=== PATIENT | male | born 1940 | race Caucasian/White ===

== ENCOUNTER 2023-04-07 17:21 | Inpatient (IN) | payer MEDICARE, SELFPAY ==
[2023-04-07] VITALS (8 sets, daily range): BP systolic 105–148; BP diastolic 70–100; BMI 24.7
--- NOTE | 2023-04-07 13:10 | ED.GENMED ---
History of Present Illness
<Brittney Davila PA-C - Last Filed: 04/07/23 18:38>
General
Chief Complaint: Breathing Problem
Source: patient
Exam Limitations: none
Time Seen by Provider: 04/07/23 13:10
Nursing documentation reviewed up to this point in time: agreed with
Travel History
Have you had any contact with someone who has COVID-19?: No
Do you have any symptoms of coronavirus? Fever > 100 degrees, chills, cough, shortness of breath, sore throat, loss of taste or smell, muscle aches, or headache?: No
History of Present Illness
History of Present Illness:
This is a 82-year-old male with past medical history of COPD, A-fib on Eliquis presenting the emergency department today with shortness of breath for the past 3 days. He states that the shortnes of breath is worse with lying down and worse with
exertion. Patient states that he sees an ENT doctor for recurrent sinus infections and states that whenever he gets a sinus infection, he gets a COPD exacerbation. He received a call from his ENT today who wants to switch him to cefuroxime for his
sinus infection. Patient was going to go and clam picker the antibiotic today however, his shortness of breath became so severe when walking to the car [facility] that he decided to call EMS for transport to the ER. Patient states that he also has
associated chest tightness and coughing, but denies chest pain, palpitations, back pain. Patient denies fevers or chills, abdominal pain, nausea, vomiting, constipation, diarrhea. Patient states that he uses Symbicort daily for his COPD and uses
ipratropium as needed, he reports he tried his ipratropium inhaler last night which made his symptoms worse. Patient states that feels like his typical COPD exacerbations except more severe. Patient also states that the past few days, he has been
waking up at night, gasping for air. He states that every time he falls asleep, he cannot breathe. Patient denies lower extremity swelling. His brick catcher is Dr. Hinson and his linen grader is Dr. Peterson.
Past History
<Brittney Davila PA-C - Last Filed: 04/07/23 18:38>
Past History
ED Past Medical History: Arrthythmia (Atrial fib), Asthma, CAD, Cancer (Prostate CA), COPD, HTN, Hypercholesterolemia, Valvular disease and Other (chronic sinusitis, colon polyps, Vertigo, Ataxia, PNA,)
ED Past Surgical History: Cardiac (Stents), Urological (prostatectomy) and Other (colon polypectomy)
Social History
Tobacco: Former smoker (quit 45 years ago)
Alcohol: Daily (Vodka 1)
Drug: None
Personal:
Living: with family
Employment: Retired
Family History
Family History: Other (n/c)
Review of Systems
<Brittney Davila PA-C - Last Filed: 04/07/23 18:38>
Review of Systems
All Other Systems: ROS reviewed and negative except as documented in HPI and ROS
Phy Exam
<Brittney Davila PA-C - Last Filed: 04/07/23 18:38>
Physical Exam
Physical Exam:
General: patient is well appearing
Skin: warm and dry, no rashes or lesions
Cardiac: heart rate is irregularly irregular, no murmur heard. No JVD.
Peripheral Vascular: 2+ dp/pt pulses b/l. No lower extremity edema.
Pulm: increased respiratory effort, increased respiratory rate, conversational dyspnea, scattered wheezing heard diffusely bilaterally
Abdomen: abdomen is non-distended, non-tender.
Neuro: AAOx3. CN II-XII intact.
Scores
<Brittney Davila PA-C - Last Filed: 04/07/23 18:38>
Heart Failure Risk
Heart Failure Risk Score: Not Applicable
Course
<Brittney Davila PA-C - Last Filed: 04/07/23 18:38>
Orders/Labs/Results
Orders:
Orders
04/07/23 11:49
EKG [Electrocardiogram (*1)] Urgent
Reason for Study: Shortness of Breath
EKG- Treatment ONCE
04/07/23 13:32
CR Chest - 2 Views Urgent
Comment:
Reason For Exam: shortness of breath
04/07/23 13:55
Complete Blood Count/With Diff Urgent
Comprehensive Metabolic Panel Urgent
04/07/23 13:56
Add On- LAB Urgent
Tests Added?: troponin
Diltiazem 125 mg/125 ml Nss [Cardizem] 125 mg in 125 ml IV NOW
Initial dose in mg/hr, then titrate:: 5
Titrate to keep:: Heart rate 80-100 bpm
Titrate by mg/hr:: 5 mg/hr
Frequency of titrations (minutes):: 15
Maximum dose in mg/hr:: 15
Diltiazem HCl [Cardizem] 5 mg IV NOW STA
04/07/23 13:59
Ipratropium Nebs [Atrovent Nebules] 0.5 mg INH R NOW STA
04/07/23 14:08
Ipratropium/Albuterol Sulfate [Duoneb] 3 ml .ROUTE .STK-MED ONE
04/07/23 14:15
NT-proBNP Urgent
Troponin I Urgent
Comment: ADD ON
04/07/23 15:19
CefTRIAXone [Rocephin] 1,000 mg IV NOW STA
Dexamethasone Sod Phosphate [Decadron] 4 mg IV NOW STA
Doxycycline Hyclate [Vibramycin] 100 mg 0.9% Sodium Chloride 250 ml [Nss] 250 ml IV NOW
04/07/23 15:44
Doxycycline [Vibramycin] 100 mg PO NOW STA
04/07/23 16:16
Amiodarone [Cordarone] 150 mg Dextrose 5%/Water 100 ml [D5w] 100 ml IV NOW
04/07/23 16:18
Admit/Transfer Patient As Directed
Co-Sign Provider:
Level of Care: Inpatient admission
Assign to:: Telemetry
Physician / Group: Dr. Jorje Nayak
Diagnosis: CHF
Reason for Telemetry: Subacute Heart Failure
Date to Stop Telemetry: 04/09/23
Time to Stop Telemetry: 11:00
Reason for Hospitalization: As above
Expected length of stay greater than two midnights?: Yes
ELOS- Estimated Length of Stay in days: 2
I certify the patient meets the requirements for IP care: Yes
04/07/23 16:23
Code Status As Directed
Resuscitation Status: Full Code
04/07/23 16:28
Furosemide [Lasix] 40 mg IV NOW STA
04/09/23 11:00
DC Protocol for Telemetry ONCE
Abnormal Lab Results
04/07/23
13:55
WBC 11.1 H 10^3/uL
(4.8-10.8)
RBC 4.69 L 10^6/uL
(4.70-6.10)
MCV 95.5 H fL
(80.0-94.0)
MCH 33.0 H pg
(27.0-31.0)
RDW 15.0 H %
(11.5-14.5)
MPV 10.5 H fL
(7.4-10.4)
Abs Immat Gran (auto) 0.1 H 10^3/uL
(0-0.05)
Absolute Neuts (auto) 9.4 H 10^3/uL
(1.4-6.5)
Absolute Lymphs (auto) 0.7 L 10^3/uL
(1.2-3.4)
Absolute Monos (auto) 0.9 H 10^3/uL
(0.1-0.6)
Neutrophils % 84.5 H %
(42.2-75.2)
Lymphocytes % 5.9 L %
(20.5-51.1)
BUN 26 H mg/dl
(9-20)
Creatinine 1.4 H mg/dL
(0.7-1.3)
04/07/23 13:55
04/07/23 13:55
Vital Signs
Initial and Last Documented VS:
Initial Vital Signs
Temp Pulse Resp BP Pulse Ox
97.9 F 134 18 148/100 96
04/07/23 11:46 04/07/23 11:46 04/07/23 11:46 04/07/23 11:46 04/07/23 11:46
Last Documented Vital Signs
Temp Pulse Resp BP Pulse Ox
97.9 F 111 10 105/73 98
04/07/23 11:46 04/07/23 16:38 04/07/23 14:30 04/07/23 16:38 04/07/23 14:30
[place];Mikel Tavarez, DO - Last Filed: 04/07/23 15:43>
Orders/Labs/Results
Orders:
Orders
04/07/23 11:49
EKG [Electrocardiogram (*1)] Urgent
Reason for Study: Shortness of Breath
EKG- Treatment ONCE
04/07/23 13:32
CR Chest - 2 Views Urgent
Comment:
Reason For Exam: shortness of breath
04/07/23 13:55
Complete Blood Count/With Diff Urgent
Comprehensive Metabolic Panel Urgent
04/07/23 13:56
Add On- LAB Urgent
Tests Added?: troponin
Diltiazem 125 mg/125 ml Nss [Cardizem] 125 mg in 125 ml IV NOW
Initial dose in mg/hr, then titrate:: 5
Titrate to keep:: Heart rate 80-100 bpm
Titrate by mg/hr:: 5 mg/hr
Frequency of titrations (minutes):: 15
Maximum dose in mg/hr:: 15
Diltiazem HCl [Cardizem] 5 mg IV NOW STA
04/07/23 13:59
Ipratropium Nebs [Atrovent Nebules] 0.5 mg INH R NOW STA
04/07/23 14:08
Ipratropium/Albuterol Sulfate [[facility]b] [facility]
04/07/23 14:15
NT-proBNP Urgent
Troponin I Urgent
Comment: ADD ON
04/07/23 15:19
CefTRIAXone [Rocephin] 1,000 mg IV NOW STA
Dexamethasone Sod Phosphate [Decadron] 4 mg IV NOW STA
Doxycycline Hyclate [Vibramycin] 100 mg 0.9% Sodium Chloride 250 ml [Nss] 250 ml IV NOW
04/07/23 15:44
Doxycycline [Vibramycin] 100 mg PO NOW STA
04/07/23 16:16
Amiodarone [Cordarone] 150 mg Dextrose 5%/Water 100 ml [D5w] 100 ml IV NOW
04/07/23 16:18
Admit/Transfer Patient As Directed
Co-Sign Provider:
Level of Care: Inpatient admission
Assign to:: Telemetry
Physician / Group: Dr. Jorje Nayak
Diagnosis: CHF
Reason for Telemetry: Subacute Heart Failure
Date to Stop Telemetry: 04/09/23
Time to Stop Telemetry: 11:00
Reason for Hospitalization: As above
Expected length of stay greater than two midnights?: Yes
ELOS- Estimated Length of Stay in days: 2
I certify the patient meets the requirements for IP care: Yes
04/07/23 16:23
Code Status As Directed
Resuscitation Status: Full Code
04/07/23 16:28
Furosemide [Lasix] 40 mg IV NOW STA
04/09/23 11:00
DC Protocol for Telemetry ONCE
Abnormal Lab Results
04/07/23
13:55
WBC 11.1 H 10^3/uL
(4.8-10.8)
RBC 4.69 L 10^6/uL
(4.70-6.10)
MCV 95.5 H fL
(80.0-94.0)
MCH 33.0 H pg
(27.0-31.0)
RDW 15.0 H %
(11.5-14.5)
MPV 10.5 H fL
(7.4-10.4)
Abs Immat Gran (auto) 0.1 H 10^3/uL
(0-0.05)
Absolute Neuts (auto) 9.4 H 10^3/uL
(1.4-6.5)
Absolute Lymphs (auto) 0.7 L 10^3/uL
(1.2-3.4)
Absolute Monos (auto) 0.9 H 10^3/uL
(0.1-0.6)
Neutrophils % 84.5 H %
(42.2-75.2)
Lymphocytes % 5.9 L %
(20.5-51.1)
BUN 26 H mg/dl
(9-20)
Creatinine 1.4 H mg/dL
(0.7-1.3)
04/07/23 13:55
04/07/23 13:55
Vital Signs
Initial and Last Documented VS:
Initial Vital Signs
Temp Pulse Resp BP Pulse Ox
97.9 F 134 18 148/100 96
04/07/23 11:46 04/07/23 11:46 04/07/23 11:46 04/07/23 11:46 04/07/23 11:46
Last Documented Vital Signs
Temp Pulse Resp BP Pulse Ox
97.9 F 111 10 105/73 98
04/07/23 11:46 04/07/23 16:38 04/07/23 14:30 04/07/23 16:38 04/07/23 14:30
<JENNIFER Lara Last Filed: 04/07/23 18:38>
MDM/Problems Addressed
Differential Diagnosis Includes:
ddx include COPD exacerbation, symptomatic afib, pneumonia, CHF
MDM/Problems Addressed:
shortness of breath
sinnusitis
Chronic conditions affecting care: HTN, Arrhythmia and COPD
Acute Exacerbation and/or Progression of Chronic Illness: HTN, Arrhythmia and COPD
<JENNIFER Lara Last Filed: 04/07/23 18:38>
*Pulse Oximetry
Patient hypoxic: no
*EKG
Interpreted by ED Provider?: Yes
EKG Intrepretation Date: 04/07/23
Interpretation: abnormal
Comparison EKG: changes noted
Heart Rate: 128
Rate: tachycardiac
Rhythm: a-fib
QRS Pattern: left bundle branch block
*Gang Knife Fish Chopper Interpretation
Rate: tachycardiac
Interpretation: abnormal
Heart Rate: 120
Rhythm: a-fib
*Critical Care Note
Total Time (30-74mins, 75-104mins- exclusive of procedures): Not Applicable
Data Reviewed
Review of Other/Old Records Reveals: Records and Discharge Summary (Reviewed discharge summary from 08/11/2022)
<JENNIFER Lara Last Filed: 04/07/23 18:38>
Patient Management
Escalation/DeEscalation of care consider admission/obs:
This is a 82-year-old male with past medical history of COPD, A-fib on Eliquis presenting the emergency department today with shortness of breath for the past 3 days. Patient states that he currently has sinusitis and states that this exacerbates
his COPD. Patient also currently in afib, he states that he is always been A-fib, however his rate today is in the 130s. Patient is anticoagulated and takes metoprolol. On exam, patient has conversational dyspnea and has diffuse wheezing his CBC
reveals a mild leukocytosis, and his CMP demonstrates a mild ENRRIQUE. Patient's chest x-ray revealed moderate pneumonia EKG demonstrated A-fib with RVR. Patient states that he is unable to take diltiazem because of an allergy, and with his current
bronchospasm we are going to start beta-skip, so cardiology was consulted. Patient will be admitted for further management of ENRRIQUE and pneumonia.
ED Attending Note
<Brittney Davila PA-C - Last Filed: 04/07/23 18:38>
-
Portions of this chart may have been created with voice recognition software.� Occasional wrong word or��sound alike� substitutions may have occurred due to the inherent limitations of voice recognition software.
<Mikel Tavarez DO - Last Filed: 04/07/23 15:43>
ED Attending Note
Patient seen and examined by attending physician: Yes
I performed a history and physical exam of patient and discussed management with resident, I reviewed resident's note and agree with documented findings and plan of care.: Yes
ED Attending Note:
I have reviewed and agree with history and treatment plan by Brittney Davila. My exam reveals 82-year-old male with bilateral rhonchi and wheezing, mild decreased breath sounds, tachycardia. Patient has allergies to diltiazem, and known COPD.
Will discuss with cardiology, and admit to hospitalist. IV Rocephin, and doxycycline ordered.
Discharge Plan
Departure
Patient Disposition: Admit
Date of Disposition: 04/07/23
Time of Disposition: 15:33
Presentation/result/management discussed w/ accepting MD/DO: Hospitalist
Patient with high blood pressure during this ER visit?: Yes
Condition: Good
Discharge Problem:
Community acquired pneumonia, COPD (chronic obstructive pulmonary disease)
Interventions
Interventions:
*Risk Screen - Suicide Last Done: 04/07/23 11:46
*General Assessment Last Done: 04/07/23 11:46
*Neglect/Abuse Screening Last Done: 04/07/23 11:46
ED- Fall Risk Assessment Last Done: 04/07/23 11:46
*ED COVID-19 Vaccine History Last Done: 04/07/23 11:46
ED- Cardiac Assessment Last Done: 04/07/23 11:56
ED- Pulmonary Assessment Last Done: 04/07/23 11:46
[2023-04-07 14:07] LABS: % Basophils 0.7 % (0-2); % Eosinophils 0.2 % (0-6); % Immature Granulocytes 0.5 % (0-0.5); % Lymphocytes 5.9 % (20.5-51.1); % Monocytes 8.2 % (1.7-9.3); % Neutrophils 84.5 % (42.2-75.2); Absolute Basophils 0.1 10^3/uL (0-0.2); Absolute Immature Granulocytes 0.1 10^3/uL (0-0.05); Absolute Lymphocytes 0.7 10^3/uL (1.2-3.4); Absolute Monocytes 0.9 10^3/uL (0.1-0.6); Absolute Neutrophils 9.4 10^3/uL (1.4-6.5); Hematocrit 44.8 % (39.0-52.0); Hemoglobin 15.5 g/dL (13.0-18.0); Mean Corp Hgb Conc. 34.6 g/dL (33.0-37.0); Mean Corpuscular Volume 95.5 fL (80.0-94.0); Mean Platelet Volume 10.5 fL (7.4-10.4); Nucleated Red Blood Cells % 0 % (-); Platelet Count 238 10^3/uL (130-400); Red Blood Cell Count 4.69 10^6/uL (4.70-6.10); White Blood Cell Count 11.1 10^3/uL (4.8-10.8)
[2023-04-07 14:14] LABS: ALT (SGPT) 23 U/L (0-50); AST (SGOT) 31 U/L (17-59); Albumin 3.7 g/dl (3.5-5.0); Alkaline Phosphatase 68 U/L (38-126); Blood Urea Nitrogen 26 mg/dl (9-20); Calcium 8.7 mg/dl (8.4-10.2); Carbon Dioxide 24 mmol/L (22-30); Chloride 107 mmol/L (98-107); Estimated Creatinine Clearance 39 ml/min; Glucose 98 mg/dl (70-99); Potassium 3.9 mmol/L (3.5-5.1); Sodium 138 mmol/L (135-145); Total Bilirubin 1.3 mg/dl (0.2-1.3); Total Protein 6.7 g/dl (6.3-8.2); eGFR 49.87
[2023-04-07] MEDS: ATROVENT NEBULES 0.5 MG INH (14:18)
[2023-04-07 15:03] LABS: NT-proBNP 5210 pg/ml; Troponin I < 0.012 ng/ml
--- NOTE | 2023-04-07 15:34 | CON.CAR ---
Addendum entered and electronically signed by Octavio Mchugh MD 04/07/23 17:20:
I saw and examined the patient.
The DEBUG TECHNICIAN's note was reviewed and I agree with the note.
Comment: 82-year-old male with paroxysmal atrial fibrillation on apixaban, heart failure with improved EF (40% -> 50%), coronary artery disease, TAVR for severe aortic stenosis 07/22/2019, and LBBB who presented to the emergency department with a
chief complaint of shortness of breath. Overall, his weight appears ~4 lbs up and appears to be also experiencing a possible COPD exacerbation. His AF with RVR seems to have been ongoing for ~ 1 week.
- IV diuresis today and tomorrow, likely transition to oral tomorrow afternoon or 04/09/2023
- AF RVR amiodarone and metoprolol, possible DCCV prior to discharge
Original Note:
Consultation
Consultation Request
Date/Time Consultation Requested: 04/07/23 15:30
Date/Time Consultation Performed: 04/07/23 15:40
Requesting Provider: Brittney Davila PA-C
Performing Provider: ISMAEL Chacon for Dr. Mchugh
Reason for Consultation: Atrial fibrillation with RVR
Medical History
-
Chief Complaint: Shortness of breath
History of Present Illness:
Luis Pendleton is an 82-year-old male with paroxysmal atrial fibrillation on apixaban, heart failure with improved EF (40% -> 50%), coronary artery disease, TAVR for severe aortic stenosis 07/22/2019, and LBBB who presented to the emergency
department with a chief complaint of shortness of breath. He reports his shortness of breath started approximately 3 days ago. He saw his ENT and reported nasal swab with 'staph infection' and was started on oral antibiotics. However his
shortness of breath persisted. It is worse with exertion and improves with rest. He is not having any chest pain. He checks his oxygen levels at home. He reports his heart rate has been over 100 for the past week. He denies missed doses of
apixaban. He was found to be in atrial fibrillation with rapid ventricular response. Chest x-ray shows small pleural effusions. He reports decreasing his furosemide on his own. He reports that his furosemide was interfering with his quality of
life. He decreased from 40 mg twice daily to 40 mg in the morning and 20 mg in the evening.
Past Medical History
Past Medical History: CAD, Cancer (Prostate), COPD, HTN, Hypercholesterolemia and Valvular Disease (Severe S/P TAVR)
Past Surgical History: Tonsilectomy and Urological
Social History
Tobacco: Former Smoker
Alcohol: None
Employment: Retired
Family History
Family History: Reviewed & Not Pertinent
Allergies / Home Medications
Allergy/AdvReac Type Severity Reaction Status Date / Time
albuterol Allergy Unknown Verified 04/07/23 14:21
animal dander Allergy Shortness Verified 09/15/21 11:14
of Breath
diltiazem Allergy Unknown Verified 04/07/23 14:20
iodine Allergy shellfish Verified 09/15/21 11:14
allergy
pollen extracts Allergy sneezing, Verified 09/15/21 11:14
hayfever
shellfish derived Allergy Anaphylaxis Verified 09/15/21 11:14
tree and shrub pollen Allergy sneezing, Verified 09/15/21 11:14
hayfever
sulphites Allergy Anaphylaxis Uncoded 09/15/21 11:14
WINE Allergy Anaphylaxis Uncoded 09/15/21 11:14
Medication Instructions Recorded Confirmed Type
ascorbic acid (vitamin C) 250 mg 250 mg PO DAILY Supplement 03/31/19 08/07/22 History
tablet
rosuvastatin 5 mg tablet 5 mg PO Q48H High cholesterol 07/14/19 08/07/22 History
Mometasone 1mg Compound 1 spray intranasal BID 02/28/20 08/07/22 History
Lung/breathing issues
calcium carbonate 500 mg calcium 250 mg PO TUWEFR Supplement 02/28/20 08/07/22 History
(1,250 mg) tablet (Oyster Shell
Calcium 500)
cholecalciferol (vitamin D3) 25 1,000 units PO DAILY Supplement 02/28/20 08/07/22 History
mcg (1,000 unit) tablet
loratadine 10 mg tablet 10 mg PO DAILY Allergies 02/28/20 08/07/22 History
montelukast 10 mg tablet 10 mg PO HS Lung/breathing issues 02/28/20 08/07/22 History
multivitamin with folic acid 400 1 tab PO DAILY Supplement 02/28/20 08/07/22 History
mcg tablet (Tab-A-Tl)
nitroglycerin 0.4 mg sublingual 0.4 mg sublingual [id number] PRN 02/28/20 08/07/22 History
tablet chest pain
potassium chloride 20 mEq 20 meq PO DAILY Electrolyte 02/11/21 08/07/22 History
tablet,extended Repletion
release(part/cryst) (Klor-Con M)
amiodarone 200 mg tablet (Pacerone) 200 mg PO DAILY Arrhythmia 08/07/22 08/07/22 History
biotin 1 mg capsule 1 mg PO DAILY Supplement 08/07/22 08/07/22 History
cyanocobalamin (vitamin B-12) 250 250 mcg PO DAILY Supplement 08/07/22 08/07/22 History
mcg tablet
ipratropium bromide 21 mcg (0.03 2 spray intranasal BIDPRN PRN 08/07/22 08/07/22 History
%) nasal spray allergies
levalbuterol tartrate 45 2 puff inhalation R [id number] PRN SOB 08/07/22 08/07/22 History
mcg/actuation aerosol inhaler
metoprolol succinate 50 mg 50 mg PO DAILY Blood Pressure 08/07/22 08/07/22 History
tablet,extended release 24 hr
potassium chloride 20 mEq 10 meq PO HS Electrolyte Repletion 08/07/22 08/07/22 History
tablet,extended release(part/cryst)
apixaban 5 mg tablet (Eliquis) 5 mg PO BID #60 tabs 08/09/22 Rx
clopidogrel 75 mg tablet 75 mg PO DAILY #30 tabs 08/09/22 Rx
furosemide 40 mg tablet 40 mg PO BID AT 0800,1600 #0 tabs 08/09/22 Rx
nitroglycerin 0.4 mg sublingual 0.4 mg sublingual [id number] PRN 08/09/22 Rx
tablet chest pain #0 tabs
Review of Systems
-
History Source: Patient
All other systems: Negative unless noted
Constitutional: Fatigue
EENT: Runny Nose
Respiratory: Trouble Breathing
Physical Exam
Vital Signs
Temp Pulse Resp BP Pulse Ox
97.9 F 121 10 124/89 98
04/07/23 11:46 04/07/23 14:30 04/07/23 14:30 04/07/23 13:18 04/07/23 14:30
Lab Results
04/07/23 13:55
04/07/23 13:55
Troponin I < 0.012 ng/ml 04/07/23 14:15
Qpf-H-Vdwolrjqewy Pept 5210 pg/ml 04/07/23 14:15
Physical Exam
General: Well Developed, Well Nourished, No Apparent Distress and Comfortable
HEENT: Normocephalic, Anicteric and Moist Mucous Membranes
Respiratory: Non Labored Respirations
Cardiac: S1/S2 and Irregular Rhythm; Negative Peripheral Edema
Breast: Deferred by me
GI: Soft, Non Tender, Non Distended and Normal Bowel Sounds
Rectal: Deferred by Provider
Genito-urinary: No Costovertebral Tender
Musculoskeletal: No Clubbing, No Cyanosis and No Edema
Skin: Warm and Dry
Neuro: AO x 3
Hematologic/Lymphatic: No Lymphadenopathy
Psych: Calm
Impression / Plan
-
Atrial fibrillation with RVR
-Diltiazem caused palpitations in the past
-Rates elevated, amiodarone bolus 150mg x 1 now, then 400mg BID for 14 days followed by 200mg daily
-Oral Anticoagulation: Apixaban 5mg BID, denies missed doses and abnormal bleeding
-[id number]: Score 4 (Heart failure, age 75 or more, Vascular disease)
HFpEF, acute on chronic
-Diuresis with furosemide 40mg IV BID, does not appear grossly volume overloaded
-Trend daily weight, I/O, and BMP with diuresis
-Heart failure education
-Update TTE
COPD, he was acutely wheezing per ER, S/P nebulizer
Severe aortic stenosis S/p TAVR (2019), stable on outpatient echocardiogram
CAD, stable without chest pain
LBBB, chronic
Data Reviewed
-
EKG: Report Reviewed by me (Atrial fibrillation with RVR, LBBB, rate 128)
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
Medical Tests (Nuc Med, Echo etc): Report Reviewed by me (Echocardiogram as above)
Labs: Labs Reviewed by me
Old Records: Reviewed
[2023-04-07] MEDS: ROCEPHIN 1000 MG IV (15:40)
[2023-04-07] MEDS: DECADRON 4 MG IV (15:40)
[2023-04-07] MEDS: VIBRAMYCIN 100 MG PO ×2 (16:10→21:05)
--- NOTE | 2023-04-07 16:33 | HPS.HSE ---
Addendum entered and electronically signed by Jorje Nayak MD 04/07/23 17:29:
Patient seen and examined
Discussed with resident
Impression:
Presentation with exertional dyspnea.
Acute CHF preserved EF in the settings of A-fib with rapid ventricular response
Paroxysmal atrial fibrillation with rapid ventricular response
Anticoagulation with Eliquis uninterrupted
ENRRIQUE? Cardiorenal state.
Acute sinusitis.
Pneumonia? Left lower lobe process traced back on prior imaging.
Aortic stenosis status post TAVR.
CAD with history of stenting.
Plan:
Acute CHF preserved EF most likely in the settings of A-fib with RVR
Not hypoxic
No evidence for significant volume overload, although patient reports reduction of p.m. Lasix dose by 50%.
Noted elevated pro CHF BNP above the baseline.
IV Lasix 40 mg IV will be provided in ED
Reassess volume status closely, may need additional IV diuresis versus transitioning to oral.
Paroxysmal A-fib with RVR
Rates up to 130 while in the emergency room.
IV amiodarone provided in ED.
Monitor response
Continue beta-blockade
Hold for chemical cardioversion.
Continue Eliquis
ENRRIQUE? If cardiorenal state with rapid with prerenal stimuli
Monitor closely with diuresis
Monitor for retention
Pneumonia?
Patient reports acute sinusitis recently seen by ENT and initiated on tetracycline
Chest x-ray with left lower lobe linear infiltrate? Atelectasis traced back on CT scan of the chest February 2022.
No cough.
Mild leukocytosis noted.
Will continue antibiotics to cover community-acquired pathogens with ceftriaxone and doxycycline.
Monitor response of dyspnea to IV diuresis in the meantime
Original Note:
Family Physician
-
Family Physician: Rich Spencer
Chief Complaint
-
Dyspnea
History of Present Illness
Luis Vinicio, 82 year-old male, presented to the emergency on 04-07-23 with progressive shortness of breath, even at rest. He states that he got a sinus infection 1 week ago, nasal swab showed 'staph infection' at his ENT's office, and was
started on tetracycline.
Notes that 3 days ago, he started experiencing shortness of breath which continued to worsen. Denies chest pain but the dyspnea is worse with exertion and improves with rest. He has been unable to sleep or lie flat on bed because of the shortness of
breath. He has been prescribed furosemide 40 mg BID, but he has been cutting the evening pill in half to avoid waking up at night frequently for the past few weeks.
His medical history is notable for paroxysmal atrial fibrillation on apixaban, heart failure with improved EF (40% -> 50%), coronary artery disease, TAVR for severe aortic stenosis 07/22/2019, and LBBB. He was found to be in atrial fibrillation with
rapid ventricular response in the ED and received amiodarone. Chest x-ray shows small bilateral pleural effusions, and he was started on empiric antibiotics. Also got IV furosemide 40 mg once in the ED.
Medical History
Past Medical History
Past Medical History: Reports Other
Additional Past Medical History:
Paroxysmal atrial fibrillation
HFpEF
CAD
COPD
Severe aortic stenosis
Chronic left bundle branch block
Prostate cancer
Past Surgical History: Reports Other
Additional Past Surgical History:
TAVR -in July 2019
Prostatectomy
Colon polypectomy
Social History
Tobacco: Former Smoker (quit 45 years ago smoked 1ppd X20 years)
Alcohol: Daily
Drug: None
Personal:
Living: With Family
Employment: Retired
Family History
Family History: Not pertinent
Allergies / Home Medications
Allergies reflects when Allergies were last updated in [employer].
Home Medications with original date entered in [employer]
Allergy/Medication List:
Review of Systems
-
History Source: Patient
Constitutional: Reports Sleep Disturbance (cough and dyspnea)
EENT: Reports Runny Nose
Respiratory: Reports Trouble Breathing
Cardiac: Reports Palpitations
Abdomen/GI: Reports No Symptoms
: Reports No Symptoms
Musculoskeletal: Reports No Symptoms
Skin: Reports No Symptoms
Neurological: Reports No Symptoms
Endocrine: Reports No Symptoms
Hematologic/Lymphatic: Reports No Symptoms
Psych: Reports No Symptoms
Physical Exam
Vital Signs
Vital Signs
Temp Pulse Resp BP Pulse Ox
97.9 F 121 10 124/89 98
04/07/23 11:46 04/07/23 14:30 04/07/23 14:30 04/07/23 13:18 04/07/23 14:30
Physical Exam
General: No Apparent Distress, Comfortable and Conversant
HEENT: NormoCephalic, Anicteric, Moist mucous membranes and Atraumatic
Respiratory: Clear and Non Labored Respirations
Cardiac: S1/S2, Regular Rhythm and Tachycardia
GI: Soft, Non Tender, Non Distended and No Hepatosplenomegaly
Genito-urinary: No costovertebral tender
Musculoskeletal: No Clubbing, No Cyanosis and No Edema
Skin: Warm, Dry and IV/Catheter Site
Neuro: Awake, Alert, Oriented, No Motor Deficits and Nonfocal/grossly intact
Hematologic/Lymphatic: No Lymphadenopathy
Psych: Calm and Intact Judgment/Insight
Laboratory Results
-
04/07/23 13:55
04/07/23 13:55
Laboratory Results
Total Bilirubin 1.3 mg/dl (0.2-1.3) 04/07/23 13:55
AST 31 U/L (17-59) 04/07/23 13:55
ALT 23 U/L (0-50) 04/07/23 13:55
Alkaline Phosphatase 68 U/L (38-126) 04/07/23 13:55
Troponin I < 0.012 ng/ml 02/26/24 14:15
Impression/Plan
-
Impression:
* Heart failure with preserved ejection fraction, acute on chronic
* Atrial fibrillation, with rapid ventricular response
* Sinus infection; pneumonia(?)
* Chronic obstructive pulmonary disease, without exacerbation
Plan:
Heart failure with preserved ejection fraction, acute on chronic
- Presumed to be causing the shortness of breath.
- He has been prescribed furosemide 40 mg BID, but he has been cutting the evening pill in half to avoid waking up at night frequently for the past few weeks.
- Chest x-ray shows small bilateral effusions.
- pro-BNP was notably 5210 on 04-07-23, up from 227 on 08-07-22.
- Received IV furosemide 40 mg in the ED.
- Will continue oral furosemide 40 mg BID from tomorrow.
- Atrial fibrillation with rapid ventricular response likely contributing to the exacerbation.
- Follow CBC and BMP.
Atrial fibrillation, with rapid ventricular response
- He was on diltiazem previously, but did not tolerate it.
- Was switched back to metoprolol succinate.
- Received amiodarone bolus 150mg x 1 in the ED.
- Plan is to continue amiodarone 400mg BID for 14 days followed by 200mg daily subsequently.
- He is on apixaban 5mg BID.
Sinus infection; pneumonia(?)
- He a sinus infection 1 week ago.
- Nasal swab showed 'staph infection' at his ENT's office, and was started on tetracycline.
- Chest x-ray showed small bilateral effusions.
- He has mild leukocytosis (11.1), has been afebrile, and vitals are mostly stable.
- Suspicion of pneumonia remains low.
- On empiric doxycycline and ceftriaxone.
Chronic obstructive pulmonary disease, without exacerbation
- Stable.
- Continue meds.
Code status
- Full.
[2023-04-07] MEDS: LASIX 40 MG IV (16:38)
[2023-04-07] MEDS: CORDARONE 103 MG IV (16:39)
[2023-04-07] MEDS: SYMBICORT 160/4.5 MCG INHALER 2 PUFF INH (19:58)
[2023-04-07] MEDS: ELIQUIS 5 MG PO (20:08)
[2023-04-07] MEDS: LOPRESSOR 5 MG IV (21:05)
[2023-04-07] MEDS: SINGULAIR 10 MG PO (21:05)
--- NOTE | 2023-04-07 23:46 | PTCARENOTE ---
Patient received in bed from ED AAOx3 at 1900. Patient notified to be tachycardic in 120s upon arrival to floor. [employer] CHIEF SCIENTIST notified. PRN lopressor given. Oriented to room and call su.
[2023-04-08] VITALS (8 sets, daily range): BP systolic 99–130; BP diastolic 58–86; BMI 23.5
[2023-04-08] MEDS: LOPRESSOR 5 MG IV ×2 (01:13→07:50)
[2023-04-08 07:48] LABS: % Basophils 0.2 % (0-2); % Immature Granulocytes 0.6 % (0-0.5); % Lymphocytes 4.7 % (20.5-51.1); % Monocytes 5.5 % (1.7-9.3); Absolute Immature Granulocytes 0.1 10^3/uL (0-0.05); Absolute Lymphocytes 0.5 10^3/uL (1.2-3.4); Absolute Monocytes 0.6 10^3/uL (0.1-0.6); Absolute Neutrophils 8.9 10^3/uL (1.4-6.5); Hematocrit 43.7 % (39.0-52.0); Mean Corp Hgb Conc. 34.3 g/dL (33.0-37.0); Mean Corpuscular Hgb 32.3 pg (27.0-31.0); Mean Corpuscular Volume 94.2 fL (80.0-94.0); Mean Platelet Volume 10.6 fL (7.4-10.4); Nucleated Red Blood Cells % 0 % (-); Platelet Count 235 10^3/uL (130-400); Red Blood Cell Count 4.64 10^6/uL (4.70-6.10); Red Cell Dist. Width 14.9 % (11.5-14.5)
[2023-04-08] MEDS: PLAVIX 75 MG PO (07:49)
[2023-04-08] MEDS: LASIX 40 MG PO ×2 (07:49→15:22)
[2023-04-08] MEDS: VIBRAMYCIN 100 MG PO ×2 (07:49→20:13)
[2023-04-08] MEDS: TOPROL XL 50 MG PO (07:49)
[2023-04-08] MEDS: CLARITIN 10 MG PO (07:49)
[2023-04-08] MEDS: ELIQUIS 5 MG PO ×2 (07:49→08:12)
[2023-04-08 08:19] LABS: Blood Urea Nitrogen 33 mg/dl (9-20); Carbon Dioxide 26 mmol/L (22-30); Chloride 103 mmol/L (98-107); Estimated Creatinine Clearance 42 ml/min; Glucose 107 mg/dl (70-99); Sodium 138 mmol/L (135-145); eGFR 54.51
[2023-04-08] MEDS: SYMBICORT 160/4.5 MCG INHALER 2 PUFF INH ×2 (08:27→19:47)
--- NOTE | 2023-04-08 09:25 | W.PN.CD ---
Today's Communication / Plan
-
- re-try diltiazem
- transition to oral diuretic
- Update TTE
Impression / Plan
-
Impression: 82M with dyspnea concerning for a component of HF, perhaps due to fast AF
Plan
Atrial fibrillation with RVR - Dr. Lieberman's OV note from Feb 2023 indicates they accepted AF as permanent (and stopped amiodarone)
-Diltiazem caused palpitations in the past, but he is ready to try again - now thinks side effects may not have been diltiazem. Will restart and observe.
-continue BB
-Oral Anticoagulation: Apixaban 5mg BID, denies missed doses and abnormal bleeding
-[id number]: Score 4 (Heart failure, age 75 or more, Vascular disease)
HFpEF, acute on chronic
-Diuresis with furosemide 40mg IV BID, does not appear grossly volume overloaded -> transition to oral diuretic.
-Trend daily weight, I/O, and BMP with diuresis
-Heart failure education
-Update TTE
COPD, he was acutely wheezing per ER, S/P nebulizer
Severe aortic stenosis S/p TAVR (2019), stable on outpatient echocardiogram
CAD, stable without chest pain
LBBB, chronic
Laboratory Data
04/08/23
07:16
Hgb 15.0
Creatinine 1.3
Selected Entries
04/07/23
11:55 04/08/23
06:00
Actual Weight 162 lb 11.218
oz 154 lb 7 oz
Generic Name Dose Route Start Last Admin
Trade Name Freq PRN Reason Stop Dose Admin
Apixaban 5 mg 04/07/23 20:00
Apixaban (Eliquis) 5 Mg Tablet PO 05/05/23 19:59
BID GEORGE
Clopidogrel Bisulfate 75 mg 04/08/23 08:00
Clopidogrel 75 Mg Tablet PO 05/06/23 07:59
DAILY GEORGE
Metoprolol Succinate 50 mg 04/08/23 08:00
Metoprolol 50 Mg Extended Release Tablet PO 05/06/23 07:59
DAILY GEORGE
Rosuvastatin Calcium 5 mg 04/08/23 18:00
Rosuvastatin (Crestor) 5 Mg Tablet PO 05/06/23 17:59
Q48H GEORGE
Furosemide 40 mg 04/08/23 08:00
Furosemide 40 Mg Tablet PO 05/06/23 07:59
BID AT 0800,1600 GEORGE
Physical Exam
Vital Signs/Labs
Vital Signs
Temp Pulse Resp BP Pulse Ox
36.6 C 115 20 125/86 97
04/08/23 07:30 04/08/23 07:50 04/08/23 07:30 04/08/23 07:50 04/08/23 07:30
04/07/23 04/08/23 04/09/23
06:59 06:59 06:59
Actual Weight 154 lb 7 oz
04/08/23 07:16
04/08/23 07:16
04/07/23
14:15
Evk-J-Nshyfvrkdca Pept 5210
LAB Results
04/07/23
14:15
Troponin I < 0.012
Physical Exam
Constitutional: No acute distress
EENT: Anicteric and Moist mucous membranes
Cardiovascular: Systolic murmur absent, Diastolic murmur absent, Rhythm/rate is irregular and Pedal edema present
Respiratory: Respiratory effort normal and Other (decreased BS)
GI: Soft, Distention absent and Non tender
Neuro/Psych: Alert
Data Reviewed
-
Date of Service: April 08, 2023
Echo: Other (Tele AF around 115)
[2023-04-08] MEDS: CARDIZEM CD 120 MG PO (10:14)
--- NOTE | 2023-04-08 12:12 | CM ---
Patient seen bedside, initial assessment completed. Patient reports he resides with his in a two story home, two steps to enter. Patient reports he has a nebulizer at home, has a chair lift for his , denies other DME. Patient denies VN or
SNF. Patient confirms PCP Dr. Rich Spencer, pharmacy [facility]. CM will continue to follow for discharge planning needs.
Plan; home no needs anticipated.
--- NOTE | 2023-04-08 13:50 | W.PN.HOSP.TC ---
Addendum entered and electronically signed by Jorje Nayak MD 04/08/23 15:27:
Patient seen and examined
Discussed with resident
Impression/plan:
Acute CHF preserved EF
Suspected decompensation in the settings of A-fib with RVR.
ENRRIQUE, suspect due to cardiorenal state.
A-fib with RVR upon presentation status post single dose of amiodarone.
Attempt at diltiazem continue metoprolol.
Continue anticoagulation with Eliquis
Dyspnea improved with additional diuresis IV Lasix given in ED on 04/07. Continue oral dose at 40 mg twice daily
Monitor renal function
Acute sinusitis
Patient reported streptococcal culture done by outpatient ENT P
Doubt pneumonia or COPD exacerbation
Left lower lobe process traced to prior imaging.
Patient is not hypoxic with normal white count.
Continue antibacterial regimen with ceftriaxone/doxycycline targeting bronchitis/sinusitis
Okay for nasal tobramycin and corticosteroids.
Original Note:
Today's Communication/Plan
-
- Re-try diltiazem.
- Continue apixaban and furosemide.
Assessment / Plan
Assessment / Plan
Assessment:
Luis Mooney, 82 year-old male, presented to the emergency on 04-07-23 with progressive shortness of breath, even at rest. He states that he got a sinus infection 1 week ago, nasal swab showed 'staph infection' at his ENT's office, and was
started on tetracycline.
Notes that 3 days ago, he started experiencing shortness of breath which continued to worsen. Denies chest pain but the dyspnea is worse with exertion and improves with rest. He has been unable to sleep or lie flat on bed because of the shortness of
breath. He has been prescribed furosemide 40 mg BID, but he has been cutting the evening pill in half to avoid waking up at night frequently for the past few weeks.
His medical history is notable for paroxysmal atrial fibrillation on apixaban, heart failure with improved EF (40% -> 50%), coronary artery disease, TAVR for severe aortic stenosis 07/22/2019, and LBBB. He was found to be in atrial fibrillation with
rapid ventricular response in the ED and received amiodarone. Chest x-ray shows small bilateral pleural effusions, and he was started on empiric antibiotics. Also got IV furosemide 40 mg once in the ED.
Impression:
* Heart failure with preserved ejection fraction, acute on chronic
* Atrial fibrillation, with rapid ventricular response
* Sinus infection; pneumonia(?)
* Chronic obstructive pulmonary disease, without exacerbation
* Aortic stenosis status post TAVR.
* CAD with history of stenting.
Plan:
Heart failure with preserved ejection fraction, acute on chronic
- Presumed to be causing the shortness of breath.
- He has been prescribed furosemide 40 mg BID, but he has been cutting the evening pill in half to avoid waking up at night frequently for the past few weeks.
- Chest x-ray shows small bilateral effusions.
- pro-BNP was notably 5210 on 04-07-23, up from 227 on 08-07-22.
- Received IV furosemide 40 mg in the ED.
- Continue oral furosemide 40 mg BID.
- Atrial fibrillation with rapid ventricular response likely contributing to the exacerbation.
- Dyspnea and overall status improved after diuresis and amiodarone then diltiazem.
- Follow CBC and BMP.
Atrial fibrillation, with rapid ventricular response
- He was on diltiazem previously, but did not tolerate it.
- Was switched back to metoprolol succinate.
- Received amiodarone bolus 150mg x 1 in the ED.
- Plan is to continue amiodarone 400mg BID for 14 days followed by 200mg daily subsequently.
- He is on apixaban 5mg BID.
- Re-try diltiazem, per cardiology.
Acute sinusitis; pneumonia(?)
- He a sinus infection 1 week ago.
- Nasal swab showed 'staph infection' at his ENT's office, and was started on tetracycline.
- Chest x-ray showed small bilateral effusions.
- Left lower lobe process traced back on prior imaging.
- He has mild leukocytosis (11.1), has been afebrile, and vitals are mostly stable.
- Suspicion of pneumonia remains low.
- On empiric doxycycline and ceftriaxone.
Chronic obstructive pulmonary disease, without exacerbation
- Stable.
- Continue meds.
DVT prophylaxis
- On apixaban 5 mg BID.
Code status
- Full.
Anticipated Discharge: Within 24 hours
Subjective/Interval History
-
Date of Service: April 08, 2023
Objective Data
-
Labs:
Laboratory Results
04/08/23
07:16
WBC 10.0
Hgb 15.0
Hct 43.7
Plt Count 235
Sodium 138
Potassium 4.0
Chloride 103
Carbon Dioxide 26
BUN 33 H
Creatinine 1.3
Glucose 107 H
Calcium 9.0
Vital Signs:
Vital Signs
Temp Pulse Resp BP Pulse Ox
97.8 F 110 16 127/83 96
04/08/23 11:30 04/08/23 13:33 04/08/23 11:30 04/08/23 13:33 04/08/23 11:30
Review of Systems
-
History Source: Patient
Constitutional: Reports No Symptoms
EENT: Reports No Symptoms Reported
Respiratory: Reports No Symptoms
Cardiac: Reports No Symptoms
Abdomen/GI: Reports No Symptoms
Genitourinary: Reports No Symptoms
Musculoskeletal: Reports No Symptoms
Skin: Reports No Symptoms
Neuro: Reports No Symptoms
Endocrine: Reports No Symptoms
Hematologic / Lymphatic: Reports No Symptoms
Allergy / Immunology: Reports No Symptoms
Physical Exam
-
General: No Apparent Distress and Comfortable
HEENT: Normocephalic, Atraumatic, Moist Mucous Membranes and Anicteric
Respiratory: Clear to Auscultation and Non Labored Respirations
Cardiac: Regular Rhythm and S1/S2
GI: Soft, Nontender, Nondistended, Normal Bowel Sounds and No Hepatosplenomegaly
Genito-urinary: No Costovertebral Tender
Musculoskeletal: No Clubbing, No Cyanosis and No Edema
Skin: Warm and Dry
Neuro: Awake, Alert and Oriented
Hematologic / Lymphatic: No Lymphadenopathy
Psych: Calm
[2023-04-08] MEDS: ROCEPHIN 1000 MG IV (15:22)
[2023-04-08] MEDS: STERILE WATER FOR INJECTION 10 ML IV (15:22)
[2023-04-08] MEDS: CRESTOR 5 MG PO (17:04)
[2023-04-08] MEDS: NON-FORMULARY ITEM 1 UNIT NASAL (20:13)
[2023-04-08] MEDS: SINGULAIR 10 MG PO (21:14)
[2023-04-08] MEDS: TYLENOL 650 MG PO (21:36)
[2023-04-09 03:00] VITALS: BP 121/83; BMI 23.5
[2023-04-09 04:06] VITALS: BMI 23.5
[2023-04-09 07:00] VITALS: BP 98/65
[2023-04-09 07:31] LABS: % Basophils 0.1 % (0-2); % Eosinophils 0.1 % (0-6); % Immature Granulocytes 0.6 % (0-0.5); % Monocytes 8.8 % (1.7-9.3); % Neutrophils 84.4 % (42.2-75.2); Absolute Immature Granulocytes 0.1 10^3/uL (0-0.05); Absolute Lymphocytes 0.8 10^3/uL (1.2-3.4); Absolute Monocytes 1.2 10^3/uL (0.1-0.6); Absolute Neutrophils 11.6 10^3/uL (1.4-6.5); Hematocrit 42.7 % (39.0-52.0); Hemoglobin 14.6 g/dL (13.0-18.0); Mean Corp Hgb Conc. 34.2 g/dL (33.0-37.0); Mean Corpuscular Hgb 32.2 pg (27.0-31.0); Mean Corpuscular Volume 94.3 fL (80.0-94.0); Mean Platelet Volume 10.8 fL (7.4-10.4); Nucleated Red Blood Cells % 0 % (-); Platelet Count 228 10^3/uL (130-400); Red Blood Cell Count 4.53 10^6/uL (4.70-6.10); Red Cell Dist. Width 14.7 % (11.5-14.5); White Blood Cell Count 13.7 10^3/uL (4.8-10.8)
[2023-04-09 08:33] LABS: Blood Urea Nitrogen 35 mg/dl (9-20); Calcium 8.5 mg/dl (8.4-10.2); Carbon Dioxide 27 mmol/L (22-30); Chloride 106 mmol/L (98-107); Estimated Creatinine Clearance 42 ml/min; Glucose 89 mg/dl (70-99); Potassium 3.7 mmol/L (3.5-5.1); Sodium 138 mmol/L (135-145); eGFR 54.51
[2023-04-09] MEDS: SYMBICORT 160/4.5 MCG INHALER 2 PUFF INH ×2 (09:15→19:42)
[2023-04-09] MEDS: XOPENEX HFA 45 MCG INHALER 2 PUFF INH (09:16)
--- NOTE | 2023-04-09 09:59 | W.PN.CD ---
Addendum entered and electronically signed by Octavio Mchugh MD 04/09/23 10:18:
I saw and examined the patient.
The PORTER LUGGAGE's note was reviewed and I agree with the note.
Comment:
He is feeling much better today, however, HRs are still fast, will increase dilt and cont metop
Original Note:
Today's Communication / Plan
-
-increase diltiazem, continue metoprolol. Continue telemetry monitoring, follow BP's. Continue Eliquis for OAC.
-update echo when HR better controlled
Impression / Plan
-
Impression: 82M with dyspnea concerning for a component of HF, perhaps due to fast AF
Plan
Atrial fibrillation (now considered permanent) with RVR:
-Rate still on fast end- increase Cardizem CD 240 mg daily and continue metoprolol XL 50 mg daily- BP when i just checked it 126/76, was on low end this AM- follow. No dizziness or palps.
-Continue Eliquis 5 mg PO BID
HFpEF, acute on chronic: improved
-now back on PO diuretic- continue
-Update TTE when HR better controlled
COPD, he was acutely wheezing per ER, S/P nebulizer- no wheezing now
Severe aortic stenosis S/p TAVR (2019), stable on outpatient echocardiogram
CAD, stable without chest pain
LBBB, chronic
Subjective:
-feeling quite well this AM, much improved - no palps or dizziness
Physical Exam
Vital Signs/Labs
Vital Signs
Temp Pulse Resp BP Pulse Ox
98.1 F 68 18 98/65 97
04/09/23 07:00 04/09/23 09:15 04/09/23 09:15 04/09/23 07:00 04/09/23 09:15
04/08/23 04/09/23 04/10/23
06:59 06:59 06:59
Actual Weight 70.052 kg 70.052 kg
04/09/23 07:01
04/09/23 07:01
04/07/23
14:15
Aqv-K-Tghcukltted Pept 5210
LAB Results
04/07/23
14:15
Troponin I < 0.012
Physical Exam
Constitutional: No acute distress
EENT: Anicteric
Cardiovascular: Rhythm/rate is irregular
Respiratory: Respiratory effort normal and Lungs clear to auscul.
Neuro/Psych: AO x 3
Data Reviewed
-
Date of Service: April 09, 2023
EKG: Other (tele AFIB RVR 100's)
Labs: Labs Reviewed by me
[2023-04-09] MEDS: CLARITIN 10 MG PO (10:22)
[2023-04-09] MEDS: PLAVIX 75 MG PO (10:22)
[2023-04-09] MEDS: CARDIZEM CD 240 MG PO (10:23)
[2023-04-09] MEDS: VIBRAMYCIN 100 MG PO ×2 (10:23→19:55)
[2023-04-09] MEDS: ELIQUIS 5 MG PO ×2 (10:23→19:55)
[2023-04-09] MEDS: TOPROL XL 50 MG PO (10:24)
[2023-04-09] MEDS: LASIX 40 MG PO ×2 (10:25→15:54)
[2023-04-09] MEDS: NON-FORMULARY ITEM NASAL ×2 (10:25→10:34)
[2023-04-09] MEDS: CARDIZEM CD PO (10:45)
[2023-04-09 11:00] VITALS: BP 125/86
[2023-04-09] MEDS: NON-FORMULARY ITEM 1 UNIT NASAL ×2 (11:18→21:39)
[2023-04-09] MEDS: LOPRESSOR 5 MG IV (12:00)
--- NOTE | 2023-04-09 14:54 | CM ---
Patient seen bedside, reports no new concerns at this time. Patient reports he is hopeful to discharge home tomorrow and has transportation. Per PT, no skilled need. CM will continue to follow for discharge planning needs.
Plan; home no needs anticipated.
[2023-04-09 15:01] VITALS: BP 99/67
--- NOTE | 2023-04-09 15:11 | W.PN.HOSP.TC ---
Addendum entered and electronically signed by Jorje Nayak MD 04/09/23 16:08:
Patient seen and examined
Discussed with resident
Paroxysmal atrial fibrillation with rapid and good response
Decompensated CHF preserved EF in the settings of rapid rate.
Rate better controlled with addition of Cardizem (dose doubled to 240 mg daily today) monitor closely.
Continue anticoagulation
Continue oral Lasix.
Sinusitis.
Possible bronchitis.
Continue antibiotics IV for another 24 hours, could transition to oral upon discharge.
Original Note:
Today's Communication/Plan
-
- Increase diltiazem; continue metoprolol.
- Continue apixaban and furosemide.
- Will monitor overnight, with anticipated discharge tomorrow.
Assessment / Plan
Assessment / Plan
Assessment:
Luis Mooney, 82 year-old male, presented to the emergency on 04-07-23 with progressive shortness of breath, even at rest. He states that he got a sinus infection 1 week ago, nasal swab showed 'staph infection' at his ENT's office, and was
started on tetracycline.
Notes that 3 days ago, he started experiencing shortness of breath which continued to worsen. Denies chest pain but the dyspnea is worse with exertion and improves with rest. He has been unable to sleep or lie flat on bed because of the shortness of
breath. He has been prescribed furosemide 40 mg BID, but he has been cutting the evening pill in half to avoid waking up at night frequently for the past few weeks.
His medical history is notable for paroxysmal atrial fibrillation on apixaban, heart failure with improved EF (40% -> 50%), coronary artery disease, TAVR for severe aortic stenosis 07/22/2019, and LBBB. He was found to be in atrial fibrillation with
rapid ventricular response in the ED and received amiodarone. Chest x-ray shows small bilateral pleural effusions, and he was started on empiric antibiotics. Also got IV furosemide 40 mg once in the ED.
Impression:
* Heart failure with preserved ejection fraction, acute on chronic
* Atrial fibrillation, with rapid ventricular response
* Sinus infection; pneumonia(?)
* Chronic obstructive pulmonary disease, without exacerbation
* Aortic stenosis status post TAVR.
* CAD with history of stenting.
Plan:
Heart failure with preserved ejection fraction, acute on chronic
- Presumed to be causing the shortness of breath.
- He has been prescribed furosemide 40 mg BID, but he has been cutting the evening pill in half to avoid waking up at night frequently for the past few weeks.
- Chest x-ray shows small bilateral effusions.
- pro-BNP was notably 5210 on 04-07-23, up from 227 on 08-07-22.
- Received IV furosemide 40 mg in the ED.
- Continue oral furosemide 40 mg BID.
- Atrial fibrillation with rapid ventricular response likely contributing to the exacerbation.
- Dyspnea and overall status improved after diuresis and amiodarone then diltiazem.
- Increased diltiazem for better rate control.
- Monitor overnight; anticipated discharge tomorrow.
- Follow CBC and BMP.
Atrial fibrillation, with rapid ventricular response
- He was on diltiazem previously, but did not tolerate it.
- Was switched back to metoprolol succinate.
- Received amiodarone bolus 150mg x 1 in the ED.
- Plan is to continue amiodarone 400mg BID for 14 days followed by 200mg daily subsequently.
- He is on apixaban 5mg BID.
- Re-try diltiazem, per cardiology.
Acute sinusitis; pneumonia(?)
- He a sinus infection 1 week ago.
- Nasal swab showed 'staph infection' at his ENT's office, and was started on tetracycline.
- Chest x-ray showed small bilateral effusions.
- Left lower lobe process traced back on prior imaging.
- He has mild leukocytosis (11.1), has been afebrile, and vitals are mostly stable.
- Suspicion of pneumonia remains low.
- On empiric doxycycline and ceftriaxone.
Chronic obstructive pulmonary disease, without exacerbation
- Stable.
- Continue meds.
DVT prophylaxis
- On apixaban 5 mg BID.
Code status
- Full.
Anticipated Discharge: Within 24 hours
Subjective/Interval History
-
Date of Service: April 09, 2023
Objective Data
-
Labs:
Laboratory Results
04/09/23
07:01
WBC 13.7 H
Hgb 14.6
Hct 42.7
Plt Count 228
Sodium 138
Potassium 3.7
Chloride 106
Carbon Dioxide 27
BUN 35 H
Creatinine 1.3
Glucose 89
Calcium 8.5
Vital Signs:
Vital Signs
Temp Pulse Resp BP Pulse Ox
98.0 F 98 18 99/67 97
04/09/23 15:01 04/09/23 15:01 04/09/23 15:01 04/09/23 15:01 04/09/23 15:01
I&O
04/08/23 04/09/23 04/10/23
06:59 06:59 06:59
Intake Total 720 / 720
Balance 720 / 720
Review of Systems
-
History Source: Patient
Constitutional: Reports No Symptoms
EENT: Reports No Symptoms Reported
Respiratory: Reports No Symptoms
Cardiac: Reports No Symptoms
Abdomen/GI: Reports No Symptoms
Genitourinary: Reports No Symptoms
Musculoskeletal: Reports No Symptoms
Skin: Reports No Symptoms
Neuro: Reports No Symptoms
Endocrine: Reports No Symptoms
Hematologic / Lymphatic: Reports No Symptoms
Allergy / Immunology: Reports No Symptoms
Physical Exam
-
General: No Apparent Distress and Comfortable
HEENT: Normocephalic, Atraumatic, Moist Mucous Membranes and Anicteric
Respiratory: Clear to Auscultation and Non Labored Respirations
Cardiac: Regular Rhythm, S1/S2 and Tachycardic
GI: Soft, Nontender, Nondistended, Normal Bowel Sounds and No Hepatosplenomegaly
Genito-urinary: No Costovertebral Tender
Musculoskeletal: No Clubbing, No Cyanosis and No Edema
Skin: Warm, Dry and IV Access / Catheter Site
Neuro: Awake, Alert, Oriented, No Motor Deficits and No Sensory Deficits
Hematologic / Lymphatic: No Lymphadenopathy
Psych: Calm
[2023-04-09] MEDS: STERILE WATER FOR INJECTION 10 ML IV (15:55)
[2023-04-09] MEDS: ROCEPHIN 1000 MG IV (15:56)
[2023-04-09 19:00] VITALS: BP 126/78
[2023-04-09] MEDS: SINGULAIR 10 MG PO (19:55)
[2023-04-09 22:30] VITALS: BP 117/74
[2023-04-10] MEDS: TYLENOL 650 MG PO (01:37)
[2023-04-10 03:00] VITALS: BP 103/72
[2023-04-10 05:04] VITALS: BMI 23.3
[2023-04-10 07:00] VITALS: BP 137/84
[2023-04-10] MEDS: SYMBICORT 160/4.5 MCG INHALER 2 PUFF INH (07:23)
[2023-04-10 07:30] VITALS: BP 112/71
[2023-04-10] MEDS: PLAVIX 75 MG PO (07:41)
[2023-04-10] MEDS: VIBRAMYCIN 100 MG PO (07:41)
[2023-04-10] MEDS: CARDIZEM CD 240 MG PO (07:41)
[2023-04-10] MEDS: CLARITIN 10 MG PO (07:42)
[2023-04-10] MEDS: NON-FORMULARY ITEM 1 UNIT NASAL (07:44)
[2023-04-10] MEDS: ELIQUIS 5 MG PO (07:44)
[2023-04-10] MEDS: TOPROL XL 50 MG PO ×2 (07:44→13:05)
[2023-04-10] MEDS: LASIX 40 MG PO (07:44)
--- NOTE | 2023-04-10 09:50 | CM ---
Addendum entered by Maria E Lewis 04/10/23 15:15:
Patient reports he does not have a ride, Lyft set up for patient.
Original Note:
Patient seen bedside, reports no new concerns at this time. IMM reviewed, signed, placed in patients chart. Patient reports if he is discharged today, he has transportation from his friend, if he is discharged tomorrow, he will not have a ride and
will need a Lyft. CM will continue to follow for discharge planning needs.
Plan; home no needs anticipated.
[2023-04-10 11:00] VITALS: BP 126/83
--- NOTE | 2023-04-10 12:40 | W.PN.CD ---
Today's Communication / Plan
-
increase metop to 100 mg daily, 50 mg extra now
If HR are improved this evening, from cardiac perspective OK to d/c with f/u
Impression / Plan
-
Impression: 82M with dyspnea concerning for a component of HF, perhaps due to fast AF
Plan
Atrial fibrillation (now considered permanent) with RVR:
-Rate still on fast end- increase Cardizem CD 240 mg daily increase metop to 100 mg daily, 50 mg now
-Continue Eliquis 5 mg PO BID
HFpEF, acute on chronic: improved
-now back on PO diuretic- continue
-Update TTE when HR better controlled
COPD, he was acutely wheezing per ER, S/P nebulizer- no wheezing now
Severe aortic stenosis S/p TAVR (2019), stable on outpatient echocardiogram
CAD, stable without chest pain
LBBB, chronic
Subjective:
-feeling quite well this AM, much improved - no palps or dizziness
Physical Exam
Vital Signs/Labs
Vital Signs
Temp Pulse Resp BP Pulse Ox
97.9 F 102 18 126/83 100
04/10/23 11:00 04/10/23 11:00 04/10/23 11:00 04/10/23 11:00 04/10/23 11:00
04/09/23 04/10/23 04/11/23
06:59 06:59 06:59
Actual Weight 154 lb 7 oz 153 lb 1 oz
04/09/23 07:01
04/09/23 07:01
04/07/23
14:15
[id number] Pept 5210
LAB Results
04/07/23
14:15
Troponin I < 0.012
Physical Exam
Constitutional: No acute distress
EENT: Anicteric
Cardiovascular: Rhythm/rate is irregular
Respiratory: Respiratory effort normal and Lungs clear to auscul.
GI: Soft
Neuro/Psych: Alert and Oriented
Data Reviewed
-
Date of Service: April 10, 2023
EKG: Tracing Personally Visualized and interpreted
Labs: Labs Reviewed by me
--- NOTE | 2023-04-10 13:22 | W.DS.TRANS ---
DC Summary - Pharmacy Intern
-
Discharge Instructions:
Sleep Apnea Risk Intermediate
Discharge Diagnosis/Procedures Afib with RVR
CHF
Diet 2 Gram Sodium
Instructions: *CBC Heart Failure Instructions
Stand-Alone Forms:
Changes to Home Medications: Yes
Discharge Medications:
DC Medications w/original date entered in NPM
ascorbic acid (vitamin C) 250 mg tablet 250 mg PO DAILY Supplement 03/31/19
rosuvastatin 5 mg tablet 5 mg PO Q48H High cholesterol 07/14/19
Mometasone 1mg Compound 1 spray intranasal BID Lung/breathing issues 02/28/20
calcium carbonate 500 mg calcium (1,250 mg) tablet (Oyster Shell Calcium 500) 250 mg PO TUWEFR Supplement 02/28/20
cholecalciferol (vitamin D3) 25 mcg (1,000 unit) tablet 1,000 units PO DAILY Supplement 02/28/20
loratadine 10 mg tablet 10 mg PO DAILY Allergies 02/28/20
montelukast 10 mg tablet 10 mg PO HS Lung/breathing issues 02/28/20
multivitamin with folic acid 400 mcg tablet (Tab-A-Tl) 1 tab PO DAILY Supplement 02/28/20
potassium chloride 20 mEq tablet,extended release(part/cryst) (Klor-Con M) 20 meq PO BID Electrolyte Repletion 02/11/21
biotin 1 mg capsule 1 mg PO DAILY Supplement 08/07/22
cyanocobalamin (vitamin B-12) 250 mcg tablet 250 mcg PO DAILY Supplement 08/07/22
ipratropium bromide 21 mcg (0.03 %) nasal spray 2 spray intranasal BIDPRN PRN allergies 08/07/22
levalbuterol tartrate 45 mcg/actuation aerosol inhaler 2 puff inhalation R Q6HPRN PRN SOB 08/07/22
nitroglycerin 0.4 mg sublingual tablet 0.4 mg sublingual [id number] PRN chest pain #0 tabs 08/09/22
Tobramycin 20mg 20 mg intranasal BID Lung/Breathing Issues 04/07/23
apixaban 5 mg tablet (Eliquis) 5 mg PO BID Blood Clot Prevention/Tx 04/07/23
budesonide-formoterol HFA 160 mcg-4.5 mcg/actuation aerosol inhaler (Symbicort) 2 inh inhalation R BID Lung/Breathing Issues 04/07/23
clopidogrel 75 mg tablet 75 mg PO DAILY Blood Clot Prevention/Tx 04/07/23
furosemide 40 mg tablet 40 mg PO BID AT 0800,1600 Fluid Retention/Swelling 04/07/23
diltiazem HCl 240 mg capsule,extended release 24 hr 240 mg PO DAILY #30 caps 04/10/23
metoprolol succinate 100 mg tablet,extended release 24 hr 100 mg PO DAILY #30 tabs 04/10/23
Home Medication Changes
Toprol increased.
Diltiazem added
Pending Results: No
--- NOTE | 2023-04-15 14:11 | HFEDUCATE ---
Pt spoke to his PCP, Reina Boyd, on 04/11/23 at 9:12 AM reporting symptoms of unable to lie flat. Pt hospitalization and discharge were discussed pt encouraged to call cardiology to share symptoms. Pt has F/U appt on 04/22/23 at 3:00PM with Dr.
Meng Granda DO.
== END 2023-04-10 15:27 | disposition home or self-care (01) | DRG 291 ==
LOC: 4 WEST ACU 17:21
PROVIDERS: Physician Assistant; Student in an Organized Health Care Education/Training Program; ADMITTING PHYSICIAN Internal Medicine; CONSULT PHYSICIAN Internal Medicine Cardiovascular Disease; EMERGENCY PHYSICIAN Emergency Medicine; FAMILY PHYSICIAN Family Medicine
DX: I11.0 Hypertensive heart disease with heart failure (principal); I50.33 Acute on chronic diastolic (congestive) heart failure; I48.0 Paroxysmal atrial fibrillation; J01.90 Acute sinusitis, unspecified; I25.10 Atherosclerotic heart disease of native coronary artery without angina pectoris; Z79.01 Long term (current) use of anticoagulants; Z95.2 Presence of prosthetic heart valve
CPT/HCPCS: 71046; 80048; 80053; 83880; 84484; 85025; 93005; 94640; 96374; 96375; 99285

== ENCOUNTER → 2023-06-04 10:09 | Outpatient (REF) | payer MEDICARE, SELFPAY | LOC: DHCBC HW 10:09 | PROVIDERS: ATTENDING PHYSICIAN Internal Medicine Cardiovascular Disease; FAMILY PHYSICIAN Family Medicine | DX: Z95.2 Presence of prosthetic heart valve (principal) | CPT/HCPCS: 93306 ==

== ENCOUNTER → 2023-06-17 15:58 | Outpatient (REF) | payer OTHER, SELFPAY | LOC: HWRAD 15:58 | PROVIDERS: ATTENDING PHYSICIAN Family Medicine | DX: J44.1 Chronic obstructive pulmonary disease with (acute) exacerbation (principal); J06.9 Acute upper respiratory infection, unspecified | CPT/HCPCS: 71046 ==

== ENCOUNTER 2023-06-21 14:10 | Inpatient (IN) | payer OTHER, SELFPAY ==
[2023-06-21] VITALS (19 sets, daily range): BP systolic 106–153; BP diastolic 58–108; BMI 24.3
--- NOTE | 2023-06-21 10:34 | ED.GENMED ---
History of Present Illness
General
Chief Complaint: Breathing Problem
Source: patient
Exam Limitations: none
Time Seen by Provider: 06/21/23 10:21
Nursing documentation reviewed up to this point in time: agreed with
Travel History
Have you had any contact with someone who has COVID-19?: No
Do you have any symptoms of coronavirus? Fever > 100 degrees, chills, cough, shortness of breath, sore throat, loss of taste or smell, muscle aches, or headache?: No
History of Present Illness
History of Present Illness:
82 y/o M with h/o AFib (now considered permanent by cards per previous consult 04/05), on eliquis, dilt, metoprolol
COPD on ipratroprium nebs
CHF on lasix 80 mg bid
here with 5-6 days dyspnea, cough
pt says he started with his COPD like symptoms 5 days ago and went to his PCP the following day. he thought he was in afib becuase h felt palpittions. he had outpatient CXR and was given high dose amox
he felt a little better for a few days but worse last night, more sob and now unable to lay flt which he had previuosly when he was in heart failure
pt has had a little chest doscomfort that felt lie a pinch last night and again this morning
he went to his PCP this morning, wasn't told anything about his HR/afib but was sent here for evaluation beause of the dyspnea
pt took all of his meds toady
though he says he is allergic to diltiazem, he has had it iv and tkes it orally so this is uncleear
i asked pt about it and he says he didn't have an allergy
pt has no pleuritic pain, fever, coughing blood
has never been cardioverted
emanuel nava.
Past History
Past History
ED Past Medical History: Arrthythmia (Atrial fib), Asthma, CAD, Cancer (Prostate CA), COPD, HTN, Hypercholesterolemia, Valvular disease and Other (chronic sinusitis, colon polyps, Vertigo, Ataxia, PNA,)
ED Past Surgical History: Cardiac (Stents), Urological (prostatectomy) and Other (colon polypectomy)
Social History
Tobacco: Former smoker (quit 45 years ago)
Alcohol: Daily (Vodka 1)
Drug: None
Personal:
Living: with family
Employment: Retired
Family History
Family History: Other (n/c)
Review of Systems
Review of Systems
Allergies reviewed?: Yes
All Other Systems: Not applicable
Phy Exam
Physical Exam
Physical Exam:
GENERAL: Alert , in no apparent distress
EYE: pupils equal and reactive
NECK: Supple
ENT: o/p clr, mmm.
CARDIAC: Irregularly irregular, tachycardic in the 130s, no edema appreciated in the lower extremities
LUNGS: Very faint wheezing bibasilar region, no rales appreciated, no rhonchi, occasional dry cough, no tachypnea
ABDOMEN: Soft, without focal tenderness, no r/g, no cvat, normal bowel sounds
NEUROLOGICAL: Alert and oriented, no focal neuro deficits
SKIN: Warm and dry, skin intact.
MUSCULOSKELETAL: No edema, well perfused. neg kiya's sign
PSYCH: Normal and appropriate interaction.
Scores
Heart Failure Risk
Heart Failure Risk Score: Not Applicable
Course
Orders/Labs/Results
Orders:
Orders
06/21/23 09:57
EKG [Electrocardiogram (*1)] Urgent
Reason for Study: Chest Pain
EKG- Treatment ONCE
06/21/23 10:31
CR Chest Portable - 1 View Urgent
Comment:
Reason For Exam: SOB
Reason Study Needs to be Portable: Patient Unstable
06/21/23 10:38
Diltiazem HCl [Cardizem] 15 mg IV NOW STA
06/21/23 10:40
Complete Blood Count/With Diff Urgent
Comprehensive Metabolic Panel Urgent
NT-proBNP Urgent
Troponin I Urgent
06/21/23 11:15
Diltiazem 125 mg/125 ml Nss [Cardizem] 125 mg in 125 ml IV PER PROTOCOL
Initial dose in mg/hr, then titrate:: 5
Titrate to keep:: Heart rate 80-100 bpm
Titrate by mg/hr:: 5 mg/hr
Frequency of titrations (minutes):: 15
Maximum dose in mg/hr:: 15
06/21/23 11:41
Furosemide [Lasix] 40 mg IV NOW STA
06/21/23 12:05
Consult Cardiology [CARDIOLOGY CONSULT] Urgent
Consulting Provider: Ivan Suarez
Was physician already notified: Yes
Abnormal Lab Results
06/21/23
10:40
WBC 11.3 H 10^3/uL
(4.8-10.8)
RBC 4.37 L 10^6/uL
(4.70-6.10)
MCH 32.7 H pg
(27.0-31.0)
RDW 14.6 H %
(11.5-14.5)
Abs Immat Gran (auto) 0.1 H 10^3/uL
(0-0.05)
Absolute Neuts (auto) 9.3 H 10^3/uL
(1.4-6.5)
Absolute Lymphs (auto) 0.6 L 10^3/uL
(1.2-3.4)
Absolute Monos (auto) 1.2 H 10^3/uL
(0.1-0.6)
Neutrophils % 81.7 H %
(42.2-75.2)
Lymphocytes % 5.6 L %
(20.5-51.1)
Monocytes % 10.3 H %
(1.7-9.3)
BUN 27 H mg/dl
(9-20)
Glucose 131 H mg/dl
(70-99)
06/21/23 10:40
06/21/23 10:40
Vital Signs
Initial and Last Documented VS:
Initial Vital Signs
Temp Pulse Resp BP Pulse Ox
97.7 F 97 16 153/85 96
06/21/23 09:55 06/21/23 09:55 06/21/23 09:55 06/21/23 09:55 06/21/23 09:55
Last Documented Vital Signs
Temp Pulse Resp BP Pulse Ox
97.7 F 118 25 106/79 95
06/21/23 09:55 06/21/23 12:01 06/21/23 12:00 06/21/23 12:01 06/21/23 12:00
MDM/Problems Addressed
Differential Diagnosis Includes:
chf, afib with rvr
MDM/Problems Addressed:
room [address] [facility] 82 y/o M with h/o afib on eliquis, followed by elijah, chf EF 35% on lasix 80 bid;6 days sob, palpitations (says he goes in and out of afib but last cards note says he is considered to permanently be in afib); was seen by
pcp, on amox for bronchitis and felt better until last night, orthopnea and worsening dyspnea; afib with RVR today in the 140s; bnp 5000, no tachypnea, pulse ox normal; cxr mild pleural effusions; on cardizem drip now and HR down to 110s; lasix
ordered
admit for rate control and cards consult
director of rotc notified
*Critical Care Note
Total Time (30-74mins, 75-104mins- exclusive of procedures): Not Applicable
ED Attending Note
-
Portions of this chart may have been created with voice recognition software.� Occasional wrong word or��sound alike� substitutions may have occurred due to the inherent limitations of voice recognition software.
Discharge Plan
Departure
Patient Disposition: Admit
Date of Disposition: 06/21/23
Time of Disposition: 11:44
Admit to: Telemetry
Presentation/result/management discussed w/ accepting MD/DO: Hospitalist
Condition: Fair
Covid-19: Not Applicable
Discharge Problem:
Acute on chronic diastolic (congestive) heart failure, Atrial fibrillation with rapid ventricular response
Prescriptions:
No Action
ascorbic acid (vitamin C) 250 MG tablet
250 mg PO DAILY
rosuvastatin 5 MG tablet
5 mg PO Q48H
calcium carbonate [Oyster Shell Calcium 500] 500 MG tablet
250 mg PO TUWEFR
montelukast 10 MG tablet
10 mg PO HS
loratadine 10 MG tablet
10 mg PO DAILY
cholecalciferol (vitamin D3) 1,000 UNITS tablet
1,000 units PO DAILY
multivitamin with folic acid [Tab-A-Tl] 1 TABLET tablet
1 tab PO DAILY
Mometasone 1mg Compound
1 spray intranasal BID
Patient Comments:
Mometasone 1 MG-directions from label: ADD CONTENTS OF ONE CAPSULE TO 240 ML SALINE. IRRIGATE EACH NOSTRIL USING NEILMED WITH 120 ML OF MEDICATED SALINE TWICE DAILY
potassium chloride [Klor-Con M20] 20 MEQ tablet,ER particles/crystals
20 meq PO BID
levalbuterol tartrate 45 mcg/actuation HFA aerosol inhaler
2 puff INHALATION R Q6HPRN PRN (Reason: SOB)
cyanocobalamin (vitamin B-12) 250 mcg Tablet
250 mcg PO DAILY
ipratropium bromide 21 mcg (0.03 %) [place],Non-Aerosol
2 spray INTRANASAL BIDPRN PRN (Reason: allergies)
biotin 1 mg Capsule
1 mg PO DAILY
Rx Instructions:
per pt 'dose says 10,000 on the front label'
nitroglycerin 0.4 mg Tablet, Sublingual
0.4 mg sublingual [id number] PRN (Reason: chest pain) Qty: 0 0RF
Tobramycin 20mg
20 mg intranasal BID
Patient Comments:
Mometasone 1 MG-directions from label: ADD CONTENTS OF ONE CAPSULE TO 240 ML SALINE. IRRIGATE EACH NOSTRIL USING NEILMED WITH 120 ML OF MEDICATED SALINE TWICE DAILY
budesonide-formoterol [Symbicort] 160-4.5 mcg/actuation Hfa Aerosol Inhaler
2 inh INHALATION R BID
furosemide 40 mg tablet
40 mg PO BID AT 0800,1600
clopidogrel 75 mg tablet
75 mg PO DAILY
Eliquis 5 mg tablet
5 mg PO BID
diltiazem HCl 240 mg Capsule,Extended Release 24hr
240 mg PO DAILY Qty: 30 0RF
metoprolol succinate 100 mg Tablet Extended Release 24 Hr
100 mg PO DAILY Qty: 30 0RF
Referrals:
Meng Granda DO [Family Provider] -
Interventions
Interventions:
*Risk Screen - Suicide Last Done: 06/21/23 09:57
*General Assessment Last Done: 06/21/23 09:57
*Neglect/Abuse Screening Last Done: 06/21/23 09:57
ED- Fall Risk Assessment Last Done: 06/21/23 10:26
*ED COVID-19 Vaccine History Last Done: 06/21/23 10:26
ED- Cardiac Assessment Last Done: 06/21/23 10:26
ED- Pulmonary Assessment Last Done: 06/21/23 10:26
Discharge Date and Time
Print Language: MOZAMBICAN
[2023-06-21 10:53] LABS: % Basophils 0.8 % (0-2); % Eosinophils 1.2 % (0-6); % Immature Granulocytes 0.4 % (0-0.5); % Lymphocytes 5.6 % (20.5-51.1); % Monocytes 10.3 % (1.7-9.3); % Neutrophils 81.7 % (42.2-75.2); Absolute Basophils 0.1 10^3/uL (0-0.2); Absolute Eosinophils 0.1 10^3/uL (0-0.7); Absolute Immature Granulocytes 0.1 10^3/uL (0-0.05); Absolute Lymphocytes 0.6 10^3/uL (1.2-3.4); Absolute Monocytes 1.2 10^3/uL (0.1-0.6); Absolute Neutrophils 9.3 10^3/uL (1.4-6.5); Hematocrit 40.4 % (39.0-52.0); Hemoglobin 14.3 g/dL (13.0-18.0); Mean Corp Hgb Conc. 35.4 g/dL (33.0-37.0); Mean Corpuscular Hgb 32.7 pg (27.0-31.0); Mean Corpuscular Volume 92.4 fL (80.0-94.0); Mean Platelet Volume 10.4 fL (7.4-10.4); Nucleated Red Blood Cells % 0 % (-); Platelet Count 251 10^3/uL (130-400); Red Blood Cell Count 4.37 10^6/uL (4.70-6.10); Red Cell Dist. Width 14.6 % (11.5-14.5); White Blood Cell Count 11.3 10^3/uL (4.8-10.8)
[2023-06-21] MEDS: CARDIZEM 15 MG IV (11:01)
[2023-06-21 11:14] LABS: NT-proBNP 5020 pg/ml; Troponin I < 0.012 ng/ml
[2023-06-21] MEDS: CARDIZEM 125 IV ×2 (11:17→23:32)
[2023-06-21 11:39] LABS: ALT (SGPT) 18 U/L (0-50); AST (SGOT) 26 U/L (17-59); Albumin 3.6 g/dl (3.5-5.0); Alkaline Phosphatase 70 U/L (38-126); Blood Urea Nitrogen 27 mg/dl (9-20); Calcium 9.1 mg/dl (8.4-10.2); Carbon Dioxide 23 mmol/L (22-30); Chloride 107 mmol/L (98-107); Glucose 131 mg/dl (70-99); Potassium 3.6 mmol/L (3.5-5.1); Sodium 138 mmol/L (135-145); Total Protein 6.8 g/dl (6.3-8.2); eGFR > 60.00
[2023-06-21] MEDS: LASIX 40 MG IV (12:01)
--- NOTE | 2023-06-21 13:53 | HPS.HSE ---
Family Physician
-
Family Physician: Meng Granda
Chief Complaint
-
Shortness of breath
History of Present Illness
82 y/o male with past medical history of permanent atrial fibrillation on Eliquis, heart failure with reduced ejection fraction, chronic obstructive pulmonary disease, aortic stenosis status post transcatheter aortic valve replacement, coronary
artery disease with history of intervention and stent, hypertension, hyperlipidemia, chronic left bundle branch block and prostate cancer presented with shortness of breath for the past approximately 5 days. Patient went to his primary care
physician about 5 days ago and was prescribed Amoxicillin for cough. Patient's shortness of breath kept getting worse, today he had lightheadedness and nausea and went to see his primary care physician who determined he needed to come to the
emergency room. He also reported cough, but denied fever, nausea, vomiting or any other significant complaints.
Medical History
Past Medical History
Past Medical History: Reports Other (As per HPI above)
Past Surgical History: Reports Cardiac (Stents and valve replacement), Urological (prostatectomy) and Other (colon polypectomy)
Social History
Tobacco: Former Smoker
Alcohol: Occasional
Drug: None
Family History
Family History: Cancer and Other (Stroke)
Allergies / Home Medications
Allergies reflects when Allergies were last updated in [employer].
Home Medications with original date entered in [employer]
Allergy/Medication List:
Allergies
Allergy/AdvReac Type Severity Reaction Status Date / Time
albuterol Allergy Unknown Verified 06/21/23 09:54
animal dander Allergy Shortness Verified 06/21/23 09:54
of Breath
diltiazem Allergy Unknown Verified 06/21/23 09:54
iodine Allergy shellfish Verified 06/21/23 09:54
allergy
pollen extracts Allergy sneezing, Verified 06/21/23 09:54
hayfever
shellfish derived Allergy Anaphylaxis Verified 06/21/23 09:54
tree and shrub pollen Allergy sneezing, Verified 06/21/23 09:54
hayfever
wine spirit Allergy Anaphylaxis Verified 06/21/23 09:54
sulphites Allergy Anaphylaxis Uncoded 06/21/23 09:54
WINE Allergy Anaphylaxis Uncoded 06/21/23 09:54
Home Medications
ascorbic acid (vitamin C) 250 mg tablet 250 mg PO MOWEFR@0800 Supplement 03/31/19
rosuvastatin 5 mg tablet 5 mg PO MOTUWETHFR@0800 High cholesterol 07/14/19
loratadine 10 mg tablet 10 mg PO DAILY Allergies 02/28/20
montelukast 10 mg tablet 10 mg PO HS Lung/breathing issues 02/28/20
multivitamin with folic acid 400 mcg tablet (Tab-A-Tl) 1 tab PO DAILY Supplement 02/28/20
cyanocobalamin (vitamin B-12) 250 mcg tablet 250 mcg PO DAILY Supplement 08/07/22
levalbuterol tartrate 45 mcg/actuation aerosol inhaler 1 puff inhalation R Q4HPRN PRN SOB 08/07/22
apixaban 5 mg tablet (Eliquis) 5 mg PO BID Blood Clot Prevention/Tx 04/07/23
budesonide-formoterol HFA 160 mcg-4.5 mcg/actuation aerosol inhaler (Symbicort) 2 inh inhalation R BID Lung/Breathing Issues 04/07/23
clopidogrel 75 mg tablet 75 mg PO DAILY Blood Clot Prevention/Tx 04/07/23
Mometasone 1 mg irrigation BID 06/21/23
Tobramycin 20 mg irrigation BID 06/21/23
acetaminophen 500 mg tablet (Tylenol Extra Strength) 1,000 mg PO DAILYPRN PRN mild pain 06/21/23
amoxicillin 875 mg-potassium clavulanate 125 mg tablet 1 tab PO Q12H 06/21/23
biotin 10,000 mcg capsule 10,000 mcg PO DAILY 06/21/23
calcium carbonate 250 mg PO MOWEFR@0800 06/21/23
cholecalciferol (vitamin D3) 25 mcg (1,000 unit) tablet 25 mcg PO DAILY 06/21/23
diltiazem HCl 240 mg tablet,extended release 24 hr (Matzim [place]) 240 mg PO DAILY 06/21/23
furosemide 80 mg tablet 80 mg PO BID 06/21/23
ipratropium bromide 0.02 % solution for inhalation 2.5 ml inhalation R DAILYPRN PRN sob 06/21/23
ipratropium bromide 0.02 % solution for inhalation 2.5 ml inhalation R TID 06/21/23
metoprolol succinate 50 mg tablet,extended release 24 hr 50 mg PO DAILY 06/21/23
potassium chloride 20 mEq tablet,extended release 20 meq PO BID 06/21/23
Review of Systems
-
A 12 point ROS was completed and negative except as noted: Yes
Physical Exam
Vital Signs
Vital Signs
Temp Pulse Resp BP Pulse Ox
97.7 F 118 25 106/79 95
06/21/23 09:55 06/21/23 12:01 06/21/23 12:00 06/21/23 12:01 06/21/23 12:00
Physical Exam
General: No Apparent Distress and Conversant
HEENT: NormoCephalic and Moist mucous membranes
Respiratory: Decreased Breath Sounds
Cardiac: S1/S2, Irregular Rhythm and Tachycardia
GI: Soft, Non Tender and Normal Bowel Sounds
Musculoskeletal: No Cyanosis and No Edema
Skin: Warm and Dry
Neuro: Awake, Alert and AO x 3
Psych: Calm and Intact Judgment/Insight
Laboratory Results
-
06/21/23 10:40
06/21/23 10:40
Laboratory Results
Total Bilirubin 1.0 mg/dl (0.2-1.3) 06/21/23 10:40
AST 26 U/L (17-59) 06/21/23 10:40
ALT 18 U/L (0-50) 06/21/23 10:40
Alkaline Phosphatase 70 U/L (38-126) 06/21/23 10:40
Troponin I < 0.012 ng/ml 06/21/23 10:40
Impression/Plan
-
Assessment/Plan
Atrial Fibrillation with Rapid Ventricular Response
Permanent Atrial Fibrillation
-Admit to and monitor in IMU
-Continue Cardizem Drip
-Continue Eliquis
-Continue home Metoprolol and Cardizem -- doses may need to be increased
-Cardiology consulted, recommendations appreciated
Heart failure with reduced ejection fraction
Acute Exacerbation of Heart failure with reduced ejection fraction
-ProBNP significantly elevated
-On Furosemide 80 mg BID at home
-IV Lasix 40 mg given in the ER
-Continue IV Lasix 60 mg BID
-Continue home Toprol XL 50 mg daily
-Troponins
-Daily weights
-I's and O's
Chronic obstructive pulmonary disease
-Continue home Symbicort or equivalent
-Continue home Montelukast
Aortic stenosis status post transcatheter aortic valve replacement
Coronary artery disease with history of intervention and stent
-Continue home Rosuvastatin or equivalent
-Continue Toprol XL
-Continue home Clopidogrel 75 mg daily
Hypertension
-Continue Toprol as above
-Continue Diltiazem
Hyperlipidemia
-Continue Rosuvastatin
Chronic left bundle branch block
Prostate cancer status post prostatectomy
History of Sinusitis
Sinusitis vs. Bronchitis
-Patient saw ENT with reported Staphylococcus in nasal cultures?
-Complete course of antibiotics Amoxcillin prescribed by outpatient physician
DVT PPx: On Eliquis
Code Status: Full Code
Atrial Fibrillation with Rapid Ventricular Response and Heart Failure Exacerbation needing IV Lasix and Cardizem IV Drip, needing monitoring in the IMU, is a high-risk encounter.
--- NOTE | 2023-06-21 17:23 | CON.CAR ---
Consultation
Consultation Request
Date/Time Consultation Requested: 06/21/23, 3pm
Date/Time Consultation Performed: 06/21/23, 4pm
Requesting Provider: Cricket
Performing Provider: Daniela
Reason for Consultation: A fib with RVR
Medical History
-
Chief Complaint: SOB
History of Present Illness:
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 Was being treated for respiratory infection as outpatient. Seemed to
get worse, so presented to ED. He also noticed some weight gain at home. Likely combination of respiratory infection, acute HF. Also noted is A fib with RVR.
Past Medical History
Past Medical History: Arrhythmias (permanent A fib), CAD, CHF (chronic HF with improved LVEF), HTN, Hypercholesterolemia, CA and Valvular Disease
Past Surgical History: Cardiac (TAVR 2019)
Social History
Tobacco: Non-Smoker
Family History
Family History: Early CAD (none)
Allergies / Home Medications
Allergy/AdvReac Type Severity Reaction Status Date / Time
albuterol Allergy Unknown Verified 06/21/23 09:54
animal dander Allergy Shortness Verified 06/21/23 09:54
of Breath
diltiazem Allergy Unknown Verified 06/21/23 09:54
iodine Allergy shellfish Verified 06/21/23 09:54
allergy
pollen extracts Allergy sneezing, Verified 06/21/23 09:54
hayfever
shellfish derived Allergy Anaphylaxis Verified 06/21/23 09:54
tree and shrub pollen Allergy sneezing, Verified 06/21/23 09:54
hayfever
wine spirit Allergy Anaphylaxis Verified 06/21/23 09:54
sulphites Allergy Anaphylaxis Uncoded 06/21/23 09:54
WINE Allergy Anaphylaxis Uncoded 05/11/24 09:54
�Medication �Instructions �Recorded �Confirmed �Type
ascorbic acid (vitamin C) 250 mg 250 mg PO MOWEFR@0800 Supplement 03/31/19 06/21/23 History
tablet
rosuvastatin 5 mg tablet 5 mg PO MOTUWETHFR@0800 High 07/14/19 06/21/23 History
cholesterol
loratadine 10 mg tablet 10 mg PO DAILY Allergies 02/28/20 06/21/23 History
montelukast 10 mg tablet 10 mg PO HS Lung/breathing issues 02/28/20 06/21/23 History
multivitamin with folic acid 400 1 tab PO DAILY Supplement 02/28/20 06/21/23 History
mcg tablet (Tab-A-Tl)
cyanocobalamin (vitamin B-12) 250 250 mcg PO DAILY Supplement 08/07/22 06/21/23 History
mcg tablet
levalbuterol tartrate 45 1 puff inhalation R Q4HPRN PRN SOB 08/07/22 06/21/23 History
mcg/actuation aerosol inhaler
apixaban 5 mg tablet (Eliquis) 5 mg PO BID Blood Clot 04/07/23 06/21/23 History
Prevention/Tx
budesonide-formoterol HFA 160 2 inh inhalation R BID 04/07/23 06/21/23 History
mcg-4.5 mcg/actuation aerosol Lung/Breathing Issues
inhaler (Symbicort)
clopidogrel 75 mg tablet 75 mg PO DAILY Blood Clot 04/07/23 06/21/23 History
Prevention/Tx
Mometasone 1 mg irrigation BID 06/21/23 06/21/23 History
Tobramycin 20 mg irrigation BID 06/21/23 06/21/23 History
acetaminophen 500 mg tablet 1,000 mg PO DAILYPRN PRN mild pain 06/21/23 06/21/23 History
(Tylenol Extra Strength)
amoxicillin 875 mg-potassium 1 tab PO Q12H 06/21/23 06/21/23 History
clavulanate 125 mg tablet
biotin 10,000 mcg capsule 10,000 mcg PO DAILY 06/21/23 06/21/23 History
calcium carbonate 250 mg PO MOWEFR@0800 06/21/23 06/21/23 History
cholecalciferol (vitamin D3) 25 25 mcg PO DAILY 06/21/23 06/21/23 History
mcg (1,000 unit) tablet
diltiazem HCl 240 mg 240 mg PO DAILY 06/21/23 06/21/23 History
tablet,extended release 24 hr
(Matzim [place])
furosemide 80 mg tablet 80 mg PO BID 06/21/23 06/21/23 History
ipratropium bromide 0.02 % 2.5 ml inhalation R DAILYPRN PRN 06/21/23 06/21/23 History
solution for inhalation sob
ipratropium bromide 0.02 % 2.5 ml inhalation R TID 06/21/23 06/21/23 History
solution for inhalation
metoprolol succinate 50 mg 50 mg PO DAILY 06/21/23 06/21/23 History
tablet,extended release 24 hr
potassium chloride 20 mEq 20 meq PO BID 06/21/23 06/21/23 History
tablet,extended release
Review of Systems
-
History Source: Patient
All other systems: Negative unless noted
Constitutional: Weight Gain
Respiratory: Cough and Trouble Breathing
Cardiac: Palpitations
Physical Exam
Vital Signs
Temp Pulse Resp BP Pulse Ox
98.6 F 113 16 108/68 96
06/21/23 16:15 06/21/23 16:17 06/21/23 16:15 06/21/23 16:00 06/21/23 16:15
Lab Results
06/21/23 10:40
06/21/23 10:40
Troponin I < 0.012 ng/ml 06/21/23 10:40
Dcw-J-Xnecidjnzwy Pept 5020 pg/ml 06/21/23 10:40
Physical Exam
General: Well Developed and Well Nourished
HEENT: Normocephalic and Anicteric
Respiratory: Wheezes and Other (increased WOB)
Cardiac: S1/S2 (normal), Irregular Rhythm, Murmur (none), Peripheral Edema (trace) and JVD (present)
GI: Soft, Non Tender and Non Distended
Musculoskeletal: No Clubbing, No Cyanosis and Edema (trace LE)
Skin: Warm and Dry
Neuro: AO x 3
Psych: Calm
Impression / Plan
-
SOB: likely multifactorial with respiratory infection and HF
Atrial fibrillation with RVR
-in setting of permanent A fib, with LBBB
-continue eliquis 5mg bid
-currently on diltiazem drip
-assess for transition to PO meds tomorrow
Acute on chronic HFPEF: h/o HF with improved EF, but EF looks depressed on last echo
-echo 06/04/23: EF 35-40%, mild/moderate MR, TAVR (08/12, no AR), nl RV, mild TR, PASP 41
-will focus on optimizing GDMT as we treat his HF
-cont lasix 60mg IV bid, with close monitoring of labs and tele
-may need to increase based on response
COPD, possible respiratory infection: per hospitalist
TAVR (2019)
-stable on outpatient echocardiogram
CAD, prior NSTEMI in setting of OM1 dissection 07/2022: stable without chest pain
-cont Plavix through one year
Data Reviewed
-
EKG: Tracing Personally Visualized and interpreted (A fib with RVR, LBBB)
Medical Tests (Nuc Med, Echo etc): Report Reviewed by me (per note)
Labs: Labs Reviewed by me
Old Records: Reviewed
[2023-06-21] MEDS: LASIX 60 MG IV (17:55)
[2023-06-21 18:42] LABS: Troponin I 0.014 ng/ml
[2023-06-21] MEDS: AUGMENTIN 875 MG/125 MG 1 TABLET PO (19:46)
[2023-06-21] MEDS: ELIQUIS 5 MG PO (19:46)
[2023-06-21] MEDS: NON-FORMULARY ITEM 20 MG IRRIG (19:47)
[2023-06-21] MEDS: KCL 20 MEQ PO (19:47)
[2023-06-21] MEDS: NON-FORMULARY ITEM 1 MG IRRIG (19:47)
[2023-06-21] MEDS: ATROVENT NEBULES 0.5 MG INH (20:16)
[2023-06-21] MEDS: SYMBICORT 160/4.5 MCG INHALER 2 PUFF INH (20:16)
[2023-06-21] MEDS: SINGULAIR 10 MG PO (22:24)
[2023-06-22] VITALS (7 sets, daily range): BP systolic 103–132; BP diastolic 75–89; BMI 24.5
[2023-06-22 00:06] LABS: Troponin I 0.014 ng/ml
--- NOTE | 2023-06-22 02:39 | PTCARENOTE ---
Pt. has remained in A-fib this shift, rate 80's at rest to 120's with ambulation. Cardizem drip infusing at 15 mg/hr. Pt. has no complaints of CP/SOB. Ambulates independently with steady gait. Currently sleeping.
[2023-06-22 04:49] LABS: % Immature Granulocytes 0.5 % (0-0.5); % Lymphocytes 9.2 % (20.5-51.1); % Monocytes 11.7 % (1.7-9.3); % Neutrophils 75.6 % (42.2-75.2); Absolute Basophils 0.1 10^3/uL (0-0.2); Absolute Eosinophils 0.2 10^3/uL (0-0.7); Absolute Lymphocytes 0.8 10^3/uL (1.2-3.4); Absolute Neutrophils 6.7 10^3/uL (1.4-6.5); Hematocrit 39.6 % (39.0-52.0); Hemoglobin 13.6 g/dL (13.0-18.0); Mean Corp Hgb Conc. 34.3 g/dL (33.0-37.0); Mean Corpuscular Hgb 32.6 pg (27.0-31.0); Mean Platelet Volume 10.2 fL (7.4-10.4); Nucleated Red Blood Cells % 0 % (-); Platelet Count 219 10^3/uL (130-400); Red Blood Cell Count 4.17 10^6/uL (4.70-6.10); Red Cell Dist. Width 14.6 % (11.5-14.5); White Blood Cell Count 8.8 10^3/uL (4.8-10.8)
[2023-06-22 05:15] LABS: Blood Urea Nitrogen 24 mg/dl (9-20); Calcium 8.6 mg/dl (8.4-10.2); Carbon Dioxide 27 mmol/L (22-30); Chloride 105 mmol/L (98-107); Estimated Creatinine Clearance 52 ml/min; Glucose 93 mg/dl (70-99); Magnesium 2.2 mg/dl (1.6-2.3); Potassium 3.1 mmol/L (3.5-5.1); Sodium 137 mmol/L (135-145); eGFR > 60.00
[2023-06-22 05:27] LABS: Troponin I 0.016 ng/ml
[2023-06-22] MEDS: ATROVENT NEBULES 0.5 MG INH ×3 (07:24→19:42)
[2023-06-22] MEDS: SYMBICORT 160/4.5 MCG INHALER 2 PUFF INH ×2 (07:25→19:42)
[2023-06-22] MEDS: VITAMIN B-12 250 MCG PO (08:22)
[2023-06-22] MEDS: KCL 20 MEQ PO ×2 (08:25→19:46)
[2023-06-22] MEDS: VITAMIN D3 (cholecalciferol) 25 MCG PO (08:25)
[2023-06-22] MEDS: THERAGRAN 1 TABLET PO (08:25)
[2023-06-22] MEDS: ELIQUIS 5 MG PO ×2 (08:26→19:46)
[2023-06-22] MEDS: PLAVIX 75 MG PO (08:26)
[2023-06-22] MEDS: CLARITIN 10 MG PO (08:27)
[2023-06-22] MEDS: AUGMENTIN 875 MG/125 MG 1 TABLET PO (08:27)
[2023-06-22] MEDS: LASIX IV (09:25)
--- NOTE | 2023-06-22 09:25 | W.PN.CD ---
Today's Communication / Plan
-
Toprol XL 50mg bid
change IV lasix back to home lasix 80mg bid
add farxiga 10mg daily
assess for entresto tomorrow
Impression / Plan
-
SOB: likely multifactorial with respiratory infection and HF
Atrial fibrillation with RVR
-in setting of permanent A fib, with LBBB
-continue eliquis 5mg bid
-stop diltiazem
-transition to Toprol XL 50mg bid, and titrate
Acute on chronic HFPEF: h/o HF with improved EF, but EF looks depressed on last echo
-echo 06/04/23: EF 35-40%, mild/moderate MR, TAVR (08/12, no AR), nl RV, mild TR, PASP 41
-will focus on optimizing GDMT as we treat his HF
-Toprol XL 50mg bid
-change IV lasix back to home lasix 80mg bid
-add farxiga 10mg daily
-assess for entresto tomorrow
COPD, possible respiratory infection: per hospitalist
TAVR (2019)
-stable on outpatient echocardiogram
CAD, prior NSTEMI in setting of OM1 dissection 07/2022: stable without chest pain
-cont Plavix through one year
Physical Exam
Vital Signs/Labs
Vital Signs
Temp Pulse Resp BP Pulse Ox
97.8 F 125 20 119/76 96
06/22/23 07:37 06/22/23 08:00 06/22/23 07:37 06/22/23 07:39 06/22/23 08:10
06/21/23 06/22/23 06/23/23
06:59 06:59 06:59
Actual Weight 70.8 kg
06/22/23 04:39
06/22/23 04:39
Magnesium 2.2 mg/dl (1.6-2.3) 06/22/23 04:39
06/21/23
10:40
Zlo-A-Zebcnkfousf Pept 5020
LAB Results
06/21/23 06/21/23 06/21/23
10:40 18:05 23:31
Troponin I < 0.012 0.014 0.014
06/22/23
04:39
Troponin I 0.016
Physical Exam
Constitutional: No acute distress and Comfortable
EENT: Moist mucous membranes
Cardiovascular: Pedal edema is absent, JVD pressure is normal, Systolic murmur absent and Rhythm/rate is irregular
Respiratory: Respiratory effort normal and Lungs clear to auscul.
GI: Soft, Distention absent and Flat
Neuro/Psych: AO x 3
Data Reviewed
-
Date of Service: June 22, 2023
EKG: Other (Tele: A fib 90s-100s on average)
Labs: Labs Reviewed by me
[2023-06-22] MEDS: FARXIGA 10 MG PO (09:41)
[2023-06-22] MEDS: TOPROL XL 50 MG PO ×2 (09:42→19:45)
[2023-06-22] MEDS: KCL 40 MEQ PO (09:42)
[2023-06-22] MEDS: LASIX 80 MG PO ×2 (09:42→15:47)
[2023-06-22] MEDS: NON-FORMULARY ITEM 1 MG IRRIG ×3 (13:00→23:31)
[2023-06-22] MEDS: NON-FORMULARY ITEM 20 MG IRRIG (13:01)
--- NOTE | 2023-06-22 14:58 | W.PN.HOSP.TC ---
Addendum entered and electronically signed by Manjit Harley MD 06/22/23 16:43:
Also, check COVID and Influenza.
Original Note:
Today's Communication/Plan
-
Antibiotics for pneumonia
Sputum Cultures
Continue Toprol XL
Now off Cardizem Drip, stop Cardizem
Assessment / Plan
Assessment / Plan
Physical Exam
General: No Apparent Distress and Conversant
HEENT: Normocephalic and Moist mucous membranes
Respiratory: Decreased Breath Sounds
Cardiac: S1/S2, Irregular Rhythm
GI: Soft, Non Tender and Normal Bowel Sounds
Musculoskeletal: No Cyanosis and No Edema
Skin: Warm and Dry
Neuro: Awake, Alert and AO x 3
Psych: Calm and Intact Judgment/Insight
Assessment/Plan
Atrial Fibrillation with Rapid Ventricular Response
Permanent Atrial Fibrillation
Chronic left bundle branch block
-Continue monitoring in IVU
-Stop Cardizem Drip
-Stop Cardizem
-Continue Eliquis 5 mg BID
-Continue home Metoprolol Succinate: increase to 50 mg BID and titrate
-Cardiology consulted, recommendations appreciated
Heart failure with reduced ejection fraction
Acute Exacerbation of Heart failure with reduced ejection fraction
-ProBNP significantly elevated
-On Furosemide 80 mg BID at home
-IV Lasix 40 mg given in the ER
-Status post IV Lasix 60 mg BID
-Change back to home Lasix 80 mg BID
-Home Toprol XL increased in frequency to 50 mg BID (from daily)
-Add Farxiga
-Entresto evaluation prior to discharge
-Daily weights
-I's and O's
New Shortness of Breath after initial improvement, on June 22, 2023
Pleural Effusions
-Repeat CXR suggested bilateral pneumonia
-Start treatment with Rocephin and Doxycycline
Chronic obstructive pulmonary disease
-Continue home Symbicort or equivalent
-Continue home Montelukast
Aortic stenosis status post transcatheter aortic valve replacement
Coronary artery disease with history of intervention and stent
Coronary artery disease, prior NSTEMI in setting of OM1 dissection 07/2022: stable without chest pain
-Continue home Rosuvastatin or equivalent
-Continue Toprol XL
-Continue home Clopidogrel 75 mg daily through one year
Hypertension
-Continue Toprol as above
-Stop Diltiazem as per cardiology
Hyperlipidemia
-Continue Rosuvastatin
Prostate cancer status post prostatectomy
History of Sinusitis
Sinusitis vs. Bronchitis
-Patient saw ENT with reported Staphylococcus in nasal cultures?
-Complete course of antibiotics Amoxicillin prescribed by outpatient physician
DVT PPx: On Eliquis
Code Status: Full Code
Anticipated Discharge: 24 - 48 hours
Subjective/Interval History
-
Date of Service: June 22, 2023
Patient was seen and examined. Earlier in the day he reported feeling better, with less shortness of breath, and denied any chest pain, but later in the day he developed more shortness of breath, palpitations and chest tightness.
Objective Data
-
Labs:
Laboratory Results
06/22/23
04:39
WBC 8.8
Hgb 13.6
Hct 39.6
Plt Count 219
Sodium 137
Potassium 3.1 L
Chloride 105
Carbon Dioxide 27
BUN 24 H
Creatinine 1.0
Glucose 93
Calcium 8.6
Vital Signs:
Vital Signs
Temp Pulse Resp BP Pulse Ox
98.2 F 115 20 132/89 97
06/22/23 14:55 06/22/23 13:30 06/22/23 14:55 06/22/23 11:16 06/22/23 14:55
I&O
06/21/23 06/22/23 06/23/23
06:59 06:59 06:59
Intake Total 480 / 480
Output Total 1250 / 1250
Balance -770 / -770
--- NOTE | 2023-06-22 15:55 | PTCARENOTE ---
Pt c/o feeling SOB, despite having an Atrovent neb treatment, which he says normally helps. He c/o chest tightness. Dr Suarez and Dr Chirinos notified. EKG ordered and obtained. Pt remains in A-fib on monitor HR 100's-120's. BP 127/81. Pt placed on
O2 at 2L/min.
[2023-06-22 16:30] LABS: Troponin I 0.017 ng/ml
[2023-06-22] MEDS: XOPENEX HFA 45 MCG INHALER 1 PUFF INH (16:52)
[2023-06-22 17:59] LABS: COVID-19 Antigen Negative (Negative)
[2023-06-22] MEDS: STERILE WATER FOR INJECTION 10 ML IV (18:21)
[2023-06-22] MEDS: ROCEPHIN 1000 MG IV (18:24)
[2023-06-22] MEDS: VIBRAMYCIN 260 MG IV (18:25)
--- NOTE | 2023-06-22 19:18 | PTCARENOTE ---
O2 removed as Pt says it is not helping. PCXR ordered by Dr Chirinos. Pt started on IV antibiotics by Dr Chirinos after CXR results showed pneumonia. Covid, flu A and B, Blood cultures ordered and obtained prior to starting Antibx.
[2023-06-22] MEDS: SINGULAIR 10 MG PO (19:46)
--- NOTE | 2023-06-22 19:58 | PTCARENOTE ---
Assumed care. patient walking back from the bathroom, complaints of shortness of breath and feeling like he can't get air in symptoms started around noon today. Placed on 3 liters NC for comfort, POX 97%. HR 120-130's. Respiratory in room,
treatments given. Loose cough during nebulizer. Urinal emptied for 600 cc of yellow urine, call su in reach
[2023-06-22] MEDS: TYLENOL 1000 MG PO (21:20)
[2023-06-22 21:23] LABS: Troponin I 0.019 ng/ml
[2023-06-22] MEDS: NON-FORMULARY ITEM IRRIG ×2 (21:23)
[2023-06-23] VITALS (12 sets, daily range): BP systolic 105–150; BP diastolic 82–121; BMI 24.6
[2023-06-23] MEDS: MIRALAX 17 GRAMS PO (03:15)
--- NOTE | 2023-06-23 03:28 | PTCARENOTE ---
Patient having trouble sleeping, orthopneic, and shortness of breath with walking in the halls overnight. HR 120-130's with activity. POX at rest 97% on room air. Small bowel movement today, admits to straining earlier, abdominal fullness and
constipation. Miralax given. Patient in recliner, appears comfortable at rest, in no distress. Labs collected, VSS, call su in reach
[2023-06-23 03:34] LABS: % Basophils 0.7 % (0-2); % Eosinophils 1.1 % (0-6); % Immature Granulocytes 0.6 % (0-0.5); % Lymphocytes 8.1 % (20.5-51.1); % Monocytes 10.4 % (1.7-9.3); % Neutrophils 79.1 % (42.2-75.2); Absolute Basophils 0.1 10^3/uL (0-0.2); Absolute Eosinophils 0.1 10^3/uL (0-0.7); Absolute Immature Granulocytes 0.1 10^3/uL (0-0.05); Absolute Lymphocytes 0.8 10^3/uL (1.2-3.4); Absolute Monocytes 1.1 10^3/uL (0.1-0.6); Absolute Neutrophils 8.2 10^3/uL (1.4-6.5); Hematocrit 41.4 % (39.0-52.0); Hemoglobin 14.4 g/dL (13.0-18.0); Mean Corp Hgb Conc. 34.8 g/dL (33.0-37.0); Mean Corpuscular Volume 94.7 fL (80.0-94.0); Mean Platelet Volume 10.5 fL (7.4-10.4); Nucleated Red Blood Cells % 0 % (-); Platelet Count 259 10^3/uL (130-400); Red Blood Cell Count 4.37 10^6/uL (4.70-6.10); Red Cell Dist. Width 14.5 % (11.5-14.5); White Blood Cell Count 10.4 10^3/uL (4.8-10.8)
[2023-06-23 03:58] LABS: Blood Urea Nitrogen 30 mg/dl (9-20); Calcium 8.7 mg/dl (8.4-10.2); Carbon Dioxide 23 mmol/L (22-30); Chloride 106 mmol/L (98-107); Estimated Creatinine Clearance 44 ml/min; Glucose 118 mg/dl (70-99); Magnesium 2.1 mg/dl (1.6-2.3); Potassium 4.1 mmol/L (3.5-5.1); Sodium 140 mmol/L (135-145); eGFR > 60.00
--- NOTE | 2023-06-23 04:57 | PTCARENOTE ---
Patient rang call su. A-FIB HR 130's non sustained with lightheadedness, had a feeling of almost passing out. Patient instructed to stay in bed. Placed on oxygen at 2 liters NC. Resting HR 112. POX 97% on room air, BP 126/89. He is mildly anxious,
has not been able to fall asleep because lying flat makes him feel short of breath; moving from bed to chair throughout the night. HOB elevated 45 degrees for comfort. Will continue to monitor
[2023-06-23] MEDS: XOPENEX HFA 45 MCG INHALER 1 PUFF INH (05:12)
[2023-06-23] MEDS: VIBRAMYCIN 260 MG IV (05:13)
--- NOTE | 2023-06-23 05:21 | PTCARENOTE ---
Rescue inhaler given, IV antibiotics infusing
--- NOTE | 2023-06-23 06:06 | PTCARENOTE ---
Paul GUEVARA in see patient. Mg added to labs, instructed to give AM Toprol now, HR 113. Cough syrup ordered as needed. Will continue to monitor
[2023-06-23] MEDS: TOPROL XL 50 MG PO ×2 (06:16→09:47)
--- NOTE | 2023-06-23 08:01 | W.PN.CD ---
Today's Communication / Plan
-
Increase toprol XL to 100mg bid
If rate control unachievable may need AV ronald ablation and PPM vs ICD
Impression / Plan
-
SOB: likely multifactorial with respiratory infection and HF. We will continue bid Lasix at least through today. CHF BNP was 5020. May need to change to daily dosing tomorrow.
Atrial fibrillation with RVR
-in setting of permanent A fib, with LBBB
-continue eliquis 5mg bid
-Increase Toprol XL to 100mg bid
-No role for DCCV here as in AF persistently. IF rate control cannot be achieved will discuss AV ronald ablation with PPM vs ICD implant
Acute on chronic HFPEF: h/o HF with improved EF, but EF looks depressed on last echo
-echo 06/04/23: EF 35-40%, mild/moderate MR, TAVR (08/12, no AR), nl RV, mild TR, PASP 41
-will focus on optimizing GDMT as we treat his HF
-Toprol XL 100mg bid
-add farxiga 10mg daily
-assess for entresto tomorrow- rate control first priority
COPD, possible respiratory infection: per hospitalist. On ABX
TAVR (2019)
-stable on outpatient echocardiogram
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
-cont Plavix through one year
Physical Exam
Vital Signs/Labs
Vital Signs
Temp Pulse Resp BP Pulse Ox
97.5 F 120 16 115/82 95
06/23/23 06:36 06/23/23 06:36 06/23/23 06:36 06/23/23 06:36 06/23/23 06:36
06/22/23 06/23/23 06/24/23
06:59 06:59 06:59
Actual Weight 156 lb 1.396 oz 156 lb 15.506 oz
05/13/24 03:24
06/23/23 03:24
Magnesium 2.1 mg/dl (1.6-2.3) 06/23/23 03:24
06/21/23
10:40
Mwg-Q-Fnldkyxscaf Pept 5020
LAB Results
06/21/23 06/21/23 06/21/23
10:40 18:05 23:31
Troponin I < 0.012 0.014 0.014
06/22/23 06/22/23 06/22/23
04:39 15:26 20:51
Troponin I 0.016 0.017 0.019
06/23/23 06/23/23 06/23/23
03:24 09:00 15:00
Troponin I 0.020 Cancelled Cancelled
06/23/23
21:00
Troponin I Cancelled
Physical Exam
Constitutional: No acute distress
EENT: Anicteric
Cardiovascular: Rhythm/rate is irregular and S1S2 is normal
Respiratory: Respiratory effort normal, Wheeze Absent, Crackles Absent and Rhonchi Present
GI: Soft and Non tender
Neuro/Psych: Alert, AO x 3 and Motor deficits absent
Data Reviewed
-
Date of Service: June 23, 2023
[2023-06-23] MEDS: SYMBICORT 160/4.5 MCG INHALER 2 PUFF INH ×2 (08:34→20:47)
[2023-06-23] MEDS: ATROVENT NEBULES 0.5 MG INH ×3 (08:35→20:48)
[2023-06-23] MEDS: NON-FORMULARY ITEM 20 MG IRRIG (09:42)
[2023-06-23] MEDS: NON-FORMULARY ITEM 1 MG IRRIG ×3 (09:43→19:38)
[2023-06-23] MEDS: THERAGRAN 1 TABLET PO (09:45)
[2023-06-23] MEDS: VITAMIN B-12 250 MCG PO (09:45)
[2023-06-23] MEDS: VITAMIN C 250 MG PO (09:45)
[2023-06-23] MEDS: VITAMIN D3 (cholecalciferol) 25 MCG PO (09:45)
[2023-06-23] MEDS: FARXIGA 10 MG PO (09:46)
[2023-06-23] MEDS: LASIX 80 MG PO ×2 (09:46→16:06)
[2023-06-23] MEDS: OSCAL CAL 500 250 MG PO (09:46)
[2023-06-23] MEDS: KCL 20 MEQ PO ×2 (09:46→19:37)
[2023-06-23] MEDS: ELIQUIS 5 MG PO ×2 (09:47→19:37)
[2023-06-23] MEDS: PLAVIX 75 MG PO (09:47)
[2023-06-23] MEDS: CLARITIN 10 MG PO (09:47)
[2023-06-23] MEDS: CRESTOR 5 MG PO (09:48)
--- NOTE | 2023-06-23 11:29 | PTCARENOTE ---
received patient this am, patient is sitting up in [facility], chief complaint is that he has not slept in 5 days. TT hospitalist. also patients HR remains in the 130's, Dr. Norman aware, increased toprol and given as ordered. patients HR has remained
in the 130's, TT Maria E CREDIT PORTFOLIO ADVISOR, will wait 1 hour to see if HR comes down then will receive order for rate control. patient is symptomatic with his HR elevated, dizzy and difficulty breathing. o2 was placed back on at 3 LNC.
--- NOTE | 2023-06-23 11:52 | PN.CDI ---
CDI
- -
CDI:
Physician Documentation Request
Admit Date: 06/21/23 14:10
Dear Doctor Cricket,
Patient admitted with acute exacerbation of heart failure.
06/21 Potassium level: 3.1
06/21 Potassium chloride 40 meq PO administered
Based on the above, could you clarify in the progress notes, the appropriate diagnosis, if significant, that supports the above abnormalities and additional evaluation, monitoring and/or treatment rendered:
Hypokalemia
Abnormal lab value insignificant
Other
Use of terms such as suspected, likely, concern for, or probable (associated with a specific diagnosis that is being evaluated, monitored, or treated as if it exists) are acceptable and can be coded in the inpatient setting, when documented at the
time of discharge.
Thank you,
Antonina Sweeney RN, BSN
CDI Specialist
Available via [facility] text
Please use your independent medical judgment in providing your response.
--- NOTE | 2023-06-23 11:52 | PTCARENOTE ---
Addendum entered by Caprice Myers RN 06/23/23 12:29:
Xanax po given as ordered.
Original Note:
patient called out stating 'I think I am having a panic attack', patient took off o2, o2 sat on RA 95%, HR 119, TT Maria E [employer]ANDER WOOD[employer] PENCILS, patient would like something for anxiety.
--- NOTE | 2023-06-23 12:23 | W.PN.UPDATE ---
Update Note
Progress Note Update
Patient is having what appears to be a panic attack.
He is tachycardic, tachypneic, and upset about his condition. He is afraid if he falls asleep he will stop breathing.
Offered O2. He declined. Offered SpO2 monitoring with sleeping. He will consider.
One time dose of Xanax ordered. He is considering this.
[2023-06-23] MEDS: XANAX 0.25 MG PO (12:28)
--- NOTE | 2023-06-23 12:28 | CM ---
Reviewed chart. Met with Mr. Mooney to review discharge plans. He states he is not feeling well and asked me to return at a later time. Telephone call to [employer] prescription plan, ([phone]) to check on co-pays for Jardiance, Farxiga and
Enteresto. Jardiance 10mg co-pay is $120.34 a month. His Farxiga 10 mg po is $114.60 and Entresto bid co-pay is $135.48. Will review with him regarding co-pays. He can use the one month free coupon for all of them. Will need to see his
current functional level to see if he will have any skilled care needs. Medical work-up in progress. The discharge plan is to return home with his spouse when medically stable.
--- NOTE | 2023-06-23 12:49 | W.PN.HOSP.TC ---
Today's Communication/Plan
-
see bold
Assessment / Plan
Assessment / Plan
Gen: NAD, AAOx3.
Eyes: EOMI, PERRLA, no scleral icterus.
Neck: supple.
CV: Tachycardic, irregular regular, +S1/S2, no m/r/g.
Resp: CTAB, no rales, wheezes, or rhonchi.
Abd: +BS, soft, NT, ND
Skin: No rashes.
Neuro: CN 2-12 intact, non-focal.
Psych: Normal mood and affect.
CXR 06/21/23: Small bilateral pleural effusions.
CXR 06/22/23: Progressed findings suggesting medial right lower lobe pneumonia. Progressed findings suggesting mild left lower lobe pneumonia. New. Small left pleural effusion. Stable. Tiny right pleural effusion. Improved.
Permanent Atrial Fibrillation with RVR
-Chronic LBBB
-was on Cardizem gtt, now off
-Increase Toprol-XL to 100mg BID
-cont Eliquis
-If rate control cannot be achieved medically patient may need AV node ablation with permanent pacemaker versus ICD
Acute HFrEF:
-was on IV lasix, now transitioned to PO Lasix
-wt down 1.4Kg, cont to trend daily wts, I/Os
-cont BB/Farxiga
-Entresto evaluation prior to discharge
B/L PNA:
-currently without leukocytosis or fever
-CXR above
-started on Rocephin/Doxy
-check procal
Panic attack:
-Ativan as needed
Other problems:
COPD: cont Symbicort/Singulair
s/p TAVR
CAD with h/o stent, prior NSTEMI in setting of OM1 dissection 07/2022: cont BB/Plavix/statin
Essential Hypertension: cont BB
Hyperlipidemia: cont statin
Prostate cancer s/p prostatectomy
FULL/Eliquis
Anticipated Discharge: 24 - 48 hours
Subjective/Interval History
-
Date of Service: June 23, 2023
Currently reports mild SOB, denies CP. Earlier the patient had a panic attack.
Objective Data
-
Labs:
Laboratory Results
06/23/23
03:24
WBC 10.4
Hgb 14.4
Hct 41.4
Plt Count 259
Sodium 140
Potassium 4.1 D
Chloride 106
Carbon Dioxide 23
BUN 30 H
Creatinine 1.2
Glucose 118 H
Calcium 8.7
Vital Signs:
Vital Signs
Temp Pulse Resp BP Pulse Ox
97.5 F 129 22 112/86 96
06/23/23 06:36 06/23/23 11:00 06/23/23 08:37 06/23/23 10:36 06/23/23 08:37
I&O
06/22/23 06/23/23 06/24/23
06:59 06:59 06:59
Intake Total 480 / 480 850 / 850
Output Total 1250 / 1250 1325 / 1325
Balance -770 / -770 -475 / -475
--- NOTE | 2023-06-23 13:28 | PTCARENOTE ---
after Xanax po given, patient lying in bed, resting. patient verbalized; 'I feel a little better'.
[2023-06-23 14:42] LABS: Procalcitonin < 0.05 ng/ml (0.0-0.25)
[2023-06-23] MEDS: TYLENOL 1000 MG PO (19:36)
[2023-06-23] MEDS: SINGULAIR 10 MG PO (19:37)
[2023-06-23] MEDS: TOPROL XL 100 MG PO (19:38)
--- NOTE | 2023-06-23 21:20 | PTCARENOTE ---
Pt ambulating in the room as self- with complaints of not sleeping for days- Plan of care discussed- pt verbalized understanding. Still afib in the 100s-120s on the monitor. Pt with complaints of a panic attack on dayshift- support provided and a
new neck pain- 04/19 after 1000mg of Tylenol- house BALANCE WHEEL SCREW HOLE DRILLER aware- Joshay ordered and applied per APR.
[2023-06-23] MEDS: ATIVAN 0.5 MG PO (21:50)
[2023-06-23] MEDS: BenGay-Like 1 APPLIC TOPICAL (21:50)
[2023-06-24] VITALS (7 sets, daily range): BP systolic 106–134; BP diastolic 86–104; BMI 24.8
[2023-06-24] MEDS: XANAX 0.25 MG PO (01:36)
--- NOTE | 2023-06-24 01:51 | PTCARENOTE ---
Pt in and out of room all night- complaining of feeling 'short of breath/ or that he is going to fall asleep and not be able to breath' - reassurance provided multiple times. pt still sounds clear on auscultation. on RA 97% and on 2L 100%. house BARREL LINER
up to see pt. a x1 dose of Xanax ordered and given per MAR and relaxation channel put on to help with anxious feelings- and to facilitate sleep.
[2023-06-24 01:52] LABS: % Basophils 0.6 % (0-2); % Eosinophils 0.9 % (0-6); % Immature Granulocytes 0.6 % (0-0.5); % Lymphocytes 5.8 % (20.5-51.1); % Monocytes 11.2 % (1.7-9.3); % Neutrophils 80.9 % (42.2-75.2); Absolute Basophils 0.1 10^3/uL (0-0.2); Absolute Eosinophils 0.1 10^3/uL (0-0.7); Absolute Immature Granulocytes 0.1 10^3/uL (0-0.05); Absolute Lymphocytes 0.7 10^3/uL (1.2-3.4); Absolute Monocytes 1.4 10^3/uL (0.1-0.6); Absolute Neutrophils 10.3 10^3/uL (1.4-6.5); Hematocrit 39.9 % (39.0-52.0); Hemoglobin 14.1 g/dL (13.0-18.0); Mean Corp Hgb Conc. 35.3 g/dL (33.0-37.0); Mean Corpuscular Hgb 32.6 pg (27.0-31.0); Mean Corpuscular Volume 92.4 fL (80.0-94.0); Mean Platelet Volume 10.6 fL (7.4-10.4); Nucleated Red Blood Cells % 0 % (-); Platelet Count 252 10^3/uL (130-400); Red Blood Cell Count 4.32 10^6/uL (4.70-6.10); Red Cell Dist. Width 14.6 % (11.5-14.5); White Blood Cell Count 12.7 10^3/uL (4.8-10.8)
[2023-06-24 02:07] LABS: Blood Urea Nitrogen 29 mg/dl (9-20); Calcium 9.1 mg/dl (8.4-10.2); Carbon Dioxide 24 mmol/L (22-30); Chloride 106 mmol/L (98-107); Estimated Creatinine Clearance 40 ml/min; Glucose 122 mg/dl (70-99); Potassium 3.7 mmol/L (3.5-5.1); Sodium 139 mmol/L (135-145); eGFR 54.51
--- NOTE | 2023-06-24 03:34 | PTCARENOTE ---
pt out in the [place] to make this RN aware ' he must have slept for a while. but he doesn't remember it- then it started all over again then same.' Xanax given per APR.
--- NOTE | 2023-06-24 06:25 | W.PN.UPDATE ---
Update Note
Progress Note Update
RN notified EVAPORATOR OPERATOR MOLASSES, Patient anxious stating when he falls asleep, he wakes up thinking he has lots of things to do, reports he is afraid when he falls asleep he is unable to breath. stable VS, chest clear on auscultation. Patient stated, Ativan didn't
help much, requested Xanax as it helped relax his lungs and was able to sleep during day. Ordered Xanax .25mg PO x 1 dose. Verbal assurance provided.
--- NOTE | 2023-06-24 08:10 | W.PN.HOSP.TC ---
Today's Communication/Plan
-
will discuss plan for rate control with cardiology
Assessment / Plan
Assessment / Plan
Gen: NAD, AAOx3.
Eyes: EOMI, PERRLA, no scleral icterus.
Neck: supple.
CV: Tachycardic, irregular regular, +S1/S2, no m/r/g.
Resp: CTAB, no rales, wheezes, or rhonchi.
Abd: +BS, soft, NT, ND
Skin: No rashes.
Neuro: CN 2-12 intact, non-focal.
Psych: Normal mood and affect.
CXR 06/21/23: Small bilateral pleural effusions.
CXR 06/22/23: Progressed findings suggesting medial right lower lobe pneumonia. Progressed findings suggesting mild left lower lobe pneumonia. New. Small left pleural effusion. Stable. Tiny right pleural effusion. Improved.
Permanent Atrial Fibrillation with RVR
-Chronic LBBB
-was on Cardizem gtt, now off
-Toprol-XL increased to 100mg BID
-cont Eliquis
-If rate control cannot be achieved medically patient may need AV node ablation with permanent pacemaker versus ICD
Acute HFrEF:
-was on IV lasix, now transitioned to PO Lasix
-wt down <1Kg, cont to trend daily wts, I/Os
-cont BB/Farxiga
-Entresto evaluation prior to discharge
B/L PNA:
-currently without leukocytosis or fever
-CXR above
-started on Rocephin/Doxy, now stopped with NEG Procal
-bacterial PNA has been ruled out
Panic attack/Anxiety:
-Xanax as needed
Other problems:
COPD: cont Symbicort/Singulair
s/p TAVR
CAD with h/o stent, prior NSTEMI in setting of OM1 dissection 07/2022: cont BB/Plavix/statin
Essential Hypertension: cont BB
Hyperlipidemia: cont statin
Prostate cancer s/p prostatectomy
FULL/Eliquis
Total time spent on today's encounter was 51 minutes which included time spent in counseling the patient/family regarding diagnosis and treatment plan as listed above, goals of care, and symptom management. Case was discussed with nursing staff,
specialists, and care coordinators/case management. All labs and imaging personally reviewed by me. Remainder the time spent in detailed review of previous records, lab data, imaging, and other medical provider documentation.
Anticipated Discharge: 24 - 48 hours
Subjective/Interval History
-
Date of Service: June 24, 2023
Currently denies CP/SOB. c/o dry mouth an insomnia. Discusses earlier panic attacks.
Objective Data
-
Labs:
Laboratory Results
06/24/23
01:41
WBC 12.7 H
Hgb 14.1
Hct 39.9
Plt Count 252
Sodium 139
Potassium 3.7
Chloride 106
Carbon Dioxide 24
BUN 29 H
Creatinine 1.3
Glucose 122 H
Calcium 9.1
Vital Signs:
Vital Signs
Temp Pulse Resp BP Pulse Ox
97.3 F 110 18 107/91 94
06/24/23 07:23 06/24/23 01:35 06/24/23 07:23 06/24/23 01:35 06/24/23 07:23
I&O
06/23/23 06/24/23 06/25/23
06:59 06:59 06:59
Intake Total 850 / 850
Output Total 1325 / 1325 400 / 400
Balance -475 / -475 -400 / -400
[2023-06-24] MEDS: ATROVENT NEBULES 0.5 MG INH ×2 (08:17→15:36)
[2023-06-24] MEDS: SYMBICORT 160/4.5 MCG INHALER 2 PUFF INH ×2 (08:18→20:29)
[2023-06-24] MEDS: NON-FORMULARY ITEM 20 MG IRRIG (09:06)
[2023-06-24] MEDS: NON-FORMULARY ITEM 1 MG IRRIG (09:07)
[2023-06-24] MEDS: BenGay-Like 1 APPLIC TOPICAL (09:07)
[2023-06-24] MEDS: CRESTOR 5 MG PO (09:08)
[2023-06-24] MEDS: TOPROL XL 100 MG PO ×2 (09:08→19:59)
[2023-06-24] MEDS: VITAMIN B-12 250 MCG PO (09:08)
[2023-06-24] MEDS: XANAX 0.5 MG PO ×2 (09:09→20:43)
[2023-06-24] MEDS: CLARITIN 10 MG PO (09:09)
[2023-06-24] MEDS: PLAVIX 75 MG PO (09:09)
[2023-06-24] MEDS: VITAMIN D3 (cholecalciferol) 25 MCG PO (09:09)
[2023-06-24] MEDS: LASIX 80 MG PO ×2 (09:09→16:07)
[2023-06-24] MEDS: THERAGRAN 1 TABLET PO (09:09)
[2023-06-24] MEDS: FARXIGA 10 MG PO (09:09)
[2023-06-24] MEDS: ELIQUIS 5 MG PO ×2 (09:10→19:58)
[2023-06-24] MEDS: KCL 20 MEQ PO ×2 (09:10→19:58)
--- NOTE | 2023-06-24 10:38 | PTCARENOTE ---
received patient this am, patient lying in bed, very lethargic, patient stated again today, 'I cannot sleep', Xanax po given as ordered. monitor shows Afib with HR 111. lung phelan diminished throughout, patient c/o difficulty breathing. o2 sat on
RA 96%, patient doesn't want o2 on.
--- NOTE | 2023-06-24 12:02 | CM ---
Reviewed chart. Met with Mr. Mooney to review discharge plans. He states he is feeling a little better. He states prior to admission he resides with his spouse in a two story home with two steps to enter. Will need to see his current functional
level to see if he will have any skilled care needs. We reviewed [facility] with him. He wants to wait closer to when he is going home before deciding if he would want [facility]. Medical work-up in progress. The discharge plan is to return
home with his spouse and [facility] if he is agreeable.
--- NOTE | 2023-06-24 14:24 | W.PN.CD ---
Today's Communication / Plan
-
- Add Diltiazem 60 mg TID
- Improve rate control
- Option of adding Digoxin/Aldactone
- Possible SCADA ENGINEER-P with LBB pacing lead if rate is still elevated.
Impression / Plan
-
SOB: likely multifactorial with respiratory infection and HF. We will continue bid Lasix at least through today. CHF BNP was 5020. May need to change to daily dosing tomorrow.
Atrial fibrillation with RVR
-in setting of permanent A fib, with LBBB
-continue eliquis 5mg bid
-Rate is still elevated with RVR despite increased Toprol XL to 100mg bid (from 50 mg QD)
- Add Diltiazem 60 mg TID for rate cotnrol. Assess the acceptable dose then can switch to long acting.
-No role for DCCV here as in AF persistently. IF rate control cannot be achieved will discuss AV ronald ablation with PPM vs ICD implant
Acute on chronic HFPEF: h/o HF with improved EF, but EF looks depressed on last echo
-echo 06/04/23: EF 35-40%, mild/moderate MR, TAVR (08/12, no AR), nl RV, mild TR, PASP 41
-will focus on optimizing GDMT as we treat his HF
-Toprol XL 100mg bid
-Farxiga 10mg daily
-assess for entresto tomorrow- rate control first priority
-With RVR noted, then ablate and pace strategy is attractive option. LVEF is 35-40%. No need for ICD unless it is < 35%. Would consider SCADA ENGINEER-P with CS vs LBB pacing lead.
COPD, possible respiratory infection: per hospitalist. On ABX
TAVR (2019)
-stable on outpatient echocardiogram
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
-cont Plavix through one year
Physical Exam
Vital Signs/Labs
Vital Signs
Temp Pulse Resp BP Pulse Ox
97.4 F 124 22 106/86 97
06/24/23 10:36 06/24/23 14:00 06/24/23 10:36 06/24/23 10:33 06/24/23 10:36
06/23/23 06/24/23 06/25/23
06:59 06:59 06:59
Actual Weight 71.2 kg 71.8 kg
06/24/23 01:41
06/24/23 01:41
Magnesium Cancelled 06/23/23 06:02
06/21/23
10:40
Nuc-P-Mewcfpbugca Pept 5020
LAB Results
06/21/23 06/21/23 06/22/23
18:05 23:31 04:39
Troponin I 0.014 0.014 0.016
06/22/23 06/22/23 06/23/23
15:26 20:51 03:24
Troponin I 0.017 0.019 0.020
06/23/23 06/23/23 06/23/23
09:00 15:00 21:00
Troponin I Cancelled Cancelled Cancelled
Physical Exam
Constitutional: No acute distress and Comfortable
EENT: Anicteric and Moist mucous membranes
Cardiovascular: JVD pressure is normal, Rhythm/rate is irregular and Pedal edema present
Respiratory: Respiratory effort normal, Crackles Absent and Wheeze Present
Neuro/Psych: Alert, Oriented and AO x 3
Data Reviewed
-
Date of Service: June 24, 2023
Medical Decision Making: Reviewed Test Results, Test Interpretation and Review of Case with other Provider
EKG: Tracing Personally Visualized and interpreted
Echo: Report Reviewed by me
Labs: Labs Reviewed by me
Old Records: Reviewed
[2023-06-24] MEDS: BenGay-Like TOPICAL ×2 (16:07→20:00)
[2023-06-24] MEDS: CARDIZEM 60 MG PO ×2 (16:07→21:02)
[2023-06-24] MEDS: NON-FORMULARY ITEM IRRIG ×2 (19:58)
[2023-06-24] MEDS: ATROVENT NEBULES INH (20:32)
[2023-06-24] MEDS: SINGULAIR 10 MG PO (20:43)
[2023-06-24] MEDS: TYLENOL 1000 MG PO (20:43)
--- NOTE | 2023-06-24 22:00 | PTCARENOTE ---
Tylenol and xanax given to gether this evening to help facilitate sleeping. afib on the monitor- pt states he had a horrible day.
[2023-06-25] VITALS (11 sets, daily range): BP systolic 101–126; BP diastolic 66–89; BMI 24.8
[2023-06-25] MEDS: ATROVENT NEBULES 0.5 MG INH ×3 (01:14→19:25)
--- NOTE | 2023-06-25 03:11 | DOWNTIME ---
There was a [facility] Client [employer]ist Downtime on 06/24/2023 from 0100 to 06/25/2023 at 0300. Downtime documentation of patient's care, including medication administrations, has been reconciled in the electronic record per guidelines. Refer to the
patient's paper chart under the miscellaneous tab to see printed paper medication records and downtime forms.
[2023-06-25] MEDS: XANAX 0.5 MG PO ×2 (04:06→10:57)
[2023-06-25 04:28] LABS: % Basophils 0.5 % (0-2); % Eosinophils 1.3 % (0-6); % Immature Granulocytes 0.5 % (0-0.5); % Lymphocytes 3.6 % (20.5-51.1); % Monocytes 9.3 % (1.7-9.3); % Neutrophils 84.8 % (42.2-75.2); Absolute Basophils 0.1 10^3/uL (0-0.2); Absolute Eosinophils 0.2 10^3/uL (0-0.7); Absolute Immature Granulocytes 0.1 10^3/uL (0-0.05); Absolute Lymphocytes 0.5 10^3/uL (1.2-3.4); Absolute Monocytes 1.3 10^3/uL (0.1-0.6); Hematocrit 43.8 % (39.0-52.0); Hemoglobin 14.9 g/dL (13.0-18.0); Mean Corpuscular Hgb 32.5 pg (27.0-31.0); Mean Corpuscular Volume 95.6 fL (80.0-94.0); Mean Platelet Volume 10.9 fL (7.4-10.4); Nucleated Red Blood Cells % 0 % (-); Platelet Count 258 10^3/uL (130-400); Red Blood Cell Count 4.58 10^6/uL (4.70-6.10); Red Cell Dist. Width 14.6 % (11.5-14.5); White Blood Cell Count 14.1 10^3/uL (4.8-10.8)
--- NOTE | 2023-06-25 04:52 | PTCARENOTE ---
pt rang this morning stating he felt like he was having a panic attack again- seated on the side of the bed. ARCHANA Gandara provided- pt seated in the chair for more comfort.
[2023-06-25 04:54] LABS: Blood Urea Nitrogen 33 mg/dl (9-20); Calcium 9.3 mg/dl (8.4-10.2); Carbon Dioxide 22 mmol/L (22-30); Chloride 105 mmol/L (98-107); Estimated Creatinine Clearance 48 ml/min; Glucose 115 mg/dl (70-99); Potassium 4.2 mmol/L (3.5-5.1); Sodium 138 mmol/L (135-145); eGFR > 60.00
[2023-06-25] MEDS: ATROVENT NEBULES INH ×2 (07:39→07:43)
[2023-06-25] MEDS: SYMBICORT 160/4.5 MCG INHALER 2 PUFF INH ×2 (07:39→19:25)
[2023-06-25] MEDS: CLARITIN 10 MG PO (07:59)
[2023-06-25] MEDS: VITAMIN B-12 250 MCG PO (07:59)
[2023-06-25] MEDS: OSCAL CAL 500 250 MG PO (08:00)
[2023-06-25] MEDS: CRESTOR 5 MG PO (08:00)
[2023-06-25] MEDS: VITAMIN D3 (cholecalciferol) 25 MCG PO (08:00)
[2023-06-25] MEDS: TOPROL XL 100 MG PO ×2 (08:00→22:26)
[2023-06-25] MEDS: KCL 20 MEQ PO ×2 (08:00→20:05)
[2023-06-25] MEDS: ELIQUIS 5 MG PO ×2 (08:00→20:05)
[2023-06-25] MEDS: VITAMIN C 250 MG PO (08:01)
[2023-06-25] MEDS: LASIX 80 MG PO ×2 (08:01→15:36)
[2023-06-25] MEDS: CARDIZEM 60 MG PO (08:01)
[2023-06-25] MEDS: PLAVIX 75 MG PO (08:01)
[2023-06-25] MEDS: THERAGRAN 1 TABLET PO (08:01)
[2023-06-25] MEDS: FARXIGA 10 MG PO (08:01)
[2023-06-25] MEDS: BenGay-Like TOPICAL ×3 (08:02→23:01)
[2023-06-25] MEDS: NON-FORMULARY ITEM 20 MG IRRIG (08:03)
[2023-06-25] MEDS: NON-FORMULARY ITEM 1 MG IRRIG (08:03)
--- NOTE | 2023-06-25 08:24 | W.PN.CD ---
Today's Communication / Plan
-
- Switch Dilt 60 tid to dilt 240 mg QD
-re-evaluate in AM
Impression / Plan
-
SOB: likely multifactorial with respiratory infection and HF. We will continue bid Lasix at least through today. CHF BNP was 5020. May need to change to daily dosing tomorrow.
Atrial fibrillation with RVR
-in setting of permanent A fib, with LBBB
-continue eliquis 5mg bid
-Rate is still elevated with RVR despite increased Toprol XL to 100mg bid (from 50 mg QD)
- Rate is only mildly imporved with Diltiazem 60 mg TID. Will change to 240 mg QD today. for rate cotnrol. Assess the acceptable dose then can switch to long acting.
-No role for DCCV here as in permanent AF. IF rate control cannot be achieved will discuss AV ronald ablation with PPM vs ICD implant
Acute on chronic HFPEF: h/o HF with improved EF, but EF looks depressed on last echo
-echo 06/04/23: EF 35-40%, mild/moderate MR, TAVR (08/12, no AR), nl RV, mild TR, PASP 41
-will focus on optimizing GDMT as we treat his HF
-Toprol XL 100mg bid
-Farxiga 10mg daily
-assess for entresto tomorrow- rate control first priority
-With RVR noted, then ablate and pace strategy is attractive option. LVEF is 35-40%. No need for ICD unless it is < 35%. Would consider ELECTROMEDICAL EQUIPMENT REPAIRER-P with CS vs LBB pacing lead vs micra.
COPD, possible respiratory infection: per hospitalist. On ABX
TAVR (2019)
-stable on outpatient echocardiogram
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
-cont Plavix through one year
Physical Exam
Vital Signs/Labs
Vital Signs
Temp Pulse Resp BP Pulse Ox
97.6 F 83 20 104/87 96
06/25/23 08:03 06/25/23 07:43 06/25/23 07:55 06/25/23 04:14 06/25/23 07:55
06/24/23 06/25/23 06/26/23
06:59 06:59 06:59
Actual Weight 71.8 kg 71.9 kg
06/25/23 04:11
06/25/23 04:11
Magnesium Cancelled 06/23/23 06:02
06/21/23
10:40
Unb-N-Mgtedevjpaa Pept 5020
LAB Results
06/22/23 06/22/23 06/23/23
15:26 20:51 03:24
Troponin I 0.017 0.019 0.020
06/23/23 06/23/23 06/23/23
09:00 15:00 21:00
Troponin I Cancelled Cancelled Cancelled
Physical Exam
Constitutional: No acute distress and Comfortable
EENT: Anicteric and Moist mucous membranes
Cardiovascular: Pedal edema is absent, Rhythm/rate is irregular, JVD present and Systolic murmur present
Respiratory: Respiratory effort normal, Wheeze Absent and Crackles Absent
GI: Soft, Non tender and Normal bowel sounds
Neuro/Psych: Alert, Oriented and AO x 3
Data Reviewed
-
Date of Service: June 25, 2023
Medical Decision Making: Reviewed Test Results, Independent Historian Assessment, Test Interpretation and Review of Case with other Provider
EKG: Tracing Personally Visualized and interpreted
Echo: Report Reviewed by me
Labs: Labs Reviewed by me
Old Records: Reviewed
--- NOTE | 2023-06-25 08:37 | W.PN.HOSP.TC ---
Today's Communication/Plan
-
see bold
Assessment / Plan
Assessment / Plan
Gen: Remains NAD, AAOx3.
Eyes: EOMI, PERRLA, no scleral icterus.
Neck: supple.
CV: Remains tachycardic, irregular regular, +S1/S2, no m/r/g.
Resp: CTAB anteriorly, no rales, wheezes, or rhonchi.
Abd: +BS, soft, NT, ND
Skin: No rashes.
Neuro: CN 2-12 intact, non-focal.
Psych: Normal mood and affect.
CXR 06/21/23: Small bilateral pleural effusions.
CXR 06/22/23: Progressed findings suggesting medial right lower lobe pneumonia. Progressed findings suggesting mild left lower lobe pneumonia. New. Small left pleural effusion. Stable. Tiny right pleural effusion. Improved.
Permanent Atrial Fibrillation with RVR
-Chronic LBBB
-was on Cardizem gtt, now off
-Toprol-XL increased to 100mg BID
-Cardizem 60mg TID started
-cont Eliquis
-If rate control cannot be achieved medically patient may need AV node ablation with permanent pacemaker versus ICD
Acute HFrEF:
-was on IV lasix, now transitioned to PO Lasix
-wt down <1Kg, cont to trend daily wts, I/Os
-cont BB/Farxiga
-Entresto evaluation prior to discharge
B/L PNA:
-currently without leukocytosis or fever
-CXR above
-was on Rocephin/Doxy, now stopped with NEG Procal
-bacterial PNA has been ruled out
-afebrile, leukocytosis could be stress-induced/reactive
Panic attack/Anxiety:
-Xanax as needed
Other problems:
COPD: cont Symbicort/Singulair
s/p TAVR
CAD with h/o stent, prior NSTEMI in setting of OM1 dissection 07/2022: cont BB/Plavix/statin
Essential Hypertension: cont BB
Hyperlipidemia: cont statin
Prostate cancer s/p prostatectomy
FULL/Eliquis
Anticipated Discharge: > 48 hours
Subjective/Interval History
-
Date of Service: June 25, 2023
Denies chest pain. Complains of shortness of breath.
Objective Data
-
Labs:
Laboratory Results
06/25/23
04:11
WBC 14.1 H
Hgb 14.9
Hct 43.8
Plt Count 258
Sodium 138
Potassium 4.2
Chloride 105
Carbon Dioxide 22
BUN 33 H
Creatinine 1.1
Glucose 115 H
Calcium 9.3
Vital Signs:
Vital Signs
Temp Pulse Resp BP Pulse Ox
97.6 F 83 20 104/87 96
06/25/23 08:03 06/25/23 07:43 06/25/23 07:55 06/25/23 04:14 06/25/23 07:55
I&O
06/24/23 06/25/23 06/26/23
06:59 06:59 06:59
Intake Total 240 / 240
Output Total 400 / 400
Balance -400 / -400 240 / 240
[2023-06-25] MEDS: CARDIZEM CD 240 MG PO (09:51)
[2023-06-25] MEDS: MUCINEX 600 MG PO ×2 (09:51→20:05)
--- NOTE | 2023-06-25 10:45 | PTCARENOTE ---
Assumed care at 0700. AOx4. Afib on telemetry, HR 110-120s. Denies cardiac or respiratory complaints, but verbalizes anxiety and inability to sleep. Plan of care discussed. Encouraged to make needs known.
--- NOTE | 2023-06-25 12:42 | CM ---
Reviewed chart. Asked to check on co-pays for Jardiance 10 mg- $120.34 a month, Farxiga 10 mg- $114.66 and Entresto bid is $135.48 a month. Reviewed co-pays with Mr. Mooney and he is agreeable to the co-pays. Medical work-up in progress.
The discharge plan is to return home with his spouse when medically stable.
--- NOTE | 2023-06-25 20:39 | SUR.OPER ---
Assumed care. Patient sleeping arouses easily. Has not been sleeping well for a few days. A-FIB HR 103, BP 101/76. Coughing intermittently, lungs CTA, room air 97%, he is lying flat in bed and appears comfortable. BM yesterday, using urinal in the
bathroom. Arms are bruised b/l, assessment on-going
[2023-06-25] MEDS: NON-FORMULARY ITEM IRRIG ×2 (22:26)
[2023-06-25] MEDS: ROBITUSSIN DM 5 ML PO (22:36)
[2023-06-25] MEDS: SINGULAIR 10 MG PO (22:36)
--- NOTE | 2023-06-25 22:57 | PTCARENOTE ---
Patient sleeping able to lye flat tonight, appears comfortable, arouses easily. Instructed to ring for bathroom assistance overnight. Bed alarm placed for safety.
[2023-06-26] VITALS (11 sets, daily range): BP systolic 98–138; BP diastolic 72–123; BMI 23.9
--- NOTE | 2023-06-26 00:58 | PTCARENOTE ---
Patient removed telemetry. Patient remains drossy. He is alert to place, time and self. VSS, AFIB on telemetry. POX 97% on room air.
[2023-06-26 04:25] LABS: % Basophils 0.4 % (0-2); % Immature Granulocytes 0.8 % (0-0.5); % Lymphocytes 6.8 % (20.5-51.1); % Monocytes 11.2 % (1.7-9.3); % Neutrophils 78.8 % (42.2-75.2); Absolute Basophils 0.1 10^3/uL (0-0.2); Absolute Eosinophils 0.2 10^3/uL (0-0.7); Absolute Immature Granulocytes 0.1 10^3/uL (0-0.05); Absolute Lymphocytes 0.8 10^3/uL (1.2-3.4); Absolute Monocytes 1.3 10^3/uL (0.1-0.6); Absolute Neutrophils 9.1 10^3/uL (1.4-6.5); Hematocrit 41.1 % (39.0-52.0); Mean Corp Hgb Conc. 34.1 g/dL (33.0-37.0); Mean Corpuscular Hgb 32.6 pg (27.0-31.0); Mean Corpuscular Volume 95.6 fL (80.0-94.0); Nucleated Red Blood Cells % 0 % (-); Platelet Count 239 10^3/uL (130-400); Red Cell Dist. Width 14.5 % (11.5-14.5); White Blood Cell Count 11.5 10^3/uL (4.8-10.8)
[2023-06-26 04:48] LABS: Blood Urea Nitrogen 32 mg/dl (9-20); Calcium 8.9 mg/dl (8.4-10.2); Carbon Dioxide 24 mmol/L (22-30); Chloride 106 mmol/L (98-107); Estimated Creatinine Clearance 44 ml/min; Glucose 96 mg/dl (70-99); Potassium 3.5 mmol/L (3.5-5.1); Sodium 140 mmol/L (135-145); eGFR > 60.00
[2023-06-26] MEDS: SYMBICORT 160/4.5 MCG INHALER 2 PUFF INH ×2 (07:40→19:40)
[2023-06-26] MEDS: ATROVENT NEBULES 0.5 MG INH ×3 (07:40→19:40)
[2023-06-26] MEDS: NON-FORMULARY ITEM IRRIG ×2 (08:00)
[2023-06-26] MEDS: CRESTOR 5 MG PO (08:53)
[2023-06-26] MEDS: CARDIZEM CD 240 MG PO (08:53)
[2023-06-26] MEDS: CLARITIN 10 MG PO (08:53)
[2023-06-26] MEDS: ELIQUIS 5 MG PO ×2 (08:54→20:14)
[2023-06-26] MEDS: KCL 20 MEQ PO ×2 (08:54→20:14)
[2023-06-26] MEDS: FARXIGA 10 MG PO (08:54)
[2023-06-26] MEDS: THERAGRAN 1 TABLET PO (08:55)
[2023-06-26] MEDS: MUCINEX 600 MG PO ×2 (08:55→20:14)
[2023-06-26] MEDS: PLAVIX 75 MG PO (08:55)
[2023-06-26] MEDS: LASIX 80 MG PO ×2 (08:55→17:08)
[2023-06-26] MEDS: VITAMIN D3 (cholecalciferol) 25 MCG PO (08:56)
[2023-06-26] MEDS: TOPROL XL 100 MG PO ×2 (08:56→20:14)
[2023-06-26] MEDS: VITAMIN B-12 250 MCG PO (08:57)
[2023-06-26] MEDS: FLUSH (NSS) 1 FLUSH IV (09:01)
--- NOTE | 2023-06-26 09:49 | PTCARENOTE ---
Received patient this morning resting in bed. Stated he was able to get at least 5 hours of sleep last night. Told me that he hadn't slept for 5 nights and felt he was having a panic attack the other day and was given xanax which he feels he had a
reaction to. Patient is oriented, conversation appropriate. Reinforced that he should call for assistance when getting oob. Patient eating breakfast now, call su in reach.
--- NOTE | 2023-06-26 10:03 | W.PN.CD ---
Today's Communication / Plan
-
Increase dilt to 360 mg
CXR today
Impression / Plan
-
SOB: likely multifactorial with respiratory infection and HF. We will continue bid Lasix again today. CHF BNP was 5020. Continue assess switch to daily each day
Atrial fibrillation with RVR
-in setting of permanent A fib, with LBBB
-continue eliquis 5mg bid
-Rate is still elevated with RVR despite increased Toprol XL to 100mg bid (from 50 mg QD)
- Dilt 360 mg today
-No role for DCCV here as in permanent AF. IF rate control cannot be achieved will discuss AV ronald ablation with PPM vs ICD implant
Acute on chronic HFrEF recent echo 35-40%
-echo 06/04/23: EF 35-40%, mild/moderate MR, TAVR (08/12, no AR), nl RV, mild TR, PASP 41
-will focus on optimizing GDMT as we treat his HF
-Toprol XL 100mg bid
-Farxiga 10mg daily
-GDMT with Entresto once rate controlled achieved
-With RVR noted, then ablate and pace strategy is attractive option. LVEF is 35-40%. No need for ICD unless it is < 35%. Would consider WIRE MESH FILTER FABRICATOR-P with CS vs LBB pacing lead vs micra, consideration possible Friday
COPD, possible respiratory infection: per hospitalist. On ABX
TAVR (2019)
-stable on outpatient echocardiogram
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
-cont Plavix through one year
Subjective: still SOB, small interval improvement
Physical Exam
Vital Signs/Labs
Vital Signs
Temp Pulse Resp BP Pulse Ox
97.5 F 115 18 101/75 96
06/26/23 07:56 06/26/23 08:00 06/26/23 07:56 06/26/23 07:58 06/26/23 07:58
06/25/23 06/26/23 06/27/23
06:59 06:59 06:59
Actual Weight 158 lb 8.198 oz 152 lb 5.431 oz
06/26/23 03:54
06/26/23 03:54
Magnesium Cancelled 06/23/23 06:02
06/21/23
10:40
Hhj-D-Dltaggjbijl Pept 5020
Physical Exam
Constitutional: No acute distress
EENT: Anicteric
Cardiovascular: Rhythm/rate is irregular
Respiratory: Respiratory effort normal and Lungs clear to auscul.
GI: Soft
Neuro/Psych: AO x 3
Data Reviewed
-
Date of Service: June 26, 2023
Medical Decision Making: Reviewed Test Results
EKG: Tracing Personally Visualized and interpreted (af)
Echo: Report Reviewed by me
Labs: Labs Reviewed by me
[2023-06-26] MEDS: BenGay-Like TOPICAL ×3 (11:03→22:23)
--- NOTE | 2023-06-26 11:51 | W.PN.HOSP.TC ---
Today's Communication/Plan
-
see bold
Assessment / Plan
Assessment / Plan
Gen: NAD, AAOx3.
Eyes: EOMI, PERRLA, no scleral icterus.
Neck: supple. No JVD.
CV: continues to remain tachycardic, irregular regular, +S1/S2, no m/r/g.
Resp: mild end expiratory wheezes
Abd: +BS, soft, NT, ND
Skin: No rashes.
Neuro: CN 2-12 intact, non-focal.
Psych: slightly anxious
CXR 06/21/23: Small bilateral pleural effusions.
CXR 06/22/23: Progressed findings suggesting medial right lower lobe pneumonia. Progressed findings suggesting mild left lower lobe pneumonia. New. Small left pleural effusion. Stable. Tiny right pleural effusion. Improved.
Permanent Atrial Fibrillation with RVR
-Chronic LBBB
-was on Cardizem gtt, now off
-Toprol-XL increased to 100mg BID
-Cardizem increased to 360mg CD
-cont Eliquis
-If rate control cannot be achieved medically patient may need AV node ablation with permanent pacemaker versus ICD
Acute HFrEF:
-was on IV lasix, now transitioned to PO Lasix
-wt down <1Kg, cont to trend daily wts, I/Os
-cont BB/Farxiga
-Entresto evaluation prior to discharge
-with SOB check CXR
B/L PNA:
-currently without leukocytosis or fever
-CXR above
-was on Rocephin/Doxy, now stopped with NEG Procal
-bacterial PNA has been ruled out
-afebrile, leukocytosis could be stress-induced/reactive
Panic attack/Anxiety:
-Xanax as needed
-c/s psych
Other problems:
COPD: cont Symbicort/Singulair
s/p TAVR
CAD with h/o stent, prior NSTEMI in setting of OM1 dissection 07/2022: cont BB/Plavix/statin
Essential Hypertension: cont BB
Hyperlipidemia: cont statin
Prostate cancer s/p prostatectomy
FULL/Eliquis
Anticipated Discharge: > 48 hours
Subjective/Interval History
-
Date of Service: June 26, 2023
Objective Data
-
Labs:
Laboratory Results
06/26/23
03:54
WBC 11.5 H
Hgb 14.0
Hct 41.1
Plt Count 239
Sodium 140
Potassium 3.5
Chloride 106
Carbon Dioxide 24
BUN 32 H
Creatinine 1.2
Glucose 96
Calcium 8.9
Vital Signs:
Vital Signs
Temp Pulse Resp BP Pulse Ox
97.5 F 105 18 101/75 98
06/26/23 11:04 06/26/23 11:11 06/26/23 11:11 06/26/23 07:58 06/26/23 11:11
I&O
06/25/23 06/26/23 06/27/23
06:59 06:59 06:59
Intake Total 240 / 240 770 / 770
Output Total 1700 / 1700
Balance 240 / 240 -930 / -930
--- NOTE | 2023-06-26 12:40 | PTCARENOTE ---
Patient had not voided since receiving PO lasix this AM, stated he voided in the urinal but no urine ever obtained. Patient bladder scanned for 557ml, stood at the bedside with assistance and was able to void 450ml. Sitting oob in the chair now,
chair alarm in place, call su in reach.
--- NOTE | 2023-06-26 14:32 | CON.MD ---
Consultation - Medical
-
patient seen chart reviewed. patient is an 82 year old man with hx of multiple serious medical illnesses and psychosocial stressors who comes to w c/o sob. he says he has been told variously that he has and does not have pneumonia. he struggles
to sleep lying down bc cardiac issues and in the past several days has been unable to sleep sitting up bc sob being addressed by his pcp w antibiotic. when he failed to improve sent to for assessment. patient had what he calls a 'panic attack '
yesterday and was given xanax which he felt oversedated him. today he is s/w less anxious but has many stressors including and d's illness. he lost a d to a strange medical illness and early june was the anniversary of her . he worked hard
to stage a memorial for her this june and that too overwhelmed him. he has no prior psych hx
past psych hx none
medical hx pneumonia? effusions on both sides on is new. a fib cad chf htn hld hx mi valvjular disease prostate ca w surgery
substance abuse none
fh sister depressed when she was dying
social m has serious medical illness. d lives w him also serious illness but she is a trooper. .lost another d who here at . 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 felt he was making a difference in people's lives. has
friends and hobbies
mse pleasant speech normal rate and tone anxious mood affect ok no si no psychosis above aver intelligence insight judgment good
dx adjust d/o w anxious fx
plan would use ativan not xanax as dilitiazem inhibits the enzyme which metabolizes xanax hence perhaps him feeling oversedated. do not see need right now for antidepressants. urged him to seek support for his stressors in the form of household
help and perhaps personal care for when need comes. he has grandkids who are willing to help and he has decided to let them. will see in am for support.
[2023-06-26] MEDS: NON-FORMULARY ITEM 1 MG IRRIG ×2 (20:14)
--- NOTE | 2023-06-26 21:53 | PTCARENOTE ---
Patient more alert, less lethargic than yesterday, AO x4. Walking in room assisted. A-FIB BBB HR 112. Coughing intermittently, non-productive, lungs CTA. Afebrile, VSS, bed alarm in audible for safety, sometimes he is forgetful
[2023-06-26] MEDS: ATIVAN 0.25 MG PO (22:15)
[2023-06-26] MEDS: SINGULAIR 10 MG PO (22:15)
[2023-06-27] VITALS (9 sets, daily range): BP systolic 91–123; BP diastolic 78–95; BMI 23.8
[2023-06-27 03:11] LABS: % Basophils 0.4 % (0-2); % Eosinophils 1.1 % (0-6); % Lymphocytes 6.6 % (20.5-51.1); % Monocytes 11.3 % (1.7-9.3); % Neutrophils 79.6 % (42.2-75.2); Absolute Basophils 0.1 10^3/uL (0-0.2); Absolute Eosinophils 0.1 10^3/uL (0-0.7); Absolute Immature Granulocytes 0.1 10^3/uL (0-0.05); Absolute Lymphocytes 0.8 10^3/uL (1.2-3.4); Absolute Monocytes 1.4 10^3/uL (0.1-0.6); Absolute Neutrophils 9.7 10^3/uL (1.4-6.5); Hematocrit 39.6 % (39.0-52.0); Mean Corp Hgb Conc. 35.4 g/dL (33.0-37.0); Mean Corpuscular Hgb 32.6 pg (27.0-31.0); Mean Corpuscular Volume 92.1 fL (80.0-94.0); Mean Platelet Volume 11.3 fL (7.4-10.4); Nucleated Red Blood Cells % 0 % (-); Platelet Count 273 10^3/uL (130-400); Red Cell Dist. Width 14.6 % (11.5-14.5); White Blood Cell Count 12.2 10^3/uL (4.8-10.8)
[2023-06-27 03:35] LABS: Blood Urea Nitrogen 35 mg/dl (9-20); Calcium 8.8 mg/dl (8.4-10.2); Carbon Dioxide 24 mmol/L (22-30); Chloride 105 mmol/L (98-107); Estimated Creatinine Clearance 37 ml/min; Glucose 115 mg/dl (70-99); Potassium 3.5 mmol/L (3.5-5.1); Sodium 141 mmol/L (135-145); eGFR 49.87
[2023-06-27] MEDS: ATROVENT NEBULES 0.5 MG INH ×4 (03:59→20:37)
[2023-06-27] MEDS: ATIVAN 0.25 MG PO (04:24)
--- NOTE | 2023-06-27 04:32 | PTCARENOTE ---
Patient unable to sleep even with the hs Ativan. Up reading in his chair, says his mind never stops. Assisted to the bathroom, voided, another Ativan given, lights dimed, call su in reach
[2023-06-27] MEDS: TYLENOL 1000 MG PO (06:07)
[2023-06-27] MEDS: SYMBICORT 160/4.5 MCG INHALER 2 PUFF INH ×2 (07:13→20:37)
--- NOTE | 2023-06-27 08:56 | W.PN.CD ---
Today's Communication / Plan
-
-Patient still with elevated heart rates/RVR to 140s despite being on Toprol-XL 100 mg BID and Cardizem CD 360 mg daily.
-Will arrange AVJ ablation with subsequent pacemaker (FORGE PRESS OPERATOR-P) implantation on Friday.
-Hold Eliquis Friday night and Friday morning for procedure.
-Compensated on examination and borderline hypotensive; will hold Lasix for now.
Impression / Plan
-
SOB: likely multifactorial with respiratory infection and HF. We will continue bid Lasix again today. CHF BNP was 5020. Continue assess switch to daily each day
Atrial fibrillation with RVR
-in setting of permanent A fib, with LBBB
-continue eliquis 5mg bid
-Patient still with elevated heart rates/RVR to 140s despite being on Toprol-XL 100 mg BID and Cardizem CD 360 mg daily.
-Will arrange AVJ ablation with subsequent pacemaker (FORGE PRESS OPERATOR-P) implantation on Friday.
-Hold Eliquis Friday night and Friday morning for procedure.
Acute on chronic HFrEF recent echo 35-40%
-echo 06/04/23: EF 35-40%, mild/moderate MR, TAVR (08/12, no AR), nl RV, mild TR, PASP 41
-will focus on optimizing GDMT as we treat his HF
-Continue Toprol XL 100 mg bid
-Continue Farxiga 10 mg daily
-GDMT with Entresto once rate controlled achieved.
-Compensated on examination and borderline hypotensive; will hold Lasix for now.
COPD, possible respiratory infection: per hospitalist. On ABX
TAVR (2019)
-stable on outpatient echocardiogram
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
-cont Plavix through one year
Subjective:
Patient still with A-fib with RVR to 140s.
Physical Exam
Vital Signs/Labs
Vital Signs
Temp Pulse Resp BP Pulse Ox
98.0 F 66 18 91/78 96
06/27/23 07:09 06/27/23 07:16 06/27/23 07:16 06/27/23 07:06 06/27/23 07:16
06/26/23 06/27/23 06/28/23
06:59 06:59 06:59
Actual Weight 69.1 kg 69 kg
06/27/23 02:25
06/27/23 02:25
Magnesium Cancelled 06/23/23 06:02
06/21/23
10:40
Vla-J-Bcxmaohsvgo Pept 5020
Physical Exam
Constitutional: No acute distress and Comfortable
EENT: Anicteric
Cardiovascular: Pedal edema is absent, Systolic murmur absent, Rhythm/rate is irregular and S1S2 is normal
Respiratory: Respiratory effort normal and Lungs clear to auscul.
GI: Soft
Neuro/Psych: AO x 3
Other: Skin (Warm, dry, intact)
Data Reviewed
-
Date of Service: June 27, 2023
EKG: Tracing Personally Visualized and interpreted (Telemetry: A-fib with RVr to 140s)
Medical Tests (PFT, Pathology etc): Discussed with Nurse and Discussed with Patient
Labs: Labs Reviewed by me
[2023-06-27] MEDS: LASIX PO (09:12)
[2023-06-27] MEDS: CARDIZEM CD 360 MG PO (09:18)
[2023-06-27] MEDS: VITAMIN B-12 250 MCG PO (09:19)
[2023-06-27] MEDS: MUCINEX 600 MG PO ×2 (09:19→19:44)
[2023-06-27] MEDS: KCL 20 MEQ PO ×2 (09:19→19:44)
[2023-06-27] MEDS: VITAMIN C 250 MG PO (09:20)
--- NOTE | 2023-06-27 09:20 | W.PN.HOSP.TC ---
Today's Communication/Plan
-
see bold
Assessment / Plan
Assessment / Plan
Gen: remains NAD, AAOx3.
Eyes: EOMI, PERRLA, no scleral icterus.
Neck: supple. No JVD.
CV: continues to remain tachycardic, irregular regular, +S1/S2, no m/r/g.
Resp: B/L rhonchi
Abd: +BS, soft, NT, ND
Skin: No rashes.
Neuro: CN 2-12 intact, non-focal.
Psych: slightly anxious
CXR 06/21/23: Small bilateral pleural effusions.
CXR 06/22/23: Progressed findings suggesting medial right lower lobe pneumonia. Progressed findings suggesting mild left lower lobe pneumonia. New. Small left pleural effusion. Stable. Tiny right pleural effusion. Improved.
CXR 06/26/23: Small bilateral pleural effusions with adjacent atelectasis, similar appearance compared to previous radiographs.
Permanent Atrial Fibrillation with RVR
-Chronic LBBB
-was on Cardizem gtt, now off
-Toprol-XL increased to 100mg BID
-Cardizem increased to 360mg CD
-cont Eliquis
-for AV node ablation with permanent pacemaker 06/30/23
Acute HFrEF:
-was on IV lasix, then transitioned to PO Lasix. Lasix now on hold. Appears compensated.
-wt down 3.6 Kg, cont to trend daily wts, I/Os
-cont BB/Farxiga
-Entresto evaluation prior to discharge
B/L PNA:
-remains afebrile. Leukocytosis like reactive/stressed induced.
-CXR above
-was on Rocephin/Doxy, now stopped with NEG Procal
-bacterial PNA has been ruled out
-afebrile, leukocytosis could be stress-induced/reactive
Panic attack/Anxiety:
-Ativan as needed as per psych
Other problems:
COPD: cont Symbicort/Singulair
s/p TAVR
CAD with h/o stent, prior NSTEMI in setting of OM1 dissection 07/2022: cont BB/Plavix/statin
Essential Hypertension: cont BB
Hyperlipidemia: cont statin
Prostate cancer s/p prostatectomy
FULL/Eliquis
Total time spent on today's encounter was 50 minutes which included time spent in counseling the patient/family regarding diagnosis and treatment plan as listed above, goals of care, and symptom management. Case was discussed with nursing staff,
specialists, and care coordinators/case management. All labs and imaging personally reviewed by me. Remainder the time spent in detailed review of previous records, lab data, imaging, and other medical provider documentation.
Anticipated Discharge: > 48 hours
Subjective/Interval History
-
Date of Service: June 27, 2023
Pt c/o SOB. Reports panic attacks and hallucinations overnight.
Objective Data
-
Labs:
Laboratory Results
06/27/23
02:25
WBC 12.2 H
Hgb 14.0
Hct 39.6
Plt Count 273
Sodium 141
Potassium 3.5
Chloride 105
Carbon Dioxide 24
BUN 35 H
Creatinine 1.4 H
Glucose 115 H
Calcium 8.8
Vital Signs:
Vital Signs
Temp Pulse Resp BP Pulse Ox
98.0 F 122 18 103/80 96
06/27/23 07:09 06/27/23 09:00 06/27/23 07:16 06/27/23 08:57 06/27/23 07:16
I&O
06/26/23 06/27/23 06/28/23
06:59 06:59 06:59
Intake Total 770 / 770 680 / 680
Output Total 1700 / 1700 1350 / 1350
Balance -930 / -930 -670 / -196
[2023-06-27] MEDS: ELIQUIS 5 MG PO ×2 (09:21→19:44)
[2023-06-27] MEDS: PLAVIX 75 MG PO (09:21)
[2023-06-27] MEDS: FARXIGA 10 MG PO (09:21)
[2023-06-27] MEDS: THERAGRAN 1 TABLET PO (09:21)
[2023-06-27] MEDS: CLARITIN 10 MG PO (09:21)
[2023-06-27] MEDS: OSCAL CAL 500 250 MG PO (09:22)
[2023-06-27] MEDS: BenGay-Like TOPICAL ×3 (09:23→21:56)
[2023-06-27] MEDS: VITAMIN D3 (cholecalciferol) 25 MCG PO (09:23)
[2023-06-27] MEDS: FLUSH (NSS) 1 FLUSH IV (09:24)
[2023-06-27] MEDS: CRESTOR 5 MG PO (09:31)
--- NOTE | 2023-06-27 10:01 | PTCARENOTE ---
Received patient resting in bed this morning, stating he didn't have a good night, didn't sleep well. Appears withdrawn, worried. He didn't feel the ativan he received worked well for him. Patient seen by Dr. La, BP's running low, will stagger
medications and lasix d/c'd as ordered.
--- NOTE | 2023-06-27 10:35 | CM ---
Reviewed chart. Met with Mr. Mooney to review discharge plans. He states he is still having trouble sleeping. He states he is scheduled for a ablation on 06/30/23. Prior to admission he resides with his spouse in a two story home with
two steps to enter. He has a stair glide to get to the second floor. Prior to admission he was independent with ambulation and adls. He has a prescription plan and uses [facility]. Medical work-up in progress. The discharge plan is to return
home with his spouse when medically stable.
[2023-06-27] MEDS: NON-FORMULARY ITEM 1 MG IRRIG ×3 (11:22→21:55)
[2023-06-27] MEDS: TOPROL XL 100 MG PO ×2 (11:22→22:47)
[2023-06-27] MEDS: NON-FORMULARY ITEM 20 MG IRRIG (11:23)
--- NOTE | 2023-06-27 15:12 | W.PN.UPDATE ---
Update Note
Progress Note Update
patient seen chart reviewed. patient remains anxious. the ativan wa not very helpful and we discussed that we could increase it to o.5 mg to which he was agreeable. also discussed mirtazepine 7.5 mg q hs as he struggled w sleep. side effects
risks vs benefits discussed. patient also spoke of his stress at home. he feels as though he is the one holding it all together and worries how will he do this if he is ill. reminded him that his grandkids have offered to help him in any way they
can and he will take them up on the offer. patient asked me if i had a private practice which i do not but i gave him dr ahmadi 's name and let dr ahmadi know about the referral should mr rodriguez decide to seek therapy. if he is here next friday
(surgery scheduled for friday) i will try to see him when i return. meanwhile dr johnson will check in on him tomorrow
--- NOTE | 2023-06-27 20:00 | PTCARENOTE ---
Assumed care. Patient more alert and in better spirts today. Walking in the room, gait is steady. Occasional cough, lungs CTA. A-FIB BBB HR 112. Voiding in the bathroom using urinal to measure outputs, call su in reach
[2023-06-27] MEDS: SINGULAIR 10 MG PO (22:47)
[2023-06-27] MEDS: REMERON 7.5 MG PO (22:49)
[2023-06-28] VITALS (7 sets, daily range): BP systolic 107–127; BP diastolic 76–92; BMI 24.5
[2023-06-28 04:20] LABS: % Basophils 0.5 % (0-2); % Eosinophils 1.1 % (0-6); % Immature Granulocytes 1.1 % (0-0.5); % Lymphocytes 7.7 % (20.5-51.1); % Monocytes 10.1 % (1.7-9.3); % Neutrophils 79.5 % (42.2-75.2); Absolute Basophils 0.1 10^3/uL (0-0.2); Absolute Eosinophils 0.1 10^3/uL (0-0.7); Absolute Immature Granulocytes 0.1 10^3/uL (0-0.05); Absolute Lymphocytes 0.9 10^3/uL (1.2-3.4); Absolute Monocytes 1.2 10^3/uL (0.1-0.6); Absolute Neutrophils 9.3 10^3/uL (1.4-6.5); Hematocrit 42.8 % (39.0-52.0); Hemoglobin 14.7 g/dL (13.0-18.0); Mean Corp Hgb Conc. 34.3 g/dL (33.0-37.0); Mean Corpuscular Hgb 33.3 pg (27.0-31.0); Mean Corpuscular Volume 97.1 fL (80.0-94.0); Mean Platelet Volume 11.3 fL (7.4-10.4); Nucleated Red Blood Cells % 0 % (-); Platelet Count 276 10^3/uL (130-400); Red Blood Cell Count 4.41 10^6/uL (4.70-6.10); Red Cell Dist. Width 14.6 % (11.5-14.5); White Blood Cell Count 11.7 10^3/uL (4.8-10.8)
[2023-06-28 04:46] LABS: Blood Urea Nitrogen 38 mg/dl (9-20); Calcium 9.7 mg/dl (8.4-10.2); Carbon Dioxide 26 mmol/L (22-30); Chloride 105 mmol/L (98-107); Estimated Creatinine Clearance 37 ml/min; Glucose 120 mg/dl (70-99); Potassium 3.9 mmol/L (3.5-5.1); Sodium 141 mmol/L (135-145); eGFR 49.87
[2023-06-28] MEDS: SYMBICORT 160/4.5 MCG INHALER 2 PUFF INH ×2 (06:35→19:47)
[2023-06-28] MEDS: ATROVENT NEBULES 0.5 MG INH ×3 (06:35→19:47)
--- NOTE | 2023-06-28 08:18 | W.PN.CD ---
Today's Communication / Plan
-
Resume Lasix
NPO Friday at midnight
Impression / Plan
-
SOB: likely multifactorial with respiratory infection and HF. We will continue bid Lasix again today. CHF BNP was 5020. Continue assess switch to daily each day
Atrial fibrillation with RVR
-in setting of permanent A fib, with LBBB
-continue eliquis 5mg bid
-Patient still with elevated heart rates/RVR to 140s despite being on Toprol-XL 100 mg BID and Cardizem CD 360 mg daily.
-Will arrange AVJ ablation with subsequent pacemaker (MUSICAL INSTRUMENT MAKER-P) implantation on Friday.
-Hold Eliquis Friday morning for procedure.
Acute on chronic HFrEF recent echo 35-40%
-echo 06/04/23: EF 35-40%, mild/moderate MR, TAVR (08/12, no AR), nl RV, mild TR, PASP 41
-will focus on optimizing GDMT as we treat his HF
-Continue Toprol XL 100 mg bid
-Continue Farxiga 10 mg daily
-GDMT with Entresto once rate controlled achieved.
-resume lasix
COPD, possible respiratory infection: per hospitalist. On ABX
TAVR (2019)
-stable on outpatient echocardiogram
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
-cont Plavix through one year
Subjective:
Continue uncontrolled heart rates, tired hasn't slept, and anxious
Physical Exam
Vital Signs/Labs
Vital Signs
Temp Pulse Resp BP Pulse Ox
97.5 F 101 18 114/76 97
06/28/23 08:07 06/28/23 08:07 06/28/23 08:07 06/28/23 03:56 06/28/23 08:07
06/27/23 06/28/23 06/29/23
06:59 06:59 06:59
Actual Weight 152 lb 1.903 oz 156 lb 1.396 oz
06/28/23 04:03
06/28/23 04:03
Magnesium Cancelled 06/23/23 06:02
06/21/23
10:40
Lna-C-Vxqcazrmkjt Pept 5020
Physical Exam
Constitutional: No acute distress
EENT: Anicteric
Cardiovascular: Pedal edema is absent and Rhythm/rate is irregular
Respiratory: Respiratory effort normal and Lungs clear to auscul.
GI: Soft
Neuro/Psych: AO x 3
Data Reviewed
-
Date of Service: June 28, 2023
EKG: Tracing Personally Visualized and interpreted (af)
Echo: Report Reviewed by me
Labs: Labs Reviewed by me
[2023-06-28] MEDS: TYLENOL 1000 MG PO (08:38)
[2023-06-28] MEDS: CARDIZEM CD 360 MG PO (08:44)
[2023-06-28] MEDS: VITAMIN B-12 250 MCG PO (08:45)
[2023-06-28] MEDS: PLAVIX 75 MG PO (08:46)
[2023-06-28] MEDS: FARXIGA 10 MG PO (08:46)
[2023-06-28] MEDS: THERAGRAN 1 TABLET PO (08:46)
[2023-06-28] MEDS: VITAMIN D3 (cholecalciferol) 25 MCG PO (08:46)
[2023-06-28] MEDS: ELIQUIS 5 MG PO ×2 (08:46→19:48)
[2023-06-28] MEDS: MUCINEX 600 MG PO ×2 (08:46→19:48)
[2023-06-28] MEDS: BenGay-Like TOPICAL ×3 (08:47→22:01)
--- NOTE | 2023-06-28 09:17 | W.PN.HOSP.TC ---
Today's Communication/Plan
-
see bold
Assessment / Plan
Assessment / Plan
Gen: continues to remain NAD, AAOx3.
Eyes: EOMI, PERRLA, no scleral icterus.
Neck: supple. No JVD.
CV: tachycardic, irregular regular, +S1/S2, no m/r/g.
Resp: CTAB anteriorly
Abd: +BS, soft, NT, ND
Skin: No rashes.
Neuro: CN 2-12 intact, non-focal.
Psych: slightly anxious
CXR 06/21/23: Small bilateral pleural effusions.
CXR 06/22/23: Progressed findings suggesting medial right lower lobe pneumonia. Progressed findings suggesting mild left lower lobe pneumonia. New. Small left pleural effusion. Stable. Tiny right pleural effusion. Improved.
CXR 06/26/23: Small bilateral pleural effusions with adjacent atelectasis, similar appearance compared to previous radiographs.
Permanent Atrial Fibrillation with RVR
-Chronic LBBB
-was on Cardizem gtt, now off
-Toprol-XL increased to 100mg BID
-Cardizem increased to 360mg CD
-cont Eliquis
-for AV node ablation with permanent pacemaker 06/30/23
Acute HFrEF:
-was on IV lasix, then transitioned to PO Lasix. Lasix now on hold. Appears compensated.
-wt down 3.6 Kg, cont to trend daily wts, I/Os
-cont BB/Farxiga
-Entresto evaluation prior to discharge
B/L PNA:
-remains afebrile. Leukocytosis like reactive/stressed induced.
-CXR above
-was on Rocephin/Doxy, now stopped with NEG Procal
-bacterial PNA has been ruled out
-afebrile, leukocytosis could be stress-induced/reactive
Panic attack/Anxiety:
-Ativan as needed as per psych
Other problems:
COPD: cont Symbicort/Singulair
s/p TAVR
CAD with h/o stent, prior NSTEMI in setting of OM1 dissection 07/2022: cont BB/Plavix/statin
Essential Hypertension: cont BB
Hyperlipidemia: cont statin
Prostate cancer s/p prostatectomy
FULL/Eliquis
Anticipated Discharge: > 48 hours
Subjective/Interval History
-
Date of Service: June 28, 2023
Pt complains of anxiety and orthopnea.
Objective Data
-
Labs:
Laboratory Results
06/28/23
04:03
WBC 11.7 H
Hgb 14.7
Hct 42.8
Plt Count 276
Sodium 141
Potassium 3.9
Chloride 105
Carbon Dioxide 26
BUN 38 H
Creatinine 1.4 H
Glucose 120 H
Calcium 9.7
Vital Signs:
Vital Signs
Temp Pulse Resp BP Pulse Ox
97.5 F 109 18 114/92 97
06/28/23 08:07 06/28/23 08:44 06/28/23 08:07 06/28/23 08:44 06/28/23 08:07
I&O
06/27/23 06/28/23 06/29/23
06:59 06:59 06:59
Intake Total 680 / 680 240 / 240
Output Total 1350 / 1350 750 / 750
Balance -670 / -670 -510 / -510
--- NOTE | 2023-06-28 09:48 | W.PN.UPDATE ---
Update Note
Progress Note Update
Patient reports he is very anxious, worried about his upcoming surgery as well as his 's medical problems. Denies being anxious or needing mental health treatment in the past. He saw Dr. Palm yesterday who started Remeron 7.5 hs and increased
his Ativan to 0.5 on prn basis; patient does not feel much of an effect so far. He previously had negative reaction to Xanax.
At this point I feel it is too early to change his meds ; I discussed with him options and will F/U again tomorrow. He can ask for prn Ativan if needed.
[2023-06-28] MEDS: TOPROL XL 100 MG PO ×2 (10:21→19:48)
[2023-06-28] MEDS: KCL PO (10:21)
[2023-06-28] MEDS: ATIVAN 0.5 MG PO (10:22)
[2023-06-28] MEDS: CLARITIN 10 MG PO (10:22)
[2023-06-28] MEDS: NON-FORMULARY ITEM 20 MG IRRIG (10:26)
[2023-06-28] MEDS: NON-FORMULARY ITEM 1 MG IRRIG ×2 (10:26→21:18)
[2023-06-28] MEDS: LASIX 40 MG PO (16:21)
[2023-06-28] MEDS: KCL 20 MEQ PO (19:48)
[2023-06-28] MEDS: NON-FORMULARY ITEM 4 MG IRRIG (21:18)
--- NOTE | 2023-06-28 21:53 | PTCARENOTE ---
Pt rec'd at change of shift awake,alert sitting in recliner chair. Ablation and pacer procedures explained to pt along with post procedure bedrest and immobilizer use. Pt appears relaxed laughing with staff. Lungs coarse with little exp wheeze
noted. occ small amt of thick pale yellow secretions noted per pt. Pt with c/o 'thrush' in mouth. House Sexual Assault Social Worker made aware Nystatin ordered. Pt performed own nasal irrigation.
[2023-06-28] MEDS: SINGULAIR 10 MG PO (22:12)
[2023-06-28] MEDS: MYCOSTATIN ORAL SUSPENSION 5 ML PO (22:12)
[2023-06-28] MEDS: REMERON 7.5 MG PO (22:12)
--- NOTE | 2023-06-28 23:04 | PTCARENOTE ---
Pt given Remeron at HS as ordered. Pt made aware he was not receiving Ativan at same time. Pt encouraged to try and fall asleep and if he has any problems to notify nursing and Ativan would be given at that time. pt agreeable. Nystatin swish and
swallow started for c/o thrush in mouth.
[2023-06-29] VITALS (7 sets, daily range): BP systolic 96–121; BP diastolic 60–83; BMI 24.5
[2023-06-29] MEDS: ATIVAN 0.5 MG PO ×3 (00:39→20:35)
[2023-06-29 05:04] LABS: % Basophils 0.6 % (0-2); % Eosinophils 1.5 % (0-6); % Immature Granulocytes 1.6 % (0-0.5); % Lymphocytes 8.2 % (20.5-51.1); % Monocytes 10.6 % (1.7-9.3); % Neutrophils 77.5 % (42.2-75.2); Absolute Basophils 0.1 10^3/uL (0-0.2); Absolute Eosinophils 0.2 10^3/uL (0-0.7); Absolute Immature Granulocytes 0.2 10^3/uL (0-0.05); Absolute Lymphocytes 0.9 10^3/uL (1.2-3.4); Absolute Monocytes 1.2 10^3/uL (0.1-0.6); Absolute Neutrophils 8.8 10^3/uL (1.4-6.5); Hematocrit 40.9 % (39.0-52.0); Hemoglobin 14.1 g/dL (13.0-18.0); Mean Corp Hgb Conc. 34.5 g/dL (33.0-37.0); Mean Corpuscular Hgb 33.1 pg (27.0-31.0); Mean Platelet Volume 11.1 fL (7.4-10.4); Nucleated Red Blood Cells % 0 % (-); Platelet Count 244 10^3/uL (130-400); Red Blood Cell Count 4.26 10^6/uL (4.70-6.10); Red Cell Dist. Width 14.6 % (11.5-14.5); White Blood Cell Count 11.4 10^3/uL (4.8-10.8)
--- NOTE | 2023-06-29 05:08 | PTCARENOTE ---
Pt reports having slept during the night. Oriented to surroundings when awoken for am labs and VS. wt obtained and charted
[2023-06-29 05:26] LABS: Blood Urea Nitrogen 31 mg/dl (9-20); Calcium 8.8 mg/dl (8.4-10.2); Carbon Dioxide 24 mmol/L (22-30); Chloride 109 mmol/L (98-107); Estimated Creatinine Clearance 44 ml/min; Glucose 108 mg/dl (70-99); Potassium 3.5 mmol/L (3.5-5.1); Sodium 142 mmol/L (135-145); eGFR > 60.00
[2023-06-29] MEDS: SYMBICORT 160/4.5 MCG INHALER 2 PUFF INH ×2 (06:08→18:10)
[2023-06-29] MEDS: ATROVENT NEBULES 0.5 MG INH ×3 (06:08→18:10)
--- NOTE | 2023-06-29 08:03 | W.PN.HOSP.TC ---
Today's Communication/Plan
-
see bold
Assessment / Plan
Assessment / Plan
Gen: NAD, AAOx3.
Eyes: remains EOMI, PERRLA, no scleral icterus.
Neck: supple. No JVD.
CV: remains tachycardic, irregular regular, +S1/S2, no m/r/g.
Resp: CTAB anteriorly
Abd: +BS, soft, NT, ND
Skin: No rashes.
Neuro: CN 2-12 intact, non-focal.
Psych: calm
CXR 06/21/23: Small bilateral pleural effusions.
CXR 06/22/23: Progressed findings suggesting medial right lower lobe pneumonia. Progressed findings suggesting mild left lower lobe pneumonia. New. Small left pleural effusion. Stable. Tiny right pleural effusion. Improved.
CXR 06/26/23: Small bilateral pleural effusions with adjacent atelectasis, similar appearance compared to previous radiographs.
Permanent Atrial Fibrillation with RVR
-Chronic LBBB
-was on Cardizem gtt, now off
-Toprol-XL increased to 100mg BID
-Cardizem increased to 360mg CD
-cont Eliquis
-for AV node ablation with permanent pacemaker 06/30/23
Acute HFrEF:
-was on IV lasix, then transitioned to PO Lasix. Appears compensated.
-wt down ~2Kg, cont to trend daily wts, I/Os
-cont BB/Farxiga
-Entresto evaluation prior to discharge
B/L PNA:
-remains afebrile. Leukocytosis like reactive/stressed induced.
-CXR above
-was on Rocephin/Doxy, now stopped with NEG Procal
-bacterial PNA has been ruled out
-afebrile, leukocytosis could be stress-induced/reactive
Panic attack/Anxiety:
-Ativan as needed
-psych following
Other problems:
COPD: cont Symbicort/Singulair
s/p TAVR
CAD with h/o stent, prior NSTEMI in setting of OM1 dissection 07/2022: cont BB/Plavix/statin
Essential Hypertension: cont BB
Hyperlipidemia: cont statin
Prostate cancer s/p prostatectomy
FULL/Eliquis
Anticipated Discharge: 24 - 48 hours
Subjective/Interval History
-
Date of Service: June 29, 2023
Pt states he slept better and feels better overall. Still with some SOB. Denies CP.
Objective Data
-
Labs:
Laboratory Results
06/29/23
04:50
WBC 11.4 H
Hgb 14.1
Hct 40.9
Plt Count 244
Sodium 142
Potassium 3.5
Chloride 109 H
Carbon Dioxide 24
BUN 31 H
Creatinine 1.2
Glucose 108 H
Calcium 8.8
Vital Signs:
Vital Signs
Temp Pulse Resp BP Pulse Ox
97.6 F 94 22 100/60 92
06/29/23 07:16 06/29/23 06:11 06/29/23 07:16 06/29/23 04:41 06/29/23 07:16
I&O
06/28/23 06/29/23 06/30/23
06:59 06:59 06:59
Intake Total 240 / 240
Output Total 750 / 750 1150 / 1150
Balance -510 / -510 -1150 / -1150
[2023-06-29] MEDS: CLARITIN 10 MG PO (08:59)
[2023-06-29] MEDS: BenGay-Like TOPICAL ×3 (08:59→22:43)
[2023-06-29] MEDS: VITAMIN B-12 250 MCG PO (08:59)
[2023-06-29] MEDS: MYCOSTATIN ORAL SUSPENSION 5 ML PO ×4 (08:59→22:43)
[2023-06-29] MEDS: MUCINEX 600 MG PO ×2 (08:59→19:21)
[2023-06-29] MEDS: CARDIZEM CD 360 MG PO (09:00)
[2023-06-29] MEDS: THERAGRAN 1 TABLET PO (09:00)
[2023-06-29] MEDS: LASIX 40 MG PO ×2 (09:00→16:29)
[2023-06-29] MEDS: FARXIGA 10 MG PO (09:00)
[2023-06-29] MEDS: VITAMIN D3 (cholecalciferol) 25 MCG PO (09:01)
[2023-06-29] MEDS: KCL 20 MEQ PO ×2 (09:01→19:21)
[2023-06-29] MEDS: PLAVIX 75 MG PO (09:01)
[2023-06-29] MEDS: ELIQUIS 5 MG PO ×2 (09:01→19:21)
--- NOTE | 2023-06-29 09:11 | W.PN.CD ---
Today's Communication / Plan
-
Cont lasix
NPO after midnight
Eliquis hold tomorrow AM
Impression / Plan
-
SOB: likely multifactorial with respiratory infection and HF. We will continue bid Lasix again today. CHF BNP was 5020. Continue assess switch to daily each day
Atrial fibrillation with RVR
-in setting of permanent A fib, with LBBB
-continue eliquis 5mg bid
-Patient still with elevated heart rates/RVR to 140s despite being on Toprol-XL 100 mg BID and Cardizem CD 360 mg daily.
-Will arrange AVJ ablation with subsequent pacemaker (SANDER AND BUFFER-P) implantation on Friday.
-Hold Eliquis Friday morning for procedure.
Acute on chronic HFrEF recent echo 35-40%
-echo 06/04/23: EF 35-40%, mild/moderate MR, TAVR (08/12, no AR), nl RV, mild TR, PASP 41
-will focus on optimizing GDMT as we treat his HF
-Continue Toprol XL 100 mg bid
-Continue Farxiga 10 mg daily
-GDMT with Entresto once rate controlled achieved.
-resume lasix lower dose for now 40 mg
COPD, possible respiratory infection: per hospitalist. On ABX
TAVR (2019)
-stable on outpatient echocardiogram
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
-cont Plavix through one year
Subjective:
Feeling overall better today, cont lasix NPO after midnight
Physical Exam
Vital Signs/Labs
Vital Signs
Temp Pulse Resp BP Pulse Ox
97.6 F 96 22 105/80 92
06/29/23 07:16 06/29/23 09:00 06/29/23 07:16 06/29/23 09:00 06/29/23 07:16
06/28/23 06/29/23 06/30/23
06:59 06:59 06:59
Actual Weight 156 lb 1.396 oz 156 lb 4.924 oz
06/29/23 04:50
06/29/23 04:50
Magnesium Cancelled 06/23/23 06:02
06/21/23
10:40
Yzt-R-Nwsgzbfsajm Pept 5020
Physical Exam
Constitutional: No acute distress
EENT: Anicteric
Cardiovascular: Rhythm/rate is irregular and Pedal edema present (at ankles trace)
Respiratory: Respiratory effort normal and Lungs clear to auscul.
GI: Soft
Neuro/Psych: AO x 3
Data Reviewed
-
Date of Service: June 29, 2023
Medical Decision Making: Reviewed Test Results
EKG: Tracing Personally Visualized and interpreted (af)
Labs: Labs Reviewed by me
[2023-06-29] MEDS: NON-FORMULARY ITEM 1 MG IRRIG ×2 (10:11→20:29)
[2023-06-29] MEDS: TOPROL XL 100 MG PO ×2 (10:11→19:21)
[2023-06-29] MEDS: NON-FORMULARY ITEM 20 MG IRRIG ×2 (10:12→20:29)
--- NOTE | 2023-06-29 12:49 | W.PN.UPDATE ---
Update Note
Progress Note Update
Patient reports he is feeling better today, just took Ativan which provided some relief for his anxiety. He stated the anticipation of the procedure tomorrow may the the main culprit so hopefully if things go well he will feel better. He also
worries about his who has significant medical issues as well.
For now I would continue current meds.
Supportive intervention given.
[2023-06-29] MEDS: REMERON 7.5 MG PO (22:43)
[2023-06-29] MEDS: SINGULAIR 10 MG PO (22:43)
[2023-06-30] VITALS (11 sets, daily range): BP systolic 94–124; BP diastolic 61–90; BMI 24.4
--- NOTE | 2023-06-30 02:05 | PTCARENOTE ---
Patient ambulating self in room, and denies any dizziness. Tele remains Afib w/ BBBC, HR in the 90-100's. Patient aware to remain NPO at midnight for procedure in AM. Call su in reach.
--- NOTE | 2023-06-30 04:55 | PTCARENOTE ---
Pt clipped and CHG wipes performed by this RN. New IV site placed in Left forearm w/out difficulty. Morning blood work collected and sent to lab. Patient remains NPO for procedure. Call su in reach.
[2023-06-30 04:59] LABS: % Basophils 0.8 % (0-2); % Eosinophils 1.2 % (0-6); % Immature Granulocytes 1.3 % (0-0.5); % Lymphocytes 8.4 % (20.5-51.1); % Monocytes 10.1 % (1.7-9.3); % Neutrophils 78.2 % (42.2-75.2); Absolute Basophils 0.1 10^3/uL (0-0.2); Absolute Eosinophils 0.1 10^3/uL (0-0.7); Absolute Immature Granulocytes 0.2 10^3/uL (0-0.05); Absolute Monocytes 1.1 10^3/uL (0.1-0.6); Absolute Neutrophils 8.8 10^3/uL (1.4-6.5); Hematocrit 42.8 % (39.0-52.0); Hemoglobin 14.5 g/dL (13.0-18.0); Mean Corp Hgb Conc. 33.9 g/dL (33.0-37.0); Mean Corpuscular Hgb 32.7 pg (27.0-31.0); Mean Corpuscular Volume 96.4 fL (80.0-94.0); Mean Platelet Volume 11.2 fL (7.4-10.4); Nucleated Red Blood Cells % 0 % (-); Platelet Count 251 10^3/uL (130-400); Red Blood Cell Count 4.44 10^6/uL (4.70-6.10); Red Cell Dist. Width 14.9 % (11.5-14.5); White Blood Cell Count 11.3 10^3/uL (4.8-10.8)
[2023-06-30 05:27] LABS: Blood Urea Nitrogen 26 mg/dl (9-20); Calcium 8.7 mg/dl (8.4-10.2); Carbon Dioxide 23 mmol/L (22-30); Chloride 108 mmol/L (98-107); Estimated Creatinine Clearance 40 ml/min; Glucose 118 mg/dl (70-99); Potassium 3.6 mmol/L (3.5-5.1); Sodium 142 mmol/L (135-145); eGFR 54.51
[2023-06-30] MEDS: ATROVENT NEBULES 0.5 MG INH ×2 (06:25→19:58)
[2023-06-30] MEDS: SYMBICORT 160/4.5 MCG INHALER 2 PUFF INH ×2 (06:26→19:58)
[2023-06-30] MEDS: VITAMIN D3 (cholecalciferol) PO (08:00)
[2023-06-30] MEDS: VITAMIN B-12 PO (08:00)
[2023-06-30] MEDS: VITAMIN C PO (08:00)
[2023-06-30] MEDS: NON-FORMULARY ITEM IRRIG ×4 (08:00→22:31)
[2023-06-30] MEDS: THERAGRAN PO (08:00)
[2023-06-30] MEDS: OSCAL CAL 500 PO (08:00)
[2023-06-30] MEDS: BenGay-Like TOPICAL ×3 (08:29→19:55)
[2023-06-30] MEDS: CARDIZEM CD 360 MG PO (08:30)
[2023-06-30] MEDS: CRESTOR 5 MG PO (08:31)
[2023-06-30] MEDS: FARXIGA 10 MG PO (08:32)
[2023-06-30] MEDS: LASIX 40 MG PO ×2 (08:32→15:53)
[2023-06-30] MEDS: MUCINEX 600 MG PO ×2 (08:32→19:54)
[2023-06-30] MEDS: MYCOSTATIN ORAL SUSPENSION PO ×2 (08:33→14:12)
[2023-06-30] MEDS: TOPROL XL 100 MG PO ×2 (08:34→19:55)
[2023-06-30] MEDS: FLUSH (NSS) 2 FLUSH IV (08:36)
[2023-06-30] MEDS: PLAVIX 75 MG PO (08:40)
[2023-06-30] MEDS: KCL PO (08:48)
[2023-06-30] MEDS: CLARITIN PO (08:48)
--- NOTE | 2023-06-30 08:56 | W.PN.HOSP.TC ---
Today's Communication/Plan
-
Pacemaker placement today
Assessment / Plan
Assessment / Plan
Physical Exam
Physical Exam was unable to be performed as patient was not present in his room at the time of attempted patient encounter today.

CXR 06/21/23: Small bilateral pleural effusions.
CXR 06/22/23: Progressed findings suggesting medial right lower lobe pneumonia. Progressed findings suggesting mild left lower lobe pneumonia. New. Small left pleural effusion. Stable. Tiny right pleural effusion. Improved.
CXR 06/26/23: Small bilateral pleural effusions with adjacent atelectasis, similar appearance compared to previous radiographs.

Permanent Atrial Fibrillation with RVR status post INCOMING FREIGHT CLERK-P with Conduction system pacing and CS LV pacing lead Pacemaker implantation, on June 30, 2023
-Chronic LBBB
-was on Cardizem gtt, now off
-Toprol-XL was previously increased to 100mg BID
-Cardizem was previously increased to 360mg CD
-Holding Eliquis for procedure today
-for AV node ablation with permanent pacemaker 06/30/23
Acute HFrEF:
-was on IV lasix, then transitioned to PO Lasix. Appears compensated.
-wt down ~2Kg, cont to trend daily wts, I/Os
-cont BB/Farxiga
-Entresto evaluation prior to discharge
B/L PNA:
-remains afebrile. Leukocytosis like reactive/stressed induced.
-CXR above
-was on Rocephin/Doxy, now stopped with NEG Procal
-bacterial PNA has been ruled out
-afebrile, leukocytosis could be stress-induced/reactive
Panic attack/Anxiety:
-Ativan as needed
-psych following
Other problems:
COPD: cont Symbicort/Singulair
s/p TAVR
CAD with h/o stent, prior NSTEMI in setting of OM1 dissection 07/2022: cont BB/Plavix/statin
Essential Hypertension: cont BB
Hyperlipidemia: cont statin
Prostate cancer s/p prostatectomy
FULL/Eliquis
Anticipated Discharge: 24 - 48 hours
Subjective/Interval History
-
Date of Service: June 30, 2023
Patient was not present in his room at the time of attempted patient encounter; per vulcanized fiber unit operator, patient had gone for pacemaker placement.
Objective Data
-
Labs:
Laboratory Results
06/30/23
04:10
WBC 11.3 H
Hgb 14.5
Hct 42.8
Plt Count 251
Sodium 142
Potassium 3.6
Chloride 108 H
Carbon Dioxide 23
BUN 26 H
Creatinine 1.3
Glucose 118 H
Calcium 8.7
Vital Signs:
Vital Signs
Temp Pulse Resp BP Pulse Ox
97.4 F 110 20 118/76 94
06/30/23 07:41 06/30/23 08:00 06/30/23 07:41 06/30/23 07:43 06/30/23 07:41
I&O
06/29/23 06/30/23 07/01/23
06:59 06:59 06:59
Intake Total 840 / 840
Output Total 1150 / 1150 1575 / 1575
Balance -1150 / -1150 -735 / -735
--- NOTE | 2023-06-30 09:26 | PTCARENOTE ---
Received patient this morning resting in bed, NPO x meds for procedure this morning. Patient seen by Dr. Durant. Report given to the EP lab, second set of CHG wipes done, patient relieved to be going early this morning. States his will be
coming to the hospital and plans to wait in the room.
--- NOTE | 2023-06-30 09:55 | PTCARENOTE ---
Patient taken for his PPM/ablasion.
--- NOTE | 2023-06-30 12:31 | ITS.CL.PACE ---
[facility] - Pacemaker Implant
Pacemaker Implant
Procedure Report:
TECHNICAL CUSTOMER SUPPORT SPECIALIST-P with Bi-Ventricular pacing with conduction system (Left Bundle Branch pacing) Permanent Pacemaker with CS lead Placement
Mr. Mooney is an 82 years old gentleman with atrial fibrillation with RVR, chronic left bundle branch block, LVEF of 35 to 40%, with class III heart failure, COPD, coronary artery disease with NSTEMI and OM dissection in July 2022 is here with
heart failure likely secondary to atrial fibrillation and is recommended TECHNICAL CUSTOMER SUPPORT SPECIALIST-P implantation with AVJ ablation.
Indications:
Permanent atrial fibrillation with difficult to rate controlled and LBBB
Date of the Procedure:
06/30/23
Pre-Operative Diagnosis:
Moderately reduced systolic dysfunction with heart failure and permanent atrial fibrillation, and LBBB
Post-Operative Diagnosis: Moderately reduced systolic dysfunction with heart failure and permanent atrial fibrillation, and LBBB
Procedure Performed: TECHNICAL CUSTOMER SUPPORT SPECIALIST-P with Conduction system pacing and CS LV pacing lead Pacemaker implantation
Performing Physician:
Georgina Durant MD
Assistants:
EP staff
Anesthesia:
See anesthesia records
Detailed Description of the Procedure:
The patient was identified using hospital identification and informed consent obtained for the procedure. The risks were explained to the patient and the family including, but not limited to: Bleeding, infection, arrhythmia, stroke,
vascular/cardiac/lung puncture, surgery, pacemaker dependency/device malfunction. All questions were answered.
Anesthesia service provided sedation as reported separately. Antibiotics administered IV for risk of bacterial colonization. After obtaining informed and written consent, the patient was brought to the electrophysiology laboratory.
The initial rhythm was atrial fibrillation.
The left chest was prepped from the nipple to the angle of the jaw with chlorhexidine, and draped following sterile technique in usual routine.�
A surgical pause and time out was performed immediately prior to the procedure with review of her medical history, recent labs, allergies and medications with site of procedure identified and consent noted in the chart. Antibiotics pre operatively
given. All team members concurred.
The left infraclavicular region was prepped and draped in the usual sterile fashion. Local anesthesia was administered subcutaneously using 1% lidocaine / Bupivacaine. The left cephalic vein cutdown was performed with an incision at the
delto-pectoral groove, and vascular sheaths were introduced for lead access. Guidewires were placed and were advanced into the right ventricle and the right atrium.
The guide wire was advanced to the RA and was crossed through the tricuspid valve into the RV. The preformed curved long hemostatic peel away HIS sheath was advanced into the RV cavity. A left bundle pacing wire was advanced into the sheath to the
tip with ventricular signals noted with unipolar manner. The HIS location was identified under guidance of the flouroscopy and the pacing wire signals. The sheath with the pacing lead was moved deeper into the RV cavity on the septum at a more
inferior and distal to the HIS signals.
Once adequate signals were noted on the electrograms of the pacing lead in the sheath with W pattern signals on the RV septum, the lead was advanced and clockwise turns were done under fluoroscopic guidance. The septum was engaged and the lead was
paced intermittently after every 2-3 turns. The Impedance of the lead was measured that came down to around 700 Ohm. �The significantly lead was not acceptable and decision was made to reposition the lead.
Another septal location was identified with adequate signals noted on the pacing leads and good flouroscopic location. There was sheath approximation confirmed on GHANAIAN view and the pacing lead was advanced with clockwise turns into the septal
location. The septum was successfully engaged. The lead was paced and septal pacing was noted. The sheath was placed again to the septum and the lead was advanced 2-3 turns with pacing with each advancement.
The ventricular capture was monitored throughout and the captures gradually changed from RV pacing to non-selective pacing to LBB pacing with R wave on V1.
With RBBB pattern noted on the pacing lead, it was decided to accept the location as optimal location. The long guiding sheath was cut and removed from the RV without change in lead position, impedance, sensing, or capture. The lead was sutured to
the underlying pectoralis fascia with Ethibond stitches.
Attention then turned to the coronary sinus.
The guide wire was advanced to the inferior vena cava (IVC) under flouro guidance.
The CS was cannulated using radiofocus glidewire.
The sheath was advanced into the CS over a glidewire. Coronary sinus venography was obtained in the CS. ~4 cc contrast used. CS anatomy revealed a posterolateral branch. The posterolateral branch has significant coronary calcification at the origin
and could not be accessed even despite multiple attempts.
Then using in the catheter coronary sinus was engaged and middle cardiac vein was cannulated using Glidewire/whisper wire. There was significant bend at the origin and pacing wire could not be advanced over the guidewire. With multiple attempts, the
middle cardiac vein could not be implanted and decision was made to proceed with the lateral branch.
A lateral/anterolateral branch was engaged and pacing wire was implanted over the guidewire.
The double canted quadripolar lead was placed in the lateral branch. The threshold with unipolar was acceptable at all the 4 electrodes.
The long guiding sheath was removed from the vein and then from the body without change in lead position, impedance, sensing, or capture. Short TN interval permitted AdaptivCRT pacing with BiV / LV only pacing. The lead was sutured to the underlying
pectoralis fascia with 0-silk stitches.
AVJ ablation:
An 8 Malay sheath was placed and using Sapphire catheter (4mm -non-irrigated radiofrequency ablation catheter), the catheter was placed at the His locations and using 50watts of energy at 50degree temperature, the AV node was ablated for 60
seconds.
Catheter was not stable and was not able to deliver uniformly at the AVJ. With movement catheter got entangled with the CS lead and pulled the CS lead out of the CS.
With inadequate apposition against the septum and his location, decision was made to complete the pacemaker and bring patient back for femoral approach for AVJ ablation.
Reimplantation of the CS lead:
The CS lead was removed from the generator and removed from the body. A guide wire was placed via the 9 Malay sheath and extended hook sheath was placed into the CS over a guidewire. The lateral branch was again engaged and CS lead was placed over
the BMW wire into the lateral/anterolateral branch. Thresholds and impedances/sensing were rechecked and were acceptable.
The long guiding sheath was removed from the vein and then from the body without change in lead position, impedance, sensing, or capture.
Some oozing was seen at access sites. This was managed with manual pressure and a loose pursestring suture.�
A purse string suture was deployed using the 2-0 Vicryl suture.
The leads were attached to the pulse generator in standard configuration with acceptable sensing and threshold parameters. �Atrial plug was placed on the device.
The pocket was created using blunt dissection. Excellent hemostasis achieved. The pocket was irrigated with antibiotic solution; the pocket was inspected with no active bleeding noted. The device and the leads were placed in the pocket.
A surgiflo was placed around the bleeding the bleeding areas as patient is on Plavix and Eliquis with significant skin hematomas noted all over preoperatively.
A Tyrx pouch was placed around the device and the leads.
Deep subcutaneous tissues were closed with three layers of 2-0 VLoc sutures and the dermis was reopposed using a running 4-0 V loc subcuticular suture. A pressure dressing was applied. Sponge counts / sharp counts were appropriate.
Procedure End:
The procedure was tolerated well. Aquacel bandaged was applied. A pressure dressing was applied.
Estimated Blood loss:
50 cc
Specimens Removed:
No cultures and no specimens were obtained. No intraoperative pathology was identified.
Urine output:
None
Packs / Drains/ Tubes:
None
Instrument / Sponge Count Correct:
Yes
Flouro time:
35min /13.9Gycm2
Complications of the Procedure:
None
Condition of Patient at Time of Transfer:
Hemodynamically stable with no neurological or vascular compromise.
Device information:�
Generator: [employer]Direct; Model: W4TR01; Serial # [id number]
����������� RV LBB pacing lead: Medtronic; Model: 613649-00; Serial # [id number]
����������������������� Measured data on the RV lead was sensing of 5.1 mV, impedance of 817 ohms and threshold of 0.5 V at 0.4ms�
����������� LV pacing lead: Medtronic; Model: 4298-88; Serial # [id number]
����������������������� Measured data on the LV lead was impedance of 1007 ohms and threshold of 1.3V at 0.4ms (LV tip to can; diaphragm not seen at max output).
PROGRAMMING PARAMETERS:�
[place]ano parameter settings were VVIR 80 �
����������� Paced AV interval: 130ms
����������� Sensed AV interval: 100 ms.
����������� Rate Adaptive A-V Interval: on
Summary:
Successful implantation of MRI compatible TECHNICAL CUSTOMER SUPPORT SPECIALIST-P with biventricular pacing system with LBB pacing in RV along with placement of CS lead and attempted AVJ ablation
Results/Recommendations:
-Please follow up CXR�
1. Please provide patient with adequate pain control�
2. Plan for femoral access for AVJ ablation in 4 weeks
Instructions to be given to patient:�
- Please follow up with [facility] at [address] [place] [address] ([phone]) to get your wound checked in 2 weeks of your discharge. Then follow with
- Do not wet incision site until after it is evaluated at cardiology clinic. No baths or showers until then. Sponge baths / showers are OK but dab dry the dressing after it is wet.�
- Allow 'steri strips' to fall off on their own�
- Do not lift left elbow above shoulder, particularly with sudden jerking movements, for 1 month�
- Do not lift anything weighing more than 5 pounds with the left arm for 1 month�
- If you notice any fevers, shortness of breath, lightheadedness, chest pain, or worsening swelling in the wound site, please contact the arrhythmia clinic, contact your patient portal concierge, or present to the hospital for evaluation.�
Georgina Duarnt MD
Electrophysiology
--- NOTE | 2023-06-30 12:58 | W.PN.CD ---
Today's Communication / Plan
-
- WRAPPER HANDS SPRAYER- P today with possible AVJ ablation
Impression / Plan
-
SOB: likely multifactorial with respiratory infection and HF. We will continue bid Lasix again today. CHF BNP was 5020. Continue assess switch to daily each day
Atrial fibrillation with RVR
-in setting of permanent A fib, with LBBB
-continue eliquis 5mg bid
-Patient still with elevated heart rates/RVR to 140s despite being on Toprol-XL 100 mg BID and Cardizem CD 360 mg daily.
- (WRAPPER HANDS SPRAYER-P) implantation today +/- AVJ ablation
-Hold Eliquis today for procedure.
Acute on chronic HFrEF recent echo 35-40%
-echo 06/04/23: EF 35-40%, mild/moderate MR, TAVR (08/12, no AR), nl RV, mild TR, PASP 41
-will focus on optimizing GDMT as we treat his HF
-Continue Toprol XL 100 mg bid
-Continue Farxiga 10 mg daily
-GDMT with Entresto once rate controlled achieved.
-continue lasix lower dose for now 40 mg
COPD, possible respiratory infection: per hospitalist. On ABX
TAVR (2019)
-stable on outpatient echocardiogram
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
-cont Plavix through one year
Subjective:
Feeling overall better today, cont lasix NPO after midnight
Physical Exam
Vital Signs/Labs
Vital Signs
Temp Pulse Resp BP Pulse Ox
98.2 F 110 20 118/76 97
06/30/23 12:47 06/30/23 08:00 06/30/23 12:47 06/30/23 07:43 06/30/23 12:47
06/29/23 06/30/23 07/01/23
06:59 06:59 06:59
Actual Weight 70.9 kg 70.6 kg
06/30/23 04:10
06/30/23 04:10
Magnesium Cancelled 06/23/23 06:02
06/21/23
10:40
Dtr-Q-Gprouoiiqup Pept 5020
Physical Exam
Constitutional: No acute distress and Comfortable
EENT: Anicteric and Moist mucous membranes
Cardiovascular: Rhythm/rate is irregular, JVD present and Systolic murmur present
Respiratory: Respiratory effort normal and Lungs clear to auscul.
GI: Soft, Non tender and Normal bowel sounds
Neuro/Psych: Alert, Oriented and AO x 3
Data Reviewed
-
Date of Service: June 30, 2023
Medical Decision Making: Reviewed Test Results and Test Interpretation
EKG: Tracing Personally Visualized and interpreted
Echo: Report Reviewed by me
Labs: Labs Reviewed by me
Old Records: Reviewed
[2023-06-30] MEDS: LANOXIN 250 MCG IV (13:39)
[2023-06-30] MEDS: KCL 40 MEQ PO (13:39)
[2023-06-30] MEDS: FLUSH (NSS) 1 FLUSH IV (13:41)
[2023-06-30] MEDS: ATROVENT NEBULES INH ×2 (14:04→14:06)
[2023-06-30] MEDS: BENADRYL 50 MG IV (14:09)
[2023-06-30] MEDS: SOLU-CORTEF 200 MG IV (14:09)
--- NOTE | 2023-06-30 14:12 | PTCARENOTE ---
Received patient from PACU after PPM placed left upper chest. Patient is very sleepy but oriented and arouses easily. Pressure dressing is dry and intact, immobilizer in place. Post EKG done as ordered. Given IV digoxin as ordered, waiting for
lunch, call su in reach.
--- NOTE | 2023-06-30 14:14 | CM ---
Reviewed chart. Met with Mr. Mooney to review discharge plans. He states he is feeling okay. Prior to admission he resides with his spouse in a two story home with two steps to steps to enter. Prior to admission he was independent with
ambulation and adls. He has a stair glide to get to the second floor. Will need to see if he will have any skilled care needs. Medical work-up in progress. The discharge plan is to return home with his spouse when medically stable.
[2023-06-30] MEDS: ANCEF 5 IV ×2 (15:52→23:02)
[2023-06-30] MEDS: TYLENOL 1000 MG PO ×2 (15:53→23:00)
[2023-06-30] MEDS: MYCOSTATIN ORAL SUSPENSION 5 ML PO ×2 (19:55→23:00)
[2023-06-30] MEDS: SINGULAIR 10 MG PO (22:31)
[2023-06-30] MEDS: REMERON 7.5 MG PO (22:31)
--- NOTE | 2023-07-01 00:36 | PTCARENOTE ---
Pt rec'd at shift change awake,alert oriented. Left ant chest pacer site with pressure drsg intact. no swelling or hematoma palpated. left arm remains in immobilizer with elbow supported on pillow and hob >30 degrees. call su within reach.
Afib on telemetry with rare v paced beat noted. medicated with Tylenol for pain at pacer site at HS.
--- NOTE | 2023-07-01 00:40 | PTCARENOTE ---
Pt called nursing to room c/o having a panic attack requesting Ativan. will give prn dose now.
[2023-07-01] MEDS: ATIVAN 0.5 MG PO (00:43)
[2023-07-01 03:43] VITALS: BP 107/82
[2023-07-01 03:53] VITALS: BMI 24.7
[2023-07-01] MEDS: XOPENEX HFA 45 MCG INHALER 1 PUFF INH (04:00)
[2023-07-01 05:03] LABS: % Basophils 0.3 % (0-2); % Eosinophils 0.2 % (0-6); % Immature Granulocytes 1.2 % (0-0.5); % Lymphocytes 5.4 % (20.5-51.1); % Monocytes 12.6 % (1.7-9.3); % Neutrophils 80.3 % (42.2-75.2); Absolute Basophils 0.1 10^3/uL (0-0.2); Absolute Immature Granulocytes 0.2 10^3/uL (0-0.05); Absolute Lymphocytes 0.9 10^3/uL (1.2-3.4); Absolute Monocytes 2.1 10^3/uL (0.1-0.6); Absolute Neutrophils 13.3 10^3/uL (1.4-6.5); Hematocrit 35.5 % (39.0-52.0); Hemoglobin 12.2 g/dL (13.0-18.0); Mean Corp Hgb Conc. 34.4 g/dL (33.0-37.0); Mean Corpuscular Hgb 33.6 pg (27.0-31.0); Mean Corpuscular Volume 97.8 fL (80.0-94.0); Nucleated Red Blood Cells % 0 % (-); Platelet Count 234 10^3/uL (130-400); Red Blood Cell Count 3.63 10^6/uL (4.70-6.10); Red Cell Dist. Width 14.9 % (11.5-14.5); White Blood Cell Count 16.6 10^3/uL (4.8-10.8)
[2023-07-01 05:19] LABS: Blood Urea Nitrogen 22 mg/dl (9-20); Calcium 8.2 mg/dl (8.4-10.2); Carbon Dioxide 25 mmol/L (22-30); Chloride 108 mmol/L (98-107); Estimated Creatinine Clearance 44 ml/min; Glucose 135 mg/dl (70-99); Potassium 3.7 mmol/L (3.5-5.1); Sodium 141 mmol/L (135-145); eGFR > 60.00
[2023-07-01 06:52] VITALS: BP 105/68
[2023-07-01] MEDS: ATROVENT NEBULES INH ×2 (08:34→14:07)
[2023-07-01] MEDS: SYMBICORT 160/4.5 MCG INHALER 2 PUFF INH (08:34)
--- NOTE | 2023-07-01 09:01 | W.PN.CD ---
Today's Communication / Plan
-
- Stable for disccharge from cardiac stand point.
Impression / Plan
-
SOB: likely multifactorial with respiratory infection and HF. We will continue bid Lasix again today. CHF BNP was 5020. Continue assess switch to daily each day
Atrial fibrillation with RVR
-in setting of permanent A fib, with LBBB
-Restart eliquis 5mg bid
-s/p(STAGE HAND-P) implantation on 06/30/23
-AVJ ablation attempted but pulled CS lead and was reimplanted
-Plan for AVJ ablation as outpatient in 4-6 weeks.
-Rate control with Digoxin 250 mcg QD until AVJ ablation.
Acute on chronic HFrEF recent echo 35-40%
-echo 06/04/23: EF 35-40%, mild/moderate MR, TAVR (08/12, no AR), nl RV, mild TR, PASP 41
-will focus on optimizing GDMT as we treat his HF
-Continue Toprol XL 100 mg bid
-Continue Farxiga 10 mg daily
-GDMT with Entresto once rate controlled achieved.
-continue lasix lower dose for now 40 mg
COPD, possible respiratory infection: per hospitalist. On ABX
TAVR (2019)
-stable on outpatient echocardiogram
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
-cont Plavix through one year
Subjective:
Feeling overall better today, tolerated the procedure well.
Physical Exam
Vital Signs/Labs
Vital Signs
Temp Pulse Resp BP Pulse Ox
97.6 F 76 16 105/68 97
07/01/23 06:52 07/01/23 08:37 07/01/23 08:37 07/01/23 06:52 07/01/23 08:37
06/30/23 07/01/23 07/02/23
06:59 06:59 06:59
Actual Weight 70.6 kg 71.4 kg
07/01/23 04:39
07/01/23 04:39
Magnesium Cancelled 06/23/23 06:02
06/21/23
10:40
Sey-W-Jgkgcbpjduj Pept 5020
Physical Exam
Constitutional: No acute distress and Comfortable
EENT: Anicteric and Moist mucous membranes
Cardiovascular: Rhythm/rate is irregular, JVD present and Systolic murmur present
Respiratory: Respiratory effort normal, Lungs clear to auscul. and Wheeze Absent
GI: Soft, Non tender and Normal bowel sounds
Neuro/Psych: Alert, Oriented, AO x 3 and Motor deficits absent
Other: Cardiac Device Site (Pressure dressing removed. No hematoma. )
Data Reviewed
-
Date of Service: July 01, 2023
Medical Decision Making: Reviewed Test Results, Independent Historian Assessment, Test Interpretation and Review of Case with other Provider
EKG: Tracing Personally Visualized and interpreted (Telemettry showed rate cotnrooled with digoxin and pacing as needed. )
Echo: Report Reviewed by me
Labs: Labs Reviewed by me
Old Records: Reviewed
[2023-07-01] MEDS: CLARITIN 10 MG PO (09:33)
[2023-07-01] MEDS: BenGay-Like TOPICAL ×2 (09:33→16:00)
[2023-07-01] MEDS: CARDIZEM CD 360 MG PO (09:33)
[2023-07-01] MEDS: KCL 40 MEQ PO (09:34)
[2023-07-01] MEDS: CRESTOR 5 MG PO (09:34)
[2023-07-01] MEDS: ELIQUIS 5 MG PO (09:34)
[2023-07-01] MEDS: FARXIGA 10 MG PO (09:34)
[2023-07-01] MEDS: MUCINEX 600 MG PO (09:35)
[2023-07-01] MEDS: LASIX 40 MG PO (09:35)
[2023-07-01] MEDS: MYCOSTATIN ORAL SUSPENSION 5 ML PO ×2 (09:35→13:00)
[2023-07-01] MEDS: PLAVIX 75 MG PO (09:35)
[2023-07-01] MEDS: THERAGRAN 1 TABLET PO (09:36)
[2023-07-01] MEDS: VITAMIN B-12 250 MCG PO (09:36)
[2023-07-01] MEDS: TOPROL XL 100 MG PO (09:36)
[2023-07-01 09:37] LABS: Magnesium 2.2 mg/dl (1.6-2.3)
[2023-07-01] MEDS: VITAMIN D3 (cholecalciferol) 25 MCG PO (09:37)
[2023-07-01] MEDS: FLUSH (NSS) 2 FLUSH IV (09:37)
[2023-07-01] MEDS: TYLENOL 1000 MG PO (09:46)
[2023-07-01] MEDS: NON-FORMULARY ITEM 1 MG IRRIG (09:47)
[2023-07-01] MEDS: NON-FORMULARY ITEM 20 MG IRRIG (09:48)
--- NOTE | 2023-07-01 11:15 | PTCARENOTE ---
Received patient this morning sitting at the side of the bed. Aquacel dressing left upper chest is dry and intact. Patient given tylenol as ordered for some discomfort at the surgical site. Remains in AF on the monitor, with rate controlled.
--- NOTE | 2023-07-01 11:29 | W.PN.UPDATE ---
Update Note
Progress Note Update
Patient seen at bedside, chart reviewed, discussed with staff. Mr. Mooney is anticipated for DC today. He will need to return in a month for some additional procedure he tells me. He continues to have a lot of worry. He reports an 'anxiety
attack'early this AM. He recognizes his anxiety is triggered by 'having all of the weight of my 's health concerns and my daughter's health concerns on my shoulders when I am dealing with my own health issues'. We talk about the benefits of
psychotherapy which can help teach coping skills to avoid 'attacks of anxiety' when dealing with situational stressors. He will consider this. He does report the Ativan is helpful.
Impression/Plan: Adjust disorder with anxious features - Discussed the importance of support both physically as well as mentally. Psychotherapy can be very beneficial for his symptoms of anxiety related to situational stressors. He will explore
options and lean on family members for support. May be appropriate to continue the use of Ativan in small quantities for extreme anxiety if no contraindication as this has been reported as beneficial without any side effects reported.
[2023-07-01 11:46] VITALS: BP 102/59
[2023-07-01] MEDS: LANOXIN 250 MCG PO (13:00)
--- NOTE | 2023-07-01 13:53 | W.PN.HOSP.TC ---
Addendum entered and electronically signed by Manjit Harley MD 07/01/23 16:09:
Discussed case with Dr. Durant who recommended starting patient on Entresto on discharge.
Original Note:
Today's Communication/Plan
-
Discharge today
Assessment / Plan
Assessment / Plan
Physical Exam
Constitutional: Not in acute distress
HEENT: Normocephalic
Cardiovascular: Rhythm/rate is irregular, Systolic murmur present
Respiratory: Respiratory effort normal, Lungs clear to auscultation bilaterally
GI: Soft, Non tender and Normal bowel sounds
Neuro/Psych: Alert, Oriented, AO x 3 and Motor deficits absent

CXR 06/21/23: Small bilateral pleural effusions.
CXR 06/22/23: Progressed findings suggesting medial right lower lobe pneumonia. Progressed findings suggesting mild left lower lobe pneumonia. New. Small left pleural effusion. Stable. Tiny right pleural effusion. Improved.
CXR 06/26/23: Small bilateral pleural effusions with adjacent atelectasis, similar appearance compared to previous radiographs.

Permanent Atrial Fibrillation with RVR status post STORE SALES MANAGER-P with Conduction system pacing and CS LV pacing lead Pacemaker implantation, on June 30, 2023
-Chronic LBBB
-was on Cardizem gtt, now off
-Toprol-XL was previously increased to 100 mg BID
-Cardizem was previously increased to 360mg CD
-Restart Eliquis 5 mg BID
-Rate control with Digoxin 250 mcg QD until AVJ ablation.
-Plan for AVJ ablation as outpatient in 4-6 weeks (follow-up with Dr. Durant)
Acute HFrEF:
-was on IV lasix, then transitioned to PO Lasix. Appears compensated.
-Continue PO Lasix lower dose for now 40 mg BID
-cont beta skip as above
-Continue Farxiga 10 mg daily
-Entresto once rate controlled achieved.
B/L PNA:
-remains afebrile. Leukocytosis like reactive/stressed induced.
-CXR above
-was on Rocephin/Doxy, now stopped with NEG Procal
-bacterial PNA has been ruled out
-afebrile, leukocytosis could be stress-induced/reactive
Hypokalemia
-Resolved
Panic attack/Anxiety:
-Ativan as needed
-psych following
Other problems:
COPD: cont Symbicort/Singulair
s/p TAVR
CAD with h/o stent, prior NSTEMI in setting of OM1 dissection 07/2022: cont BB/Plavix/statin
Essential Hypertension: cont BB
Hyperlipidemia: cont statin
Prostate cancer s/p prostatectomy
FULL/Eliquis
More than 30 minutes spent in discharge including
Final examination of the patient
Summarizing hospital stay
Instructions for continuing care to all relevant caregivers
Preparation of discharge records, prescriptions, and referral forms
Total time spent (in minutes): 41
Anticipated Discharge: Today
Subjective/Interval History
-
Date of Service: July 01, 2023
Patient was seen and examined. He reported that he 'feels good.' He reported that he is ready to go home today.
Objective Data
-
Labs:
Laboratory Results
07/01/23
04:39
WBC 16.6 H
Hgb 12.2 L
Hct 35.5 L
Plt Count 234
Sodium 141
Potassium 3.7
Chloride 108 H
Carbon Dioxide 25
BUN 22 H
Creatinine 1.2
Glucose 135 H
Calcium 8.2 L
Vital Signs:
Vital Signs
Temp Pulse Resp BP Pulse Ox
97.5 F 89 16 102/59 98
07/01/23 11:45 07/01/23 13:00 07/01/23 11:45 07/01/23 11:46 07/01/23 11:45
I&O
06/30/23 07/01/23 07/02/23
06:59 06:59 06:59
Intake Total 840 / 840 100 / 100 360 / 360
Output Total 1575 / 1575 800 / 800
Balance -735 / -735 -700 / -700 360 / 360
[2023-07-01 15:29] VITALS: BP 99/71
--- NOTE | 2023-07-01 15:33 | W.HF.CON ---
Heart Failure
- LV Function
Left ventricular function study result: LV Ejection fraction >35% - 40%
Ejection Fraction Percentage: 35-40
- ARNI
Patient already on ARNI: No
Heart Failure ARNI Contraindication: Hypotension
- ACEI/ARB
Patient already on ACEI/ARB: No
Heart Failure ACEI/ARB Contraindication: Hypotension
- Beta Shanita
Patient already on Evidence Based Beta Shanita: Yes
- Mineralocorticord Receptor Antagonist
Patient already on MRA: No
Heart Failure MRA Contraindication: Hypotension
- SGLT-2 Inhibitor
Patient already on SGLT-2 Inhibitor: Yes
- Afib Anticoagulation
Patient already on Anticoagulation for Afib: Yes
- NYHA CHF Classification
NYHA CHF Classification Level: Class III - Symptoms w/ min exertion, interferes w/ nml daily activity
- ACC/AHA Stage
ACC/AHA Stage: Stage C: Symptomatic Heart Failure
[2023-07-01] MEDS: LASIX PO (16:00)
--- NOTE | 2023-07-01 16:03 | W.DS.TRANS ---
DC Summary - Sybase Developer
-
Discharge Instructions:
Sleep Apnea Risk Intermediate
Discharge Diagnosis/Procedures Bi-V Pacemaker implant
Permanent Atrial Fibrillation with RVR status
post NITROGLYCERIN DISTRIBUTOR-P with Conduction system pacing and CS
LV pacing lead Pacemaker implantation, on June 29
, 2023
Acute Heart Failure with Reduced Ejection
Fraction
Pneumonia -- unlikely bacterial cause
Hypokalemia
Panic attack/Anxiety
Chronic Obstructive Pulmonary Disease
Aortic Stenosis status post TAVR
CAD with history of stent, prior NSTEMI in
setting of OM1 dissection 07/2022
Essential Hypertension
Hyperlipidemia
Prostate cancer status post prostatectomy
Diet Low Cholesterol,Low Fat,2 Gram Sodium,Restrict
fluids to 64 oz
Driving Restrictions No driving for 1 week
Instructions: *CBC Heart Failure Instructions
Stand-Alone Forms: DC Inst - Implanted Device
Changes to Home Medications: Yes
Discharge Medications:
DC Medications w/original date entered in [facility]
ascorbic acid (vitamin C) 250 mg tablet 250 mg PO MOWEFR@0800 Supplement 03/31/19
rosuvastatin 5 mg tablet 5 mg PO MOTUWETHFR@0800 High cholesterol 07/14/19
loratadine 10 mg tablet 10 mg PO DAILY Allergies 02/28/20
montelukast 10 mg tablet 10 mg PO HS Lung/breathing issues 02/28/20
multivitamin with folic acid 400 mcg tablet (Tab-A-Tl) 1 tab PO DAILY Supplement 02/28/20
cyanocobalamin (vitamin B-12) 250 mcg tablet 250 mcg PO DAILY Supplement 08/07/22
levalbuterol tartrate 45 mcg/actuation aerosol inhaler 1 puff inhalation R Q4HPRN PRN SOB 08/07/22
apixaban 5 mg tablet (Eliquis) 5 mg PO BID Blood Clot Prevention/Tx 04/07/23
budesonide-formoterol HFA 160 mcg-4.5 mcg/actuation aerosol inhaler (Symbicort) 2 inh inhalation R BID Lung/Breathing Issues 04/07/23
clopidogrel 75 mg tablet 75 mg PO DAILY Blood Clot Prevention/Tx 04/07/23
Mometasone 1 mg irrigation BID 06/21/23
Tobramycin 20 mg irrigation BID 06/21/23
amoxicillin 875 mg-potassium clavulanate 125 mg tablet 1 tab PO Q12H 06/21/23
biotin 10,000 mcg capsule 10,000 mcg PO DAILY 06/21/23
calcium carbonate 250 mg PO MOWEFR@0800 06/21/23
cholecalciferol (vitamin D3) 25 mcg (1,000 unit) tablet 25 mcg PO DAILY 06/21/23
ipratropium bromide 0.02 % solution for inhalation 2.5 ml inhalation R DAILYPRN PRN sob 06/21/23
ipratropium bromide 0.02 % solution for inhalation 2.5 ml inhalation R TID 06/21/23
dapagliflozin propanediol 10 mg tablet 10 mg PO DAILY #30 tabs 07/01/23
digoxin 250 mcg (0.25 mg) tablet 250 mcg PO NOON #30 tabs 07/01/23
diltiazem HCl 180 mg capsule,extended release 24 hr 360 mg (2 x 180 mg) PO DAILY #60 caps 07/01/23
furosemide 40 mg tablet 40 mg PO BID AT 0800,1600 #60 tabs 07/01/23
guaifenesin 600 mg tablet, extended release 12 hr 600 mg PO Q12 #14 tabs 07/01/23
metoprolol succinate 50 mg tablet,extended release 24 hr 100 mg (2 x 50 mg) PO BID #120 tabs 07/01/23
mirtazapine 7.5 mg tablet 7.5 mg PO HS #30 tabs 07/01/23
potassium chloride 20 mEq tablet,extended release(part/cryst) 40 meq (2 x 20 mEq) PO DAILY #30 tabs 07/01/23
sacubitril 24 mg-valsartan 26 mg tablet (Entresto) 1 tab PO BID #30 tabs 07/01/23
Home Medication Changes
Dapagliflozin, Entresto, Digoxin, Guaifenesin and Mirtazapine are all new medications.
Diltiazem dose increased.
Metoprolol Succinate dose increased.
Furosemide dose decreased.
Potassium changed from 20 meq BID to 40 meq daily.
Pending Results: No
Total time spent discharging patient (in min): 41
--- NOTE | 2023-07-01 17:52 | PTCARENOTE ---
Reviewed discharge instructions, follow up appointments, activity restrictions and new medications to be picked up in detail and the patient states his understanding. Patient discharged home with his .
--- NOTE | 2023-07-02 10:48 | W.DCSUMMARY ---
Discharge Summary
Discharge Data
Date of Admission: 06/21/23
Date of Discharge: 07/01/23
Total time spent discharging patient (in min): 41
-
Pending Results: No
Hospital Course
82 y/o male with past medical history of permanent atrial fibrillation on Eliquis, heart failure with reduced ejection fraction, chronic obstructive pulmonary disease, aortic stenosis status post transcatheter aortic valve replacement, coronary
artery disease with history of intervention and stent, hypertension, hyperlipidemia, chronic left bundle branch block and prostate cancer presented with shortness of breath for the past approximately 5 days. Patient went to his primary care
physician about 5 days prior and was prescribed Amoxicillin for cough. Patient's shortness of breath kept getting worse, on the day of presentation he had lightheadedness and nausea and went to see his primary care physician who determined he needed
to come to the emergency room.
Patient was admitted with atrial fibrillation with rapid ventricular response as well as heart failure exacerbation. Patient was started on intravenous Lasix and Cardizem drip; cardiology was consulted. Patient's beta skip was increased and later
PO cardizem had to be added (and further increased) due to ongoing rapid A-Fib despite the increase in beta skip. Patient still had a-fib with rvr. On June 30, 2023, patient had a 'WEB SITE PROJECT MANAGER-P with Conduction system pacing and CS LV pacing lead
Pacemaker implantation.' Patient was briefly started on antibiotics which were discontinued after procalcitonin came back unremarkable for a bacterial infection.
Patient also had anxiety/panic attack episode during the hospitalization, for which psychiatry was consulted. Ativan in small amounts was recommended on discharge for extreme anxiety if there was no contraindication as this had been reported as
beneficial without any side effects reported.
Discharge Plan
-
Patient Disposition: Home (Routine Discharge)
Discharge Diagnosis/Procedures: Bi-V Pacemaker implant
Permanent Atrial Fibrillation with RVR status post WEB SITE PROJECT MANAGER-P with Conduction system pacing and CS LV pacing lead Pacemaker implantation, on June 30, 2023
Acute Heart Failure with Reduced Ejection Fraction
Pneumonia -- unlikely bacterial cause
Hypokalemia
Panic attack/Anxiety
Chronic Obstructive Pulmonary Disease
Aortic Stenosis status post TAVR
CAD with history of stent, prior NSTEMI in setting of OM1 dissection 07/2022
Essential Hypertension
Hyperlipidemia
Prostate cancer status post prostatectomy
Condition: Good
Diet: Low Fat, Low Cholesterol, 2 Gram Sodium and Restrict fluids to 64 oz
Driving Restrictions: No driving for 1 week
Activity Restrictions/Additional Instructions:
-PLEASE FOLLOW-UP WITH AND SEE YOUR PRIMARY CARE PROVIDER IN 1 TO 2 DAYS AND HAVE YOUR LABWORK (CBC, CMP AND MAGNESIUM) RECHECKED
- Please follow up with [facility] at [address] [place] [address] ([phone]) to get your wound checked in 2 weeks of your discharge.
- Do not wet incision site until after it is evaluated at cardiology clinic. No baths or showers until then. Sponge baths / showers are OK but dab dry the dressing after it is wet.
- Allow 'steri strips' to fall off on their own
- Do not lift left elbow above shoulder, particularly with sudden jerking movements, for 1 month
- Do not lift anything weighing more than 5 pounds with the left arm for 1 month
- If you notice any fevers, shortness of breath, lightheadedness, chest pain, or worsening swelling in the wound site, please contact the arrhythmia clinic, contact your local flatbed driver, or present to the hospital for evaluation.
Instructions: *CBC Heart Failure Instructions
Stand Alone Forms: DC Inst - Implanted Device
Referrals:
Arely Russo CRNP [Specified Professional Personl] - 07/09/23 8:40 am (Post device incision check appointment)
Georgina Durant MD [Active] - in two to three weeks (AVJ ablation as outpatient )
Meng Granda DO [Family Provider] - in two days (Hospital follow-up, needs repeat CBC, CMP and Magnesium)
Americo Byrne MD [Consulting Staff] - in one to two weeks (Hospital follow-up: anxiety, depression)
Additional Discharge Medication Instructions: Dapagliflozin, Entresto, Digoxin, Guaifenesin and Mirtazapine are all new medications.
Diltiazem dose increased.
Metoprolol Succinate dose increased.
Furosemide dose decreased.
Potassium changed from 20 meq BID to 40 meq daily.
Prescriptions:
Continued
ascorbic acid (vitamin C) 250 MG tablet
250 mg PO MOWEFR@0800
rosuvastatin 5 MG tablet
5 mg PO MOTUWETHFR@0800
montelukast 10 MG tablet
10 mg PO HS
loratadine 10 MG tablet
10 mg PO DAILY
multivitamin with folic acid [Tab-A-Tl] 1 TABLET tablet
1 tab PO DAILY
levalbuterol tartrate 45 mcg/actuation HFA aerosol inhaler
1 puff INHALATION R Q4HPRN PRN (Reason: shortness of breath)
cyanocobalamin (vitamin B-12) 250 mcg Tablet
250 mcg PO DAILY
budesonide-formoterol [Symbicort] 160-4.5 mcg/actuation Hfa Aerosol Inhaler
2 inh INHALATION R BID
clopidogrel 75 mg tablet
75 mg PO DAILY
Eliquis 5 mg tablet
5 mg PO BID
calcium carbonate 500 mg calcium (1,250 mg) Tablet
250 mg PO MOWEFR@0800
biotin 10,000 mcg Capsule
10,000 mcg PO DAILY
ipratropium bromide 0.02 % Solution
2.5 ml INHALATION R TID
ipratropium bromide 0.02 % Solution
2.5 ml INHALATION R DAILYPRN PRN (Reason: shortness of breath)
amoxicillin-pot clavulanate 875-125 mg Tablet
1 tab PO Q12H
Patient Comments:
filled on 06/17/2023 and instructed to take one tablet Q12H for 10 days.
cholecalciferol (vitamin D3) 25 mcg (1,000 unit) Tablet
25 mcg PO DAILY
Mometasone 1 mg capsule
1 mg irrigation BID
Patient Comments:
directions from label: ADD CONTENTS OF ONE CAPSULE TO 240 ML SALINE. IRRIGATE EACH NOSTRIL USING NEILMED WITH 120 ML OF MEDICATED SALINE TWICE DAILY.
Tobramycin 20 mg capsule
20 mg irrigation BID
Patient Comments:
directions from label: ADD CONTENTS OF ONE CAPSULE TO 240 ML SALINE. IRRIGATE EACH NOSTRIL USING NEILMED WITH 120 ML OF MEDICATED SALINE TWICE DAILY.
Discontinued
metoprolol succinate 50 mg Tablet Extended Release 24 Hr
50 mg PO DAILY
acetaminophen [Tylenol Extra Strength] 500 mg Tablet
1,000 mg PO DAILYPRN PRN (Reason: mild pain)
furosemide 80 mg Tablet
80 mg PO BID
diltiazem HCl [Matzim LA] 240 mg Tablet Extended Release 24 Hr
240 mg PO DAILY
potassium chloride 20 mEq Tablet Extended Release
20 meq PO BID
No Action
guaifenesin 600 mg tablet extended release 12hr
600 mg PO [id number] PRN (Reason: cough)
acetaminophen [Tylenol] 325 mg Tablet
650 mg PO Q6HPRN PRN (Reason: mild pain)
furosemide 40 mg tablet
40 mg PO BID AT 0800,1600
diltiazem HCl 180 mg capsule,extended release 24hr
360 mg PO DAILY
metoprolol succinate 50 mg tablet extended release 24 hr
100 mg PO BID
digoxin 250 mcg (0.25 mg) tablet
250 mcg PO NOON
potassium chloride 20 mEq tablet,ER particles/crystals
40 meq PO DAILY
mirtazapine 7.5 mg tablet
7.5 mg PO HS
dapagliflozin propanediol 10 mg tablet
10 mg PO DAILY
Entresto 24-26 mg tablet
1 tab PO BID
Discharge Orders:
Discharge Patient (As Directed); Ordered 07/01/23
Ordered By: Manjit Harley
Care Plan Goals
Care Plan Goals:
Problem: Readiness for enhanced knowledge related to diagnosis and treatment plan
Goal: Understand your diagnosis and treatment plan needs, including medications if applicable.
Instructions: Know your diagnosis, underlying causes and treatment plan options, including medications if applicable. Consult with your health care team to learn about your diagnosis and treatment plan, including medications if applicable.
Discharge Date and Time
Discharge Date/Time: 07/01/23 17:43
Print Language: SYRIAN
== END 2023-07-01 17:43 | disposition home or self-care (01) | DRG 242 ==
LOC: IVU 14:10
PROVIDERS: Internal Medicine; Internal Medicine Cardiovascular Disease; Physician Assistant; ADMITTING PHYSICIAN Hospitalist; CONSULT PHYSICIAN Internal Medicine; EMERGENCY PHYSICIAN Emergency Medicine; FAMILY PHYSICIAN Family Medicine; OTHER PHYSICIAN Psychiatry & Neurology Psychiatry
PROC: 02HK3JZ Insertion of Pacemaker Lead into Right Ventricle, Percutaneous Approach (ICD-10-PCS; 2023-06-30)
PROC: 0JH607Z Insertion of Cardiac Resynchronization Pacemaker Pulse Generator into Chest Subcutaneous Tissue and Fascia, Open Approach (ICD-10-PCS; 2023-06-30)
PROC: 02H43JZ Insertion of Pacemaker Lead into Coronary Vein, Percutaneous Approach (ICD-10-PCS; 2023-06-30)
DX: I48.21 Permanent atrial fibrillation (principal); I50.43 Acute on chronic combined systolic (congestive) and diastolic (congestive) heart failure; J18.9 Pneumonia, unspecified organism; J44.0 Chronic obstructive pulmonary disease with (acute) lower respiratory infection; I44.7 Left bundle-branch block, unspecified; E78.00 Pure hypercholesterolemia, unspecified; I11.0 Hypertensive heart disease with heart failure; I25.10 Atherosclerotic heart disease of native coronary artery without angina pectoris; F43.22 Adjustment disorder with anxiety; F41.0 Panic disorder [episodic paroxysmal anxiety]; E87.6 Hypokalemia; I25.2 Old myocardial infarction; Z11.52 Encounter for screening for COVID-19; Z79.01 Long term (current) use of anticoagulants; Z79.02 Long term (current) use of antithrombotics/antiplatelets; Z79.899 Other long term (current) drug therapy; Z85.46 Personal history of malignant neoplasm of prostate; Z87.891 Personal history of nicotine dependence; Z95.3 Presence of xenogenic heart valve; Z95.5 Presence of coronary angioplasty implant and graft
CPT/HCPCS: 33208; 33225; 71045; 71046; 80048; 80053; 83735; 83880; 84145; 84484; 85025; 87040; 87070; 87077; 87186; 87205; 87502; 87811; 93005; 93650; 94640; 96365; 96366; 96375; 96376; 99285; C1733; C1769; C1887; C1892; C1898; C1900; C2621; J1160; Q9967

== ENCOUNTER 2023-07-02 11:13 | Inpatient (IN) | payer OTHER, SELFPAY ==
[2023-07-02] VITALS (12 sets, daily range): BP systolic 95–119; BP diastolic 60–88; BMI 25.6
[2023-07-02 05:05] LABS: % Basophils 0.7 % (0-2); % Eosinophils 0.7 % (0-6); % Immature Granulocytes 1.9 % (0-0.5); % Lymphocytes 6.7 % (20.5-51.1); % Monocytes 12.9 % (1.7-9.3); % Neutrophils 77.1 % (42.2-75.2); Absolute Basophils 0.1 10^3/uL (0-0.2); Absolute Eosinophils 0.1 10^3/uL (0-0.7); Absolute Immature Granulocytes 0.3 10^3/uL (0-0.05); Absolute Monocytes 1.9 10^3/uL (0.1-0.6); Absolute Neutrophils 11.5 10^3/uL (1.4-6.5); Hematocrit 37.7 % (39.0-52.0); Hemoglobin 12.5 g/dL (13.0-18.0); Mean Corp Hgb Conc. 33.2 g/dL (33.0-37.0); Mean Corpuscular Hgb 32.9 pg (27.0-31.0); Mean Corpuscular Volume 99.2 fL (80.0-94.0); Nucleated Red Blood Cells % 0 % (-); Platelet Count 245 10^3/uL (130-400); Red Cell Dist. Width 15.2 % (11.5-14.5)
[2023-07-02 05:21] LABS: ALT (SGPT) 14 U/L (0-50); AST (SGOT) 26 U/L (17-59); Albumin 3.5 g/dl (3.5-5.0); Alkaline Phosphatase 64 U/L (38-126); Blood Urea Nitrogen 28 mg/dl (9-20); Calcium 8.6 mg/dl (8.4-10.2); Carbon Dioxide 24 mmol/L (22-30); Chloride 107 mmol/L (98-107); Estimated Creatinine Clearance 37 ml/min; Glucose 107 mg/dl (70-99); Potassium 3.9 mmol/L (3.5-5.1); Sodium 140 mmol/L (135-145); Total Bilirubin 0.5 mg/dl (0.2-1.3); Total Protein 6.5 g/dl (6.3-8.2); eGFR 49.87
[2023-07-02 05:56] LABS: NT-proBNP 3830 pg/ml; Troponin I 0.145 ng/ml
--- NOTE | 2023-07-02 06:39 | ED.GENMED ---
History of Present Illness
General
Chief Complaint: Breathing Problem
Source: patient
Time Seen by Provider: 07/02/23 06:14
Travel History
Have you had any contact with someone who has COVID-19?: No
Do you have any symptoms of coronavirus? Fever > 100 degrees, chills, cough, shortness of breath, sore throat, loss of taste or smell, muscle aches, or headache?: Yes
Symptoms:: cough shortness of breath
History of Present Illness
History of Present Illness:
82-year-old male presents to the emergency room complaining of shortness of breath. Patient was discharged in the hospital yesterday after a prolonged hospitalization for similar complaints. During this hospitalization the patient was treated for
CHF, A-fib with rapid ventricular response. He ultimately underwent pacemaker placement and an attempt to ablate the AV junction. The AV junction ablation was not successful and a future procedure is planned. Patient states that upon discharge
she was feeling okay. However during the night he was unable to sleep because becomes quite short of breath with lying flat. He denies chest pain.
Past History
Past History
ED Past Medical History: Arrthythmia (Atrial fib), Asthma, CAD, Cancer (Prostate CA), COPD, HTN, Hypercholesterolemia, Valvular disease and Other (chronic sinusitis, colon polyps, Vertigo, Ataxia, PNA,)
ED Past Surgical History: Cardiac (Stents), Urological (prostatectomy) and Other (colon polypectomy)
Social History
Tobacco: Former smoker (quit 45 years ago)
Alcohol: Daily (Vodka 1)
Drug: None
Personal:
Living: with family
Employment: Retired
Family History
Family History: Other (n/c)
Phy Exam
Physical Exam
Physical Exam:
General: Awake, Alert, Oriented X3. No acute distress, appears stated age, chronically ill
Vitals: unremarkable
Head: Atraumatic
Eyes: Pupils equal, EOMI
Throat: Airway intact, no exudates
Neck: Trachea midline
Chest: Ecchymosis from recent procedure noted
Lungs: Expiratory wheezing
Heart: Regular rate, no murmurs
Abd: Soft, Nontender, No pulsatile mass
Neuro: Nonfocal
Skin: Warm, dry, no rash
Extremities: pulses equal b/l, no significant edema
Scores
Heart Failure Risk
Heart Failure Risk Score: Yes
History of Stroke or TIA: No
History of intubation for respiratory distress: No
Heart rate on ED arrival >/= 110: Yes
SaO2 <90% on arrival on room air: Yes
HR >/=110 during 3min walk test (or too ill to perform test): Yes
ECG has acute ischemic changes: No
Urea >/=12mmol/L (BUN 33.6mg/dL): No
Serum CO2>/=35mmol/L: No
Troponin I or T elevated to [place] Level (0.4mg/dL): No
NT-proBNP >/=5,000ng/L (5,000pg/ml): No
HF Risk Score: 3
Admission Status: HIGH RISK 15.9% Consider SNF treatment or admission to hospital
Course
Orders/Labs/Results
Orders:
Orders
07/02/23 04:45
Electrocardiogram (*1) Urgent
Reason for Study: Other
Other Reason for Exam: Respiratory Distress
Cardiac Monitoring- Treatment ONCE
EKG- Treatment ONCE
IV Insert/Care/Rem.- Treatment PRN
CR Chest - 2 Views Urgent
Comment:
Reason For Exam: respiratory distress
O2 Therapy [RESP] Urgent
Titrate/Wean O2 to maintain O2 sat greater than (%): 93
Special Instructions: TO MAINTAIN CONTINUOUS O2 SATS >/= 93%
Pulse Ox/cont/shift [RESP] Urgent
Quantity: 1
Special Instructions: continuous pulse ox
07/02/23 04:56
Complete Blood Count/With Diff Urgent
Comprehensive Metabolic Panel Urgent
Digoxin Urgent
Date and Time of Last Dose: ADD ON
NT-proBNP Urgent
Troponin I Urgent
07/02/23 06:35
Ipratropium Nebs [Atrovent Nebules] 1 mg INH R NOW STA
Levalbuterol [Xopenex 1.25 mg Inhalant Solution] 1.25 mg INH R NOW STA
07/02/23 06:37
Add On- LAB Urgent
Tests Added?: digoxin level
07/02/23 06:40
CT Chest W/o Iv Contrast Urgent
Comment:
Reason For Exam: persistent sob
07/02/23 07:52
EKG [Electrocardiogram (*1)] Urgent
Reason for Study: Shortness of Breath
Comment: 2nd trop
07/02/23 07:53
EKG- Treatment ONCE
07/02/23 07:56
Dexamethasone Sod Phosphate [Decadron] 10 mg IV NOW STA
07/02/23 08:08
COVID-19 Antigen Urgent
Source: Nasal Swab
Procalcitonin Urgent
PCT Algorithmm Indication: Respiratory
Troponin I Urgent
Influenza A+B Rapid Molecular Urgent
JASON Source: Nasal Swab
Specimen Description:
07/02/23 10:49
Admit/Transfer Patient As Directed
Co-Sign Provider:
Level of Care: Inpatient admission
Assign to:: Telemetry
Physician / Group: Dr. Manjit Harley/Hospitalists
Diagnosis: Dyspnea/Mucus Plugging
Reason for Telemetry: Arrhythmia
Date to Stop Telemetry: 07/05/23
Time to Stop Telemetry: 11:00
Reason for Hospitalization: Dyspnea/Mucus Plugging
Expected length of stay greater than two midnights?: Yes
ELOS- Estimated Length of Stay in days: 3
I certify the patient meets the requirements for IP care: Yes
07/02/23 10:57
Code Status As Directed
Resuscitation Status: Full Code
07/02/23 11:03
CARDIOLOGY CONSULT Routine
Consulting Provider: Georgina Durant
Was physician already notified: Yes
Reason for consult: Dyspnea, HFrEF
07/02/23 11:04
PULMONARY CONSULT Routine
Consulting Provider: Maximilian Oswald
Was physician already notified: Yes
Reason for consult: Dyspnea, mucus plugging on Chest CT, pleural effusions
07/05/23 11:00
DC Protocol for Telemetry ONCE
Abnormal Lab Results
07/02/23 07/02/23
04:56 08:08
WBC 15.0 H 10^3/uL
(4.8-10.8)
RBC 3.80 L 10^6/uL
(4.70-6.10)
Hgb 12.5 L g/dL
(13.0-18.0)
Hct 37.7 L %
(39.0-52.0)
MCV 99.2 H fL
(80.0-94.0)
MCH 32.9 H pg
(27.0-31.0)
RDW 15.2 H %
(11.5-14.5)
MPV 11.0 H fL
(7.4-10.4)
Abs Immat Gran (auto) 0.3 H 10^3/uL
(0-0.05)
Absolute Neuts (auto) 11.5 H 10^3/uL
(1.4-6.5)
Absolute Lymphs (auto) 1.0 L 10^3/uL
(1.2-3.4)
Absolute Monos (auto) 1.9 H 10^3/uL
(0.1-0.6)
Immature Gran % 1.9 H %
(0-0.5)
Neutrophils % 77.1 H %
(42.2-75.2)
Lymphocytes % 6.7 L %
(20.5-51.1)
Monocytes % 12.9 H %
(1.7-9.3)
BUN 28 H mg/dl
(9-20)
Creatinine 1.4 H mg/dL
(0.7-1.3)
Glucose 107 H mg/dl
(70-99)
Troponin I 0.145 H* ng/ml 0.115 H* ng/ml
Digoxin 0.6 L ng/ml
(0.8-2.0)
07/02/23 04:56
07/02/23 04:56
Vital Signs
Initial and Last Documented VS:
Initial Vital Signs
Temp Pulse Resp Pulse Ox
98.0 F 67 22 97
07/02/23 04:40 07/02/23 04:40 07/02/23 04:40 07/02/23 04:40
Last Documented Vital Signs
Temp Pulse Resp BP Pulse Ox
98.0 F 90 47 108/68 96
07/02/23 04:40 07/02/23 11:15 07/02/23 11:15 07/02/23 11:00 07/02/23 10:30
MDM/Problems Addressed
Differential Diagnosis Includes:
Anemia, CHF, COPD exacerbation, pneumonia
MDM/Problems Addressed:
Patient has persistent cough and shortness of breath. He does have wheezing on exam. His chest x-ray shows atelectasis but no clear infection. CT of the chest performed to help further evaluate his cause for shortness of breath and there were
multiple areas of mucous plugging and atelectasis. Will treat the patient with IV Decadron, nebs and hospitalize for further supportive care. No indication for antibiotics at this time
Chronic conditions affecting care: Arrhythmia (Atrial fibrillation) and COPD
*Radiology
Radiology exam reviewed: radiology read reviewed
*Pulse Oximetry
Patient hypoxic: yes
Comment: 92
*EKG
Interpreted by ED Provider?: Yes
Interpretation: abnormal
Heart Rate: 83
Rate: normal
Rhythm: a-fib and ventricular paced
QRS Pattern: left bundle branch block
Ischemia: non-specific ST changes
*Rough And Truing Machine Operator Interpretation
Rate: normal
Interpretation: abnormal
Rhythm: a-fib and other (Occasional paced beat)
*Critical Care Note
Total Time (30-74mins, 75-104mins- exclusive of procedures): Not Applicable
Data Reviewed
Review of Other/Old Records Reveals: Radiology Studies, Operative Reports and Discharge Summary
Patient Management
Social determinants of health affecting care: Living situation
ED Attending Note
-
Portions of this chart may have been created with voice recognition software.� Occasional wrong word or��sound alike� substitutions may have occurred due to the inherent limitations of voice recognition software.
Discharge Plan
Departure
Patient Disposition: Admit
Date of Disposition: 07/02/23
Time of Disposition: 09:07
Presentation/result/management discussed w/ accepting MD/DO: Hospitalist
Condition: Fair
Discharge Problem:
Shortness of breath, Asthma exacerbation in COPD
Interventions
Interventions:
*Risk Screen - Suicide Last Done: 07/02/23 04:40
*General Assessment Last Done: 07/02/23 04:40
*Neglect/Abuse Screening Last Done: 07/02/23 04:40
ED- Fall Risk Assessment Last Done: 07/02/23 04:40
*ED COVID-19 Vaccine History Last Done: 07/02/23 04:40
ED- Cardiac Assessment Last Done: 07/02/23 04:57
ED- Pulmonary Assessment Last Done: 07/02/23 05:00
[2023-07-02 07:16] LABS: Digoxin 0.6 ng/ml (0.8-2.0)
[2023-07-02] MEDS: ATROVENT NEBULES 1 MG INH (08:03)
[2023-07-02] MEDS: XOPENEX 1.25 MG INHALANT SOLUTION INH ×2 (08:03→19:34)
[2023-07-02] MEDS: DECADRON 10 MG IV (08:07)
[2023-07-02 08:50] LABS: COVID-19 Antigen Negative (Negative)
[2023-07-02 08:51] LABS: Troponin I 0.115 ng/ml
[2023-07-02 08:56] LABS: Procalcitonin < 0.05 ng/ml (0.0-0.25)
--- NOTE | 2023-07-02 10:49 | HPS.HSE ---
Family Physician
-
Family Physician: Meng Granda
Chief Complaint
-
Shortness of Breath
History of Present Illness
82 y/o male with past medical history of a-fib with RVR s/p INSOLE TAPER-P 06/30/23 (with plans for future AVJ ablation), TAVR 2019, chronic HFrEF, permanent A fib on Eliquis, CAD/NSTEMI in setting of OM1 dissection 07/2022, and COPD (sees Dr. Peterson
outpatient) who was discharged yesterday after being hospitalized for SOB, and treated for a-fib with RVR s/p INSOLE TAPER-P 06/30/23 (with plans for future AVJ ablation), CHF and PNA. patient said that after he was discharged yesterday, he was feeling better
overall, but he became significantly short of breath at night, which prompted him to come to the ER. He also reported some increase in bilateral leg swelling. He denied any other significant symptoms or complaints.
Medical History
Past Medical History
Past Medical History: Reports Other (As per HPI above)
Past Surgical History: Reports Other (Cardiac Pacemaker, TAVR, Cardiac (Stents), Urological (prostatectomy) and Other (colon polypectomy))
Social History
Tobacco: Former Smoker
Alcohol: Occasional
Drug: None
Family History
Family History: Cancer and Other (Stroke)
Allergies / Home Medications
Allergies reflects when Allergies were last updated in [employer] [facility].
Home Medications with original date entered in [facility]
Allergy/Medication List:
Allergies
Allergy/AdvReac Type Severity Reaction Status Date / Time
albuterol Allergy Unknown Verified 07/02/23 04:38
animal dander Allergy Shortness Verified 07/02/23 04:38
of Breath
iodine Allergy shellfish Verified 07/02/23 04:38
allergy
pollen extracts Allergy sneezing, Verified 07/02/23 04:38
hayfever
shellfish derived Allergy Anaphylaxis Verified 07/02/23 04:38
tree and shrub pollen Allergy sneezing, Verified 07/02/23 04:38
hayfever
wine spirit Allergy Anaphylaxis Verified 07/02/23 04:38
sulphites Allergy Anaphylaxis Uncoded 07/02/23 04:38
WINE Allergy Anaphylaxis Uncoded 07/02/23 04:38
Home Medications
ascorbic acid (vitamin C) 250 mg tablet 250 mg PO MOWEFR@0800 Supplement 03/31/19
rosuvastatin 5 mg tablet 5 mg PO MOTUWETHFR@0800 High cholesterol 07/14/19
loratadine 10 mg tablet 10 mg PO DAILY Allergies 02/28/20
montelukast 10 mg tablet 10 mg PO HS Lung/breathing issues 02/28/20
multivitamin with folic acid 400 mcg tablet (Tab-A-Tl) 1 tab PO DAILY Supplement 02/28/20
cyanocobalamin (vitamin B-12) 250 mcg tablet 250 mcg PO DAILY Supplement 08/07/22
levalbuterol tartrate 45 mcg/actuation aerosol inhaler 1 puff inhalation R Q4HPRN PRN shortness of breath 08/07/22
apixaban 5 mg tablet (Eliquis) 5 mg PO BID Blood Clot Prevention/Tx 04/07/23
budesonide-formoterol HFA 160 mcg-4.5 mcg/actuation aerosol inhaler (Symbicort) 2 inh inhalation R BID Lung/Breathing Issues 04/07/23
clopidogrel 75 mg tablet 75 mg PO DAILY Blood Clot Prevention/Tx 04/07/23
Mometasone 1 mg irrigation BID 06/21/23
Tobramycin 20 mg irrigation BID 06/21/23
amoxicillin 875 mg-potassium clavulanate 125 mg tablet 1 tab PO Q12H Infection 06/21/23
biotin 10,000 mcg capsule 10,000 mcg PO DAILY Supplement 06/21/23
calcium carbonate 250 mg PO MOWEFR@0800 Supplement 06/21/23
cholecalciferol (vitamin D3) 25 mcg (1,000 unit) tablet 25 mcg PO DAILY Supplement 06/21/23
ipratropium bromide 0.02 % solution for inhalation 2.5 ml inhalation R DAILYPRN PRN shortness of breath 06/21/23
ipratropium bromide 0.02 % solution for inhalation 2.5 ml inhalation R TID Lung/Breathing Issues 06/21/23
acetaminophen 325 mg tablet (Tylenol) 650 mg PO Q6HPRN PRN mild pain 07/02/23
dapagliflozin propanediol 10 mg tablet 10 mg PO DAILY Heart Failure 07/02/23
digoxin 250 mcg (0.25 mg) tablet 250 mcg PO NOON Heart Failure 07/02/23
diltiazem HCl 180 mg capsule,extended release 24 hr 360 mg PO DAILY Arrhythmia 07/02/23
furosemide 40 mg tablet 40 mg PO BID AT 0800,1600 Fluid Retention/Swelling 07/02/23
guaifenesin 600 mg tablet, extended release 12 hr 600 mg PO [id number] PRN cough 07/02/23
metoprolol succinate 50 mg tablet,extended release 24 hr 100 mg PO BID Blood Pressure 07/02/23
mirtazapine 7.5 mg tablet 7.5 mg PO Mental Health 07/02/23
potassium chloride 20 mEq tablet,extended release(part/cryst) 40 meq PO DAILY Electrolyte Repletion 07/02/23
sacubitril 24 mg-valsartan 26 mg tablet (Entresto) 1 tab PO BID Heart Failure 07/02/23
Review of Systems
-
A 12 point ROS was completed and negative except as noted: Yes
Physical Exam
Vital Signs
Vital Signs
Temp Pulse Resp Pulse Ox
98.0 F 67 22 94
07/02/23 04:40 07/02/23 04:40 07/02/23 04:40 07/02/23 05:00
Physical Exam
General: No Apparent Distress
HEENT: NormoCephalic
Respiratory: Decreased Breath Sounds
Cardiac: S1/S2 and Irregular Rhythm
GI: Soft, Non Tender and Normal Bowel Sounds
Musculoskeletal: No Cyanosis, Edema, Left Lower Extremity and Edema, Right Lower Extremity
Skin: Warm and Dry
Neuro: Awake, Alert and AO x 3
Psych: Calm and Intact Judgment/Insight
Laboratory Results
-
07/02/23 04:56
07/02/23 04:56
Laboratory Results
Total Bilirubin 0.5 mg/dl (0.2-1.3) 07/02/23 04:56
AST 26 U/L (17-59) 07/02/23 04:56
ALT 14 U/L (0-50) 07/02/23 04:56
Alkaline Phosphatase 64 U/L (38-126) 07/02/23 04:56
Troponin I 0.115 ng/ml H* 07/02/23 08:08
Impression/Plan
-
Assessment/Plan

CXR 06/21/23: Small bilateral pleural effusions.
CXR 06/22/23: Progressed findings suggesting medial right lower lobe pneumonia. Progressed findings suggesting mild left lower lobe pneumonia. New. Small left pleural effusion. Stable. Tiny right pleural effusion. Improved.
CXR 06/26/23: Small bilateral pleural effusions with adjacent atelectasis, similar appearance compared to previous radiographs.
CT Chest without IV Contrast:
'IMPRESSION:
1. BILATERAL LOWER LOBE and RIGHT MIDDLE LOBE ENDOBRONCHIAL OCCLUSION (either secondary to aspiration or mucous plugging which has increased since 03/11/2022). New endobronchial occlusion in right lower lobe segmental bronchi, progressive
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 Complete postobstructive consolidation and atelectasis of the left lower lobe and right middle lobe.
2. MODERATE-SIZED RIGHT and SMALL to MODERATE SIZE LEFT PLEURAL EFFUSIONS which are new from 03/12/2022.
3. Mild cardiomegaly.
4. Previous TAVR.
5. New left biventricular cardiac pacemaker in place.'

Dyspnea Secondary to HFrEF Exacerbation, Pleural Effusions, and Suspected Mucus Plugging in the Setting of COPD
Postobstructive consolidation and atelectasis of the left lower lobe and right middle lobe
Acute HFrEF
-No hypoxia at the time of admission
-Pulmonary consulted, recommendations appreciated
-Mucinex
-IV Lasix
-Entresto
-Farxiga
-I's and O's, daily weights
Permanent Atrial Fibrillation with RVR status post INSOLE TAPER-P with Conduction system pacing and CS LV pacing lead Pacemaker implantation, on June 30, 2023
-Chronic LBBB
-Continue Toprol-XL
-Continue Cardizem
-Continue Eliquis 5 mg BID
-Rate control with Digoxin 250 mcg QD until AVJ ablation.
-Plan for AVJ ablation as outpatient in 4-6 weeks (follow-up with Dr. Durant)
Panic attack/Anxiety:
-Ativan as needed
-psych following
Other problems:
COPD: cont Symbicort/Singulair
s/p TAVR
CAD with h/o stent, prior NSTEMI in setting of OM1 dissection 07/2022: cont BB/Plavix/statin
Essential Hypertension: cont BB
Hyperlipidemia: cont statin
Prostate cancer s/p prostatectomy
FULL/Eliquis
--- NOTE | 2023-07-02 11:50 | W.PN.CD ---
Addendum entered and electronically signed by Eric Calvillo MD 07/02/23 15:20:
I saw and examined the patient.
The RESIDENTIAL SUBSTANCE ABUSE COUNSELOR's note was reviewed and I agree with the note.
Comment: 82M with subacute worsening of his chronic dyspnea. CT scan shows: small pericardial effusion, pleural effusions, and endobronchial occlusions.
- diurese to new goal weight. Monitor BP and creat with new start of GDMT/diuresis
- pulmonary evaluation
Original Note:
Today's Communication / Plan
-
-IV diuresis and monitor
Impression / Plan
-
Assessment/Plan: 82 yo male with PMH of TAVR 2019, chronic HF with reduced LVEF, permanent A fib on Eliquis, CAD/NSTEMI in setting of OM1 dissection 07/2022, and COPD (Dr. Peterson) who was recently hospitalized for SOB and treated for CHF and PNA.
Also noted to have AFIB with RVR- meds adjusted. He also is s/p SHAPE BRICK MOLDER-P 06/30/23, with plans for future AVJ ablation. He was d/c'd yesterday and was feeling improved, but then when he laid flat for bed last night he became SOB- it improved with getting
up, but still did not feel normal.
SOB:
-likely multifactorial- CT scan reveals bilateral lower lobe and right middle lobe endobronchial occlusion (either secondary to aspiration or mucous plugging which has increased since 03/11/2022). New endobronchial occlusion in right lower lobe
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 Complete postobstructive consolidation and atelectasis of the left lower lobe and right
middle lobe. Moderate-sized right and small to moderate left pleural effusions. Small pericardial effusion.
-feels better after steroids and breathing tx in ER
-pulm consulted
-would also diurese- see below
Acute on chronic HFrEF recent echo 35-40%:
-weight is up from yesterday. He thinks his dry weight is 155. In ER 163 lbs. Lasix dose was decreased at d/c and he had a cheeseburger last night. Pleural effusions on imaging.
-echo 06/04/23: EF 35-40%, mild/moderate MR, TAVR (08/12, no AR), nl RV, mild TR, PASP 41
-continue metoprolol XL
-recent Entresto and farxiga start
-creat mildly elevated, monitor with diuresis, CHF education, limit sodium/fluid
Atrial fibrillation, permanent:
-rate-controlled. Continue BB, CCB, digoxin.
-continue Eliquis for OAC
-s/p(SHAPE BRICK MOLDER-P) implantation on 06/30/23. AVJ ablation attempted but pulled CS lead and was reimplanted. Plan for AVJ ablation as outpatient in 4-6 weeks. Rate control with Digoxin 250 mcg QD until AVJ ablation. Left pectoral incision site with
ecchymosis, but no obvious hematoma. Follow telemetry.
TAVR (2019):
-stable on outpatient echocardiogram
CAD, prior stent of codominant RCA remotely and NSTEMI in setting of OM1 dissection 07/2022:
-stable no CP
-continue plavix
Abnormal troponin:
-0.115, 0.145
-no CP
-suspect acute non-ischemic myocardial injury in setting of CHF exacerbation, recent procedure, acute pulmonary illness
Physical Exam
Vital Signs/Labs
Vital Signs
Temp Pulse Resp BP Pulse Ox
98.0 F 90 47 108/68 96
07/02/23 04:40 07/02/23 11:15 07/02/23 11:15 07/02/23 11:00 07/02/23 10:30
07/01/23 07/02/23 07/03/23
06:59 06:59 06:59
Actual Weight 74.1 kg
07/02/23 04:56
07/02/23 04:56
Digoxin 0.6 ng/ml (0.8-2.0) L 07/02/23 04:56
07/02/23
04:56
[id number] Pept 3830
LAB Results
07/02/23 07/02/23
04:56 08:08
Troponin I 0.145 H* 0.115 H*
Physical Exam
Constitutional: No acute distress
EENT: Anicteric
Cardiovascular: Rhythm/rate is irregular
Respiratory: Other (coars lung sounds)
Neuro/Psych: AO x 3
Other: Cardiac Device Site (left device ecchymotic, no visible hematoma)
Data Reviewed
-
Date of Service: July 02, 2023
Labs: Labs Reviewed by me
--- NOTE | 2023-07-02 12:22 | CON.PUL ---
Consultation
Consultation Request
Date/Time Consultation Requested: 07/02/2023 - 110
Date/Time Consultation Performed: 07/02/2023 - 1215
Requesting Provider: Dr. Harley
Performing Provider: Dr. Oswald
Reason for Consultation: SOB/pleural effusions
Medical History
-
Chief Complaint: SOB
History of Present Illness:
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
imaging, A-fib on chronic anticoagulation, history of vertigo, history of prostate cancer s/p prostatectomy and history of peripheral eosinophilia who presents with SOB. He states that he cannot sleep sitting up and cannot breathe when he is flat
and he also has a moist hacking cough. He was just hospitalized from 06/20ue to A-fib with RVR requiring Cardizem drip, with acute HFrEF exacerbation requiring IV diuresis and bilateral pneumonia initially suspected getting antibiotics
which were then stopped due to negative procalcitonin. He also had panic attacks with anxiety with psychiatry seeing him as an inpatient. He underwent biventricular pacemaker implantation on 06/29 given his LBBB with low LVEF and class III NYHA
symptoms. He was sent home on 06/30 and then came back the next morning due to worsening shortness of breath. In the ER he was afebrile to 90 �F, pulse rate 67 bpm, he was tachypneic to 22 breaths/min, and saturating 97% on room air. BP was low at
96/76. Labs showed leukocytosis to 15, anemia to 12.5, CKD with creatinine 1.4, troponin slightly elevated at 0.145, elevated proBNP at 3830 (was 5020 on 06/21/2023), procalcitonin is negative at <0.05, his digoxin level was low at 0.6 and his COVID
antigen was negative. Of note his prior sputum culture from 06/22/2023 had grown Pseudomonas aeruginosa. CT chest was performed on 07/02/2023 showing atelectasis involving the lower lobes and the right middle lobe with mucous plugging and bronchial
wall thickening, as well as moderate-sized right-sided pleural effusion and a small�moderate-sized left pleural effusion. In the ER he was given Decadron 10 mg as well as Atrovent nebulizer and Xopenex and then admitted to the hospitalist service.
Given his recent hospitalization now with bounce back with shortness of breath in the setting of known COPD with suspected flare and hacking cough, pulmonary now consulted for additional management/recommendations.
When I saw the patient he was sitting in bed at a 45� in NAD on room air, breathing comfortably. He says he has had a cough for about 1-2 weeks and he can't bring the phlegm up. After he was discharged yesterday, he went home, had dinner
([employer]) and afterwards went upstairs to go to bed and that's when he felt extremely short of breath when he laid down to sleep. He had lots of issues falling asleep as if he sat forward he felt better but then could not get comfortable
enough to rest and fall asleep. This is really what brought him back into the hospital. He currently says he feels okay but still has that wet cough that is bothering him. He denies chest pain, headache, recent sick contacts, fevers or chills.
Of note, patient follows with us in the [facility] office with Dr. Peterson, last office visit on 04/21/2023. At that time patient was having worsening SOB since July 2022. He was on Symbicort 160mcg at that time with prn atrovent + xopenex. He also was
previously on amiodarone therapy which was DC'd in February [address] Mchugh � his PFT is stable with DLco 63% on last PFT in 12/2022 (DLco: 52% on prior PFT from 02/2021) - on last PFT in 12/2022 there is moderate COPD with post-BD FEV1
1.71L/73%, and DLco/VA: 82%. He does get COPD exacerbations that typically began with a sinus infection. He was told to follow-up with ENT and to continue Lasix for his history of heart failure. He was told to follow-up with us in September 2023
with spirometry at that time.
PMHx: COPD with asthma, chronic bronchitis, centrilobular emphysema, history of prostate cancer (2006) s/p prostatectomy, hyperlipidemia, A-fib on Eliquis, history of vertigo, history of colonic polyps, history of shingles, history of nonmalignant
skin cancer, history of NH, history of pneumonia, history of mucous plugging seen on prior CT chest imaging from 2017, 2019 + 2022, chronic rhinitis, history of peripheral eosinophilia, pulmonary nodules, former tobacco use (quit 1979), mild
pulmonary hypertension, CAD with ICM, history of torn Achilles tendon
PSHx: Polypectomy, prostatectomy, tonsillectomy and adenoidectomy, sinus surgery (2018), s/p TAVR (07/2019)
Past Medical History
Past Medical History: Other (Above as per HPI)
Past Surgical History: Other (Above as per HPI)
Social History
Tobacco: Former Smoker ([id number] history, quit in 1979)
Alcohol: Daily (1 vodka tonic daily)
Drug: None
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
Family History
Family History: Cancer (Father: Pancreatic cancer), Diabetes (Daughter: Type I DM) and Other (Mother: Stroke)
Allergies / Home Medications
Allergies
Allergy/AdvReac Type Severity Reaction Status Date / Time
albuterol Allergy Unknown Verified 07/02/23 04:38
animal dander Allergy Shortness Verified 07/02/23 04:38
of Breath
iodine Allergy shellfish Verified 07/02/23 04:38
allergy
pollen extracts Allergy sneezing, Verified 07/02/23 04:38
hayfever
shellfish derived Allergy Anaphylaxis Verified 07/02/23 04:38
tree and shrub pollen Allergy sneezing, Verified 07/02/23 04:38
hayfever
wine spirit Allergy Anaphylaxis Verified 07/02/23 04:38
sulphites Allergy Anaphylaxis Uncoded 07/02/23 04:38
WINE Allergy Anaphylaxis Uncoded 07/02/23 04:38
Home Medications
�Medication �Instructions �Recorded �Confirmed �Last Taken �Type
ascorbic acid (vitamin C) 250 mg 250 mg PO MOWEFR@0800 Supplement 03/31/19 07/02/23 06/20/23 History
tablet
rosuvastatin 5 mg tablet 5 mg PO MOTUWETHFR@0800 High 07/14/19 07/02/23 07/01/23 History
cholesterol
loratadine 10 mg tablet 10 mg PO DAILY Allergies 02/28/20 07/02/23 06/21/23 History
montelukast 10 mg tablet 10 mg PO HS Lung/breathing issues 02/28/20 07/02/23 07/01/23 History
multivitamin with folic acid 400 1 tab PO DAILY Supplement 02/28/20 07/02/23 06/21/23 History
mcg tablet (Tab-A-Tl)
cyanocobalamin (vitamin B-12) 250 250 mcg PO DAILY Supplement 08/07/22 07/02/23 06/21/23 History
mcg tablet
levalbuterol tartrate 45 1 puff inhalation R Q4HPRN PRN 08/07/22 07/02/23 06/20/23 History
mcg/actuation aerosol inhaler shortness of breath
apixaban 5 mg tablet (Eliquis) 5 mg PO BID Blood Clot 04/07/23 07/02/23 07/01/23 History
Prevention/Tx
budesonide-formoterol HFA 160 2 inh inhalation R BID 04/07/23 07/02/23 07/01/23 History
mcg-4.5 mcg/actuation aerosol Lung/Breathing Issues
inhaler (Symbicort)
clopidogrel 75 mg tablet 75 mg PO DAILY Blood Clot 04/07/23 07/02/23 06/21/23 History
Prevention/Tx
Mometasone 1 mg irrigation BID 06/21/23 07/02/23 06/20/23 History
Tobramycin 20 mg irrigation BID 06/21/23 07/02/23 06/20/23 History
amoxicillin 875 mg-potassium 1 tab PO Q12H Infection 06/21/23 07/02/23 07/01/23 History
clavulanate 125 mg tablet
biotin 10,000 mcg capsule 10,000 mcg PO DAILY Supplement 06/21/23 07/02/23 06/21/23 History
calcium carbonate 250 mg PO MOWEFR@0800 Supplement 06/21/23 07/02/23 06/20/23 History
cholecalciferol (vitamin D3) 25 25 mcg PO DAILY Supplement 06/21/23 07/02/23 06/21/23 History
mcg (1,000 unit) tablet
ipratropium bromide 0.02 % 2.5 ml inhalation R DAILYPRN PRN 06/21/23 07/02/23 Unknown History
solution for inhalation shortness of breath
ipratropium bromide 0.02 % 2.5 ml inhalation R TID 06/21/23 07/02/23 06/20/23 History
solution for inhalation Lung/Breathing Issues
acetaminophen 325 mg tablet 650 mg PO Q6HPRN PRN mild pain 07/02/23 07/02/23 07/01/23 History
(Tylenol)
dapagliflozin propanediol 10 mg 10 mg PO DAILY Heart Failure 07/02/23 07/02/23 07/01/23 History
tablet
digoxin 250 mcg (0.25 mg) tablet 250 mcg PO NOON Heart Failure 07/02/23 07/02/23 07/01/23 History
diltiazem HCl 180 mg 360 mg PO DAILY Arrhythmia 07/02/23 07/02/23 07/01/23 History
capsule,extended release 24 hr
furosemide 40 mg tablet 40 mg PO BID AT 0800,1600 Fluid 07/02/23 07/02/23 07/01/23 History
Retention/Swelling
guaifenesin 600 mg tablet, 600 mg PO [id number] PRN cough 07/02/23 07/02/23 Unknown History
extended release 12 hr
metoprolol succinate 50 mg 100 mg PO BID Blood Pressure 07/02/23 07/02/23 07/01/23 History
tablet,extended release 24 hr
mirtazapine 7.5 mg tablet 7.5 mg PO HS Mental Health 07/02/23 07/02/23 07/01/23 History
potassium chloride 20 mEq 40 meq PO DAILY Electrolyte 07/02/23 07/02/23 07/01/23 History
tablet,extended release(part/cryst) Repletion
sacubitril 24 mg-valsartan 26 mg 1 tab PO BID Heart Failure 07/02/23 07/02/23 07/01/23 History
tablet (Entresto)
Review of Systems
-
History Source: Patient
All other systems: Negative unless noted (12 point ROS performed and is negative unless mentioned above.)
Vitals / Labs / Diagnostic Testing
Vital Signs
Temp Pulse Resp BP Pulse Ox
98.0 F 90 47 108/68 96
07/02/23 04:40 07/02/23 11:15 07/02/23 11:15 07/02/23 11:00 07/02/23 10:30
Lab Data
07/02/23 04:56
07/02/23 04:56
Microbiology
07/02/23 08:08 Nasal Swab Influenza Types A & B (JUD) - Final
Negative for Influenza A & B, NAAT
Negative results must be combined with clinical observations
and patient history.
Nucleic Acid Amplification test (NAAT)performed on the
[employer] platform.
Diagnostic Testing:
Physical Exam
-
HEENT: Normocephalic and Anicteric
Cardiovascular: Irregular Rhythm and Peripheral Edema (LLE +1 edema at ankle; RLE had no edema)
Respiratory: Wheeze (negative), Rales (negative), Rhonchi (negative), Accessory Resp Muscle Use (negative) and Other (Reduced breath sounds in the right hemithorax)
GI: Soft, Non Distended, Non Tender and Normal Bowel Sounds
Neurology: AO x 3
Skin: Warm and Dry
General: Comfortable and Chills (negative)
Assessment
-
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
prior CT chest imaging, A-fib on chronic anticoagulation, history of vertigo, history of prostate cancer s/p prostatectomy and history of peripheral eosinophilia who presents with SOB. He had just been discharged 1 day [employer] WORK[employer] and went home and said he
could not breathe while laying flat and also had a moist hacking cough. He was recently hospitalized here from 06/20 due to A-fib with RVR and acute HFrEF exacerbation � he underwent FIRE COORDINATOR-D with BiV pacemaker implantation on 06/30/2023. Now
that he is back here in the ER, imaging shows bilateral lower lobe pleural effusions with atelectasis and RML atelectasis with mucous plugging and bronchial wall thickening. He was given systemic steroids in the ER plus nebulized bronchodilators
and admitted to the hospitalist service, and pulmonary service now consulted for additional recommendations.
Chronic conditions [employer]: COPD with asthma, chronic bronchitis, centrilobular emphysema, history of prostate cancer (2006) s/p prostatectomy, hyperlipidemia, A-fib on Eliquis, history of vertigo, history of colonic polyps, history of shingles,
history of nonmalignant skin cancer, history of NH, history of pneumonia, history of mucous plugging seen on prior CT chest imaging from 2017, 2019 + 2022, chronic rhinitis, history of peripheral eosinophilia, pulmonary nodules, former tobacco use
(quit 1979), mild pulmonary hypertension, CAD with ICM, history of torn Achilles tendon
Impression:
#Acute dyspnea likely due to persistent bilateral pleural effusions in the setting of COPD and multifocal atelectasis involving RML and medial lower lobes with mucous plugging
#Postobstructive pneumonia with Hx of Pseudomonas seen on sputum Cx from 06/22/2023
#COPD with bronchial wall thickening and centrilobular emphysema with acute exacerbation
#Elevated troponin � peaked at 0.145 this AM - likely due to demand ischemia with type II NH
#Chronic HFrEF with mild-moderate MR and global hypokinesis
#Acute on chronic anemia (baseline Hb 14-15g/dL)
#Permanent A-fib w/ LBBB s/p BiV PPM implantation on 06/30/2023
#CKD (baseline Cr: ~1.2)
#Former tobacco use ([id number], quit in 1979)
#History of pulmonary nodules suspected to be from mucous plugging
#History of pneumonia + mucous plugging from multiple prior CT chest imaging studies (including 2018, 2019+2022)
#Chronic rhinitis
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
Plan:
- Start systemic steroids an wean as tolerated --> I will start solumedrol 40mg IV q8hr
- Continue nebulized bronchodilators with Atrovent + xopenex TID with q4hr prn for breakthrough symptoms
- Given his severe atelectasis in particular at his RML, will start nebulized mucomyst with chest PT (ideally want to use vest but he has R-shoulder pain from recent PPM implantation - use if pt tolerates)
- Once pt ready for discahrge home, consider discharging home on Trelegy vs Sami
- Start zithromax (QTc: 480ms) and he may need to be on this TIW upon discharge - monitor QTc given he is on digoxin
- Start cefepime given his recent Hx of Pseudomonas that was never Tx - procal is low, however he has a post-obstructive pneumonia and it is unclear if the procal will be reliable in this setting as he is not septic
- Plan for 5 days zithromax and 7 days beta-lactam
- Check blood Cx prior to starting ABx
- Check sputum Cx, legionella and Strep PNA urine antigens
- Maintain SpO2 >88-94% with supplemental O2 as needed
- Incentive spirometer encouraged
- Diurese as tolerated to keep net negative 1-1.5L per day over next 2-3 days, re-assessing daily based on BP, sNa, UOP and sCr
- Replete electrolytes with K>4, Mg>2
- Maintain euglycemia with goal BG >100 and <180
- DVT ppx
Pulmonary service will continue to follow along.
Total time spent today was 75 minutes for this encounter. Time includes reviewing laboratory test/imaging results, reviewing pertinent medical records, obtaining and reviewing medical history, performing an appropriate exam, ordering medications,
tests and procedures. Time also includes documentation of this encounter, coordinating patient care and communicating with other healthcare professionals. Total time does not include separately billed tests performed on this date of service.
Data:
CT Chest w/o contrast 07-02-2023:
1. BILATERAL LOWER LOBE and RIGHT MIDDLE LOBE ENDOBRONCHIAL OCCLUSION (either secondary to aspiration or mucous plugging which has increased since 03/11/2022). New endobronchial occlusion in right lower lobe segmental bronchi, progressive
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 Complete postobstructive consolidation and atelectasis of the left lower lobe and right middle lobe.
2. MODERATE-SIZED RIGHT and SMALL to MODERATE SIZE LEFT PLEURAL EFFUSIONS which are new from 03/12/2022.
3. Mild cardiomegaly.
4. Previous TAVR.
5. New left biventricular cardiac pacemaker in place.
TTE 06-04-2023:
Moderately reduced left ventricular systolic function. Left ventricular
ejection fraction is 35-40% by Cisse's biplane.
Global hypokinesis. Mild to moderate mitral regurgitation.
Well seated, # 29 mm Evolut Pro TAVR with peak/mean gradients of 7/3 mmHg,
respectively.
Abnormal (paradoxical) septal motion consistent with bundle branch block.
Mild pulmonary pressure.
Compared to prior study of 09/10/2022, there ejection fraction has decreased from
50-55% to 35-40% on today's study.
Outpatient [facility] data:
PFT:
������ PFT 12/31/22: FVC 3.33/99%, FEV1 1.74/74%, ratio 52. TLC 5.15/80%, DLCO 13.84/63%. Mod Obstruction with Borderline restriction with mild gas exchange defect
�������[facility] 10/09/22: FVC 2.93/82%, FEV1 1.70/71%, ratio 61. There is an 11% improvement in FEV1 following bronchodilator
�������[facility] 01/23/22: FVC 3.08/85%, FEV1 1.81/71%, ratio 59. There is borderline drop in FEV1 compared to prior spirometry
�������[facility] 10/24/21: FVC 3.32/92%, FEV1 2.02/80%, ratio 61. This has improved
�������[facility] 05/28/21: FVC 3.02/83%, FEV1 1.64/64%, ratio 55
�������PFT 03/02/21: FVC 3.52/96%, FEV1 1.89/74%, ratio 57. TLC 6.08/90%, DLCO 12.03/52%.
6 MWT:
������ 6MWT 10/09/22: Total distance 1050 feet, desaturation louie 96%, heartrate 75, dyspnea scale 1.5/10
�������6MWT 03/27/21: Total distance 768 feet, 96% room air, heart rate 70, dyspnea scale 1/10.
RADIOGRAPHIC STUDIES:
������ CXR 04/07/23: small bilateral pleural effusions, possible pneumonia at the left base versus atelectasis
�������CXR 09/10/22: no acute findings
�������CT chest 03/11/22: 4 mm nodule image #21 and 22 right upper lobe. Mild left lower lobe consolidation with likely airway plugging. no obvious mediastinal abnormality. No change compared to 2020 imaging my review
�������CXR 10/17/21 ([facility]): per report, chest x-ray is normal. Images not available forr review
�������modified barium swallow 03/26/21: no obvious aspiration but evidence of esophageal dysmotility, slow emptying
�������CXR 02/10/21: small bilateral pleural effusions, bibasilar scar
�������Cardiac CT 04/13/19: multiple endobronchial secretions with collapse of left lower lobe, small left pleural effusion. There is also soft tissue density in the bronchi in the right lower lobe, right middle lobe. Prior right lower lobe pneumonia
has improved.
�������CT chest 01/07/18: mucous plugging right lower lobe with atelectasis. Left basilar alveolar disease, right middle lobe atelectasis, 3 cm groundglass abnormality right upper lobe image #17.
CARDIAC STUDIES:
������ Echo 09/10/22: Normal biventricular function, moderate mitral regurgitation,TAVR, PA pressure 37
�������LHC 08/08/22: no obvious coronary disease
�������Echo 01/03/21: EF 41%, moderate mitral regurgitation, TAVR, PASP 36.
LABS:
������ 04/09/23: Hemoglobin 14.6, normal serum bicarbonate, creatinine 1.3, normal calcium, normal troponin. ProBNP elevated 5210
�������08/09/22: Hemoglobin 13.2, normal serum bicarbonate, creatinine 1.1, calcium 8.2, troponin elevated at 22.3
�������01/18/22: Creatinine 1.24, normal calcium, liver function. White count normal and hemoglobin 14.3, 6.5% peripheral eosinophils
�������09/15/21: Hemoglobin 14.2, serum bicarbonate 27, creatinine 1.2, normal calcium, liver function
�������sputum culture 03/09/21: Positive for Staphylococcus.
�������02/14/21: White count 15.7, hemoglobin 15.2, serum bicarbonate 26, normal creatinine, normal liver function and proBNP 7900, troponin elevated 0.074.
[2023-07-02] MEDS: SYMBICORT 160/4.5 MCG INHALER INH (15:22)
[2023-07-02] MEDS: ATROVENT NEBULES 0.5 MG INH ×2 (15:36→19:34)
[2023-07-02] MEDS: CARDIZEM CD 360 MG PO (15:38)
[2023-07-02] MEDS: ELIQUIS 5 MG PO ×2 (15:39→20:57)
[2023-07-02] MEDS: PLAVIX 75 MG PO (15:39)
[2023-07-02] MEDS: THERAGRAN 1 TABLET PO (15:39)
[2023-07-02] MEDS: VITAMIN D3 (cholecalciferol) 25 MCG PO (15:39)
[2023-07-02] MEDS: CRESTOR 5 MG PO (15:40)
[2023-07-02] MEDS: KCL 40 MEQ PO (15:51)
[2023-07-02] MEDS: FARXIGA 10 MG PO (16:53)
[2023-07-02] MEDS: LANOXIN 250 MCG PO (16:53)
[2023-07-02 17:37] LABS: Troponin I 0.072 ng/ml
--- NOTE | 2023-07-02 17:45 | PTCARENOTE ---
Received pt from ER.Pt awake, alert and oriented x3. Pt has discomfort in left shoulder from pacemaker placement Aquacell dressing to LCW with small amount of blood on dressing, ecchymosis surrounding extending into armpit, shoulder. Pt reports
pain tolerable at this time. Pt VSS 96% on RA. Afib on tele with [facility]. Pt oriented to room, HOB elevated, call su within reach, plan of care ongoing.
[2023-07-02] MEDS: ENTRESTO 24 MG/26 MG PO (17:54)
[2023-07-02] MEDS: LASIX 40 MG IV (18:09)
[2023-07-02] MEDS: MUCOMYST 10% 4 ML INH (19:34)
[2023-07-02] MEDS: SYMBICORT 160/4.5 MCG INHALER 1 PUFF INH (19:34)
[2023-07-02] MEDS: ZITHROMAX 500 MG PO (20:56)
[2023-07-02] MEDS: ENTRESTO 24 MG/26 MG 1 TAB PO (20:57)
[2023-07-02] MEDS: STERILE WATER FOR INJECTION 10 ML IV (20:59)
[2023-07-02] MEDS: MAXIPIME 2000 MG IV (20:59)
[2023-07-02] MEDS: TOPROL XL 100 MG PO (20:59)
[2023-07-02] MEDS: ATARAX 25 MG PO (21:00)
[2023-07-02] MEDS: SINGULAIR 10 MG PO (21:00)
[2023-07-02] MEDS: SOLU-MEDROL PF 40 MG IV (21:00)
[2023-07-02] MEDS: REMERON 7.5 MG PO (21:00)
[2023-07-02 21:16] LABS: Troponin I 0.084 ng/ml
[2023-07-03] VITALS (7 sets, daily range): BP systolic 101–119; BP diastolic 51–59; PULSE 60–83; BMI 24.5
[2023-07-03] MEDS: SOLU-MEDROL PF 40 MG IV ×3 (05:40→22:52)
[2023-07-03 06:36] LABS: % Basophils 0.1 % (0-2); % Immature Granulocytes 1.3 % (0-0.5); % Lymphocytes 4.3 % (20.5-51.1); % Monocytes 4.9 % (1.7-9.3); % Neutrophils 89.4 % (42.2-75.2); Absolute Immature Granulocytes 0.2 10^3/uL (0-0.05); Absolute Lymphocytes 0.6 10^3/uL (1.2-3.4); Absolute Monocytes 0.7 10^3/uL (0.1-0.6); Absolute Neutrophils 13.2 10^3/uL (1.4-6.5); Hematocrit 35.7 % (39.0-52.0); Hemoglobin 11.9 g/dL (13.0-18.0); Mean Corp Hgb Conc. 33.3 g/dL (33.0-37.0); Mean Corpuscular Hgb 32.6 pg (27.0-31.0); Mean Corpuscular Volume 97.8 fL (80.0-94.0); Mean Platelet Volume 10.9 fL (7.4-10.4); Nucleated Red Blood Cells % 0 % (-); Platelet Count 264 10^3/uL (130-400); Red Blood Cell Count 3.65 10^6/uL (4.70-6.10); Red Cell Dist. Width 15.3 % (11.5-14.5); White Blood Cell Count 14.8 10^3/uL (4.8-10.8)
[2023-07-03 06:54] LABS: Troponin I 0.077 ng/ml
[2023-07-03 06:55] LABS: Blood Urea Nitrogen 29 mg/dl (9-20); Calcium 8.5 mg/dl (8.4-10.2); Carbon Dioxide 25 mmol/L (22-30); Chloride 106 mmol/L (98-107); Estimated Creatinine Clearance 52 ml/min; Glucose 124 mg/dl (70-99); Magnesium 2.4 mg/dl (1.6-2.3); Potassium 4.4 mmol/L (3.5-5.1); Sodium 140 mmol/L (135-145); eGFR > 60.00
[2023-07-03] MEDS: XOPENEX 1.25 MG INHALANT SOLUTION INH ×3 (07:39→19:44)
[2023-07-03] MEDS: SYMBICORT 160/4.5 MCG INHALER 1 PUFF INH ×2 (07:39→19:44)
[2023-07-03] MEDS: ATROVENT NEBULES 0.5 MG INH ×3 (07:39→19:44)
[2023-07-03] MEDS: MUCOMYST 10% 4 ML INH ×3 (07:40→19:44)
--- NOTE | 2023-07-03 07:42 | W.PN.CD ---
Today's Communication / Plan
-
Continue diuresis today and daily standing weights, likely home 80 mg bid tomorrow
Pulmonology consulted
K>4 Mag >2 with diuresis
Impression / Plan
-
Assessment/Plan: 82 yo male with PMH of TAVR 2019, chronic HF with reduced LVEF, permanent A fib on Eliquis, CAD/NSTEMI in setting of OM1 dissection 07/2022, and COPD (Dr. Peterson) who was recently hospitalized for SOB and treated for CHF and PNA.
Also noted to have AFIB with RVR- meds adjusted. He also is s/p IMPROVEMENT SPEC-P 06/30/23, with plans for future AVJ ablation. He was d/c'd yesterday and was feeling improved, but then when he laid flat for bed last night he became SOB- it improved with getting
up, but still did not feel normal.
SOB:
-likely multifactorial- CT scan reveals bilateral lower lobe and right middle lobe endobronchial occlusion (either secondary to aspiration or mucous plugging which has increased since 03/11/2022). New endobronchial occlusion in right lower lobe
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 Complete postobstructive consolidation and atelectasis of the left lower lobe and right
middle lobe. Moderate-sized right and small to moderate left pleural effusions. Small pericardial effusion.
-feels better after steroids and breathing tx in ER
-pulm consulted
-would also diurese- see below
Acute on chronic HFrEF recent echo 35-40%:
-weight is now 156 lbs, will diurese with lasix 40mg IV today, likely transition back to 80 mg bid tomorrow
-echo 06/04/23: EF 35-40%, mild/moderate MR, TAVR (08/12, no AR), nl RV, mild TR, PASP 41
-continue metoprolol XL
-recent Entresto and farxiga start
-creat mildly elevated 2.4 today, monitor with diuresis, CHF education, limit sodium/fluid
Atrial fibrillation, permanent:
-rate-controlled. Continue BB, CCB, digoxin.
-continue Eliquis for OAC
-s/p(IMPROVEMENT SPEC-P) implantation on 06/30/23. AVJ ablation attempted but pulled CS lead and was reimplanted. Plan for AVJ ablation as outpatient in 4-6 weeks. Rate control with Digoxin 250 mcg QD until AVJ ablation. Left pectoral incision site with
ecchymosis, but no obvious hematoma. Follow telemetry.
TAVR (2019):
-stable on outpatient echocardiogram
CAD, prior stent of codominant RCA remotely and NSTEMI in setting of OM1 dissection 07/2022:
-stable no CP
-continue plavix
Abnormal troponin:
-0.115, 0.145
-no CP
-suspect acute non-ischemic myocardial injury in setting of CHF exacerbation, recent procedure, acute pulmonary illness
Subjective: Breathing improved today feeling better
Physical Exam
Vital Signs/Labs
Vital Signs
Temp Pulse Resp BP Pulse Ox
98.7 F 72 18 103/58 96
07/03/23 03:37 07/03/23 03:37 07/03/23 03:37 07/03/23 03:37 07/03/23 03:37
07/02/23 07/03/23 07/04/23
06:59 06:59 06:59
Actual Weight 163 lb 5.8 oz
07/03/23 06:14
07/03/23 06:14
Magnesium 2.4 mg/dl (1.6-2.3) H 07/03/23 06:14
Digoxin 0.6 ng/ml (0.8-2.0) L 07/02/23 04:56
07/02/23
04:56
Vmm-C-Ytvyurqhyek Pept 3830
LAB Results
07/02/23 07/02/2307/01/24
04:56 08:08 16:56
Troponin I 0.145 H* 0.115 H* 0.072 H*
07/02/23 07/03/23
20:46 06:14
Troponin I 0.084 H* 0.077 H*
Physical Exam
Constitutional: No acute distress
EENT: Anicteric
Cardiovascular: Pedal edema is absent and Rhythm/rate is irregular
Respiratory: Respiratory effort normal and Lungs clear to auscul.
GI: Soft
Neuro/Psych: AO x 3
Data Reviewed
-
Date of Service: July 03, 2023
Medical Decision Making: Reviewed Test Results
EKG: Tracing Personally Visualized and interpreted (af)
Echo: Report Reviewed by me
Labs: Labs Reviewed by me
[2023-07-03] MEDS: MAXIPIME 2000 MG IV ×2 (08:18→20:35)
[2023-07-03] MEDS: STERILE WATER FOR INJECTION 10 ML IV ×2 (08:18→20:35)
[2023-07-03] MEDS: LASIX 40 MG IV (08:20)
[2023-07-03] MEDS: VITAMIN D3 (cholecalciferol) 25 MCG PO (08:21)
[2023-07-03] MEDS: CARDIZEM CD 360 MG PO (08:22)
[2023-07-03] MEDS: CRESTOR 5 MG PO (08:22)
[2023-07-03] MEDS: CLARITIN 10 MG PO (08:22)
[2023-07-03] MEDS: PLAVIX 75 MG PO (08:23)
[2023-07-03] MEDS: THERAGRAN 1 TABLET PO (08:23)
[2023-07-03] MEDS: TOPROL XL 100 MG PO ×2 (08:23→20:35)
[2023-07-03] MEDS: FARXIGA 10 MG PO (08:24)
[2023-07-03] MEDS: ENTRESTO 24 MG/26 MG 1 TAB PO ×2 (08:24→20:35)
[2023-07-03] MEDS: ELIQUIS 5 MG PO ×2 (08:24→20:36)
[2023-07-03] MEDS: ZITHROMAX 250 MG PO (08:24)
[2023-07-03] MEDS: KCL 40 MEQ PO (08:25)
[2023-07-03] MEDS: VITAMIN B-12 250 MCG PO (08:25)
[2023-07-03] MEDS: MIRALAX 17 GRAMS PO (08:28)
[2023-07-03] MEDS: LANOXIN 250 MCG PO (12:37)
--- NOTE | 2023-07-03 15:20 | W.PN.PUL3 ---
Today's Communication / Plan
-
Continue mucolytics with chest PT with nebulized bronchodilators TID
Up OOB as tolerated
Abx - 7 days beta-lactam, 5 days zithromax (trend QTc while on zithromax)
Wean down steroids as he clinically improves - wean down to 40mg IV q12hr
CXR in AM
Assessment
-
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
prior CT chest imaging, A-fib on chronic anticoagulation, history of vertigo, history of prostate cancer s/p prostatectomy and history of peripheral eosinophilia who presents with SOB. He had just been discharged 1 day PATROL LADY and went home and said he
could not breathe while laying flat and also had a moist hacking cough. He was recently hospitalized here from 06/20 due to A-fib with RVR and acute HFrEF exacerbation � he underwent FLOW MANAGER-D with BiV pacemaker implantation on 06/30/2023. Now
that he is back here in the ER, imaging shows bilateral lower lobe pleural effusions with atelectasis and RML atelectasis with mucous plugging and bronchial wall thickening. He was given systemic steroids in the ER plus nebulized bronchodilators
and admitted to the hospitalist service, and pulmonary service now consulted for additional recommendations.
Chronic conditions PATROL LADY: COPD with asthma, chronic bronchitis, centrilobular emphysema, history of prostate cancer (2006) s/p prostatectomy, hyperlipidemia, A-fib on Eliquis, history of vertigo, history of colonic polyps, history of shingles,
history of nonmalignant skin cancer, history of ND, history of pneumonia, history of mucous plugging seen on prior CT chest imaging from 2017, 2019 + 2022, chronic rhinitis, history of peripheral eosinophilia, pulmonary nodules, former tobacco use
(quit 1979), mild pulmonary hypertension, CAD with ICM, history of torn Achilles tendon
Impression:
#Acute dyspnea likely due to persistent bilateral pleural effusions in the setting of COPD and multifocal atelectasis involving RML and medial lower lobes with mucous plugging
#Postobstructive pneumonia with Hx of Pseudomonas seen on sputum Cx from 06/22/2023
#COPD with bronchial wall thickening and centrilobular emphysema with acute exacerbation
#Elevated troponin � peaked at 0.145 this AM - likely due to demand ischemia with type II ND
#Chronic HFrEF with mild-moderate MR and global hypokinesis
#Acute on chronic anemia (baseline Hb 14-15g/dL)
#Permanent A-fib w/ LBBB s/p BiV PPM implantation on 06/30/2023
#CKD (baseline Cr: ~1.2)
#Former tobacco use ([id number], quit in 1979)
#History of pulmonary nodules suspected to be from mucous plugging
#History of pneumonia + mucous plugging from multiple prior CT chest imaging studies (including 2017, 2019+2022)
#Chronic rhinitis
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
Plan:
- Continue systemic steroids and wean as tolerated --> on 07/01 I started solumedrol 40mg IV q8hr --> tomorrow wean down to 40mg IV q12hr
- Continue nebulized bronchodilators with Atrovent + xopenex TID with q4hr prn for breakthrough symptoms
- Continue Symbicort 160mcg
- Given his severe atelectasis in particular at his RML, continue nebulized mucomyst with chest PT (ideally want to use vest but he has R-shoulder pain from recent PPM implantation - use if pt tolerates)
- Once pt ready for discharge home, consider discharging home on Tretia vs Sami
- Continue zithromax (started 07/01) (QTc: 492ms today) and he may need to be on this TIW upon discharge - monitor QTc given he is on digoxin
- Continue cefepime (started 07/01) given his recent Hx of Pseudomonas that was never Tx - procal is low, however he has post-obstructive pneumonia and it is unclear if the procal will be reliable in this setting as he is not septic
- Plan for 5 days zithromax and 7 days beta-lactam
- Follow up blood Cx (collected 07/01)
- Follow up sputum Cx; legionella and Strep PNA urine antigens are both negative
- Maintain SpO2 >88-94% with supplemental O2 as needed
- Incentive spirometer encouraged
- Diurese as tolerated to keep net negative 1-1.5L per day over next 2-3 days, re-assessing daily based on BP, sNa, UOP and sCr
- Replete electrolytes with K>4, Mg>2
- Maintain euglycemia with goal BG >100 and <180
- DVT ppx
Pulmonary service will continue to follow along.
Total time spent today was 35 minutes for this encounter. Time includes reviewing laboratory test/imaging results, reviewing pertinent medical records, obtaining and reviewing medical history, performing an appropriate exam, ordering medications,
tests and procedures. Time also includes documentation of this encounter, coordinating patient care and communicating with other healthcare professionals. Total time does not include separately billed tests performed on this date of service.
Data:
CT Chest w/o contrast 07-02-2023:
1. BILATERAL LOWER LOBE and RIGHT MIDDLE LOBE ENDOBRONCHIAL OCCLUSION (either secondary to aspiration or mucous plugging which has increased since 03/11/2022). New endobronchial occlusion in right lower lobe segmental bronchi, progressive
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 Complete postobstructive consolidation and atelectasis of the left lower lobe and right middle lobe.
2. MODERATE-SIZED RIGHT and SMALL to MODERATE SIZE LEFT PLEURAL EFFUSIONS which are new from 03/12/2022.
3. Mild cardiomegaly.
4. Previous TAVR.
5. New left biventricular cardiac pacemaker in place.
TTE 06-04-2023:
Moderately reduced left ventricular systolic function. Left ventricular
ejection fraction is 35-40% by Cisse's biplane.
Global hypokinesis. Mild to moderate mitral regurgitation.
Well seated, # 29 mm Evolut Pro TAVR with peak/mean gradients of 7/3 mmHg,
respectively.
Abnormal (paradoxical) septal motion consistent with bundle branch block.
Mild pulmonary pressure.
Compared to prior study of 09/10/2022, there ejection fraction has decreased from
50-55% to 35-40% on today's study.
Outpatient [facility] data:
PFT:
������ PFT 12/31/22: FVC 3.33/99%, FEV1 1.74/74%, ratio 52. TLC 5.15/80%, DLCO 13.84/63%. Mod Obstruction with Borderline restriction with mild gas exchange defect
�������[place] 10/09/22: FVC 2.93/82%, FEV1 1.70/71%, ratio 61. There is an 11% improvement in FEV1 following bronchodilator
�������[place] 01/23/22: FVC 3.08/85%, FEV1 1.81/71%, ratio 59. There is borderline drop in FEV1 compared to prior spirometry
�������[place] 10/24/21: FVC 3.32/92%, FEV1 2.02/80%, ratio 61. This has improved
�������[place] 05/28/21: FVC 3.02/83%, FEV1 1.64/64%, ratio 55
�������PFT 03/02/21: FVC 3.52/96%, FEV1 1.89/74%, ratio 57. TLC 6.08/90%, DLCO 12.03/52%.
6 MWT:
������ 6MWT 10/09/22: Total distance 1050 feet, desaturation louie 96%, heartrate 75, dyspnea scale 1.5/10
�������6MWT 03/27/21: Total distance 768 feet, 96% room air, heart rate 70, dyspnea scale 1/10.
RADIOGRAPHIC STUDIES:
������ CXR 04/07/23: small bilateral pleural effusions, possible pneumonia at the left base versus atelectasis
�������CXR 09/10/22: no acute findings
�������CT chest 03/11/22: 4 mm nodule image #21 and 22 right upper lobe. Mild left lower lobe consolidation with likely airway plugging. no obvious mediastinal abnormality. No change compared to 2020 imaging my review
�������CXR 10/17/21 ([facility] per report, chest x-ray is normal. Images not available forr review
�������modified barium swallow 03/26/21: no obvious aspiration but evidence of esophageal dysmotility, slow emptying
�������CXR 02/10/21: small bilateral pleural effusions, bibasilar scar
�������Cardiac CT 04/13/19: multiple endobronchial secretions with collapse of left lower lobe, small left pleural effusion. There is also soft tissue density in the bronchi in the right lower lobe, right middle lobe. Prior right lower lobe pneumonia
has improved.
�������CT chest 01/07/18: mucous plugging right lower lobe with atelectasis. Left basilar alveolar disease, right middle lobe atelectasis, 3 cm groundglass abnormality right upper lobe image #17.
CARDIAC STUDIES:
������ Echo 09/10/22: Normal biventricular function, moderate mitral regurgitation,TAVR, PA pressure 37
�������LHC 08/08/22: no obvious coronary disease
�������Echo 01/03/21: EF 41%, moderate mitral regurgitation, TAVR, PASP 36.
LABS:
������ 04/09/23: Hemoglobin 14.6, normal serum bicarbonate, creatinine 1.3, normal calcium, normal troponin. ProBNP elevated 5210
�������08/09/22: Hemoglobin 13.2, normal serum bicarbonate, creatinine 1.1, calcium 8.2, troponin elevated at 22.3
�������01/18/22: Creatinine 1.24, normal calcium, liver function. White count normal and hemoglobin 14.3, 6.5% peripheral eosinophils
�������09/15/21: Hemoglobin 14.2, serum bicarbonate 27, creatinine 1.2, normal calcium, liver function
�������sputum culture 03/09/21: Positive for Staphylococcus.
�������02/14/21: White count 15.7, hemoglobin 15.2, serum bicarbonate 26, normal creatinine, normal liver function and proBNP 7900, troponin elevated 0.074.
Subjective Data
-
Date of Service:
Date of Service: July 03, 2023
Chief Complaint: Pulmonary Follow Up
Subjective:
Pt seen today. He feels better. He says he feels a rattling sensation in his chest today. He is on room air breathing comfortably. Denies chest pain, N/V/f/c. He has less phlegm that he is bringing up today.
Review of Systems
General: Other (negative unless mentioned above)
Objective Data
Data Reviewed
Vital Signs / I&O / Oxygen:
Vital Signs
Temp Pulse Resp BP Pulse Ox
97.8 F 85 18 119/57 97
07/03/23 19:50 07/03/23 20:35 07/03/23 19:50 07/03/23 20:35 07/03/23 19:50
Intake and Output
07/02/23 07/03/23 07/04/23
06:59 06:59 06:59
Intake Total 300 / 300
Output Total 450 / 450
Balance -150 / -150
SaO2 97
Physical Exam
General: Respiratory Distress (negative) and Comfortable
HEENT: Normocephalic and Anicteric
Cardiovascular: Irregular Rhythm and Peripheral Edema (negative)
Respiratory: Wheeze (negative), Crackles (negative), Rhonchi (negative), Accessory Resp Muscle Use (negative) and Other (Reduced breath sounds on right hemithorax)
GI: Soft, Non Distended, Non Tender and Normal Bowel Sounds
Neurology: AO x 3 and Tremors (negative)
Skin: Warm, Dry and Cyanosis (negative)
Labs/Micro/Reports
Lab Data
07/03/23 06:14
07/03/23 06:14
Microbiology
07/02/23 18:37 Blood/Venous Blood Culture - Preliminary
No Growth in 24 hours- Final report to follow
07/03/23 09:04 Sputum Gram Stain - Preliminary
07/02/23 18:16 Urine Legionella Urinary Antigen - Final
Negative for Legionella pneumophila Serogroup 1 antigen.
A negative result does not rule out the possiblity of
Legionella infection due to other serogroups or species of
Legionella. Clinical correlation is recommended.
07/02/23 18:16 Urine Streptococcus pneumoniae Antigen (M - Final
Negative for Streptococcus pneumoniae antigen.
A negative result does not exclude infection with
Streptococcus pneumoniae. Clinical correlation is
recommended.
07/02/23 08:08 Nasal Swab Influenza Types A & B (JUD) - Final
Negative for Influenza A & B, NAAT
Negative results must be combined with clinical observations
and patient history.
Nucleic Acid Amplification test (NAAT)performed on the
[employer] platform.
--- NOTE | 2023-07-03 15:22 | W.PN.HOSP.TC ---
Today's Communication/Plan
-
Continue antibiotics and steroids
Continue steroids
Appreciate pulmonary and cardiology
Assessment / Plan
Assessment / Plan
Physical Exam
General: No Apparent Distress
HEENT: NormoCephalic
Respiratory: Decreased Breath Sounds
Cardiac: S1/S2 and Irregular Rhythm
GI: Soft, Non Tender and Normal Bowel Sounds
Musculoskeletal: No Cyanosis, Edema, Left Lower Extremity and Edema, Right Lower Extremity
Skin: Warm and Dry
Neuro: Awake, Alert and AO x 3
Psych: Calm and Intact Judgment/Insight

Assessment/Plan

CXR 06/21/23: Small bilateral pleural effusions.
CXR 06/22/23: Progressed findings suggesting medial right lower lobe pneumonia. Progressed findings suggesting mild left lower lobe pneumonia. New. Small left pleural effusion. Stable. Tiny right pleural effusion. Improved.
CXR 06/26/23: Small bilateral pleural effusions with adjacent atelectasis, similar appearance compared to previous radiographs.
CT Chest without IV Contrast:
'IMPRESSION:
1. BILATERAL LOWER LOBE and RIGHT MIDDLE LOBE ENDOBRONCHIAL OCCLUSION (either secondary to aspiration or mucous plugging which has increased since 03/11/2022). New endobronchial occlusion in right lower lobe segmental bronchi, progressive
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 Complete postobstructive consolidation and atelectasis of the left lower lobe and right middle lobe.
2. MODERATE-SIZED RIGHT and SMALL to MODERATE SIZE LEFT PLEURAL EFFUSIONS which are new from 03/12/2022.
3. Mild cardiomegaly.
4. Previous TAVR.
5. New left biventricular cardiac pacemaker in place.'

Dyspnea Secondary to HFrEF Exacerbation, Pleural Effusions, and Suspected Mucus Plugging in the Setting of COPD
Postobstructive consolidation and atelectasis of the left lower lobe and right middle lobe
Suspected Postobstructive Pneumonia
Suspected COPD Exacerbation
History of Pseudomonas
Acute HFrEF
-No hypoxia at the time of admission
-Continue solumedrol 40mg IV q8hr
-Continue Cefepime/beta lactam for 7 days total
-Zithromax for 5 days total
-Nebulized bronchodilators with Atrovent + xopenex TID with q4hr prn
-Nebulized mucomyst with chest PT -- but keep in mind patient's recent PPM placement
-When ready for discharge home Trelegy vs Breztri
-Pulmonary consulted, recommendations appreciated
-Mucinex
-IV Lasix 40 mg BID with plan to switch to 80 mg PO bid tomorrow
-Entresto
-Farxiga
-I's and O's, daily weights
Permanent Atrial Fibrillation with RVR status post DIVEMASTER-P with Conduction system pacing and CS LV pacing lead Pacemaker implantation, on June 30, 2023
-Chronic LBBB
-Continue Toprol-XL
-Continue Cardizem
-Continue Eliquis 5 mg BID
-Rate control with Digoxin 250 mcg QD until AVJ ablation.
-Plan for AVJ ablation as outpatient in 4-6 weeks (follow-up with Dr. Durant)
Panic attack/Anxiety:
-Ativan as needed
-psych following
Other problems:
COPD: cont Symbicort/Singulair
s/p TAVR
CAD with h/o stent, prior NSTEMI in setting of OM1 dissection 07/2022: cont BB/Plavix/statin
Essential Hypertension: cont BB
Hyperlipidemia: cont statin
Prostate cancer s/p prostatectomy
FULL/Eliquis
Anticipated Discharge: > 48 hours
Subjective/Interval History
-
Date of Service: July 03, 2023
Patient was seen and examined. He reported that his shortness of breath is much improved. He denied any chest pain or any other new symptoms or complaints.
Objective Data
-
Labs:
Laboratory Results
07/03/23
06:14
WBC 14.8 H
Hgb 11.9 L
Hct 35.7 L
Plt Count 264
Sodium 140
Potassium 4.4
Chloride 106
Carbon Dioxide 25
BUN 29 H
Creatinine 1.0
Glucose 124 H
Calcium 8.5
Vital Signs:
Vital Signs
Temp Pulse Resp BP Pulse Ox
97.9 F 81 16 101/59 98
07/03/23 11:11 07/03/23 12:37 07/03/23 14:36 07/03/23 11:11 07/03/23 14:36
--- NOTE | 2023-07-03 15:36 | CM ---
Alert awake oriented patient who lives with his Su who lives in a 2 story home with 2 step to enter and satir glide to bed and bathroom. He is independent in driving and in all activities of daily living.He was offered Vn he declined need.
No VN hx / No SNF history
Pharmacy [facility]
PCP DR Granda
PLAN Home Declined VN
--- NOTE | 2023-07-03 16:50 | PTCARENOTE ---
Pt was laying in bed, tele alarming, 11 beats of Vtach, no c/o chest pain, MD and cards aware. Pt however is c/o ' haziness' or lightheadedness with ambulation. Orthos completed and negative, pt instructed to ring for assistance if feeling unsteady
or increase in dizziness, Verbalized understanding, MD aware, plan of care continues.
[2023-07-03] MEDS: NON-FORMULARY ITEM IRRIG ×3 (17:00)
[2023-07-03] MEDS: REMERON 7.5 MG PO (20:36)
[2023-07-03] MEDS: SINGULAIR 10 MG PO (20:36)
[2023-07-03] MEDS: NON-FORMULARY ITEM 1 MG IRRIG (20:36)
[2023-07-03] MEDS: ATARAX 25 MG PO (22:52)
[2023-07-03] MEDS: TYLENOL 650 MG PO (22:58)
[2023-07-04] VITALS (8 sets, daily range): BP systolic 93–126; BP diastolic 51–65; PULSE 64–80; BMI 24.7
[2023-07-04 07:15] LABS: % Basophils 0.2 % (0-2); % Immature Granulocytes 1.3 % (0-0.5); % Lymphocytes 2.1 % (20.5-51.1); % Monocytes 4.3 % (1.7-9.3); % Neutrophils 92.1 % (42.2-75.2); Absolute Immature Granulocytes 0.3 10^3/uL (0-0.05); Absolute Lymphocytes 0.5 10^3/uL (1.2-3.4); Absolute Neutrophils 21.9 10^3/uL (1.4-6.5); Hematocrit 36.8 % (39.0-52.0); Hemoglobin 12.4 g/dL (13.0-18.0); Mean Corp Hgb Conc. 33.7 g/dL (33.0-37.0); Mean Corpuscular Hgb 33.5 pg (27.0-31.0); Mean Corpuscular Volume 99.5 fL (80.0-94.0); Mean Platelet Volume 10.8 fL (7.4-10.4); Nucleated Red Blood Cells % 0 % (-); Platelet Count 282 10^3/uL (130-400); Red Cell Dist. Width 15.6 % (11.5-14.5); White Blood Cell Count 23.8 10^3/uL (4.8-10.8)
[2023-07-04] MEDS: ATROVENT NEBULES 0.5 MG INH ×3 (07:25→19:25)
[2023-07-04] MEDS: SYMBICORT 160/4.5 MCG INHALER 1 PUFF INH ×2 (07:25→19:25)
[2023-07-04] MEDS: MUCOMYST 10% 4 ML INH ×3 (07:25→19:25)
[2023-07-04] MEDS: XOPENEX 1.25 MG INHALANT SOLUTION INH ×3 (07:25→19:25)
[2023-07-04 07:39] LABS: Blood Urea Nitrogen 39 mg/dl (9-20); Calcium 8.8 mg/dl (8.4-10.2); Carbon Dioxide 23 mmol/L (22-30); Chloride 108 mmol/L (98-107); Estimated Creatinine Clearance 40 ml/min; Glucose 127 mg/dl (70-99); Magnesium 2.6 mg/dl (1.6-2.3); Potassium 4.8 mmol/L (3.5-5.1); Sodium 140 mmol/L (135-145); eGFR 54.51
[2023-07-04] MEDS: SOLU-MEDROL PF 40 MG IV (09:53)
[2023-07-04] MEDS: CRESTOR 5 MG PO (09:53)
[2023-07-04] MEDS: CLARITIN 10 MG PO (09:54)
[2023-07-04] MEDS: FARXIGA 10 MG PO (09:54)
[2023-07-04] MEDS: THERAGRAN 1 TABLET PO (09:54)
[2023-07-04] MEDS: ZITHROMAX 250 MG PO (09:54)
[2023-07-04] MEDS: ELIQUIS 5 MG PO ×2 (09:54→22:59)
[2023-07-04] MEDS: KCL 40 MEQ PO (09:55)
[2023-07-04] MEDS: OSCAL CAL 500 250 MG PO (09:55)
[2023-07-04] MEDS: PLAVIX 75 MG PO (09:55)
[2023-07-04] MEDS: VITAMIN D3 (cholecalciferol) 25 MCG PO (09:56)
[2023-07-04] MEDS: VITAMIN C 250 MG PO (09:56)
[2023-07-04] MEDS: MAXIPIME 2000 MG IV ×2 (09:56→22:58)
[2023-07-04] MEDS: VITAMIN B-12 250 MCG PO (09:57)
[2023-07-04] MEDS: STERILE WATER FOR INJECTION 10 ML IV ×2 (10:00→22:58)
--- NOTE | 2023-07-04 10:08 | W.PN.CD ---
Today's Communication / Plan
-
Monitor renal function closely. Patient received IV diuretic today. Transition to oral diuretic tomorrow
Continue to optimize treatment of respiratory issues. Pulmonary has been consulted.
will remove pacemaker dressing
Impression / Plan
-
Assessment/Plan: 82 yo male with PMH of TAVR 2019, chronic HF with reduced LVEF, permanent A fib on Eliquis, CAD/NSTEMI in setting of OM1 dissection 07/2022, and COPD (Dr. Peterson) who was recently hospitalized for SOB and treated for CHF and PNA.
Also noted to have AFIB with RVR- meds adjusted. He also is s/p FLIGHT ATTENDANT/INFLIGHT SUPERVISOR-P 06/30/23, with plans for future AVJ ablation. He was d/c'd yesterday and was feeling improved, but then when he laid flat for bed last night he became SOB- it improved with getting
up, but still did not feel normal.
SOB:
-likely multifactorial- CT scan reveals bilateral lower lobe and right middle lobe endobronchial occlusion (either secondary to aspiration or mucous plugging which has increased since 03/11/2022). New endobronchial occlusion in right lower lobe
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 Complete postobstructive consolidation and atelectasis of the left lower lobe and right
middle lobe. Moderate-sized right and small to moderate left pleural effusions. Small pericardial effusion.
-Patient feels better than that admission but breathing felt tight this morning. Continued treatment of pulmonary issues as directed by cosmetic sales advisor.
-Continue diuresis.
Acute on chronic HFrEF recent echo 35-40%:
-weight is now 156 lbs, patient received additional IV Lasix. Creatinine has trended up to 1.3. Will need to monitor closely. Transition to oral Lasix tomorrow
-echo 06/04/23: EF 35-40%, mild/moderate MR, TAVR (08/12, no AR), nl RV, mild TR, PASP 41
-continue metoprolol XL
-recent Entresto and farxiga start
NSVT -9 beat run 07/03/2023 which was asymptomatic. EF as above. Last catheterization 07/2022 with occlusion of a branch of OM1 but no other significant obstructive disease reported
Atrial fibrillation, permanent:
-rate-controlled. Continue BB, CCB, digoxin.
-continue Eliquis for OAC
-s/p(FLIGHT ATTENDANT/INFLIGHT SUPERVISOR-P) implantation on 07/01/23. AVJ ablation attempted but pulled CS lead and was reimplanted. Plan for AVJ ablation as outpatient in 4-6 weeks. Rate control with Digoxin 250 mcg QD until AVJ ablation. Left pectoral incision site with
ecchymosis, but no obvious hematoma. Follow telemetry.
TAVR (2019): Medtronic CoreValve Evolut#29
-stable on outpatient echocardiogram
CAD, prior stent of codominant RCA remotely and NSTEMI in setting of OM1 dissection 07/2022:
-stable no CP
-continue plavix
Abnormal troponin:
-0.115, 0.145
-no CP
-suspect acute non-ischemic myocardial injury in setting of CHF exacerbation, recent procedure, acute pulmonary illness
Subjective: Breathing improved today feeling better
Physical Exam
Vital Signs/Labs
Vital Signs
Temp Pulse Resp BP Pulse Ox
97.5 F 58 18 95/51 97
07/04/23 07:55 07/04/23 07:55 07/04/23 08:01 07/04/23 07:55 07/04/23 08:01
07/03/23 07/04/23 07/05/23
06:59 06:59 06:59
Actual Weight 71.327 kg
07/04/23 06:27
07/04/23 06:27
Magnesium 2.6 mg/dl (1.6-2.3) H 07/04/23 06:27
Digoxin 0.6 ng/ml (0.8-2.0) L 07/02/23 04:56
07/02/23
04:56
[id number] Pept 3830
LAB Results
07/02/23 07/02/23 07/02/23
04:56 08:08 16:56
Troponin I 0.145 H* 0.115 H* 0.072 H*
07/02/23 07/03/23
20:46 06:14
Troponin I 0.084 H* 0.077 H*
Physical Exam
Constitutional: No acute distress
Cardiovascular: Rhythm & rate is regular and Rhythm/rate is irregular
Respiratory: Respiratory effort normal, Wheeze Absent and Rhonchi Absent
GI: Soft, Non tender and Other
Neuro/Psych: Alert, Oriented and AO x 3
Data Reviewed
-
Date of Service: July 04, 2023
EKG: Report Reviewed by me
Echo: Report Reviewed by me
Medical Tests (PFT, Pathology etc): Report Reviewed by me
[2023-07-04] MEDS: NON-FORMULARY ITEM 1 MG IRRIG (10:17)
--- NOTE | 2023-07-04 13:04 | W.PN.PUL3 ---
Today's Communication / Plan
-
Stable on RA, still has some cough/SOB
Remains on IV diuresis, CXR appears stable
Will reduce steroid dosing, transition to PO prednisone with plan for taper
Encouraged OOB/PT, add IS, continue airway clearance
Sputum with GNB, on CFP IV, will await speciation
Outpatient pulmonary FU recommended at discharge
Assessment
-
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
imaging, A-fib on chronic anticoagulation, history of vertigo, history of prostate cancer s/p prostatectomy and history of peripheral eosinophilia who presents with SOB. 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
breathe while laying flat and also had a moist hacking cough. He was recently hospitalized here from 06/20 due to A-fib with RVR and acute HFrEF exacerbation � he underwent ORACLE APPLICATION ARCHITECT-D with BiV pacemaker implantation on 06/30/2023. Now that he is
back here in the ER, imaging shows bilateral lower lobe pleural effusions with atelectasis and RML atelectasis with mucous plugging and bronchial wall thickening. He was given systemic steroids in the ER plus nebulized bronchodilators and admitted
to the hospitalist service, and pulmonary service now consulted for additional recommendations.
Chronic conditions [employer]: COPD with asthma, chronic bronchitis, centrilobular emphysema, history of prostate cancer (2006) s/p prostatectomy, hyperlipidemia, A-fib on Eliquis, history of vertigo, history of colonic polyps, history of shingles,
history of nonmalignant skin cancer, history of NV, history of pneumonia, history of mucous plugging seen on prior CT chest imaging from 2017, 2019 + 2022, chronic rhinitis, history of peripheral eosinophilia, pulmonary nodules, former tobacco use
(quit 1979), mild pulmonary hypertension, CAD with ICM, history of torn Achilles tendon
Impression:
#Acute dyspnea likely due to persistent bilateral pleural effusions in the setting of COPD and multifocal atelectasis involving RML and medial lower lobes with mucous plugging
#Postobstructive pneumonia with Hx of Pseudomonas seen on sputum Cx from 06/22/2023
#COPD with bronchial wall thickening and centrilobular emphysema with acute exacerbation
#Elevated troponin � peaked at 0.145 this AM - likely due to demand ischemia with type II NV
#Chronic HFrEF with mild-moderate MR and global hypokinesis
#Acute on chronic anemia (baseline Hb 14-15g/dL)
#Permanent A-fib w/ LBBB s/p BiV PPM implantation on 06/30/2023
#CKD (baseline Cr: ~1.2)
#Former tobacco use ([id number], quit in 1979)
#History of pulmonary nodules suspected to be from mucous plugging
#History of pneumonia + mucous plugging from multiple prior CT chest imaging studies (including 2017, 2019+2022)
#Chronic rhinitis
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
Plan:
- Continue systemic steroids and wean as tolerated --> on 07/01 I started solumedrol 40mg IV q12hr --> transition to PO prednisone today
Can taper at discharge
- Continue nebulized bronchodilators with Atrovent + xopenex TID with q4hr prn for breakthrough symptoms
- Continue Symbicort 160mcg
- Given his severe atelectasis in particular at his RML, continue nebulized mucomyst with chest PT (ideally want to use vest but he has R-shoulder pain from recent PPM implantation - use if pt tolerates)
- Once pt ready for discharge home, consider discharging home on Trelegy vs Leelatri
Add incentive spirometer
Encouraged OOB/ambulation
Repeat CXR showing stable findings, pleural effusion at RML/seen best in posterior view on lateral film
- Continue zithromax (started 07/01) (QTc: 492ms today) and he may need to be on this TIW upon discharge - monitor QTc given he is on digoxin
- Continue cefepime (started 07/01) given his recent Hx of Pseudomonas that was never Tx - procal is low, however he has post-obstructive pneumonia and it is unclear if the procal will be reliable in this setting as he is not septic
- Plan for 5 days zithromax and 7 days beta-lactam
- Follow up blood Cx (collected 07/01)
- Follow up sputum Cx-- showing GNB, await speciation/narrow abx when able
legionella and Strep PNA urine antigens are both negative
- Maintain SpO2 >88-94% with supplemental O2 as needed
- Incentive spirometer encouraged
- Diurese as tolerated to keep net negative 1-1.5L per day over next 2-3 days, re-assessing daily based on BP, sNa, UOP and sCr
- Replete electrolytes with K>4, Mg>2
- Maintain euglycemia with goal BG >100 and <180
- DVT ppx
Encouraged OOB/PT/OT
Pulmonary service will continue to follow along.
Follows with Dr Peterson as OP
Data:
CT Chest w/o contrast 07-02-2023:
1. BILATERAL LOWER LOBE and RIGHT MIDDLE LOBE ENDOBRONCHIAL OCCLUSION (either secondary to aspiration or mucous plugging which has increased since 03/11/2022). New endobronchial occlusion in right lower lobe segmental bronchi, progressive
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 Complete postobstructive consolidation and atelectasis of the left lower lobe and right middle lobe.
2. MODERATE-SIZED RIGHT and SMALL to MODERATE SIZE LEFT PLEURAL EFFUSIONS which are new from 03/12/2022.
3. Mild cardiomegaly.
4. Previous TAVR.
5. New left biventricular cardiac pacemaker in place.
TTE 06-04-2023: Moderately reduced left ventricular systolic function. Left ventricular ejection fraction is 35-40% by Cisse's biplane. Global hypokinesis. Mild to moderate mitral regurgitation. Well seated, # 29 mm Evolut Pro TAVR with
peak/mean gradients of 7/3 mmHg, respectively. Abnormal (paradoxical) septal motion consistent with bundle branch block. Mild pulmonary pressure. Compared to prior study of 09/10/2022, there ejection fraction has decreased from 50-55% to 35-40% on
today's study.
Outpatient [facility] data:
PFT:
������ PFT 12/31/22: FVC 3.33/99%, FEV1 1.74/74%, ratio 52. TLC 5.15/80%, DLCO 13.84/63%. Mod Obstruction with Borderline restriction with mild gas exchange defect
�������[place] 10/09/22: FVC 2.93/82%, FEV1 1.70/71%, ratio 61. There is an 11% improvement in FEV1 following bronchodilator
�������[place] 01/23/22: FVC 3.08/85%, FEV1 1.81/71%, ratio 59. There is borderline drop in FEV1 compared to prior spirometry
�������[place] 10/24/21: FVC 3.32/92%, FEV1 2.02/80%, ratio 61. This has improved
�������[place] 05/28/21: FVC 3.02/83%, FEV1 1.64/64%, ratio 55
�������P[place] 03/02/21: FVC 3.52/96%, FEV1 1.89/74%, ratio 57. TLC 6.08/90%, DLCO 12.03/52%.
6 MWT:
������ 6MWT 10/09/22: Total distance 1050 feet, desaturation louie 96%, heartrate 75, dyspnea scale 1.5/10
�������6MWT 03/27/21: Total distance 768 feet, 96% room air, heart rate 70, dyspnea scale 1/10.
RADIOGRAPHIC STUDIES:
������ CXR 04/07/23: small bilateral pleural effusions, possible pneumonia at the left base versus atelectasis
�������CXR 09/10/22: no acute findings
�������CT chest 03/11/22: 4 mm nodule image #21 and 22 right upper lobe. Mild left lower lobe consolidation with likely airway plugging. no obvious mediastinal abnormality. No change compared to 2020 imaging my review
�������CXR 10/17/21 ([facility]): per report, chest x-ray is normal. Images not available forr review
�������modified barium swallow 03/26/21: no obvious aspiration but evidence of esophageal dysmotility, slow emptying
�������CXR 02/10/21: small bilateral pleural effusions, bibasilar scar
�������Cardiac CT 04/13/19: multiple endobronchial secretions with collapse of left lower lobe, small left pleural effusion. There is also soft tissue density in the bronchi in the right lower lobe, right middle lobe. Prior right lower lobe pneumonia
has improved.
�������CT chest 01/07/18: mucous plugging right lower lobe with atelectasis. Left basilar alveolar disease, right middle lobe atelectasis, 3 cm groundglass abnormality right upper lobe image #17.
CARDIAC STUDIES:
������ Echo 09/10/22: Normal biventricular function, moderate mitral regurgitation,TAVR, PA pressure 37
�������LHC 08/08/22: no obvious coronary disease
�������Echo 01/03/21: EF 41%, moderate mitral regurgitation, TAVR, PASP 36.
LABS:
������ 04/09/23: Hemoglobin 14.6, normal serum bicarbonate, creatinine 1.3, normal calcium, normal troponin. ProBNP elevated 5210
�������08/09/22: Hemoglobin 13.2, normal serum bicarbonate, creatinine 1.1, calcium 8.2, troponin elevated at 22.3
�������01/18/22: Creatinine 1.24, normal calcium, liver function. White count normal and hemoglobin 14.3, 6.5% peripheral eosinophils
�������09/15/21: Hemoglobin 14.2, serum bicarbonate 27, creatinine 1.2, normal calcium, liver function
�������sputum culture 03/09/21: Positive for Staphylococcus.
�������02/14/21: White count 15.7, hemoglobin 15.2, serum bicarbonate 26, normal creatinine, normal liver function and proBNP 7900, troponin elevated 0.074.
Total time spent today was 50 minutes for this encounter. Time includes reviewing laboratory test/imaging results, reviewing pertinent medical records, obtaining and reviewing medical history, performing an appropriate exam, ordering medications,
tests and procedures. Time also includes documentation of this encounter, coordinating patient care and communicating with other healthcare professionals. Total time does not include separately billed tests performed on this date of service.
Subjective Data
-
Date of Service:
Date of Service: July 04, 2023
Chief Complaint: Pulmonary Follow Up
Subjective:
remains stable on RA, no acute events ON
still SOB with exertion, has not been getting OOB
cough ongoing
Objective Data
Data Reviewed
Vital Signs / I&O / Oxygen:
Vital Signs
Temp Pulse Resp BP Pulse Ox
97.4 F 61 18 115/51 98
07/04/23 11:43 07/04/23 11:43 07/04/23 11:43 07/04/23 11:43 07/04/23 11:43
Intake and Output
07/03/23 07/04/23 07/05/23
06:59 06:59 06:59
Intake Total 300 / 300
Output Total 850 / 850
Balance -550 / -550
SaO2 98
Physical Exam
General: Respiratory Distress (negative) and Comfortable
HEENT: Normocephalic, Anicteric and Moist Mucous Membranes
Cardiovascular: Irregular Rhythm and Peripheral Edema (negative)
Respiratory: Wheeze (negative), Crackles (negative), Rhonchi (negative), Accessory Resp Muscle Use (negative) and Other (decreased at bases)
GI: Soft, Non Distended, Non Tender and Normal Bowel Sounds
Neurology: Awake, Alert, Oriented, AO x 3 and Tremors (negative)
Skin: Warm, Dry and Cyanosis (negative)
Labs/Micro/Reports
Lab Data
07/04/23 06:27
07/04/23 06:27
Microbiology
07/03/23 09:04 Sputum Respiratory Culture - Preliminary
Gram negative bacilli
07/03/23 09:04 Sputum Gram Stain - Preliminary
07/02/23 18:37 Blood/Venous Blood Culture - Preliminary
No Growth in 24 hours- Final report to follow
07/02/23 18:16 Urine Legionella Urinary Antigen - Final
Negative for Legionella pneumophila Serogroup 1 antigen.
A negative result does not rule out the possiblity of
Legionella infection due to other serogroups or species of
Legionella. Clinical correlation is recommended.
07/02/23 18:16 Urine Streptococcus pneumoniae Antigen (M - Final
Negative for Streptococcus pneumoniae antigen.
A negative result does not exclude infection with
Streptococcus pneumoniae. Clinical correlation is
recommended.
07/02/23 08:08 Nasal Swab Influenza Types A & B (JUD) - Final
Negative for Influenza A & B, NAAT
Negative results must be combined with clinical observations
and patient history.
Nucleic Acid Amplification test (NAAT)performed on the
[employer] platform.
[2023-07-04] MEDS: CARDIZEM CD 360 MG PO (13:34)
[2023-07-04] MEDS: TOPROL XL 100 MG PO ×2 (13:35→22:59)
[2023-07-04] MEDS: LANOXIN 250 MCG PO (13:35)
[2023-07-04] MEDS: ENTRESTO 24 MG/26 MG PO (13:46)
--- NOTE | 2023-07-04 16:04 | CM ---
Continues on IV diuretic . Will change to po.at dc.
On antibiotics and steroids.
Offered VN he declined need.
PLAN Home no needs
[2023-07-04] MEDS: LASIX 40 MG PO (17:17)
--- NOTE | 2023-07-04 20:17 | W.PN.HOSP.TC ---
Today's Communication/Plan
-
Continue diuresis and monitor renal function
Continue antibiotics
Monitor vital signs
Assessment / Plan
Assessment / Plan
Physical Exam
General: No Apparent Distress
HEENT: NormoCephalic
Respiratory: Decreased Breath Sounds
Cardiac: S1/S2 and Irregular Rhythm
GI: Soft, Non Tender and Normal Bowel Sounds
Musculoskeletal: No Cyanosis, Edema, Left Lower Extremity and Edema, Right Lower Extremity
Skin: Warm and Dry
Neuro: Awake, Alert and AO x 3
Psych: Calm and Intact Judgment/Insight

Assessment/Plan

CXR 06/21/23: Small bilateral pleural effusions.
CXR 06/22/23: Progressed findings suggesting medial right lower lobe pneumonia. Progressed findings suggesting mild left lower lobe pneumonia. New. Small left pleural effusion. Stable. Tiny right pleural effusion. Improved.
CXR 06/26/23: Small bilateral pleural effusions with adjacent atelectasis, similar appearance compared to previous radiographs.
CT Chest without IV Contrast:
'IMPRESSION:
1. BILATERAL LOWER LOBE and RIGHT MIDDLE LOBE ENDOBRONCHIAL OCCLUSION (either secondary to aspiration or mucous plugging which has increased since 03/11/2022). New endobronchial occlusion in right lower lobe segmental bronchi, progressive
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 Complete postobstructive consolidation and atelectasis of the left lower lobe and right middle lobe.
2. MODERATE-SIZED RIGHT and SMALL to MODERATE SIZE LEFT PLEURAL EFFUSIONS which are new from 03/12/2022.
3. Mild cardiomegaly.
4. Previous TAVR.
5. New left biventricular cardiac pacemaker in place.'

Dyspnea Secondary to HFrEF Exacerbation, Pleural Effusions, and Suspected Mucus Plugging in the Setting of COPD
Postobstructive consolidation and atelectasis of the left lower lobe and right middle lobe
Suspected Postobstructive Pneumonia
Suspected COPD Exacerbation
History of Pseudomonas
Acute HFrEF
-No hypoxia at the time of admission
-Was on solumedrol 40mg IV q8hr --> now transitioned to PO prednisone taper
-Continue Cefepime/beta lactam for 7 days total
-Zithromax for 5 days total
-Nebulized bronchodilators with Atrovent + xopenex TID with q4hr prn
-Nebulized mucomyst with chest PT -- but keep in mind patient's recent PPM placement
-When ready for discharge home Feli vs Homero
-Pulmonary consulted, recommendations appreciated
-Mucinex
-IV Lasix 40 mg BID with plan to switch OP Lasix soon -- his Cr went up to 1.3 on July 04, 2023 --> will have to watch closely
-Entresto
-Farxiga
-I's and O's, daily weights
Periods of Hypotension
-At times BP improves and when it improves can give his cardiac meds
-Continue to monitor blood pressure
NSVT
-Continue CCB and BB
Permanent Atrial Fibrillation with RVR status post METAL SPRAYER-P with Conduction system pacing and CS LV pacing lead Pacemaker implantation, on June 30, 2023
-Chronic LBBB
-Continue Toprol-XL
-Continue Cardizem
-Continue Eliquis 5 mg BID
-Rate control with Digoxin 250 mcg QD until AVJ ablation.
-Plan for AVJ ablation as outpatient in 4-6 weeks (follow-up with Dr. Durant)
Panic attack/Anxiety:
-Ativan as needed
-psych following
Other problems:
COPD: cont Symbicort/Singulair
s/p TAVR
CAD with h/o stent, prior NSTEMI in setting of OM1 dissection 07/2022: cont BB/Plavix/statin
Essential Hypertension: cont BB
Hyperlipidemia: cont statin
Prostate cancer s/p prostatectomy
FULL/Eliquis
Anticipated Discharge: > 48 hours
Subjective/Interval History
-
Date of Service: July 04, 2023
Patient was seen and examined. He reported that he has been coughing up yellow phlegm, now he is sleeping better.
Objective Data
-
Vital Signs:
Vital Signs
Temp Pulse Resp BP Pulse Ox
97.6 F 77 18 114/61 98
07/04/23 19:00 07/04/23 19:39 07/04/23 19:39 07/04/23 19:00 07/04/23 19:39
I&O
07/03/23 07/04/23 07/05/23
06:59 06:59 06:59
Intake Total 300 / 300 780 / 780
Output Total 850 / 850 580 / 580
Balance -550 / -550 200 / 200
[2023-07-04] MEDS: ENTRESTO 24 MG/26 MG 1 TAB PO (22:58)
[2023-07-04] MEDS: REMERON 7.5 MG PO (23:00)
[2023-07-04] MEDS: NON-FORMULARY ITEM IRRIG (23:01)
[2023-07-04] MEDS: SINGULAIR 10 MG PO (23:02)
[2023-07-05] MEDS: TYLENOL 650 MG PO (03:19)
[2023-07-05 03:39] VITALS: BP 105/71
[2023-07-05 06:00] VITALS: BMI 24.6
[2023-07-05 07:00] VITALS: BP 118/69
[2023-07-05 07:19] LABS: % Basophils 0.1 % (0-2); % Immature Granulocytes 0.9 % (0-0.5); % Monocytes 5.8 % (1.7-9.3); % Neutrophils 91.2 % (42.2-75.2); Absolute Immature Granulocytes 0.2 10^3/uL (0-0.05); Absolute Lymphocytes 0.5 10^3/uL (1.2-3.4); Absolute Monocytes 1.4 10^3/uL (0.1-0.6); Absolute Neutrophils 21.2 10^3/uL (1.4-6.5); Hematocrit 37.4 % (39.0-52.0); Hemoglobin 12.6 g/dL (13.0-18.0); Mean Corp Hgb Conc. 33.7 g/dL (33.0-37.0); Mean Corpuscular Hgb 33.2 pg (27.0-31.0); Mean Corpuscular Volume 98.4 fL (80.0-94.0); Mean Platelet Volume 10.8 fL (7.4-10.4); Nucleated Red Blood Cells % 0 % (-); Platelet Count 278 10^3/uL (130-400); Red Cell Dist. Width 15.8 % (11.5-14.5); White Blood Cell Count 23.2 10^3/uL (4.8-10.8)
[2023-07-05 07:48] LABS: Blood Urea Nitrogen 38 mg/dl (9-20); Calcium 8.8 mg/dl (8.4-10.2); Carbon Dioxide 23 mmol/L (22-30); Chloride 108 mmol/L (98-107); Estimated Creatinine Clearance 44 ml/min; Glucose 111 mg/dl (70-99); Potassium 4.8 mmol/L (3.5-5.1); Sodium 140 mmol/L (135-145); eGFR > 60.00
[2023-07-05] MEDS: ATROVENT NEBULES 0.5 MG INH (07:57)
[2023-07-05] MEDS: XOPENEX 1.25 MG INHALANT SOLUTION INH ×3 (07:57→19:14)
[2023-07-05] MEDS: SYMBICORT 160/4.5 MCG INHALER 1 PUFF INH (07:58)
[2023-07-05] MEDS: MUCOMYST 10% 4 ML INH (07:58)
[2023-07-05] MEDS: CARDIZEM CD 360 MG PO (08:51)
[2023-07-05] MEDS: VITAMIN B-12 250 MCG PO (08:51)
[2023-07-05] MEDS: FARXIGA 10 MG PO (08:51)
[2023-07-05] MEDS: DELTASONE 50 MG PO (08:51)
[2023-07-05] MEDS: CLARITIN 10 MG PO (08:51)
[2023-07-05] MEDS: VITAMIN D3 (cholecalciferol) 25 MCG PO (08:52)
[2023-07-05] MEDS: THERAGRAN 1 TABLET PO (08:52)
[2023-07-05] MEDS: LASIX 40 MG PO ×2 (08:52→15:49)
[2023-07-05] MEDS: ZITHROMAX 250 MG PO (08:52)
[2023-07-05] MEDS: KCL 40 MEQ PO (08:52)
[2023-07-05] MEDS: TOPROL XL 100 MG PO (08:52)
[2023-07-05] MEDS: ENTRESTO 24 MG/26 MG 1 TAB PO (08:52)
[2023-07-05] MEDS: STERILE WATER FOR INJECTION 10 ML IV (08:53)
[2023-07-05] MEDS: PLAVIX 75 MG PO (08:53)
[2023-07-05] MEDS: MAXIPIME 2000 MG IV (08:53)
[2023-07-05] MEDS: ELIQUIS 5 MG PO (08:53)
[2023-07-05] MEDS: FLUSH (NSS) 1 FLUSH IV (08:54)
[2023-07-05] MEDS: NON-FORMULARY ITEM 1 MG IRRIG (09:01)
--- NOTE | 2023-07-05 09:25 | W.PN.CD ---
Addendum entered and electronically signed by Moy New MD 07/05/23 11:43:
I saw and examined the patient.
The ELECTRONICS INSPECTOR's note was reviewed and I agree with the note.
Comment: Device site is w/o bleeding or hematoma, some ecchymosis seen. He is on rate control meds. Will decrease dig to decrease risk of toxicity.
We will sign off. Card f/u arranged.
Original Note:
Today's Communication / Plan
-
continue current cardiac meds.
follow up as outpatient.
Aquacel dressing removed today.
cardiology follow up ISMAEL Josue 07/09/23 8:40am.
Impression / Plan
-
Assessment/Plan: 82 yo male with PMH of TAVR 2019, chronic HF with reduced LVEF, permanent A fib on Eliquis, CAD/NSTEMI in setting of OM1 dissection 07/2022, and COPD (Dr. Peterson) who was recently hospitalized for SOB and treated for CHF and PNA.
Also noted to have AFIB with RVR- meds adjusted. He also is s/p CAREER SERVICES OFFICER-P 06/30/23, with plans for future AVJ ablation. He was d/c'd yesterday and was feeling improved, but then when he laid flat for bed last night he became SOB, which improved with
getting up, but still did not feel normal.
SOB - multifactorial.
-CT scan reveals bilateral lower lobe and right middle lobe endobronchial occlusion (either secondary to aspiration or mucous plugging which has increased since 03/11/2022). New endobronchial occlusion in right lower lobe segmental bronchi,
progressive endobronchial occlusion in the right middle lobe bronchi, and chronic endobronchial occlusion of the left lower lobe bronchus. Complete post obstructive consolidation and atelectasis of the left lower lobe and right middle lobe.
Moderate-sized right and small to moderate left pleural effusions. Small pericardial effusion.
-he feels breathing is better. continued treatment of pulmonary issues as directed by occ therapy asst.
-Continue diuresis.
Acute on chronic HFrEF recent echo 35-40%:
-improved, now on PO Lasix BID, continue.
-monitor daily weights. creatinin 1.2 today.
-echo 06/04/23: EF 35-40%, mild/moderate MR, TAVR (7, no AR), nl RV, mild TR, PASP 41
-continue metoprolol XL, Entresto and Farxiga.
Atrial fibrillation, permanent:
-rate-controlled. Continue BB, CCB, digoxin.
-continue Eliquis for OAC
-s/p Med[employer]onic CAREER SERVICES OFFICER-P implantation on 06/30/23. AVJ ablation attempted but pulled CS lead and was reimplanted.
-Plan for AVJ ablation as outpatient in 4-6 weeks. Rate control with Digoxin 250 mcg QD until AVJ ablation. Left pectoral incision site with ecchymosis, but no obvious hematoma, stable.
TAVR (2019): Medtronic CoreValve Evolut #29
-stable on outpatient echocardiogram.
CAD, prior stent of codominant RCA remotely and NSTEMI in setting of OM1 dissection 07/2022:
-stable no CP
-continue Plavix
Abnormal troponin:
-0.115, 0.145
-no CP
-suspect acute non-ischemic myocardial injury in setting of CHF exacerbation, recent procedure, acute pulmonary illness.
NSVT - 9 beat run 07/03/2023 which was asymptomatic.
-EF as above.
-Last catheterization 07/2022 with occlusion of a branch of OM1 but no other significant obstructive disease reported.
-denies palps.
Physical Exam
Vital Signs/Labs
Vital Signs
Temp Pulse Resp BP Pulse Ox
97.9 F 86 18 118/69 97
07/05/23 07:00 07/05/23 08:52 07/05/23 08:02 07/05/23 08:52 07/05/23 08:02
07/04/23 07/05/23 07/06/23
06:59 06:59 06:59
Actual Weight 71.327 kg 71.242 kg
07/05/23 06:36
07/05/23 06:36
Magnesium 2.6 mg/dl (1.6-2.3) H 07/04/23 06:27
Digoxin 0.6 ng/ml (0.8-2.0) L 07/02/23 04:56
07/02/23
04:56
[id number] Pept 3830
LAB Results
07/02/23 07/02/23 07/03/23
16:56 20:46 06:14
Troponin I 0.072 H* 0.084 H* 0.077 H*
Physical Exam
Constitutional: No acute distress and Comfortable
EENT: Anicteric and Moist mucous membranes
Cardiovascular: Rhythm/rate is irregular
Respiratory: Respiratory effort normal
GI: Soft and Normal bowel sounds
Neuro/Psych: AO x 3
Other: Skin (warm, dry) and Cardiac Device Site (healed, no hematoma)
Data Reviewed
-
Date of Service: July 05, 2023
Medical Decision Making: Reviewed Test Results
EKG: Tracing Personally Visualized and interpreted
Echo: Report Reviewed by me
Labs: Labs Reviewed by me
Old Records: Reviewed
--- NOTE | 2023-07-05 09:33 | W.PN.PUL3 ---
Today's Communication / Plan
-
Transition to PO prednisone with plan for taper upon discharge
Encouraged OOB/PT, add IS, continue airway clearance
Sputum with GNB, on CFP IV, will await speciation - if going home then DC home on levaquin to complete 7 day course of ABx
Outpatient pulmonary FU recommended at discharge
Pt being DC'd home today. We will sign off. Call back with any questions.
Assessment
-
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
imaging, A-fib on chronic anticoagulation, history of vertigo, history of prostate cancer s/p prostatectomy and history of peripheral eosinophilia who presents with SOB. 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
breathe while laying flat and also had a moist hacking cough. He was recently hospitalized here from 06/20 due to A-fib with RVR and acute HFrEF exacerbation � he underwent [employer] with BiV pacemaker implantation on 06/30/2023. Now that he is
back here in the ER, imaging shows bilateral lower lobe pleural effusions with atelectasis and RML atelectasis with mucous plugging and bronchial wall thickening. He was given systemic steroids in the ER plus nebulized bronchodilators and admitted
to the hospitalist service, and pulmonary service now consulted for additional recommendations.
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
history of nonmalignant skin cancer, history of NV, history of pneumonia, history of mucous plugging seen on prior CT chest imaging from 2017, 2019 + 2022, chronic rhinitis, history of peripheral eosinophilia, pulmonary nodules, former tobacco use
(quit 1979), mild pulmonary hypertension, CAD with ICM, history of torn Achilles tendon
Impression:
#Acute dyspnea likely due to persistent bilateral pleural effusions in the setting of COPD and multifocal atelectasis involving RML and medial lower lobes with mucous plugging
#Postobstructive pneumonia with Hx of Pseudomonas seen on sputum Cx from 06/22/2023
#COPD with bronchial wall thickening and centrilobular emphysema with acute exacerbation
#Elevated troponin � peaked at 0.145 this AM - likely due to demand ischemia with type II NV
#Chronic HFrEF with mild-moderate MR and global hypokinesis
#Acute on chronic anemia (baseline Hb 14-15g/dL)
#Permanent A-fib w/ LBBB s/p BiV PPM implantation on 06/30/2023
#CKD (baseline Cr: ~1.2)
#Former tobacco use ([id number], quit in 1979)
#History of pulmonary nodules suspected to be from mucous plugging
#History of pneumonia + mucous plugging from multiple prior CT chest imaging studies (including 2017, 2019+2022)
#Chronic rhinitis
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
Plan:
- Continue systemic steroids and wean as tolerated --> on 07/01 I started solumedrol 40mg IV q12hr --> transition to PO prednisone and DC with taper
- Continue nebulized bronchodilators with Atrovent + xopenex TID with q4hr prn for breakthrough symptoms
- Continue Symbicort 160mcg
- Given his severe atelectasis in particular at his RML, continue nebulized mucomyst with chest PT (ideally want to use vest but he has R-shoulder pain from recent PPM implantation - use if pt tolerates)
- Once pt ready for discharge home, consider discharging home on Tretia vs Homero
Add incentive spirometer
Encouraged OOB/ambulation
Repeat CXR showing stable findings, pleural effusion at RML/seen best in posterior view on lateral film
- Continue zithromax (started 07/01) (QTc: 492ms today) and he may need to be on this TIW upon discharge - monitor QTc given he is on digoxin
- Continue cefepime (started 07/01) given his recent Hx of Pseudomonas that was never Tx - procal is low, however he has post-obstructive pneumonia and it is unclear if the procal will be reliable in this setting as he is not septic
- Plan for 5 days zithromax and 7 days beta-lactam (if goes home DC on levaquin as this is the only PO option that covers Pseudomonas)
- Follow up blood Cx (collected 07/01)
- Follow up sputum Cx-- showing GNR, await speciation/narrow abx when able
legionella and Strep PNA urine antigens are both negative
- Maintain SpO2 >88-94% with supplemental O2 as needed
- Incentive spirometer encouraged
- Diurese as tolerated to keep net negative 1-1.5L per day over next 2-3 days, re-assessing daily based on BP, sNa, UOP and sCr
- Replete electrolytes with K>4, Mg>2
- Maintain euglycemia with goal BG >100 and <180
- DVT ppx
Encouraged OOB/PT/OT
Pulmonary service will continue to follow along.
Follows with Dr Peterson as OP
Pt being DC'd home today. We will sign off. Call back with any questions.
Patient seen and evaluated on 07/05/2023.
Data:
CT Chest w/o contrast 07-02-2023:
1. BILATERAL LOWER LOBE and RIGHT MIDDLE LOBE ENDOBRONCHIAL OCCLUSION (either secondary to aspiration or mucous plugging which has increased since 03/11/2022). New endobronchial occlusion in right lower lobe segmental bronchi, progressive
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 Complete postobstructive consolidation and atelectasis of the left lower lobe and right middle lobe.
2. MODERATE-SIZED RIGHT and SMALL to MODERATE SIZE LEFT PLEURAL EFFUSIONS which are new from 03/12/2022.
3. Mild cardiomegaly.
4. Previous TAVR.
5. New left biventricular cardiac pacemaker in place.
TTE 06-04-2023: Moderately reduced left ventricular systolic function. Left ventricular ejection fraction is 35-40% by Cisse's biplane. Global hypokinesis. Mild to moderate mitral regurgitation. Well seated, # 29 mm Evolut Pro TAVR with
peak/mean gradients of 7/3 mmHg, respectively. Abnormal (paradoxical) septal motion consistent with bundle branch block. Mild pulmonary pressure. Compared to prior study of 09/10/2022, there ejection fraction has decreased from 50-55% to 35-40% on
today's study.
Outpatient [facility] data:
PFT:
������ PFT 12/31/22: FVC 3.33/99%, FEV1 1.74/74%, ratio 52. TLC 5.15/80%, DLCO 13.84/63%. Mod Obstruction with Borderline restriction with mild gas exchange defect
�������[place] 10/09/22: FVC 2.93/82%, FEV1 1.70/71%, ratio 61. There is an 11% improvement in FEV1 following bronchodilator
�������[place] 01/23/22: FVC 3.08/85%, FEV1 1.81/71%, ratio 59. There is borderline drop in FEV1 compared to prior spirometry
�������[place] 10/24/21: FVC 3.32/92%, FEV1 2.02/80%, ratio 61. This has improved
�������[place] 05/28/21: FVC 3.02/83%, FEV1 1.64/64%, ratio 55
�������PFT 03/02/21: FVC 3.52/96%, FEV1 1.89/74%, ratio 57. TLC 6.08/90%, DLCO 12.03/52%.
6 MWT:
������ 6MWT 10/09/22: Total distance 1050 feet, desaturation louie 96%, heartrate 75, dyspnea scale 1.5/10
�������6MWT 03/27/21: Total distance 768 feet, 96% room air, heart rate 70, dyspnea scale 1/10.
RADIOGRAPHIC STUDIES:
������ CXR 04/07/23: small bilateral pleural effusions, possible pneumonia at the left base versus atelectasis
�������CXR 09/10/22: no acute findings
�������CT chest 03/11/22: 4 mm nodule image #21 and 22 right upper lobe. Mild left lower lobe consolidation with likely airway plugging. no obvious mediastinal abnormality. No change compared to 2019 imaging my review
�������CXR 10/17/21 ([facility]): per report, chest x-ray is normal. Images not available forr review
�������modified barium swallow 03/26/21: no obvious aspiration but evidence of esophageal dysmotility, slow emptying
�������CXR 02/10/21: small bilateral pleural effusions, bibasilar scar
�������Cardiac CT 04/13/19: multiple endobronchial secretions with collapse of left lower lobe, small left pleural effusion. There is also soft tissue density in the bronchi in the right lower lobe, right middle lobe. Prior right lower lobe pneumonia
has improved.
�������CT chest 01/07/18: mucous plugging right lower lobe with atelectasis. Left basilar alveolar disease, right middle lobe atelectasis, 3 cm groundglass abnormality right upper lobe image #17.
CARDIAC STUDIES:
������ Echo 09/10/22: Normal biventricular function, moderate mitral regurgitation,TAVR, PA pressure 37
�������LHC 08/08/22: no obvious coronary disease
�������Echo 01/03/21: EF 41%, moderate mitral regurgitation, TAVR, PASP 36.
LABS:
������ 04/09/23: Hemoglobin 14.6, normal serum bicarbonate, creatinine 1.3, normal calcium, normal troponin. ProBNP elevated 5210
�������08/09/22: Hemoglobin 13.2, normal serum bicarbonate, creatinine 1.1, calcium 8.2, troponin elevated at 22.3
�������01/18/22: Creatinine 1.24, normal calcium, liver function. White count normal and hemoglobin 14.3, 6.5% peripheral eosinophils
�������09/15/21: Hemoglobin 14.2, serum bicarbonate 27, creatinine 1.2, normal calcium, liver function
�������sputum culture 03/09/21: Positive for Staphylococcus.
�������02/14/21: White count 15.7, hemoglobin 15.2, serum bicarbonate 26, normal creatinine, normal liver function and proBNP 7900, troponin elevated 0.074.
Total time spent today was 35 minutes for this encounter. Time includes reviewing laboratory test/imaging results, reviewing pertinent medical records, obtaining and reviewing medical history, performing an appropriate exam, ordering medications,
tests and procedures. Time also includes documentation of this encounter, coordinating patient care and communicating with other healthcare professionals. Total time does not include separately billed tests performed on this date of service.
Subjective Data
-
Date of Service:
Date of Service: July 05, 2023
Chief Complaint: Pulmonary Follow Up
Subjective:
Seen today. Continues to feel better - denies chest pain, KEARNS, abd pain, N/V/f/c.
Review of Systems
General: Other (negative unless mentioned above)
Objective Data
Data Reviewed
Vital Signs / I&O / Oxygen:
Vital Signs
Temp Pulse Resp BP Pulse Ox
97.9 F 86 18 118/69 97
07/05/23 07:00 07/05/23 08:52 07/05/23 08:02 07/05/23 08:52 07/05/23 08:02
Intake and Output
07/04/23 07/05/23 07/06/23
06:59 06:59 06:59
Intake Total 300 / 300 780 / 780
Output Total 850 / 850 1080 / 1080
Balance -550 / -550 -300 / -300
SaO2 97
Physical Exam
General: Respiratory Distress (negative) and Comfortable
HEENT: Normocephalic and Anicteric
Cardiovascular: Irregular Rhythm and Peripheral Edema (negative)
Respiratory: Wheeze (negative), Crackles (negative), Rhonchi (negative), Accessory Resp Muscle Use (negative) and Other (decreased at bases)
GI: Soft, Non Distended, Non Tender and Normal Bowel Sounds
Neurology: AO x 3 and Tremors (negative)
Skin: Warm, Dry and Cyanosis (negative)
Labs/Micro/Reports
Lab Data
07/05/23 06:36
07/05/23 06:36
Microbiology
07/03/23 09:04 Sputum Respiratory Culture - Preliminary
Gram negative bacilli
07/03/23 09:04 Sputum Gram Stain - Preliminary
07/02/23 18:37 Blood/Venous Blood Culture - Preliminary
No Growth in 48 hours- Final report to follow
07/02/23 18:16 Urine Legionella Urinary Antigen - Final
Negative for Legionella pneumophila Serogroup 1 antigen.
A negative result does not rule out the possiblity of
Legionella infection due to other serogroups or species of
Legionella. Clinical correlation is recommended.
07/02/23 18:16 Urine Streptococcus pneumoniae Antigen (M - Final
Negative for Streptococcus pneumoniae antigen.
A negative result does not exclude infection with
Streptococcus pneumoniae. Clinical correlation is
recommended.
07/02/23 08:08 Nasal Swab Influenza Types A & B (JUD) - Final
Negative for Influenza A & B, NAAT
Negative results must be combined with clinical observations
and patient history.
Nucleic Acid Amplification test (NAAT)performed on the
[employer] platform.
--- NOTE | 2023-07-05 10:39 | CM ---
Patient seen at bedside. Patient stated that he would accept VN and CM reviewed PAC data. Patient requested referral to [facility]. CM completed IMM with patient and signed form to be completed . CM will continue to follow for discharge planning needs.
Plan; home with VN; pending acceptance.
[2023-07-05 11:16] VITALS: BP 112/64
[2023-07-05] MEDS: LANOXIN 125 MCG PO (12:19)
--- NOTE | 2023-07-05 12:55 | CON.ID ---
Consultation
-
Date/Time Consultation Requested: July 05, 2023 1014
Date/Time Consultation Performed: July 05, 2023 1300
Requesting Provider: Dr. Manjit Harley
Performing Provider: Dr. Blanca Beltre
Reason for Consultation: Pseudomonas PNA
Chief Complaint / Past History
Chief Complaint
Could not breathe when laying flat
History of Present Illness
82-year-old male with COPD, atrial fibrillation, heart failure with reduced EF, CAD, history of TAVR who was recently hospitalized from 06/20 to 06/30 with shortness of breath, A-fib with RVR, arrhythmia, status post pacemaker placement June 29.
Initially he was on ceftriaxone and doxycycline which was discontinued when the procalcitonin came back negative. Patient had panic attacks while in the hospital. He was then discharged to home on June 30. However that evening when he went up to
bed, again he had trouble breathing when he laid flat. He came back to the hospital July 01. Chest CT showed significant bilateral lower lobe and right middle lobe endobronchial mucous plugging with postobstructive consolidation of left lower lobe
and right middle lobe. He was seen by pulmonary who placed him on azithromycin and cefepime for previous sputum culture with Pseudomonas. Patient responded to aggressive airway clearance. Patient reports he has significantly improved with
pulmonary toileting. He has chronic cough productive of light yellow sputum. His shortness of breath has improved. He wants to go home soon.
Past History
Additional Past Medical History:
COPD
Atrial fibrillation on Eliquis
Heart failure with reduced EF
TAVR
CAD status post stent
Hypertension
Dyslipidemia
hx Achilles tendinitis
Anxiety attacks
Prostate cancer status post prostatectomy
Allergy History:
albuterol Allergy (Verified 07/02/23 04:38)
Unknown
animal dander Allergy (Verified 07/02/23 04:38)
Shortness of Breath
iodine Allergy (Verified 07/02/23 04:38)
shellfish allergy
pollen extracts Allergy (Verified 07/02/23 04:38)
sneezing, hayfever
shellfish derived Allergy (Verified 07/02/23 04:38)
Anaphylaxis
tree and shrub pollen Allergy (Verified 07/02/23 04:38)
sneezing, hayfever
wine spirit Allergy (Verified 07/02/23 04:38)
Anaphylaxis
sulphites Allergy (Uncoded 07/02/23 04:38)
Anaphylaxis
WINE Allergy (Uncoded 07/02/23 04:38)
Anaphylaxis
Medications Reviewed: Yes
Current Antibiotics:
Cefepime d4
Azithromycin d4
Social History
Tobacco: Former Smoker
Alcohol: Daily (vodka 1 a day)
Drug: None
Employment: Retired
Family History
Family History: Not Pertinent
Review of Systems
Review of Systems
General: Negative Fever, Chills or Change in Appetite
HEENT: Negative Sinus Problems, Headache or Pharyngitis
Cardiovascular: Negative Chest Pain
Gasteroenterology: Other (no diarrhea); Negative Nausea or Vomiting
Genital / Urological: Negative Dysuria or Flank Pain
All systems: All other systems were reviewed and were negative
Vital Signs
Temp Pulse Resp BP Pulse Ox
97.7 F 88 16 112/64 98
07/05/23 11:16 07/05/23 12:19 07/05/23 11:16 07/05/23 11:16 07/05/23 11:16
Physical Exam
Physical Exam
Constitutional: No Acute Distress and Comfortable
Eyes: Sclera Anicteric
Cardiovascular: Regular Rate, S1/S2 and Other (Left CW PPM site ecchymosis)
Pulmonary: Negative Clear, Wheezes or Rhonchi
Gastrointestinal: Soft, Non Tender, Non Distended and Normal Bowel Sounds
Extremities: Negative Edema
Neurological: AO x 3
Lab / Diagnostic Study Results
07/05/23 06:36
07/05/23 06:36
Abs Immat Gran (auto) 0.2 10^3/uL (0-0.05) H 07/05/23 06:36
Absolute Neuts (auto) 21.2 10^3/uL (1.4-6.5) H 07/05/23 06:36
Absolute Lymphs (auto) 0.5 10^3/uL (1.2-3.4) L 07/05/23 06:36
Absolute Monos (auto) 1.4 10^3/uL (0.1-0.6) H 07/05/23 06:36
Absolute Basos (auto) 0.0 10^3/uL (0-0.2) 07/05/23 06:36
Immature Gran % 0.9 % (0-0.5) H 07/05/23 06:36
Neutrophils % 91.2 % (42.2-75.2) H 07/05/23 06:36
Lymphocytes % 2.0 % (20.5-51.1) L 07/05/23 06:36
Monocytes % 5.8 % (1.7-9.3) 07/05/23 06:36
Eosinophils % 0.0 % (0-6) 07/05/23 06:36
Basophils % 0.1 % (0-2) 07/05/23 06:36
Procalcitonin < 0.05 ng/ml (0.0-0.25) 07/02/23 08:08
Microbiology Results
Micro:
07/03/23 09:04 Respiratory Culture - Preliminary
Sputum Gram negative bacilli
Gram Stain - Preliminary
07/02/23 18:37 Blood Culture - Preliminary
Blood/Venous No Growth in 48 hours- Final report to follow
07/02/23 18:16 Legionella Urinary Antigen - Final
Urine Negative for Legionella pneumophila Serogroup 1 antigen.
A negative result does not rule out the possiblity of
Legionella infection due to other serogroups or species of
Legionella. Clinical correlation is recommended.
Streptococcus pneumoniae Antigen (M - Final
Negative for Streptococcus pneumoniae antigen.
A negative result does not exclude infection with
Streptococcus pneumoniae. Clinical correlation is
recommended.
07/02/23 08:08 Influenza Types A & B (JUD) - Final
Nasal Swab Negative for Influenza A & B, NAAT
Negative results must be combined with clinical observations
and patient history.
Nucleic Acid Amplification test (NAAT)performed on the
[employer] platform.
07/02/[address]: BILATERAL LOWER LOBE and RIGHT MIDDLE LOBE ENDOBRONCHIAL OCCLUSION (either secondary to aspiration or mucous plugging which has increased since 03/11/2022). New endobronchial occlusion in right lower lobe segmental bronchi,
progressive endobronchial occlusion in the right middle lobe bronchi, and chronic endobronchial occlusion of the left lower lobe bronchus. Complete postobstructive consolidation and atelectasis of the left lower lobe and right middle lobe.
MODERATE-SIZED RIGHT and SMALL to MODERATE SIZE LEFT PLEURAL EFFUSIONS which are new from 03/12/2022.
Assessment / Plan
# COPD exacerbation - on prednisone
# Leukocytosis due to steroid
# Mucous plugging with post-obstructive pneumonitis.
- Procalcitonin negative 06/22 and 07/01.
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
-07/01 Sputum GNR
-Favor dc abx cefepime d4.
Prefer to avoid cipro/levo due to h/o Achilles tendinitis.
- Will defer azithromycin to pulm (for COPD).
- Continue airway clearance.
Care Review
Plan reviewed with: Physician (Dr. Harley)
[2023-07-05 15:20] VITALS: BP 101/59
[2023-07-05] MEDS: ATROVENT NEBULES INH ×2 (15:45→19:13)
[2023-07-05] MEDS: MUCOMYST 10% INH ×2 (15:45→19:14)
--- NOTE | 2023-07-05 18:25 | W.PN.HOSP.TC ---
Today's Communication/Plan
-
Discharge today
Assessment / Plan
Assessment / Plan
Physical Exam
General: No Apparent Distress
HEENT: Normocephalic
Respiratory: Decreased Breath Sounds Bilaterally
Cardiac: S1/S2 and Irregular Rhythm
GI: Soft, Non Tender and Normal Bowel Sounds
Musculoskeletal: No Cyanosis, Edema, Left Lower Extremity and Edema, Right Lower Extremity
Skin: Warm and Dry
Neuro: Awake, Alert and AO x 3
Psych: Calm and Intact Judgment/Insight

Assessment/Plan

CXR 06/21/23: Small bilateral pleural effusions.
CXR 06/22/23: Progressed findings suggesting medial right lower lobe pneumonia. Progressed findings suggesting mild left lower lobe pneumonia. New. Small left pleural effusion. Stable. Tiny right pleural effusion. Improved.
CXR 06/26/23: Small bilateral pleural effusions with adjacent atelectasis, similar appearance compared to previous radiographs.
CT Chest without IV Contrast:
'IMPRESSION:
1. BILATERAL LOWER LOBE and RIGHT MIDDLE LOBE ENDOBRONCHIAL OCCLUSION (either secondary to aspiration or mucous plugging which has increased since 03/11/2022). New endobronchial occlusion in right lower lobe segmental bronchi, progressive
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 Complete postobstructive consolidation and atelectasis of the left lower lobe and right middle lobe.
2. MODERATE-SIZED RIGHT and SMALL to MODERATE SIZE LEFT PLEURAL EFFUSIONS which are new from 03/12/2022.
3. Mild cardiomegaly.
4. Previous TAVR.
5. New left biventricular cardiac pacemaker in place.'

Dyspnea Secondary to HFrEF Exacerbation, Pleural Effusions, and Suspected Mucus Plugging in the Setting of COPD
Postobstructive consolidation and atelectasis of the left lower lobe and right middle lobe
Suspected Postobstructive Pneumonia
Suspected COPD Exacerbation
History of Pseudomonas
Acute HFrEF
-No hypoxia at the time of admission
-Was on solumedrol 40mg IV q8hr --> now transitioned to PO prednisone taper
-Consulted ID, recommendations appreciated: stop antibiotics, avoid cipro/levofloxacin due to history of Achilles tendinitis, defer Azithromycin to pulmonary
-Zithromax for 5 days total: for 2 more days starting on July 06, 2023
-Continue Atrovent + xopenex
-Nebulized Mucomyst with chest PT -- but keep in mind patient's recent PPM placement
-Consider Trelegy vs Breztri outpatient
-Maintain SpO2 >88-94% with supplemental O2 as needed
-Pulmonary consulted, recommendations appreciated
-Mucinex
-Status post IV Lasix
-Continue PO Lasix on discharge
-Entresto
-Farxiga
-Toprol XL
-I's and O's, daily weights
Periods of Hypotension
-At times BP improves and when it improves can give his cardiac meds
-Continue to monitor blood pressure
NSVT
-Continue CCB and BB
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
-Chronic LBBB
-Continue Toprol-XL
-Continue Cardizem
-Continue Eliquis 5 mg BID
-Rate control with Digoxin 250 mcg QD until AVJ ablation.
-Plan for AVJ ablation as outpatient in 4-6 weeks (follow-up with Dr. Durant)
Panic attack/Anxiety:
-Ativan as needed
-psych following
Other problems:
COPD: cont Symbicort/Singulair
s/p TAVR
CAD with h/o stent, prior NSTEMI in setting of OM1 dissection 07/2022: cont BB/Plavix/statin
Essential Hypertension: cont BB
Hyperlipidemia: cont statin
Prostate cancer s/p prostatectomy
FULL/Eliquis
More than 30 minutes spent in discharge including
Final examination of the patient
Summarizing hospital stay
Instructions for continuing care to all relevant caregivers
Preparation of discharge records, prescriptions, and referral forms
Total time spent (in minutes): 41
Anticipated Discharge: Today
Subjective/Interval History
-
Date of Service: July 05, 2023
Patient was seen and examined. He reported feeling better than yesterday, denied any significant chest pain or shortness of breath.
Objective Data
-
Labs:
Laboratory Results
07/05/23
06:36
WBC 23.2 H
Hgb 12.6 L
Hct 37.4 L
Plt Count 278
Sodium 140
Potassium 4.8
Chloride 108 H
Carbon Dioxide 23
BUN 38 H
Creatinine 1.2
Glucose 111 H
Calcium 8.8
Vital Signs:
Vital Signs
Temp Pulse Resp BP Pulse Ox
98.5 F 68 16 113/52 98
07/05/23 15:20 07/05/23 15:49 07/05/23 15:20 07/05/23 15:49 07/05/23 15:20
I&O
07/04/23 07/05/23 07/06/23
06:59 06:59 06:59
Intake Total 300 / 300 780 / 780 900 / 900
Output Total 850 / 850 1080 / 1080 1075 / 1075
Balance -550 / -550 -300 / -300 -175 / -175
--- NOTE | 2023-07-05 19:01 | W.DS.TRANS ---
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
-
Discharge Instructions:
Sleep Apnea Risk Intermediate
Discharge Diagnosis/Procedures Dyspnea Secondary to HFrEF Exacerbation, Pleural
Effusions, and Suspected Mucus Plugging in the
Setting of COPD
Postobstructive consolidation and atelectasis of
the left lower lobe and right middle lobe
Suspected Postobstructive Pneumonia
Suspected COPD Exacerbation
History of Pseudomonas
Acute HFrEF
Periods of Hypotension
Non-sustained ventricular tachycardia
Permanent Atrial Fibrillation with RVR status
post ECONOMIC HISTORY TEACHER-P with Conduction system pacing and CS
LV pacing lead Pacemaker implantation, on June 29
, 2023
Panic Attack/Anxiety
COPD
Aortic Stenosis status post TAVR
CAD with h/o stent, prior NSTEMI in setting of
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
Essential Hypertension
Hyperlipidemia
Prostate cancer status post prostatectomy
Diet Restrict fluids to 64 oz,Low Sodium
Activity As tolerated
Driving Restrictions Not until seen by your Dr
Other Services VN
Specialty Instructions Weigh Daily
Instructions: *CBC Heart Failure Instructions
Stand-Alone Forms:
Changes to Home Medications: Yes
Discharge Medications:
DC Medications w/original date entered in [employer]
ascorbic acid (vitamin C) 250 mg tablet 250 mg PO MOWEFR@0800 Supplement 03/31/19
rosuvastatin 5 mg tablet 5 mg PO MOTUWETHFR@0800 High cholesterol 07/14/19
loratadine 10 mg tablet 10 mg PO DAILY Allergies 02/28/20
montelukast 10 mg tablet 10 mg PO HS Lung/breathing issues 02/28/20
multivitamin with folic acid 400 mcg tablet (Tab-A-Tl) 1 tab PO DAILY Supplement 02/28/20
cyanocobalamin (vitamin B-12) 250 mcg tablet 250 mcg PO DAILY Supplement 08/07/22
levalbuterol tartrate 45 mcg/actuation aerosol inhaler 1 puff inhalation R Q4HPRN PRN shortness of breath 08/07/22
apixaban 5 mg tablet (Eliquis) 5 mg PO BID Blood Clot Prevention/Tx 04/07/23
budesonide-formoterol HFA 160 mcg-4.5 mcg/actuation aerosol inhaler (Symbicort) 2 inh inhalation R BID Lung/Breathing Issues 04/07/23
clopidogrel 75 mg tablet 75 mg PO DAILY Blood Clot Prevention/Tx 04/07/23
Mometasone 1 mg irrigation BID 06/21/23
Tobramycin 20 mg irrigation BID 06/21/23
biotin 10,000 mcg capsule 10,000 mcg PO DAILY Supplement 06/21/23
calcium carbonate 250 mg PO MOWEFR@0800 Supplement 06/21/23
cholecalciferol (vitamin D3) 25 mcg (1,000 unit) tablet 25 mcg PO DAILY Supplement 06/21/23
ipratropium bromide 0.02 % solution for inhalation 2.5 ml inhalation R DAILYPRN PRN shortness of breath 06/21/23
ipratropium bromide 0.02 % solution for inhalation 2.5 ml inhalation R TID Lung/Breathing Issues 06/21/23
acetaminophen 325 mg tablet (Tylenol) 650 mg PO Q6HPRN PRN mild pain 07/02/23
dapagliflozin propanediol 10 mg tablet 10 mg PO DAILY Heart Failure 07/02/23
diltiazem HCl 180 mg capsule,extended release 24 hr 360 mg PO DAILY Arrhythmia 07/02/23
furosemide 40 mg tablet 40 mg PO BID AT 0800,1600 Fluid Retention/Swelling 07/02/23
guaifenesin 600 mg tablet, extended release 12 hr 600 mg PO [id number] PRN cough 07/02/23
metoprolol succinate 50 mg tablet,extended release 24 hr 100 mg PO BID Blood Pressure 07/02/23
mirtazapine 7.5 mg tablet 7.5 mg PO HS Mental Health 07/02/23
potassium chloride 20 mEq tablet,extended release(part/cryst) 40 meq PO DAILY Electrolyte Repletion 07/02/23
sacubitril 24 mg-valsartan 26 mg tablet (Entresto) 1 tab PO BID Heart Failure 07/02/23
azithromycin 250 mg tablet 250 mg PO DAILY 2 days #2 tabs 07/05/23
digoxin 125 mcg (0.125 mg) tablet 125 mcg PO NOON #60 tabs 07/05/23
prednisone 10 mg tablet See Rx Instructions .Route .COMPLEX #40 tabs 07/05/23
Home Medication Changes
-Digoxin medication has been decreased in dose
-Prednisone taper is a new medication.
-Azithromycin is a new medication.
-Tobramycin is on hold and should only be resumed if your outpatient physicians say it is okay to resume this medication.
-Amoxicillin-Pot Clavulanate has been stopped.
Pending Results: Yes
Additional Pending Results:
Final results of microbiology studies from hospitalization.
Total time spent discharging patient (in min): 41
[2023-07-05 19:13] VITALS: BP 124/65
[2023-07-05] MEDS: SYMBICORT 160/4.5 MCG INHALER INH (19:14)
--- NOTE | 2023-07-10 10:53 | W.DCSUMMARY ---
Discharge Summary
Discharge Data
Date of Admission: 07/02/23
Date of Discharge: 07/05/23
Total time spent discharging patient (in min): 41
-
Pending Results: Yes
Additional Pending Results:
Final results of microbiology studies from hospitalization.
Hospital Course
82 y/o male with past medical history of a-fib with RVR s/p UNARMED SECURITY GUARD-P 06/30/23 (with plans for future AVJ ablation), TAVR 2019, chronic HFrEF, permanent A fib on Eliquis, CAD/NSTEMI in setting of OM1 dissection 07/2022, and COPD (sees Dr. Peterson
outpatient) who was discharged the day before presentation after being hospitalized for shortness of breath, and treated for a-fib with RVR s/p UNARMED SECURITY GUARD-P 06/30/23 (with plans for future AVJ ablation), CHF and PNA. Patient said that after he was
discharged, he was feeling better overall, but he became significantly short of breath at night, which prompted him to come to the ER. He also reported some increase in bilateral leg swelling.
Patient was started on intravenous diuresis for acute heart failure, and also treated for a COPD exacerbation, as well as a possible postobstructive pneumonia. He was found to have atelectasis and mucus plugging. Broad spectrum antibiotics and
intravenous steroids were started. He was also started on nebulized mucomyst.
Patient's digoxin dose was reduced by cardiology to reduce chances of digoxin toxicity. Infectious Disease was consulted as well.
Discharge Plan
-
Patient Disposition: Home with Home Care
Discharge Diagnosis/Procedures: Dyspnea Secondary to HFrEF Exacerbation, Pleural Effusions, and Suspected Mucus Plugging in the Setting of COPD
Postobstructive consolidation and atelectasis of the left lower lobe and right middle lobe
Suspected Postobstructive Pneumonia
Suspected COPD Exacerbation
History of Pseudomonas
Acute HFrEF
Periods of Hypotension
Non-sustained ventricular tachycardia
Permanent Atrial Fibrillation with RVR status post UNARMED SECURITY GUARD-P with Conduction system pacing and CS LV pacing lead Pacemaker implantation, on June 30, 2023
Panic Attack/Anxiety
COPD
Aortic Stenosis status post TAVR
CAD with h/o stent, prior NSTEMI in setting of OM1 dissection 07/2022
Essential Hypertension
Hyperlipidemia
Prostate cancer status post prostatectomy
Condition: Fair
Diet: Low Sodium and Restrict fluids to 64 oz
Activity: As tolerated
Driving Restrictions: Not until seen by your Dr
Other Services: VN
Specialty Instructions: Weigh Daily- Call MD for wt gain/loss 3 lbs overnight/5 lbs in 1 week
Activity Restrictions/Additional Instructions:
You need to follow-up and see your primary care physician by Friday July 07, 2023 and have repeat labwork (CBC, BMP and Magnesium) done through their office at that time.
Instructions: *CBC Heart Failure Instructions
Referrals:
Patricia Peterson MD [Active] - in one to two weeks
Arely Russo CRNP [Specified Professional Personl] - 07/09/23 8:40 am
Meng Granda DO [Family Provider] - in two to three days
Additional Discharge Medication Instructions: -Your Digoxin medication has been decreased in dose -- please corn picker the new digoxin from the pharmacy on July 06, 2023 and take the new dose -- do not take the old Digoxin.
-Prednisone taper is a new medication.
-Azithromycin is a new medication.
-Tobramycin is on hold and should only be resumed if your outpatient physicians say it is okay to resume this medication.
-Amoxicillin-Pot Clavulanate has been stopped.
Prescriptions:
New
prednisone 10 mg tablet
See Rx Instructions .ROUTE .COMPLEX Qty: 40 0RF
Rx Instructions:
50 mg/day x2 days; 40 mg/day x3 days; 30 mg/day x3 days; 20 mg/day x3 days; 10mg/day x3 days
digoxin 125 mcg (0.125 mg) Tablet
125 mcg PO NOON Qty: 60 1RF
azithromycin 250 mg Tablet
250 mg PO DAILY 2 Days Qty: 2 0RF
Continued
ascorbic acid (vitamin C) 250 MG tablet
250 mg PO MOWEFR@0800
rosuvastatin 5 MG tablet
5 mg PO MOTUWETHFR@0800
montelukast 10 MG tablet
10 mg PO HS
loratadine 10 MG tablet
10 mg PO DAILY
multivitamin with folic acid [Tab-A-Tl] 1 TABLET tablet
1 tab PO DAILY
levalbuterol tartrate 45 mcg/actuation HFA aerosol inhaler
1 puff INHALATION R Q4HPRN PRN (Reason: shortness of breath)
cyanocobalamin (vitamin B-12) 250 mcg Tablet
250 mcg PO DAILY
budesonide-formoterol [Symbicort] 160-4.5 mcg/actuation Hfa Aerosol Inhaler
2 inh INHALATION R BID
clopidogrel 75 mg tablet
75 mg PO DAILY
Eliquis 5 mg tablet
5 mg PO BID
calcium carbonate 500 mg calcium (1,250 mg) Tablet
250 mg PO MOWEFR@0800
biotin 10,000 mcg Capsule
10,000 mcg PO DAILY
ipratropium bromide 0.02 % Solution
2.5 ml INHALATION R TID
ipratropium bromide 0.02 % Solution
2.5 ml INHALATION R DAILYPRN PRN (Reason: shortness of breath)
cholecalciferol (vitamin D3) 25 mcg (1,000 unit) Tablet
25 mcg PO DAILY
Mometasone 1 mg capsule
1 mg irrigation BID
Patient Comments:
directions from label: ADD CONTENTS OF ONE CAPSULE TO 240 ML SALINE. IRRIGATE EACH NOSTRIL USING NEILMED WITH 120 ML OF MEDICATED SALINE TWICE DAILY.
guaifenesin 600 mg tablet extended release 12hr
600 mg PO [id number] PRN (Reason: cough)
acetaminophen [Tylenol] 325 mg Tablet
650 mg PO Q6HPRN PRN (Reason: mild pain)
furosemide 40 mg tablet
40 mg PO BID AT 0800,1600
diltiazem HCl 180 mg capsule,extended release 24hr
360 mg PO DAILY
metoprolol succinate 50 mg tablet extended release 24 hr
100 mg PO BID
potassium chloride 20 mEq tablet,ER particles/crystals
40 meq PO DAILY
mirtazapine 7.5 mg tablet
7.5 mg PO HS
dapagliflozin propanediol 10 mg tablet
10 mg PO DAILY
Entresto 24-26 mg tablet
1 tab PO BID
Held
Tobramycin 20 mg capsule
20 mg irrigation BID
Hold Instructions: Resume on 07/19/23. Resume this medication if and only if your outpatient physicians say it is okay to resume this medication.
Patient Comments:
directions from label: ADD CONTENTS OF ONE CAPSULE TO 240 ML SALINE. IRRIGATE EACH NOSTRIL USING NEILMED WITH 120 ML OF MEDICATED SALINE TWICE DAILY.
Discontinued
amoxicillin-pot clavulanate 875-125 mg Tablet
1 tab PO Q12H
Patient Comments:
filled on 06/17/2023 and instructed to take one tablet Q12H for 10 days.
digoxin 250 mcg (0.25 mg) tablet
250 mcg PO NOON
Discharge Orders:
Discharge Patient (As Directed); Ordered 07/05/23
Ordered By: Manjit Harley
Discharge Date and Time
Discharge Date/Time: 07/05/23 20:00
Print Language: TELUGU
== END 2023-07-05 20:00 | disposition home health service (06) | DRG 291 ==
LOC: 4 EAST ACU 11:13
PROVIDERS: Student in an Organized Health Care Education/Training Program; ADMITTING PHYSICIAN Hospitalist; CONSULT PHYSICIAN Internal Medicine Critical Care Medicine; CONSULT PHYSICIAN Internal Medicine Infectious Disease; EMERGENCY PHYSICIAN Emergency Medicine; FAMILY PHYSICIAN Family Medicine
DX: I13.0 Hypertensive heart and chronic kidney disease with heart failure and stage 1 through stage 4 chronic kidney disease, or unspecified chronic kidney disease (principal); I50.23 Acute on chronic systolic (congestive) heart failure; J15.1 Pneumonia due to Pseudomonas; J44.1 Chronic obstructive pulmonary disease with (acute) exacerbation; J98.11 Atelectasis; I24.89 Other forms of acute ischemic heart disease; J44.0 Chronic obstructive pulmonary disease with (acute) lower respiratory infection; I48.21 Permanent atrial fibrillation; I47.20 Ventricular tachycardia, unspecified; Z11.52 Encounter for screening for COVID-19; I5A Non-ischemic myocardial injury (non-traumatic); Z87.891 Personal history of nicotine dependence; I25.2 Old myocardial infarction; D64.9 Anemia, unspecified; Z79.01 Long term (current) use of anticoagulants; F41.0 Panic disorder [episodic paroxysmal anxiety]; F41.1 Generalized anxiety disorder; N18.9 Chronic kidney disease, unspecified
CPT/HCPCS: 71046; 71250; 80048; 80053; 80162; 83735; 83880; 84145; 84484; 85025; 87040; 87070; 87077; 87186; 87205; 87449; 87502; 87811; 87899; 93005; 94640; 94667; 94668; 94760; 96374; 99285

== ENCOUNTER → 2023-07-24 11:55 | Outpatient (REF) | payer OTHER, SELFPAY ==
[2023-07-24 13:25] LABS: % Basophils 0.6 % (0-2); % Eosinophils 1.7 % (0-6); % Immature Granulocytes 0.7 % (0-0.5); % Lymphocytes 5.5 % (20.5-51.1); % Monocytes 9.3 % (1.7-9.3); % Neutrophils 82.2 % (42.2-75.2); Absolute Basophils 0.1 10^3/uL (0-0.2); Absolute Eosinophils 0.2 10^3/uL (0-0.7); Absolute Immature Granulocytes 0.1 10^3/uL (0-0.05); Absolute Lymphocytes 0.6 10^3/uL (1.2-3.4); Absolute Neutrophils 8.5 10^3/uL (1.4-6.5); Hematocrit 39.4 % (39.0-52.0); Hemoglobin 13.3 g/dL (13.0-18.0); Mean Corp Hgb Conc. 33.8 g/dL (33.0-37.0); Mean Corpuscular Hgb 32.7 pg (27.0-31.0); Mean Corpuscular Volume 96.8 fL (80.0-94.0); Mean Platelet Volume 10.4 fL (7.4-10.4); Nucleated Red Blood Cells % 0 % (-); Platelet Count 142 10^3/uL (130-400); Red Blood Cell Count 4.07 10^6/uL (4.70-6.10); Red Cell Dist. Width 15.2 % (11.5-14.5); White Blood Cell Count 10.3 10^3/uL (4.8-10.8)
[2023-07-24 13:27] LABS: Albumin 3.4 g/dl (3.5-5.0); Blood Urea Nitrogen 27 mg/dl (9-20); Calcium 8.2 mg/dl (8.4-10.2); Carbon Dioxide 29 mmol/L (22-30); Chloride 104 mmol/L (98-107); Glucose 110 mg/dl (70-99); Potassium 3.8 mmol/L (3.5-5.1); Sodium 141 mmol/L (135-145); eGFR 42.49
== END ==
LOC: RCS 11:55
PROVIDERS: ATTENDING PHYSICIAN Internal Medicine Cardiovascular Disease; FAMILY PHYSICIAN Family Medicine
DX: Z95.0 Presence of cardiac pacemaker (principal); I48.0 Paroxysmal atrial fibrillation; I48.21 Permanent atrial fibrillation; R42 Dizziness and giddiness; I95.1 Orthostatic hypotension
CPT/HCPCS: 93308; 36415; 80069; 85025; 93321; 93325

== ENCOUNTER 2023-07-24 18:15 | Inpatient (IN) | payer OTHER, SELFPAY ==
[2023-07-24] VITALS (7 sets, daily range): BP systolic 102–144; BP diastolic 55–105; BMI 22.1; BMI 22.6
--- NOTE | 2023-07-24 15:46 | ED.GENMED ---
History of Present Illness
General
Chief Complaint: Fainting/Passed Out
Source: patient, records and spouse
Exam Limitations: none
Time Seen by Provider: 07/24/23 15:06
Nursing documentation reviewed up to this point in time: agreed with
Travel History
Have you had any contact with someone who has COVID-19?: No
Do you have any symptoms of coronavirus? Fever > 100 degrees, chills, cough, shortness of breath, sore throat, loss of taste or smell, muscle aches, or headache?: No
History of Present Illness
History of Present Illness:
82-year-old male with a past medical history of asthma/COPD, atrial fibrillation, congestive heart failure, hypertension, hyperlipidemia who presents to the emergency room for evaluation after episode of syncope/presyncope. Patient had 2 recent
admissions to the hospital for CHF, A-fib with RVR as well as pneumonia. He says that since his hospitalization he has had rather consistent lightheadedness; he says that his gold plater has been adjusting his medications which seem to be helping
a bit. He says that today he saw Dr. Thompson in the office (normally sees Dr. Mchugh) and patient says that he was referred for outpatient echocardiogram and lab work after his appointment. He says that he received the blood work and
echocardiogram and was waiting for the results in a chair when he suddenly began to feel extremely lightheaded as if he might pass out. He says he does not believe he lost consciousness but a rapid response was called due to diminished
responsiveness. He was brought over to the emergency room to be assessed. He says that he felt somewhat nauseated during the episode but did not have any chest pain. He says he did not feel short of breath. He did not have any headache or
abdominal pain/flank pain. He did not feel any palpitations. He says that he feels fine here and has no complaints. Total duration of this episode was roughly 10 to 15 minutes he says. Of note he did have percutaneous pacemaker placed few weeks
ago but reports that this is not yet functional.
Past History
Past History
ED Past Medical History: Arrthythmia (Atrial fib), Asthma, CAD, Cancer (Prostate CA), COPD, HTN, Hypercholesterolemia, Valvular disease and Other (chronic sinusitis, colon polyps, Vertigo, Ataxia, PNA,)
ED Past Surgical History: Cardiac (Stents), Urological (prostatectomy) and Other (colon polypectomy)
Social History
Tobacco: Former smoker (quit 45 years ago)
Alcohol: Daily (Vodka 1)
Drug: None
Personal:
Living: with family
Employment: Retired
Family History
Family History: Other (n/c)
Review of Systems
Review of Systems
All Other Systems: ROS reviewed and negative except as documented in HPI and ROS
Constitutional: Denies fever
Respiratory: Denies cough or trouble breathing
Cardiac: Reports syncope; Denies chest pain, diaphoresis or palpitations
ABD/GI: Reports nausea; Denies abdominal pain, vomiting or diarrhea
: Denies flank pain
Musculoskeletal: Denies neck pain or back pain
Neurological: Reports dizzy; Denies headache, weakness or numbness
Phy Exam
Physical Exam
Physical Exam:
General: Awake, alert, oriented x3; no acute distress
Head: Normocephalic, atraumatic
Eyes: Conjunctiva normal, pupils equal round and reactive to light bilaterally
Throat: Airway intact, handling secretions
Neck: Trachea midline, supple without meningismus
Lungs: Clear to auscultation bilaterally, no wheezing, rales, rhonchi
Heart: Regular rate and rhythm, no murmurs, gallops, or rubs; left upper chest wall pacemaker with no overlying erythema, well-healing incision
Abd: Soft, non distended, nontender with no abdominal mass
Neuro: Cranial nerves grossly intact, speech fluid, no gross motor or sensory deficit
Skin: no rash
Extremities: No edema in extremities, equal pulses in all extremities
Scores
Heart Failure Risk
Heart Failure Risk Score: Not Applicable
Heart Score for Chest Pain Patients
STEMI patient?: Not applicable
Withdrawal Assessment of Alcohol
Withdrawal Assessment Completed?: Not applicable
Course
Orders/Labs/Results
Orders:
Orders
07/24/23 14:46
EKG [Electrocardiogram (*1)] Urgent
Reason for Study: Syncope
EKG- Treatment ONCE
07/24/23 14:56
Cardiac Monitoring- Treatment ONCE
07/24/23 15:10
Interrogate Pacemaker- Treatment ONCE
07/24/23 15:46
CARDIOLOGY CONSULT Urgent
Consulting Provider: Octavio Mchugh
Was physician already notified: Yes
07/24/23 16:17
CT Head W/o Iv Contrast Urgent
Comment:
Reason For Exam: dizziness, syncope
0.9% Sodium Chloride 250 ml [Nss] 250 ml IV BOLUS
07/24/23 16:29
Digoxin Urgent
07/25/23 06:00
Echo Gomez W/echo Doppler (#17) IN AM
Reason for Study: eval for possible bubbles in LV
NPO
Allow oral meds: Yes
Allow clear liquids: No
07/24/23 14:57
07/24/23 14:57
Vital Signs
Initial and Last Documented VS:
Initial Vital Signs
Temp Pulse Resp BP Pulse Ox
36.4 C 62 17 130/90 100
07/24/23 14:56 07/24/23 14:56 07/24/23 14:56 07/24/23 14:56 07/24/23 14:56
Last Documented Vital Signs
Temp Pulse Resp BP Pulse Ox
36.4 C 62 17 130/90 100
07/24/23 14:56 07/24/23 14:56 07/24/23 14:56 07/24/23 14:56 07/24/23 14:56
MDM/Problems Addressed
Differential Diagnosis Includes:
Polypharmacy, vasovagal syncope, dysrhythmia, valvular disease, anemia, dehydration, hypoglycemia
MDM/Problems Addressed:
82-year-old male presents from outpatient lab�seen by cardiology in the office and referred for echocardiogram and lab work and while he was waiting for the results sitting in the chair had abrupt onset of syncope/presyncope. Episode lasted for
about 10 minutes and now resolved. He has no symptoms here in the ER. His vital signs are normal. Exam as above. EKG shows A-fib with rate of 102. I reviewed his outpatient lab work and his CBC showed no significant abnormalities�normal
hemoglobin of 13.3 and no leukocytosis. His CMP showed a creatinine of 1.6 which is slightly increased from his discharge value of 1.2 consistent with mild ENRRIQUE. Will check digoxin level. Will interrogate device. Discussed case with cardiology to
evaluate.
[employer] report received from device rep: Apparently patient had 1 to 2-second episode of NSVT just prior to arrival here but otherwise no events and pacemaker appears to be functional despite patient's report.
Discussed with cardiology they recommended checking CT head, IV fluids and admission to the hospitalist for monitoring. Will admit pending CT.
CT no acute pathology. Case discussed with hospitalist for admission.
Chronic conditions affecting care:
CHF, atrial fibrillation
*Radiology
Radiology exam reviewed: radiology read reviewed
*Pulse Oximetry
Patient hypoxic: no
*EKG
Interpreted by ED Provider?: Yes
Heart Rate: 102
Rate: tachycardiac
Rhythm: a-fib
[place]: normal axis
Interval: normal interval
QRS Pattern: left bundle branch block
Ischemia: non-specific ST changes
*Critical Care Note
Total Time (30-74mins, 75-104mins- exclusive of procedures): Not Applicable
Data Reviewed
Review of Other/Old Records Reveals: Labs, Records, Testing (Outpatient echocardiogram) and Discharge Summary
Source: patient, records and spouse
Patient Management
Discussion with other providers: Hospitalist (Discussed with hospitalist) and Periodicals Clerk (Discussed with cardiology)
Escalation/DeEscalation of care consider admission/obs:
Admission indicated
ED Attending Note
-
Portions of this chart may have been created with voice recognition software.� Occasional wrong word or��sound alike� substitutions may have occurred due to the inherent limitations of voice recognition software.
Discharge Plan
Departure
Patient Disposition: Admit
Date of Disposition: 07/24/23
Time of Disposition: 17:23
Admit to doctor: [place]
Presentation/result/management discussed w/ accepting MD/DO: Hospitalist
Discharge Problem:
Syncope
Prescriptions:
No Action
ascorbic acid (vitamin C) 250 MG tablet
250 mg PO MOWEFR@0800
rosuvastatin 5 MG tablet
5 mg PO MOTUWETHFR@0800
montelukast 10 MG tablet
10 mg PO HS
loratadine 10 MG tablet
10 mg PO DAILY
multivitamin with folic acid [Tab-A-Tl] 1 TABLET tablet
1 tab PO DAILY
levalbuterol tartrate 45 mcg/actuation HFA aerosol inhaler
1 puff INHALATION R Q4HPRN PRN (Reason: shortness of breath)
cyanocobalamin (vitamin B-12) 250 mcg Tablet
250 mcg PO DAILY
budesonide-formoterol [Symbicort] 160-4.5 mcg/actuation Hfa Aerosol Inhaler
2 inh INHALATION R BID
clopidogrel 75 mg tablet
75 mg PO DAILY
Eliquis 5 mg tablet
5 mg PO BID
calcium carbonate 500 mg calcium (1,250 mg) Tablet
250 mg PO MOWEFR@0800
biotin 10,000 mcg Capsule
10,000 mcg PO DAILY
ipratropium bromide 0.02 % Solution
2.5 ml INHALATION R TID
ipratropium bromide 0.02 % Solution
2.5 ml INHALATION R DAILYPRN PRN (Reason: shortness of breath)
cholecalciferol (vitamin D3) 25 mcg (1,000 unit) Tablet
25 mcg PO DAILY
Mometasone 1 mg capsule
1 mg irrigation BID
Patient Comments:
directions from label: ADD CONTENTS OF ONE CAPSULE TO 240 ML SALINE. IRRIGATE EACH NOSTRIL USING NEILMED WITH 120 ML OF MEDICATED SALINE TWICE DAILY.
Tobramycin 20 mg capsule
20 mg irrigation BID
Hold Instructions: Resume on 07/19/23. Resume this medication if and only if your outpatient physicians say it is okay to resume this medication.
Patient Comments:
directions from label: ADD CONTENTS OF ONE CAPSULE TO 240 ML SALINE. IRRIGATE EACH NOSTRIL USING NEILMED WITH 120 ML OF MEDICATED SALINE TWICE DAILY.
guaifenesin 600 mg tablet extended release 12hr
600 mg PO [id number] PRN (Reason: cough)
acetaminophen [Tylenol] 325 mg Tablet
650 mg PO Q6HPRN PRN (Reason: mild pain)
furosemide 40 mg tablet
40 mg PO BID AT 0800,1600
diltiazem HCl 180 mg capsule,extended release 24hr
360 mg PO DAILY
metoprolol succinate 50 mg tablet extended release 24 hr
100 mg PO BID
potassium chloride 20 mEq tablet,ER particles/crystals
40 meq PO DAILY
mirtazapine 7.5 mg tablet
7.5 mg PO HS
dapagliflozin propanediol 10 mg tablet
10 mg PO DAILY
Entresto 24-26 mg tablet
1 tab PO BID
prednisone 10 mg tablet
See Rx Instructions .ROUTE .COMPLEX Qty: 40 0RF
Rx Instructions:
50 mg/day x2 days; 40 mg/day x3 days; 30 mg/day x3 days; 20 mg/day x3 days; 10mg/day x3 days
digoxin 125 mcg (0.125 mg) Tablet
125 mcg PO NOON Qty: 60 1RF
azithromycin 250 mg Tablet
250 mg PO DAILY 2 Days Qty: 2 0RF
Referrals:
Meng Granda, [Family Provider] -
Interventions
Interventions:
*Risk Screen - Suicide Last Done: 07/24/23 15:32
*General Assessment Last Done: 07/24/23 15:32
*Neglect/Abuse Screening Last Done: 07/24/23 15:32
ED- Fall Risk Assessment Last Done: 07/24/23 15:33
*ED COVID-19 Vaccine History Last Done: 07/24/23 14:47
ED- Cardiac Assessment Last Done: 07/24/23 15:06
ED- Neurological Assessment Last Done: 07/24/23 15:06
Discharge Date and Time
Print Language: [id number]
[2023-07-24] MEDS: NSS 250 IV (16:31)
--- NOTE | 2023-07-24 17:27 | HPS.HSE ---
Family Physician
-
Family Physician: Meng Granda
Chief Complaint
-
presyncope
History of Present Illness
HPI: 82-year-old male with PMH permanent Afib s/p percutaneous pacemaker placement 06/30/23 (with plans for outpatient AVJ ablation), TAVR 2019, chronic HFrEF, CAD/NSTEMI in setting of OM1 dissection 07/2022, COPD (sees Dr. Peterson outpatient); p/w
presyncope while sitting on a chair waiting for his outpatient echocardiogram result. He was sent to the emergency room from the cardiology office. Pt denies to LOC, but endorses to feeling dizzy for over a month.
He denies to other symptoms, no SOB, CP etc.
Of note, he was recently admitted and discharged on 07/05/2023 for acute CHF and COPD exacerbation. He was also treated for possible postobstructive pneumonia at that time.
Medical History
Past Medical History
Past Medical History: Reports Other (As per HPI above)
Past Surgical History: Reports Other (Cardiac Pacemaker, TAVR, Cardiac (Stents), Urological (prostatectomy) and Other (colon polypectomy))
Social History
Tobacco: Former Smoker
Alcohol: Occasional
Drug: None
Family History
Family History: Cancer and Other (Stroke)
Allergies / Home Medications
Allergies reflects when Allergies were last updated in [facility].
Home Medications with original date entered in [facility]
Allergy/Medication List:
Allergies
Allergy/AdvReac Type Severity Reaction Status Date / Time
albuterol Allergy Unknown Verified 07/24/23 14:49
animal dander Allergy Shortness Verified 07/24/23 14:49
of Breath
iodine Allergy shellfish Verified 07/24/23 14:49
allergy
pollen extracts Allergy sneezing, Verified 07/24/23 14:49
hayfever
shellfish derived Allergy Anaphylaxis Verified 07/24/23 14:49
tree and shrub pollen Allergy sneezing, Verified 07/24/23 14:49
hayfever
wine spirit Allergy Anaphylaxis Verified 07/24/23 14:49
sulphites Allergy Anaphylaxis Uncoded 07/24/23 14:49
WINE Allergy Anaphylaxis Uncoded 07/24/23 14:49
Home Medications
ascorbic acid (vitamin C) 250 mg tablet 250 mg PO MOWEFR@0800 Supplement 03/31/19
rosuvastatin 5 mg tablet 5 mg PO MOTUWETHFR@0800 High cholesterol 07/14/19
loratadine 10 mg tablet 10 mg PO DAILY Allergies 02/28/20
montelukast 10 mg tablet 10 mg PO HS Lung/breathing issues 02/28/20
multivitamin with folic acid 400 mcg tablet (Tab-A-Tl) 1 tab PO DAILY Supplement 02/28/20
cyanocobalamin (vitamin B-12) 250 mcg tablet 250 mcg PO DAILY Supplement 08/07/22
levalbuterol tartrate 45 mcg/actuation aerosol inhaler 1 puff inhalation R Q4HPRN PRN shortness of breath 08/07/22
apixaban 5 mg tablet (Eliquis) 5 mg PO BID Blood Clot Prevention/Tx 04/07/23
budesonide-formoterol HFA 160 mcg-4.5 mcg/actuation aerosol inhaler (Symbicort) 2 inh inhalation R BID PRN Lung/Breathing Issues 04/07/23
clopidogrel 75 mg tablet 75 mg PO DAILY Blood Clot Prevention/Tx 04/07/23
Mometasone 1 mg irrigation BID 06/21/23
biotin 10,000 mcg capsule 10,000 mcg PO DAILY Supplement 06/21/23
calcium carbonate 250 mg PO MOWEFR@0800 Supplement 06/21/23
cholecalciferol (vitamin D3) 25 mcg (1,000 unit) tablet 25 mcg PO DAILY Supplement 06/21/23
ipratropium bromide 0.02 % solution for inhalation 2.5 ml inhalation R QIDPRN PRN shortness of breath 06/21/23
dapagliflozin propanediol 10 mg tablet 10 mg PO HS Heart Failure 07/02/23
furosemide 40 mg tablet 40 mg PO BID AT 0800,1600 Fluid Retention/Swelling 07/02/23
metoprolol succinate 50 mg tablet,extended release 24 hr 100 mg PO BID Blood Pressure 07/02/23
potassium chloride 20 mEq tablet,extended release(part/cryst) 20 meq PO BID Electrolyte Repletion 07/02/23
sacubitril 24 mg-valsartan 26 mg tablet (Entresto) 1 tab PO BID Heart Failure 07/02/23
ipratropium bromide 21 mcg (0.03 %) nasal spray 2 spray intranasal BID PRN congestion 07/24/23
nitroglycerin 0.4 mg sublingual tablet (Nitrostat) 0.4 mg sublingual [id number] PRN chest pain 07/24/23
Review of Systems
-
Respiratory: Denies Trouble Breathing
Cardiac: Reports See HPI and Syncope; Denies Chest Pain, Diaphoresis or Palpitations
Abdomen/GI: Denies Abdominal Pain
Physical Exam
Vital Signs
Vital Signs
Temp Pulse Resp BP Pulse Ox
36.4 C 62 17 130/90 100
07/24/23 14:56 07/24/23 14:56 07/24/23 14:56 07/24/23 14:56 07/24/23 14:56
Physical Exam
General: Well Developed, Well Nourished, No Apparent Distress, Comfortable and Conversant
HEENT: NormoCephalic, Moist mucous membranes and Atraumatic
Respiratory: Clear
Cardiac: S1/S2 and Regular Rhythm; No Murmur or Rub
GI: Soft, Non Tender, Non Distended and Normal Bowel Sounds; No Organomegaly
Rectal: Deferred by Provider
Musculoskeletal: No Clubbing and No Edema
Skin: No Rash
Neuro: Awake and Alert
Psych: Calm and Intact Judgment/Insight
Laboratory Results
-
07/24/23 14:57
07/24/23 14:57
Laboratory Results
PT Cancelled 07/24/23 14:57
INR Cancelled 07/24/23 14:57
Total Bilirubin Cancelled 07/24/23 14:57
AST Cancelled 07/24/23 14:57
ALT Cancelled 07/24/23 14:57
Alkaline Phosphatase Cancelled 07/24/23 14:57
Troponin I Cancelled 07/24/23 14:57
Data Reviewed
-
Medical Tests (Nuc Med, Echo, EKG etc): Report Reviewed by me (echo)
Lab Data: Labs Reviewed by me
Impression/Plan
-
HPI: 82-year-old male with PMH permanent Afib s/p percutaneous pacemaker placement 06/30/23 (with plans for outpatient AVJ ablation), TAVR 2019, chronic HFrEF, CAD/NSTEMI in setting of OM1 dissection 07/2022, COPD (sees Dr. Peterson outpatient); p/w
presyncope while sitting on a chair waiting for his outpatient echocardiogram result. He was sent to the emergency room from the cardiology office. Pt denies to LOC, but endorses to feeling dizzy for over a month.
He denies to other symptoms, no SOB, CP etc.
Of note, he was recently admitted and discharged on 07/05/2023 for acute CHF and COPD exacerbation. He was also treated for possible postobstructive pneumonia at that time.
A/P:
# Presyncope, suspect cardiogenic
Echo on the day of admission 07/23: moderately reduced systolic function. LVEF is 35 to 40%. Microbubbles are seen in the LV cavity, unclear if artifact, no obvious source of microbubbles. TAVR.
Cardiology on board, plan for REGI in the morning
# Chronic heart failure with reduced ejection fraction
# Permanent Atrial Fibrillation
# s/p PPM on June 30, 2023
Continue Toprol-XL
Per card, hold PRODUCTION MECHANIC TIN CANS Cardizem, digoxin, Lasix, Entresto
-Continue Eliquis 5 mg BID
# h/o Panic attack/Anxiety
mood stable
Other problems
# COPD: cont Symbicort/Singulair
# s/p TAVR
# CAD with h/o stent, prior NSTEMI in setting of OM1 dissection 07/2022: cont BB/Plavix/statin
# Essential Hypertension: cont BB
# Hyperlipidemia: cont statin
# Prostate cancer s/p prostatectomy
DVT ppx: PRODUCTION MECHANIC TIN CANS Eliquis
FULL code
--- NOTE | 2023-07-24 17:47 | CON.CAR ---
Consultation
Consultation Request
Date/Time Consultation Requested: July 24, 2023 4 PM
Date/Time Consultation Performed: July 24, 2023 5 PM
Requesting Provider: Emergency room
Performing Provider: Octavio Mchugh
Reason for Consultation: Presyncope
Medical History
-
Chief Complaint: presyncope
History of Present Illness:
82-year-old male with history of TAVR 2019, chronic HF with reduced LVEF, permanent A fib on Eliquis, CAD/NSTEMI in setting of OM1 dissection 07/2022, and COPD (Dr. Peterson) who was recently hospitalized for SOB and treated for CHF and PNA, as well
as AF and now s/p PPM. He has been having ongoing issues with dizziness. We have reduced and stopped his digoxin, diltiazem, and Entresto. Additionally, we asked him to take his metoprolol 100 mg just once a day. This seemed to have helped over
the weekend. However, over the last couple days he is continue to have some dizziness and he presented for an appointment. We asked that he obtain an follow-up echocardiogram which showed essentially unchanged function, however, microbubbles are
noted in the LV. Additionally, he has an ENRRIQUE. While awaiting test results he felt extremely lightheaded and faint. He was then taken to the emergency room.
In the emergency room a repeat limited echo continue to show LV microbubbles, however, blood pressure improved. His rhythm is atrial fibrillation.
Past Medical History
Past Medical History: Other (TAVR 2019, chronic HF with reduced LVEF, permanent A fib on Eliquis, CAD/NSTEMI in setting of OM1 dissection 07/2022, and COPD (Dr. Peterson))
Past Surgical History: Other (Cardiac Pacemaker, TAVR, Cardiac (Stents), Urological (prostatectomy) and Other (colon polypectomy)))
Social History
Tobacco: Former Smoker
Alcohol: None
Drug: None
Personal:
Living: With Family
Employment: Retired
Family History
Family History: Reviewed & Not Pertinent
Allergies / Home Medications
Allergy/AdvReac Type Severity Reaction Status Date / Time
albuterol Allergy Unknown Verified 07/24/23 14:49
animal dander Allergy Shortness Verified 07/24/23 14:49
of Breath
iodine Allergy shellfish Verified 07/24/23 14:49
allergy
pollen extracts Allergy sneezing, Verified 07/24/23 14:49
hayfever
shellfish derived Allergy Anaphylaxis Verified 07/24/23 14:49
tree and shrub pollen Allergy sneezing, Verified 07/24/23 14:49
hayfever
wine spirit Allergy Anaphylaxis Verified 07/24/23 14:49
sulphites Allergy Anaphylaxis Uncoded 07/24/23 14:49
WINE Allergy Anaphylaxis Uncoded 07/24/23 14:49
�Medication �Instructions �Recorded �Confirmed �Type
ascorbic acid (vitamin C) 250 mg 250 mg PO MOWEFR@0800 Supplement 03/31/19 07/24/23 History
tablet
rosuvastatin 5 mg tablet 5 mg PO MOTUWETHFR@0800 High 07/14/19 07/24/23 History
cholesterol
loratadine 10 mg tablet 10 mg PO DAILY Allergies 02/28/20 07/24/23 History
montelukast 10 mg tablet 10 mg PO HS Lung/breathing issues 02/28/20 07/24/23 History
multivitamin with folic acid 400 1 tab PO DAILY Supplement 02/28/20 07/24/23 History
mcg tablet (Tab-A-Tl)
cyanocobalamin (vitamin B-12) 250 250 mcg PO DAILY Supplement 08/07/22 07/24/23 History
mcg tablet
levalbuterol tartrate 45 1 puff inhalation R Q4HPRN PRN 08/07/22 07/24/23 History
mcg/actuation aerosol inhaler shortness of breath
apixaban 5 mg tablet (Eliquis) 5 mg PO BID Blood Clot 04/07/23 07/24/23 History
Prevention/Tx
budesonide-formoterol HFA 160 2 inh inhalation R BID PRN 04/07/23 07/24/23 History
mcg-4.5 mcg/actuation aerosol Lung/Breathing Issues
inhaler (Symbicort)
clopidogrel 75 mg tablet 75 mg PO DAILY Blood Clot 04/07/23 07/24/23 History
Prevention/Tx
Mometasone 1 mg irrigation BID 06/21/23 07/24/23 History
biotin 10,000 mcg capsule 10,000 mcg PO DAILY Supplement 06/21/23 07/24/23 History
calcium carbonate 250 mg PO MOWEFR@0800 Supplement 06/21/23 07/24/23 History
cholecalciferol (vitamin D3) 25 25 mcg PO DAILY Supplement 06/21/23 07/24/23 History
mcg (1,000 unit) tablet
ipratropium bromide 0.02 % 2.5 ml inhalation R QIDPRN PRN 06/21/23 07/24/23 History
solution for inhalation shortness of breath
dapagliflozin propanediol 10 mg 10 mg PO HS Heart Failure 07/02/23 07/24/23 History
tablet
furosemide 40 mg tablet 40 mg PO BID AT 0800,1600 Fluid 07/02/23 07/24/23 History
Retention/Swelling
metoprolol succinate 50 mg 100 mg PO BID Blood Pressure 07/02/23 07/24/23 History
tablet,extended release 24 hr
potassium chloride 20 mEq 20 meq PO BID Electrolyte Repletion 07/02/23 07/24/23 History
tablet,extended release(part/cryst)
sacubitril 24 mg-valsartan 26 mg 1 tab PO BID Heart Failure 07/02/23 07/24/23 History
tablet (Entresto)
ipratropium bromide 21 mcg (0.03 2 spray intranasal BID PRN 07/24/23 07/24/23 History
%) nasal spray congestion
nitroglycerin 0.4 mg sublingual 0.4 mg sublingual [id number] PRN 07/24/23 07/24/23 History
tablet (Nitrostat) chest pain
Review of Systems
-
All other systems: Negative unless noted
Physical Exam
Vital Signs
Temp Pulse Resp BP Pulse Ox
97.6 F 62 17 130/90 100
07/24/23 14:56 07/24/23 14:56 07/24/23 14:56 07/24/23 14:56 07/24/23 14:56
Lab Results
07/24/23 14:57
07/24/23 14:57
Troponin I Cancelled 07/24/23 14:57
Physical Exam
General: Other (elderly but in NAD)
HEENT: Normocephalic
Respiratory: Clear and Non Labored Respirations
Cardiac: Regular Rhythm and Irregular Rhythm
GI: Soft
Musculoskeletal: No Edema
Skin: Warm and Dry
Neuro: AO x 3
Hematologic/Lymphatic: No Lymphadenopathy
Impression / Plan
-
82-year-old male with history of TAVR 2019, chronic HF with reduced LVEF, permanent A fib on Eliquis, CAD/NSTEMI in setting of OM1 dissection 07/2022, and COPD (Dr. Peterson) who presents with near syncope and and likely dehydration. He was also
found to have microbubbles upon echocardiogram.
Dizziness/lightheadedness
-Hold antihypertensives as well as Entresto
-Continue metoprolol XL 100 daily
-Hold Lasix
Acute on chronic HFrEF recent echo 35-40%:
- appears dehydrated hold lasix
- REGI tomorrow for further eval and source of possible microbubbles, NPO after midnight
- holding GDMT in setting of presyncope and dizziness
AF
- AVJ ablation in future
- RELISH MAKER-P implantation on June 2023
TAVR Medtronic Corevalve Evolut #29
- stable
CAD s/p stent of codominant RCA remotely and NSTEMI in setting of OM1 dissection 07/2022:
-stable no CP
-continue Plavix
ENRRIQUE/Dehydration
- per primary
Data Reviewed
-
EKG: Tracing Personally Visualized and interpreted (af)
Medical Tests (Nuc Med, Echo etc): Report Reviewed by me, Discussed with Patient and Discussed with Family
Labs: Labs Reviewed by me (enrrique) and Discussed with Family
[2023-07-24 17:54] LABS: Digoxin < 0.4 ng/ml (0.8-2.0)
[2023-07-24] MEDS: ELIQUIS 5 MG PO (20:03)
--- NOTE | 2023-07-24 22:00 | PTCARENOTE ---
Patient received from ED via stretcher and was assisted to bed by staff Ax1. He was oriented to room and surroundings. Reviewed plan of care with patient. See nursing assessment for physical findings.
[2023-07-25 03:31] VITALS: BP 115/56
[2023-07-25 06:00] VITALS: BMI 22.7
[2023-07-25 07:00] VITALS: BP 108/65
[2023-07-25 07:19] LABS: Hematocrit 35.9 % (39.0-52.0); Hemoglobin 12.1 g/dL (13.0-18.0); Mean Corp Hgb Conc. 33.7 g/dL (33.0-37.0); Mean Corpuscular Hgb 33.2 pg (27.0-31.0); Mean Corpuscular Volume 98.6 fL (80.0-94.0); Mean Platelet Volume 10.6 fL (7.4-10.4); Platelet Count 121 10^3/uL (130-400); Red Blood Cell Count 3.64 10^6/uL (4.70-6.10); Red Cell Dist. Width 15.1 % (11.5-14.5); White Blood Cell Count 8.2 10^3/uL (4.8-10.8)
[2023-07-25 07:55] LABS: Blood Urea Nitrogen 23 mg/dl (9-20); Calcium 8.1 mg/dl (8.4-10.2); Carbon Dioxide 26 mmol/L (22-30); Chloride 106 mmol/L (98-107); Estimated Creatinine Clearance 37 ml/min; Glucose 75 mg/dl (70-99); Magnesium 2.3 mg/dl (1.6-2.3); Potassium 3.3 mmol/L (3.5-5.1); Sodium 138 mmol/L (135-145); eGFR 49.87
[2023-07-25] MEDS: OSCAL CAL 500 250 MG PO (08:08)
[2023-07-25] MEDS: CLARITIN 10 MG PO (08:08)
[2023-07-25] MEDS: CRESTOR 5 MG PO (08:08)
[2023-07-25] MEDS: ELIQUIS 5 MG PO (08:09)
[2023-07-25] MEDS: PLAVIX 75 MG PO (08:09)
--- NOTE | 2023-07-25 09:28 | W.PN.CD ---
Today's Communication / Plan
-
TTE
Hold lasix and likely resume daily dosing, from bid, on FridayJuly 27
Metoprolol 100 daily
Impression / Plan
-
82-year-old male with history of TAVR 2019, chronic HF with reduced LVEF, permanent A fib on Eliquis, CAD/NSTEMI in setting of OM1 dissection 07/2022, and COPD (Dr. Peterson) who presents with near syncope and and likely dehydration. He was also
found to have microbubbles upon echocardiogram.
Dizziness/lightheadedness
- improved today
-Hold antihypertensives as well as Entresto
-Continue metoprolol XL 100 daily
-Hold Lasix
Acute on chronic HFrEF recent echo 35-40%:
- appears dehydrated hold lasix
- TTE today
- holding GDMT in setting of presyncope and dizziness
AF
- AVJ ablation in future
- TRAIN CLERK-P implantation on June 2023
TAVR Medtronic Corevalve Evolut #29
- stable
CAD s/p stent of codominant RCA remotely and NSTEMI in setting of OM1 dissection 07/2022:
-stable no CP
-continue Plavix
ENRRIQUE/Dehydration
- per primary
Physical Exam
Vital Signs/Labs
Vital Signs
Temp Pulse Resp BP Pulse Ox
98.0 F 84 16 108/65 97
07/25/23 07:00 07/25/23 08:09 07/25/23 07:00 07/25/23 08:09 07/25/23 07:00
07/24/23 07/25/23 07/26/23
06:59 06:59 06:59
Actual Weight 145 lb 1 oz
07/25/23 06:13
07/25/23 06:13
PT Cancelled 07/24/23 14:57
INR Cancelled 07/24/23 14:57
Magnesium 2.3 mg/dl (1.6-2.3) 07/25/23 06:13
Digoxin < 0.4 ng/ml (0.8-2.0) L 07/24/23 16:29
LAB Results
07/24/23
14:57
Troponin I Cancelled
Physical Exam
Constitutional: No acute distress
EENT: Anicteric
Cardiovascular: Pedal edema is absent and Rhythm/rate is irregular
Respiratory: Respiratory effort normal and Lungs clear to auscul.
GI: Soft
Neuro/Psych: AO x 3
Data Reviewed
-
Date of Service: July 25, 2023
EKG: Tracing Personally Visualized and interpreted (af)
Echo: Report Reviewed by me
Labs: Labs Reviewed by me
--- NOTE | 2023-07-25 09:49 | W.PN.HOSP.TC ---
Addendum entered and electronically signed by Piper Grove MD 07/25/23 17:48:
Pt eager to be discharged.
Card Dr Mchugh OK with discharge.
total DC time 45 min
Original Note:
Today's Communication/Plan
-
see AP
Assessment / Plan
Assessment / Plan
HPI: 82-year-old male with PMH permanent Afib s/p percutaneous pacemaker placement 06/30/23 (with plans for outpatient AVJ ablation), TAVR 2019, chronic HFrEF, CAD/NSTEMI in setting of OM1 dissection 07/2022, COPD (sees Dr. Peterson outpatient); p/w
presyncope while sitting on a chair waiting for his outpatient echocardiogram result. He was sent to the emergency room from the cardiology office. Pt denies to LOC, but endorses to feeling dizzy for over a month.
He denies to other symptoms, no SOB, CP etc.
Of note, he was recently admitted and discharged on 07/05/2023 for acute CHF and COPD exacerbation. He was also treated for possible postobstructive pneumonia at that time.
A/P:
# Presyncope, suspect cardiogenic
Echo on the day of admission 07/23: moderately reduced systolic function. LVEF is 35 to 40%. Microbubbles are seen in the LV cavity, unclear if artifact, no obvious source of microbubbles. TAVR.
Cardiology on board, plan to repeat echo, cancelled REGI
Also check orthostatic VS
PT OT eval
# Chronic heart failure with reduced ejection fraction
# Permanent Atrial Fibrillation
# s/p PPM on June 30, 2023
Continue Toprol-XL with holding parameter
Per card, hold DIAL MAKER Cardizem, digoxin, Lasix, Entresto
Continue Eliquis 5 mg BID
# h/o Panic attack/Anxiety
mood stable
Other problems
# COPD: cont Symbicort/Singulair
# s/p TAVR
# CAD with h/o stent, prior NSTEMI in setting of OM1 dissection 07/2022
# Essential Hypertension: cont BB
# Hyperlipidemia: cont statin
# Prostate cancer s/p prostatectomy
DVT ppx: DIAL MAKER Eliquis
FULL code
Anticipated Discharge: 24 - 48 hours
Subjective/Interval History
-
Date of Service: July 25, 2023
Objective Data
-
Labs:
Laboratory Results
07/25/23
06:13
WBC 8.2
Hgb 12.1 L
Hct 35.9 L
Plt Count 121 L
Sodium 138
Potassium 3.3 L
Chloride 106
Carbon Dioxide 26
BUN 23 H
Creatinine 1.4 H
Glucose 75
Calcium 8.1 L
Vital Signs:
Vital Signs
Temp Pulse Resp BP Pulse Ox
36.7 C 84 16 108/65 97
07/25/23 07:00 07/25/23 08:09 07/25/23 07:00 07/25/23 08:09 07/25/23 07:00
Review of Systems
-
All other systems: Reviewed and negative
Physical Exam
-
General: Well Developed, No Apparent Distress, Comfortable and Conversant
HEENT: Normocephalic, Atraumatic and Moist Mucous Membranes
Respiratory: Clear to Auscultation and Non Labored Respirations
Cardiac: Regular Rhythm and S1/S2
GI: Soft, Nontender, Nondistended and Normal Bowel Sounds
Musculoskeletal: No Clubbing, No Cyanosis and No Edema
Skin: Warm and Dry
Neuro: Awake, Alert and Oriented
Psych: Calm and Intact Judgement/Insight
Data Reviewed
-
Medical Tests (Nuc Med, Echo etc): Report Reviewed by me (echo)
Labs: Labs Reviewed by me
[2023-07-25 10:46] VITALS: BP 109/65
[2023-07-25 10:47] VITALS: BP 107/58; BP 109/65; BP 85/52; PULSE 55; PULSE 63; PULSE 76
[2023-07-25] MEDS: SYMBICORT 160/4.5 MCG INHALER 2 PUFF INH (12:23)
--- NOTE | 2023-07-25 15:01 | CM ---
Alert awake oriented patient who lives with his Su who lives in a 2 story home with 2 step to enter and 12 steps to bed and bathroom. He is independent in all activities of daily living.He was offered VN he requested [facility] resumption.Uses
rollator.
[facility] VN hx / No SNF history
Pharmacy [facility] [address]
PCP DR Hdz
PLAN Home [facility]
[2023-07-25 15:15] VITALS: BP 111/69
--- NOTE | 2023-07-25 17:20 | PTCARENOTE ---
Messaged Cards and hospitalist MD. Patient has been waiting to be discharged since his echo, he told me cardiology MD personally read the echo and told him he would go home this afternoon. Pt's is on the way to pick him up and she can't drive
at night so RN messaged MD's to confirm if he is going home d/t transport siltation and it being 0530.
--- NOTE | 2023-07-25 17:48 | W.DCSUMMARY ---
Discharge Summary
Discharge Data
Date of Admission: 07/24/23
Date of Discharge: 07/25/23
-
Pending Results: No
Hospital Course
Principal Diagnosis:
Presyncope, suspect cardiogenic versus orthostatic hypotension
Chronic Diagnoses:�
Chronic heart failure with reduced ejection fraction
Permanent Atrial Fibrillation
History of of pacemaker placement 06/30/2023
History of Panic attack/Anxiety
Chronic obstructive pulmonary disease
Aortic stenosis status post TAVR
Coronary artery disease with history of cardiac stent
Essential Hypertension
Hyperlipidemia
Prostate cancer s/p prostatectomy
Consultations:�
Cardiology
Procedures:�
None
Clinical course:�
This is a 82-year-old male with past medical history as stated above, who presented with presyncope at the vallez filter operator office after obtaining an echocardiogram. He was prompted to come to the ER by his vallez filter operator.
Problem 1:
Presyncope, suspect cardiogenic versus orthostatic hypotension.
His echo on the day of admission 07/23 was unrevealing: noted moderately reduced systolic function. LVEF is 35 to 40%. Microbubbles are seen in the LV cavity, unclear if artifact, no obvious source of microbubbles. TAVR.
He had a repeat echocardiogram obtained during his short hospitalization on 07/25/2023, and it is again unrevealing: Normal left ventricular size with moderately reduced left ventricular systolic function. EF 35-40%. Microbubbles seen in the LV
cavity, unclear if artifact with no obvious source. Compared to prior from July 24, 2023, no significant change.
His orthostatic vital sign was positive, and he was advised to continue with compression stocking going forward.
His prior to admission Cardizem, digoxin, Entresto were held per cardiology, and he can restart Lasix on Friday07/28/2023 per cardiology.
As for the rest of his medical problems, they were stable during his hospital stay.
Discharge Plan
-
Patient Disposition: Home (Routine Discharge)
Discharge Diagnosis/Procedures: presyncope likely cardiogenic; orthostatic hypotension
Condition: Fair
Diet: As tolerated, Low Fat, Low Cholesterol, 2 Gram Sodium and Restrict fluids to 48 oz
Activity: As tolerated
Driving Restrictions: Not until seen by your Dr
Blood Work: BMP in 1 week with your PCP/vallez filter operator
Specialty Instructions: Weigh Daily- Call MD for wt gain/loss 3 lbs overnight/5 lbs in 1 week
Activity Restrictions/Additional Instructions:
Continue compression therapy for your orthostatic hypotension.
Follow up with your vallez filter operator outpatient.
Referrals:
Meng Granda, [Family Provider] - in less than 1 week
Additional Discharge Medication Instructions: Restart Lasix (along with potassium) on Friday.
Hold Cardizem, digoxin, Entresto until further directed by your vallez filter operator.
Prescriptions:
Continued
ascorbic acid (vitamin C) 250 MG tablet
250 mg PO MOWEFR@0800
rosuvastatin 5 MG tablet
5 mg PO MOTUWETHFR@0800
montelukast 10 MG tablet
10 mg PO HS
loratadine 10 MG tablet
10 mg PO DAILY
multivitamin with folic acid [Tab-A-Tl] 1 TABLET tablet
1 tab PO DAILY
levalbuterol tartrate 45 mcg/actuation HFA aerosol inhaler
1 puff INHALATION R Q4HPRN PRN (Reason: shortness of breath)
cyanocobalamin (vitamin B-12) 250 mcg Tablet
250 mcg PO DAILY
budesonide-formoterol [Symbicort] 160-4.5 mcg/actuation Hfa Aerosol Inhaler
2 inh INHALATION R BID
clopidogrel 75 mg tablet
75 mg PO DAILY
Eliquis 5 mg tablet
5 mg PO BID
calcium carbonate 500 mg calcium (1,250 mg) Tablet
250 mg PO MOWEFR@0800
biotin 10,000 mcg Capsule
10,000 mcg PO DAILY
ipratropium bromide 0.02 % Solution
2.5 ml INHALATION R QIDPRN PRN (Reason: shortness of breath)
cholecalciferol (vitamin D3) 25 mcg (1,000 unit) Tablet
25 mcg PO DAILY
Mometasone 1 mg capsule
1 mg irrigation BID
Patient Comments:
directions from label: ADD CONTENTS OF ONE CAPSULE TO 240 ML SALINE. IRRIGATE EACH NOSTRIL USING NEILMED WITH 120 ML OF MEDICATED SALINE TWICE DAILY.
furosemide 40 mg tablet
40 mg PO BID AT 0800,1600
Patient Comments:
07/24/2023: Per pt, their dr wanted this held tonight.
metoprolol succinate 50 mg tablet extended release 24 hr
100 mg PO BID
Patient Comments:
07/24/2023: Per pt, their dr wanted this held tonight and reduced to 100mg Daily
potassium chloride 20 mEq tablet,ER particles/crystals
20 meq PO BID
dapagliflozin propanediol 10 mg tablet
10 mg PO HS
nitroglycerin [Nitrostat] 0.4 mg Tablet, Sublingual
0.4 mg SUBLINGUAL [id number] PRN (Reason: chest pain)
ipratropium bromide 21 mcg (0.03 %) [place],Non-Aerosol
2 spray INTRANASAL BID PRN (Reason: congestion)
Held
Entresto 24-26 mg tablet
1 tab PO BID
Hold Instructions: Resume on 08/01/23.
Discharge Orders:
Discharge Patient (As Directed); Ordered 07/25/23
Ordered By: Piper Grove
Discharge Date and Time
Discharge Date/Time: 07/25/23 19:14
Print Language: URUGUAYAN
--- NOTE | 2023-07-28 08:09 | CM ---
dc after CM left.
Home with [facility]
== END 2023-07-25 19:14 | disposition home health service (06) | DRG 312 ==
LOC: 4 EAST ACU 18:15
PROVIDERS: ADMITTING PHYSICIAN Internal Medicine; CONSULT PHYSICIAN Internal Medicine Cardiovascular Disease; EMERGENCY PHYSICIAN Emergency Medicine; FAMILY PHYSICIAN Family Medicine
DX: I95.1 Orthostatic hypotension (principal); I50.22 Chronic systolic (congestive) heart failure; I48.21 Permanent atrial fibrillation; N17.9 Acute kidney failure, unspecified; I11.0 Hypertensive heart disease with heart failure; J44.9 Chronic obstructive pulmonary disease, unspecified; Z95.2 Presence of prosthetic heart valve; E78.5 Hyperlipidemia, unspecified; I25.10 Atherosclerotic heart disease of native coronary artery without angina pectoris; I25.2 Old myocardial infarction; Z87.01 Personal history of pneumonia (recurrent); I44.7 Left bundle-branch block, unspecified; J30.81 Allergic rhinitis due to animal (cat) (dog) hair and dander; J32.9 Chronic sinusitis, unspecified; F41.0 Panic disorder [episodic paroxysmal anxiety]; Z79.01 Long term (current) use of anticoagulants; Z79.899 Other long term (current) drug therapy; Z86.79 Personal history of other diseases of the circulatory system; Z87.891 Personal history of nicotine dependence; Z90.79 Acquired absence of other genital organ(s); Z95.0 Presence of cardiac pacemaker; Z85.46 Personal history of malignant neoplasm of prostate; Z95.5 Presence of coronary angioplasty implant and graft; Z91.041 Radiographic dye allergy status; Z88.8 Allergy status to other drugs, medicaments and biological substances
CPT/HCPCS: 93308; 70450; 80048; 80162; 83735; 85027; 93005; 94640; 96360; 99285

== ENCOUNTER 2023-08-05 11:24 | Inpatient (IN) | payer OTHER, SELFPAY ==
[2023-08-05] VITALS (12 sets, daily range): BP systolic 93–126; BP diastolic 61–102; BMI 23.7; BMI 22.2; BMI 22.8
--- NOTE | 2023-08-05 09:12 | ED.GENMED ---
History of Present Illness
General
Chief Complaint: Heart Rate Problem
Source: patient
Exam Limitations: none
Time Seen by Provider: 08/05/23 09:03
Nursing documentation reviewed up to this point in time: agreed with
History of Present Illness
History of Present Illness:
82-year-old male presents emergency room complaining of shortness of breath and dizziness since 2 AM. He called EMS, was given Cardizem 10 mg, and then 5 mg. His heart rate was initially in the 140s per EMS. He has been admitted recently for
rapid atrial fibrillation, and has a history of CHF and COPD.
Past History
Past History
ED Past Medical History: Arrthythmia (Atrial fib), Asthma, CAD, Cancer (Prostate CA), COPD, HTN, Hypercholesterolemia, Valvular disease and Other (chronic sinusitis, colon polyps, Vertigo, Ataxia, PNA,)
ED Past Surgical History: Cardiac (Stents), Urological (prostatectomy) and Other (colon polypectomy)
Social History
Tobacco: Former smoker (quit 45 years ago)
Alcohol: Daily (Vodka 1)
Drug: None
Personal:
Living: with family
Employment: Retired
Family History
Family History: Other (n/c)
Review of Systems
Review of Systems
Allergies reviewed?: Yes
All Other Systems: Not applicable
Constitutional: Reports no symptoms
EENT: Reports no symptoms
Respiratory: Reports trouble breathing
Cardiac: Reports palpitations
ABD/GI: Reports no symptoms
: Reports no symptoms
Musculoskeletal: Reports no symptoms
Skin: Reports no symptoms
Neurological: Reports dizzy
Endocrine: Reports no symptoms
Hematologic/Lymphatic: Reports no symptoms
Psychiatric: Reports no symptoms
Phy Exam
Physical Exam
Physical Exam:
Physical Exam
General: no apparent distress, not acutely ill
Neck: supple. no meningeal signs. normal posterior pharynx
Heart: s1/s2 tachycardia, no murmur. equal radial
pulses. Pacemaker
HEENT: Pupils equal round reactive to light, EOMI
Lungs: no acute respiratory distress. clear bilaterally
Abdomen: normal bowel sounds. not tender. no CVAT
Neuro: alert and oriented. no focal neurological deficits cranial nerves II through XII intact
Skin: no rash
Psychiatric: well kept. interactive and cooperative
Extremities: no edema. no calf tenderness. negative homans. good distal pulses
Scores
Heart Failure Risk
Heart Failure Risk Score: Yes
History of Stroke or TIA: No
History of intubation for respiratory distress: No
Heart rate on ED arrival >/= 110: Yes
SaO2 <90% on arrival on room air: No
HR >/=110 during 3min walk test (or too ill to perform test): Yes
ECG has acute ischemic changes: No
Urea >/=12mmol/L (BUN 33.6mg/dL): No
Serum CO2>/=35mmol/L: No
Troponin I or T elevated to ID Level (0.4mg/dL): No
NT-proBNP >/=5,000ng/L (5,000pg/ml): Yes
HF Risk Score: 3
Admission Status: HIGH RISK 15.9% Consider SNF treatment or admission to hospital
Course
Orders/Labs/Results
Orders:
Orders
08/05/23 08:55
Electrocardiogram (*1) Urgent
Reason for Study: Atrial Fibrillation
EKG- Treatment ONCE
CXR2 [CR Chest - 2 Views ] Urgent
Comment:
Reason For Exam: shortness of breath
08/05/23 09:03
Complete Blood Count/With Diff Urgent
Comprehensive Metabolic Panel Urgent
NT-proBNP Urgent
Troponin I Urgent
08/05/23 09:13
Diltiazem 125 mg/125 ml Nss [Cardizem] 125 mg in 125 ml IV NOW
Initial dose in mg/hr, then titrate:: 5
Titrate to keep:: Heart rate 80-100 bpm
Titrate by mg/hr:: 5 mg/hr
Frequency of titrations (minutes):: 15
Maximum dose in mg/hr:: 15
08/05/23 09:18
Interrogate Pacemaker- Treatment ONCE
08/05/23 10:00
Furosemide [Lasix] 40 mg IV NOW STA
08/05/23 10:58
Admit/Transfer Patient As Directed
Co-Sign Provider:
Level of Care: Inpatient admission
Assign to:: IVU
Physician / Group: Y[facility]
Diagnosis: Rapid Afib, CHF
Reason for Hospitalization: IV Lasix, rate control, cardio consult
Expected length of stay greater than two midnights?: Yes
ELOS- Estimated Length of Stay in days: 3
I certify the patient meets the requirements for IP care: Yes
08/05/23 11:01
Code Status As Directed
Resuscitation Status: Full Code
Abnormal Lab Results
08/05/23
09:03
RBC 3.80 L 10^6/uL
(4.70-6.10)
Hgb 12.3 L g/dL
(13.0-18.0)
Hct 36.1 L %
(39.0-52.0)
MCV 95.0 H fL
(80.0-94.0)
MCH 32.4 H pg
(27.0-31.0)
RDW 14.9 H %
(11.5-14.5)
Plt Count 417 H 10^3/uL
(130-400)
Abs Immat Gran (auto) 0.2 H 10^3/uL
(0-0.05)
Absolute Neuts (auto) 7.6 H 10^3/uL
(1.4-6.5)
Absolute Lymphs (auto) 0.6 L 10^3/uL
(1.2-3.4)
Absolute Monos (auto) 0.9 H 10^3/uL
(0.1-0.6)
Immature Gran % 1.8 H %
(0-0.5)
Neutrophils % 80.1 H %
(42.2-75.2)
Lymphocytes % 6.8 L %
(20.5-51.1)
Chloride 108 H mmol/L
(98-107)
BUN 24 H mg/dl
(9-20)
Creatinine 1.4 H mg/dL
(0.7-1.3)
Glucose 137 H mg/dl
(70-99)
Troponin I 0.042 H* ng/ml
Total Protein 6.0 L g/dl
(6.3-8.2)
Albumin 3.2 L g/dl
(3.5-5.0)
08/05/23 09:03
08/05/23 09:03
Vital Signs
Initial and Last Documented VS:
Initial Vital Signs
BP
118/86
08/05/23 08:57
Last Documented Vital Signs
Temp Pulse Resp BP Pulse Ox
97.6 F 124 21 107/88 97
08/05/23 09:02 08/05/23 13:45 08/05/23 09:15 08/05/23 12:00 08/05/23 13:45
MDM/Problems Addressed
Differential Diagnosis Includes:
Rapid A-fib, CHF
MDM/Problems Addressed:
82-year-old male with rapid atrial fibrillation and CHF exacerbation. Admit to hospitalist.
Chronic conditions affecting care: Cardiomyopathy, Arrhythmia and COPD
Acute Exacerbation and/or Progression of Chronic Illness: Cardiomyopathy, Arrhythmia and COPD
*Radiology
Radiology exam reviewed: preliminary read by ED provider (Chest x-ray shows pulmonary vascular congestion and bilateral pleural effusions)
*Pulse Oximetry
Patient hypoxic: no
*EKG
Interpreted by ED Provider?: Yes
EKG Intrepretation Date: 08/05/23
EKG Intrepretation Time: 09:05
Interpretation: abnormal
Comparison EKG: changes noted
Heart Rate: 125
Rate: tachycardiac
Rhythm: a-fib
[place]: normal axis
Interval: normal interval
QRS Pattern: left bundle branch block
Ischemia: no ischemia
*Spider Assembler Interpretation
Rate: tachycardiac
Interpretation: abnormal
Heart Rate: 122
Rhythm: a-fib
*Critical Care Note
Total Time (30-74mins, 75-104mins- exclusive of procedures): 32
comment:
Critical care statement: A total of 32 minutes of critical care time was provided for this patient. This includes management of unstable vital signs, evaluation of the patient at bedside, reviewing the patient's pertinent medical records, discussion
with consultants, review of old EKGs and review of pertinent medical records. This time with separate from time utilized to perform the aforementioned documented procedures
Data Reviewed
Review of Other/Old Records Reveals: Progress Notes (Reviewed cardiology consultation 07/24/2023, plan for likely cardiac ablation in future)
Source: records
Patient Management
Social determinants of health affecting care: Living situation
Discussion with other providers: Hospitalist
Escalation/DeEscalation of care consider admission/obs:
Admit indicated
ED Attending Note
-
Portions of this chart may have been created with voice recognition software.� Occasional wrong word or��sound alike� substitutions may have occurred due to the inherent limitations of voice recognition software.
Discharge Plan
Departure
Patient Disposition: Admit
Date of Disposition: 08/05/23
Time of Disposition: 10:01
Admit to: Telemetry
Presentation/result/management discussed w/ accepting MD/DO: Hospitalist
Patient with high blood pressure during this ER visit?: Yes
Condition: Fair
Discharge Problem:
Acute on chronic diastolic (congestive) heart failure, Atrial fibrillation with rapid ventricular response, Stage 3a chronic kidney disease (CKD)
Interventions
Interventions:
*Risk Screen - Suicide Last Done: 08/05/23 09:02
*General Assessment Last Done: 08/05/23 09:02
*Neglect/Abuse Screening Last Done: 08/05/23 09:02
ED- Fall Risk Assessment Last Done: 08/05/23 09:02
*ED COVID-19 Vaccine History Last Done: 08/05/23 09:02
*Nursing Disposition Last Done: 08/05/23 13:50
ED- Cardiac Assessment Last Done: 08/05/23 09:02
ED- Pulmonary Assessment Last Done: 08/05/23 09:02
[2023-08-05 09:19] LABS: % Eosinophils 1.2 % (0-6); % Immature Granulocytes 1.8 % (0-0.5); % Lymphocytes 6.8 % (20.5-51.1); % Monocytes 9.1 % (1.7-9.3); % Neutrophils 80.1 % (42.2-75.2); Absolute Basophils 0.1 10^3/uL (0-0.2); Absolute Eosinophils 0.1 10^3/uL (0-0.7); Absolute Immature Granulocytes 0.2 10^3/uL (0-0.05); Absolute Lymphocytes 0.6 10^3/uL (1.2-3.4); Absolute Monocytes 0.9 10^3/uL (0.1-0.6); Absolute Neutrophils 7.6 10^3/uL (1.4-6.5); Hematocrit 36.1 % (39.0-52.0); Hemoglobin 12.3 g/dL (13.0-18.0); Mean Corp Hgb Conc. 34.1 g/dL (33.0-37.0); Mean Corpuscular Hgb 32.4 pg (27.0-31.0); Mean Platelet Volume 9.7 fL (7.4-10.4); Nucleated Red Blood Cells % 0 % (-); Platelet Count 417 10^3/uL (130-400); Red Cell Dist. Width 14.9 % (11.5-14.5); White Blood Cell Count 9.5 10^3/uL (4.8-10.8)
[2023-08-05] MEDS: CARDIZEM 125 IV (09:19)
[2023-08-05 09:33] LABS: ALT (SGPT) 16 U/L (0-50); AST (SGOT) 23 U/L (17-59); Albumin 3.2 g/dl (3.5-5.0); Alkaline Phosphatase 65 U/L (38-126); Blood Urea Nitrogen 24 mg/dl (9-20); Calcium 8.7 mg/dl (8.4-10.2); Carbon Dioxide 23 mmol/L (22-30); Chloride 108 mmol/L (98-107); Estimated Creatinine Clearance 37 ml/min; Glucose 137 mg/dl (70-99); Potassium 3.6 mmol/L (3.5-5.1); Sodium 139 mmol/L (135-145); Total Bilirubin 0.7 mg/dl (0.2-1.3); eGFR 49.87
[2023-08-05 09:46] LABS: NT-proBNP 9930 pg/ml; Troponin I 0.042 ng/ml
[2023-08-05] MEDS: LASIX 40 MG IV (10:09)
--- NOTE | 2023-08-05 11:02 | HPS.HSE ---
Family Physician
-
Family Physician: Meng Granda
Chief Complaint
-
Shortness of breath, lightheadedness
History of Present Illness
82-year-old male with history of atrial fibrillation and COPD, here complaining of orthopnea, dyspnea on exertion, lightheadedness that woke him up this morning. Denies any wheezing.
Recently hospitalized here and discharged on July 24 for presyncope evaluation. Diagnosed with possible orthostatic hypotension.
Has had a stable chronic cough for the past 6 months, no change.
Medical History
Past Medical History
Past Medical History: Reports Other
Additional Past Medical History:
Permanent atrial fibrillation
CAD
Chronic heart failure reduced EF
Aortic stenosis
COPD
Essential hypertension
Prostate cancer
Colon polyps
Past Surgical History: Reports Other
Additional Past Surgical History:
Prostatectomy
TAVR -2020
colon Polypectomy
Percutaneous pacemaker placement 06/30/2023
Social History
Tobacco: Former Smoker
Alcohol: Former
Drug: None
Personal:
Living: With Family
Family History
Family History: Not pertinent
Allergies / Home Medications
Allergies reflects when Allergies were last updated in [employer].
Home Medications with original date entered in [employer]
Allergy/Medication List:
Allergies
Allergy/AdvReac Type Severity Reaction Status Date / Time
albuterol Allergy Unknown Verified 07/24/23 14:49
animal dander Allergy Shortness Verified 07/24/23 14:49
of Breath
iodine Allergy shellfish Verified 07/24/23 14:49
allergy
pollen extracts Allergy sneezing, Verified 07/24/23 14:49
hayfever
shellfish derived Allergy Anaphylaxis Verified 07/24/23 14:49
tree and shrub pollen Allergy sneezing, Verified 07/24/23 14:49
hayfever
wine spirit Allergy Anaphylaxis Verified 07/24/23 14:49
sulphites Allergy Anaphylaxis Uncoded 07/24/23 14:49
WINE Allergy Anaphylaxis Uncoded 07/24/23 14:49
Home Medications
ascorbic acid (vitamin C) 250 mg tablet 250 mg PO MOWEFR@0800 Supplement 03/31/19
rosuvastatin 5 mg tablet 5 mg PO MOTUWETHFR@0800 High cholesterol 07/14/19
loratadine 10 mg tablet 10 mg PO DAILY Allergies 02/28/20
montelukast 10 mg tablet 10 mg PO HS Lung/breathing issues 02/28/20
multivitamin with folic acid 400 mcg tablet (Tab-A-Tl) 1 tab PO DAILY Supplement 02/28/20
cyanocobalamin (vitamin B-12) 250 mcg tablet 250 mcg PO DAILY Supplement 08/07/22
levalbuterol tartrate 45 mcg/actuation aerosol inhaler 1 puff inhalation R Q4HPRN PRN shortness of breath 08/07/22
apixaban 5 mg tablet (Eliquis) 5 mg PO BID Blood Clot Prevention/Tx 04/07/23
budesonide-formoterol HFA 160 mcg-4.5 mcg/actuation aerosol inhaler (Symbicort) 2 inh inhalation R BID Lung/Breathing Issues 04/07/23
clopidogrel 75 mg tablet 75 mg PO DAILY Blood Clot Prevention/Tx 04/07/23
Mometasone 1 mg irrigation BID 06/21/23
biotin 10,000 mcg capsule 10,000 mcg PO DAILY Supplement 06/21/23
calcium carbonate 250 mg PO MOWEFR@0800 Supplement 06/21/23
cholecalciferol (vitamin D3) 25 mcg (1,000 unit) tablet 25 mcg PO DAILY Supplement 06/21/23
ipratropium bromide 0.02 % solution for inhalation 2.5 ml inhalation R QIDPRN PRN shortness of breath 06/21/23
dapagliflozin propanediol 10 mg tablet 10 mg PO HS Heart Failure 07/02/23
furosemide 40 mg tablet 40 mg PO BIDPRN PRN fluid 07/02/23
metoprolol succinate 50 mg tablet,extended release 24 hr 50 mg PO BID Blood Pressure 07/02/23
potassium chloride 20 mEq tablet,extended release(part/cryst) 20 meq PO BIDPRN PRN taken with lasix 07/02/23
ipratropium bromide 21 mcg (0.03 %) nasal spray 2 spray intranasal BID PRN congestion 07/24/23
nitroglycerin 0.4 mg sublingual tablet (Nitrostat) 0.4 mg sublingual [id number] PRN chest pain 07/24/23
Review of Systems
-
History Source: Patient
A 12 point ROS was completed and negative except as noted: Yes
Respiratory: Reports Cough and Trouble Breathing
Physical Exam
Vital Signs
Vital Signs
Temp Pulse Resp BP Pulse Ox
97.6 F 115 21 110/77 96
08/05/23 09:02 08/05/23 10:09 08/05/23 09:02 08/05/23 10:09 08/05/23 09:02
Physical Exam
General: Well Developed, Well Nourished, No Apparent Distress and Comfortable
HEENT: NormoCephalic, Anicteric and Moist mucous membranes
Respiratory: Clear
Cardiac: S1/S2, Irregular Rhythm and Tachycardia
GI: Soft, Non Tender and Non Distended
Genito-urinary: Deferred by me
Musculoskeletal: No Clubbing, No Cyanosis and No Edema
Skin: Warm and Dry
Neuro: AO x 3
Hematologic/Lymphatic: No Lymphadenopathy
Psych: Calm
Laboratory Results
-
08/05/23 09:03
08/05/23 09:03
Laboratory Results
Total Bilirubin 0.7 mg/dl (0.2-1.3) 08/05/23 09:03
AST 23 U/L (17-59) 08/05/23 09:03
ALT 16 U/L (0-50) 08/05/23 09:03
Alkaline Phosphatase 65 U/L (38-126) 08/05/23 09:03
Troponin I 0.042 ng/ml H* 08/05/23 09:03
Impression/Plan
-
Permanent atrial fibrillation/rapid atrial fibrillation -admit to IVU. Continue Cardizem infusion. Resume metoprolol. Continue Eliquis. Consult cardiology.
THERAPY TEACHER-P implanted in June, awaiting AVJ ablation.
Acute on chronic heart failure with reduced EF exacerbation -presentation with orthopnea, elevated BNP, mild pulmonary edema, small pleural effusions. IV Lasix started in the emergency room, will continue. Patient denies changes in body weight,
denies lower extremity swelling.
Troponin elevation -suspect acute nonischemic myocardial injury due to acute illness. Monitor for now.
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
Orthostatic hypotension - noted during recent hospitalization. Compression stockings prescribed but patient states he does not use them. TEDs ordered.
CKD 3b -creatinine appears to be at baseline.
Aortic stenosis/TAVR
COPD without exacerbation
Essential hypertension -stable.
History of prostate cancer -s/p prostatectomy.
Full code
--- NOTE | 2023-08-05 12:39 | CON.CAR ---
Addendum entered and electronically signed by Prudencio Kasper MD 08/05/23 16:42:
I saw and examined the patient.
The AGRICULTURAL REAL ESTATE AGENT's note was reviewed and I agree with the note.
Comment: He is feeling better. He is frustrated by not having had the ablation yet. ON exam he is in irreg irreg rhythm with rapid rate, lungs cta, no le edema. BP is low normal so may not leave much room for further dilt titration, can trial
dig. May need to consider inpatient avn ablation.
Original Note:
Consultation
Consultation Request
Date/Time Consultation Requested: 08/05/2023 11:00
Date/Time Consultation Performed: 08/05/2023 12:45
Requesting Provider: Dr. Templeton
Performing Provider: ISMAEL Chacon for Dr. Kasper
Reason for Consultation: Atrial fibrillation with rapid ventricular response
Medical History
-
Chief Complaint: Shortness of breath, palpitations
History of Present Illness:
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 Peterson) who is here with atrial fibrillation with right
ventricular response. He believes his elevated heart rate started yesterday afternoon when he suddenly had severe palpitations along with ROSE. In the past, he had issues with orthostatic hypotension which prevented escalating medical therapy. He
is currently on a diltiazem drip. The plan is for eventual AVJ ablation. This was attempted when his Medtronic CASING COOKER-P was implanted however the coronary sinus lead was pulled and reimplanted. He reports his weight has been stable.
Past Medical History
Past Medical History: Arrhythmias (Permanent atrial fibrillation), Asthma, CHF, COPD, HTN, Hypercholesterolemia, Valvular Disease (Aortic stenosis prior TAVR) and Other (TAVR 2019, chronic HF with reduced LVEF, permanent A fib on Eliquis, CAD/NSTEMI
in setting of OM1 dissection 07/2022, and COPD (Dr. Peterson))
Past Surgical History: Tonsilectomy and Urological (Prostatectomy)
Social History
Tobacco: Former Smoker
Alcohol: None
Drug: None
Personal:
Living: With Family
Employment: Retired
Family History
Family History: Reviewed & Not Pertinent
Allergies / Home Medications
Allergy/AdvReac Type Severity Reaction Status Date / Time
albuterol Allergy Unknown Verified 07/24/23 14:49
animal dander Allergy Shortness Verified 07/24/23 14:49
of Breath
iodine Allergy shellfish Verified 07/24/23 14:49
allergy
pollen extracts Allergy sneezing, Verified 07/24/23 14:49
hayfever
shellfish derived Allergy Anaphylaxis Verified 07/24/23 14:49
tree and shrub pollen Allergy sneezing, Verified 07/24/23 14:49
hayfever
wine spirit Allergy Anaphylaxis Verified 07/24/23 14:49
sulphites Allergy Anaphylaxis Uncoded 07/24/23 14:49
WINE Allergy Anaphylaxis Uncoded 07/24/23 14:49
�Medication �Instructions �Recorded �Confirmed �Type
ascorbic acid (vitamin C) 250 mg 250 mg PO MOWEFR@0800 Supplement 03/31/19 08/05/23 History
tablet
rosuvastatin 5 mg tablet 5 mg PO MOTUWETHFR@0800 High 07/14/19 08/05/23 History
cholesterol
loratadine 10 mg tablet 10 mg PO DAILY Allergies 02/28/20 08/05/23 History
montelukast 10 mg tablet 10 mg PO HS Lung/breathing issues 02/28/20 08/05/23 History
multivitamin with folic acid 400 1 tab PO DAILY Supplement 02/28/20 08/05/23 History
mcg tablet (Tab-A-Tl)
cyanocobalamin (vitamin B-12) 250 250 mcg PO DAILY Supplement 08/07/22 08/05/23 History
mcg tablet
levalbuterol tartrate 45 1 puff inhalation R Q4HPRN PRN 08/07/22 08/05/23 History
mcg/actuation aerosol inhaler shortness of breath
apixaban 5 mg tablet (Eliquis) 5 mg PO BID Blood Clot 04/07/23 08/05/23 History
Prevention/Tx
budesonide-formoterol HFA 160 2 inh inhalation R BID 04/07/23 08/05/23 History
mcg-4.5 mcg/actuation aerosol Lung/Breathing Issues
inhaler (Symbicort)
clopidogrel 75 mg tablet 75 mg PO DAILY Blood Clot 04/07/23 08/05/23 History
Prevention/Tx
Mometasone 1 mg irrigation BID Congestion 06/21/23 08/05/23 History
biotin 10,000 mcg capsule 10,000 mcg PO DAILY Supplement 06/21/23 08/05/23 History
calcium carbonate 250 mg PO MOWEFR@0800 Supplement 06/21/23 08/05/23 History
cholecalciferol (vitamin D3) 25 25 mcg PO DAILY Supplement 06/21/23 08/05/23 History
mcg (1,000 unit) tablet
ipratropium bromide 0.02 % 2.5 ml inhalation R QIDPRN PRN 06/21/23 08/05/23 History
solution for inhalation shortness of breath
dapagliflozin propanediol 10 mg 10 mg PO HS Heart Failure 07/02/23 08/05/23 History
tablet
furosemide 40 mg tablet 40 mg PO BIDPRN PRN fluid 07/02/23 08/05/23 History
metoprolol succinate 50 mg 50 mg PO BID Blood Pressure 07/02/23 08/05/23 History
tablet,extended release 24 hr
potassium chloride 20 mEq 20 meq PO BIDPRN PRN taken with 07/02/23 08/05/23 History
tablet,extended release(part/cryst) lasix
ipratropium bromide 21 mcg (0.03 2 spray intranasal BID PRN 07/24/23 08/05/23 History
%) nasal spray congestion
nitroglycerin 0.4 mg sublingual 0.4 mg sublingual [id number] PRN 07/24/23 08/05/23 History
tablet (Nitrostat) chest pain
Review of Systems
-
History Source: Patient
All other systems: Negative unless noted
Constitutional: Fatigue
EENT: No Symptoms
Respiratory: Trouble Breathing
Cardiac: Palpitations
Abdomen/GI: No Symptoms
: No Symptoms
Musculoskeletal: No Symptoms
Skin: No Symptoms
Neurological: No Symptoms
Endocrine: No Symptoms
Hematologic/Lymphatic: No Symptoms
Physical Exam
Vital Signs
Temp Pulse Resp BP Pulse Ox
97.6 F 115 21 110/77 96
08/05/23 09:02 08/05/23 10:09 08/05/23 09:02 08/05/23 10:09 08/05/23 09:02
Lab Results
08/05/23 09:03
08/05/23 09:03
Troponin I 0.042 ng/ml H* 08/05/23 09:03
Yzj-I-Hmyipkizold Pept 9930 pg/ml 08/05/23 09:03
Physical Exam
General: Well Developed, Well Nourished, No Apparent Distress and Comfortable
HEENT: Normocephalic, Anicteric and Moist Mucous Membranes
Respiratory: Crackles and Non Labored Respirations
Cardiac: S1/S2 and Irregular Rhythm
Breast: Deferred by me
GI: Soft, Non Tender, Non Distended and Normal Bowel Sounds
Rectal: Deferred by Provider
Genito-urinary: No Costovertebral Tender
Musculoskeletal: No Clubbing and No Cyanosis
Skin: Warm and Dry
Neuro: AO x 3
Hematologic/Lymphatic: No Lymphadenopathy
Psych: Calm
Impression / Plan
-
Permanent atrial fibrillation ventricular response
-Continue rate control with diltiazem drip
-Digoxin/diltiazem was discontinued 07/18/2023 when he reported low heart rate & BP at home
-Oral anticoagulation: Apixaban
-S/p Medtronic CASING COOKER-P implantation on 06/30/23. AVJ ablation attempted but pulled CS lead and was reimplanted.
-Plan for AVJ ablation as outpatient
HFrEF, acute on chronic (LVEF 35-40%)
-Diuresis with furosemide, he gets symptomatic orthostatic hypotension, he received furosemide 40 mg IV in the ER
-Trend daily weight, I/O, and BMP with diuresis
-Heart failure education
TAVR (2019): Medtronic CoreValve Evolut #[id number], stable on echocardiogram.
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
Abnormal troponin, likely nonischemic myocardial injury in the setting of tachyarrhythmia and acute on chronic heart failure
-Troponin 0.042, trend to peak
-Denies chest pain
Prior NSVT, continue beta skip
Data Reviewed
-
EKG: Report Reviewed by me (Atrial fibrillation with ventricular response, LBBB, rate 125)
Radiology: Report Reviewed by me (CXR: Mild pulmonary vascular congestion. Small bilateral effusions, left greater than right.)
Labs: Labs Reviewed by me
Old Records: Reviewed
--- NOTE | 2023-08-05 14:10 | PTCARENOTE ---
Rec'd pt from ED via stretcher; Pt AAOx3 & able to ambulate into the room w/contact guard assistance. Pt Afib on telemetry monitoring w/HR in the 100's-130's w/activity. Pt does report 'feeling a little dizzy at times'. Pt advised to only get up
w/assistance in the room & pt instructed production or plant engineer su.Pt verbalized his understanding. Pt's VS stable w/BP 100/71. Pt w/IV Cardizem drip infusing through patent L AC line. Pt w/no c/o CP or SOB. Pt OOB to w/call su within reach. Plan of care
ongoing.
[2023-08-05 17:54] LABS: Troponin I 0.034 ng/ml
[2023-08-05] MEDS: TOPROL XL 50 MG PO (19:37)
[2023-08-05] MEDS: ELIQUIS 5 MG PO (19:37)
[2023-08-05] MEDS: SYMBICORT 160/4.5 MCG INHALER 2 PUFF INH (19:44)
[2023-08-05] MEDS: FARXIGA 10 MG PO (22:07)
[2023-08-05] MEDS: SINGULAIR 10 MG PO (22:07)
[2023-08-05] MEDS: MELATONIN 5 MG PO (22:07)
--- NOTE | 2023-08-05 22:34 | PTCARENOTE ---
Pt rec'd at beginning of shift oob in recliner chair. unct afib 110-120 on Cardizem gtt at 15 mg/hr. pt asympt. Medicated with Melatonin per pt request at HS. call su within reach.
[2023-08-06] VITALS (13 sets, daily range): BP systolic 88–144; BP diastolic 59–133; BMI 23.2
[2023-08-06] MEDS: CARDIZEM 125 IV (01:58)
[2023-08-06 04:16] LABS: Troponin I 0.034 ng/ml
[2023-08-06 04:25] LABS: Blood Urea Nitrogen 24 mg/dl (9-20); Calcium 8.6 mg/dl (8.4-10.2); Carbon Dioxide 23 mmol/L (22-30); Chloride 108 mmol/L (98-107); Estimated Creatinine Clearance 37 ml/min; Glucose 89 mg/dl (70-99); Potassium 3.3 mmol/L (3.5-5.1); Sodium 138 mmol/L (135-145); eGFR 49.87
[2023-08-06 04:32] LABS: % Eosinophils 2.4 % (0-6); % Immature Granulocytes 2.4 % (0-0.5); % Lymphocytes 9.9 % (20.5-51.1); % Monocytes 11.1 % (1.7-9.3); % Neutrophils 73.2 % (42.2-75.2); Absolute Basophils 0.1 10^3/uL (0-0.2); Absolute Eosinophils 0.2 10^3/uL (0-0.7); Absolute Immature Granulocytes 0.2 10^3/uL (0-0.05); Absolute Lymphocytes 0.8 10^3/uL (1.2-3.4); Absolute Monocytes 0.9 10^3/uL (0.1-0.6); Absolute Neutrophils 6.2 10^3/uL (1.4-6.5); Hematocrit 34.1 % (39.0-52.0); Hemoglobin 11.2 g/dL (13.0-18.0); Mean Corp Hgb Conc. 32.8 g/dL (33.0-37.0); Mean Corpuscular Hgb 31.7 pg (27.0-31.0); Mean Corpuscular Volume 96.6 fL (80.0-94.0); Mean Platelet Volume 9.9 fL (7.4-10.4); Nucleated Red Blood Cells % 0 % (-); Platelet Count 374 10^3/uL (130-400); Red Blood Cell Count 3.53 10^6/uL (4.70-6.10); Red Cell Dist. Width 14.7 % (11.5-14.5); White Blood Cell Count 8.4 10^3/uL (4.8-10.8)
[2023-08-06] MEDS: KCL 40 MEQ PO (05:24)
--- NOTE | 2023-08-06 05:34 | PTCARENOTE ---
Pt's am K+ level 3.3, house HOT POND OPERATOR notified 40 meq po Potassium given.
[2023-08-06] MEDS: SYMBICORT 160/4.5 MCG INHALER 2 PUFF INH ×2 (07:21→20:17)
--- NOTE | 2023-08-06 08:02 | W.PN.CD ---
Today's Communication / Plan
-
-will give IV digoxin and start 250 mcg QD
-Wean off Dilt drip
-Plan for AVJ ablation on 08/07
Impression / Plan
-
Permanent atrial fibrillation ventricular response
-Difficult to control rate on diltiazem drip
-Digoxin/diltiazem was discontinued 07/18/2023 when he reported low heart rate & BP at home
-will give IV digoxin and start 250 mcg QD
-Wean off Dilt drip
-s/p MANGLE CATCHER-P with LBB pacing lead and a lateral LV CS lead - both in good position.
-Oral anticoagulation: Apixaban
-S/p Medtronic MANGLE CATCHER-P implantation on 06/30/23. AVJ ablation attempted but pulled CS lead and was reimplanted.
-Plan for AVJ ablation on 08/07
HFrEF, acute on chronic (LVEF 35-40%)
-Diuresis with furosemide, he gets symptomatic orthostatic hypotension, he received furosemide 40 mg IV in the ER
-Trend daily weight, I/O, and BMP with diuresis
-Heart failure education
TAVR (2019): Medtronic CoreValve Evolut #29, stable on echocardiogram.
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
Abnormal troponin, likely nonischemic myocardial injury in the setting of tachyarrhythmia and acute on chronic heart failure
-Troponin 0.042, trend to peak
-Denies chest pain
Prior NSVT, continue beta skip
Physical Exam
Vital Signs/Labs
Vital Signs
Temp Pulse Resp BP Pulse Ox
98.1 F 119 16 105/68 96
08/06/23 03:36 08/06/23 07:24 08/06/23 07:24 08/06/23 03:35 08/06/23 07:24
06/08/06/23 08/07/23
06:59 06:59 06:59
Actual Weight 67.1 kg
08/06/23 03:44
08/06/23 03:44
08/05/23
09:03
Nif-Q-Sizciczcjvy Pept 9930
LAB Results
08/05/23 08/05/23 08/05/23
09:03 15:00 16:29
Troponin I 0.042 H* Cancelled 0.034
08/06/23
03:44
Troponin I 0.034
Physical Exam
Constitutional: No acute distress and Comfortable
EENT: Anicteric and Moist mucous membranes
Cardiovascular: Rhythm/rate is irregular, JVD present and S1S2 is normal
Respiratory: Respiratory effort normal, Lungs clear to auscul., Wheeze Absent and Crackles Absent
GI: Soft, Non tender and Normal bowel sounds
Neuro/Psych: Alert, Oriented and AO x 3
Data Reviewed
-
Date of Service: August 06, 2023
Medical Decision Making: Reviewed Test Results, Tests Ordered and Independent Historian Assessment
EKG: Tracing Personally Visualized and interpreted
Echo: Report Reviewed by me
X-Ray/CT/US/MRI/NUC/PET: Image Personally Visualized and interpreted
Labs: Labs Reviewed by me
Old Records: Reviewed
[2023-08-06] MEDS: LANOXIN 250 MCG IV (08:56)
--- NOTE | 2023-08-06 09:02 | W.PN.HOSP.TC ---
Today's Communication/Plan
-
Continue diuresis
Goal of rate control
Replete potassium
Check magnesium
TEDs stockings
Assessment / Plan
Assessment / Plan
Gen-AAOx3, NAD
HEENT-NC, AT, anicteric, clear oral mm
Neck-supple
CV-irregular, tachycardic, no M, +S1/S2
Lungs-clear B/L
Abd-soft, NT, ND
Ext-no edema
Musculoskeletal-no cyanosis, clubbing
Skin-warm and dry
Neuro-grossly non-focal
Psych-calm, cooperative
Permanent atrial fibrillation/rapid atrial fibrillation -appreciate cardiology input. Now on digoxin, wean down Cardizem. Continue Eliquis. Rates remain fast today, around 120.
CUSTOM DECORATING CONSULTANT-P implanted in June, awaiting AVJ ablation. Cardiology has decided to proceed with ablation on August 07.
Acute on chronic heart failure with reduced EF exacerbation -presentation with orthopnea, BNP 9930, mild pulmonary edema, small pleural effusions. IV Lasix started in the emergency room, will continue. Patient denies changes in body weight, denies
lower extremity swelling. Last echocardiogram was July 24, showed LVEF 35 to 40%, global hypokinesis, normal RV size and function. Microbubbles seen in the LV cavity, unclear if artifact.
Hypokalemia -getting repleted. Check magnesium.
Troponin elevation -suspect acute nonischemic myocardial injury due to acute illness. Troponin normalized.
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
Orthostatic hypotension - noted during recent hospitalization. Compression stockings prescribed but patient states he does not use them. TEDs ordered.
CKD 3b -creatinine appears to be at baseline.
Aortic stenosis/TAVR
COPD without exacerbation
Essential hypertension -stable.
History of prostate cancer -s/p prostatectomy.
Full code
Anticipated Discharge: > 48 hours
Subjective/Interval History
-
Date of Service: August 06, 2023
Patient seen and examined. Feeling better. Less short of breath. However he does feel palpitations occasionally from rapid atrial fibrillation.
Objective Data
-
Labs:
Laboratory Results
08/06/23
03:44
WBC 8.4
Hgb 11.2 L
Hct 34.1 L
Plt Count 374
Sodium 138
Potassium 3.3 L
Chloride 108 H
Carbon Dioxide 23
BUN 24 H
Creatinine 1.4 H
Glucose 89
Calcium 8.6
Vital Signs:
Vital Signs
Temp Pulse Resp BP Pulse Ox
98.3 F 115 20 93/71 98
08/06/23 08:10 08/06/23 08:45 08/06/23 08:10 08/06/23 08:14 08/06/23 08:51
I&O
08/05/23 08/06/23 08/07/23
06:59 06:59 06:59
Intake Total 420 / 420
Output Total 150 / 150
Balance 270 / 270
Review of Systems
-
History Source: Patient
All other systems: Reviewed and negative
[2023-08-06] MEDS: VITAMIN B-12 250 MCG PO (09:03)
[2023-08-06] MEDS: THERAGRAN 1 TABLET PO (09:05)
[2023-08-06] MEDS: CLARITIN 10 MG PO (09:05)
[2023-08-06] MEDS: CRESTOR 5 MG PO (09:06)
[2023-08-06] MEDS: VITAMIN C 250 MG PO (09:06)
[2023-08-06] MEDS: TOPROL XL 50 MG PO ×2 (09:06→20:29)
[2023-08-06] MEDS: ELIQUIS 5 MG PO ×2 (09:06→20:29)
[2023-08-06] MEDS: PLAVIX 75 MG PO (09:06)
[2023-08-06] MEDS: XOPENEX HFA 45 MCG INHALER 1 PUFF INH (09:32)
[2023-08-06 09:45] LABS: Magnesium 2.3 mg/dl (1.6-2.3)
[2023-08-06] MEDS: LASIX 40 MG IV (11:30)
[2023-08-06] MEDS: VITAMIN D3 (cholecalciferol) 25 MCG PO (11:30)
[2023-08-06] MEDS: LANOXIN 250 MCG PO (12:06)
--- NOTE | 2023-08-06 13:20 | CM ---
CM following for DC planning needs.
Met w/ patient at bedside. Pt. was recently at and ND'ed to home 07/24 to home w/ [facility].
Pt. resides w/ spouse in a private, 2 story home w/ 2 CLINT. Functionally, patient is indep. w/ use of a RW.
Pt. would like to continue with [facility] upon DC. Will send referral for [facility].
Plan is for home w/ [facility].
CM to follow.
--- NOTE | 2023-08-06 19:16 | PTCARENOTE ---
Pt resting in bed. Diltiazem infusion weaned off, digoxin given. Telemetry shows atrial fib with LBBB at a rate @104-120. Pt denies any discomfort.
[2023-08-06] MEDS: KCL 20 MEQ PO (20:29)
[2023-08-06] MEDS: SINGULAIR 10 MG PO (22:55)
[2023-08-06] MEDS: FARXIGA 10 MG PO (22:55)
[2023-08-07] VITALS (12 sets, daily range): BP systolic 87–136; BP diastolic 58–85; PULSE 112–126; BMI 22.8
[2023-08-07] MEDS: MELATONIN 5 MG PO ×2 (01:13→22:34)
--- NOTE | 2023-08-07 04:32 | PTCARENOTE ---
Patient slept well after the melatonin received as a one time dose. Requesting it for tonight again. A-FIB R 100's, BP 125/75. Denies lightheadedness or dizziness. Call su in reach
[2023-08-07 05:48] LABS: Blood Urea Nitrogen 23 mg/dl (9-20); Calcium 8.3 mg/dl (8.4-10.2); Carbon Dioxide 25 mmol/L (22-30); Chloride 108 mmol/L (98-107); Estimated Creatinine Clearance 48 ml/min; Glucose 83 mg/dl (70-99); Sodium 138 mmol/L (135-145); eGFR > 60.00
--- NOTE | 2023-08-07 07:30 | W.PN.CD ---
Today's Communication / Plan
-
- Plan for AVJ ablation in AM
Impression / Plan
-
Permanent atrial fibrillation ventricular response
-Difficult to control rate on diltiazem drip
-Digoxin/diltiazem was discontinued 07/18/2023 when he reported low heart rate & BP at home
-on digoxin 250 mcg QD
-Dilt drip is off now.
-s/p BEAD TRIMMER-P with LBB pacing lead and a lateral LV CS lead - both in good position.
-Oral anticoagulation: Apixaban
-S/p Medtronic BEAD TRIMMER-P implantation on 06/30/23. AVJ ablation attempted but pulled CS lead and was reimplanted.
-Plan for AVJ ablation on 08/07
HFrEF, acute on chronic (LVEF 35-40%)
-Diuresis with furosemide, he gets symptomatic orthostatic hypotension, he received furosemide 40 mg IV in the ER
-Trend daily weight, I/O, and BMP with diuresis
-Heart failure education
TAVR (2019): Medtronic CoreValve Evolut #29, stable on echocardiogram.
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
Abnormal troponin, likely nonischemic myocardial injury in the setting of tachyarrhythmia and acute on chronic heart failure
-Troponin 0.042, trend to peak
-Denies chest pain
Prior NSVT, continue beta skip
Physical Exam
Vital Signs/Labs
Vital Signs
Temp Pulse Resp BP Pulse Ox
98.3 F 110 20 125/75 98
08/07/23 03:55 08/07/23 07:15 08/07/23 03:55 08/07/23 03:53 08/07/23 03:55
08/06/23 08/07/23 08/08/23
06:59 06:59 06:59
Actual Weight 67.1 kg 66 kg
08/06/23 03:44
08/07/23 04:01
Magnesium 2.3 mg/dl (1.6-2.3) 08/06/23 03:44
08/05/23
09:03
Nsw-U-Ppopgfcrpwt Pept 9930
LAB Results
08/05/23 08/05/23 08/05/23
09:03 15:00 16:29
Troponin I 0.042 H* Cancelled 0.034
08/06/23
03:44
Troponin I 0.034
Physical Exam
Constitutional: No acute distress and Comfortable
EENT: Anicteric and Moist mucous membranes
Cardiovascular: Pedal edema is absent, JVD pressure is normal, Rhythm/rate is irregular and S1S2 is normal
Respiratory: Respiratory effort normal, Wheeze Absent and Crackles Absent
GI: Soft, Non tender and Normal bowel sounds
Neuro/Psych: Alert, Oriented and AO x 3
Data Reviewed
-
Date of Service: August 07, 2023
Medical Decision Making: Reviewed Test Results, Independent Historian Assessment, Test Interpretation and Review of Case with other Provider
EKG: Tracing Personally Visualized and interpreted
Echo: Report Reviewed by me
Labs: Labs Reviewed by me
Old Records: Reviewed
[2023-08-07] MEDS: SYMBICORT 160/4.5 MCG INHALER 2 PUFF INH ×2 (09:15→19:59)
--- NOTE | 2023-08-07 09:49 | W.PN.HOSP.TC ---
Today's Communication/Plan
-
Continue current care
Assessment / Plan
Assessment / Plan
Gen-AAOx3, NAD
HEENT-NC, AT, anicteric, clear oral mm
Neck-supple
CV-irregular, tachycardic, no M, +S1/S2
Lungs-clear B/L
Abd-soft, NT, ND
Ext-no edema
Musculoskeletal-no cyanosis, clubbing
Skin-warm and dry
Neuro-grossly non-focal
Psych-calm, cooperative
Permanent atrial fibrillation/rapid atrial fibrillation -appreciate cardiology input. Now on digoxin, wean down Cardizem. Continue Eliquis. Rates remain fast today, around 120.
PROGRAM MANAGEMENT SPECIALIST-P implanted in June, awaiting AVJ ablation. Cardiology has decided to proceed with ablation on August 07.
Acute on chronic heart failure with reduced EF exacerbation -presentation with orthopnea, BNP 9930, mild pulmonary edema, small pleural effusions. IV Lasix started in the emergency room, will continue. Patient denies changes in body weight, denies
lower extremity swelling. Last echocardiogram was July 24, showed LVEF 35 to 40%, global hypokinesis, normal RV size and function. Microbubbles seen in the LV cavity, unclear if artifact.
Heart failure symptoms improved, denies shortness of breath. Weight has plateaued at 66 kg.
Hypokalemia -resolved.
Troponin elevation -suspect acute nonischemic myocardial injury due to acute illness. Troponin normalized.
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
Orthostatic hypotension - noted during recent hospitalization. Compression stockings prescribed but patient states he does not use them. TEDs ordered.
ENRRIQUE on CKD 3b -creatinine down to 1.1 today, therefore ENRRIQUE improving. Creatinine 1.4 48 hours ago on admission. Suspect ENRRIQUE related to cardiorenal syndrome due to acute heart failure exacerbation. Suspect his creatinine prior to admission was
lower than 1.4.
Aortic stenosis/TAVR
COPD without exacerbation
Essential hypertension -stable.
History of prostate cancer -s/p prostatectomy.
Full code
Anticipated Discharge: Within 24 hours
Subjective/Interval History
-
Date of Service: August 07, 2023
Patient seen and examined. No complaints.
Objective Data
-
Labs:
Laboratory Results
08/07/23
04:01
Sodium 138
Potassium 4.0
Chloride 108 H
Carbon Dioxide 25
BUN 23 H
Creatinine 1.1
Glucose 83
Calcium 8.3 L
Vital Signs:
Vital Signs
Temp Pulse Resp BP Pulse Ox
98.1 F 95 16 125/75 97
08/07/23 08:08 08/07/23 09:17 08/07/23 09:17 08/07/23 03:53 08/07/23 09:17
I&O
08/06/23 08/07/23 08/08/23
06:59 06:59 06:59
Intake Total 420 / 420 240 / 240
Output Total 150 / 150
Balance 270 / 270 240 / 240
Review of Systems
-
History Source: Patient
All other systems: Reviewed and negative
[2023-08-07] MEDS: VITAMIN B-12 250 MCG PO (10:10)
[2023-08-07] MEDS: PLAVIX 75 MG PO (10:10)
[2023-08-07] MEDS: TOPROL XL 50 MG PO ×2 (10:12→20:28)
[2023-08-07] MEDS: VITAMIN D3 (cholecalciferol) 25 MCG PO (10:12)
[2023-08-07] MEDS: CRESTOR 5 MG PO (10:12)
[2023-08-07] MEDS: CLARITIN 10 MG PO (10:12)
[2023-08-07] MEDS: ELIQUIS 5 MG PO ×2 (10:12→20:28)
[2023-08-07] MEDS: KCL 20 MEQ PO ×2 (10:12→20:27)
[2023-08-07] MEDS: THERAGRAN 1 TABLET PO (10:12)
[2023-08-07] MEDS: LASIX 40 MG IV (10:13)
[2023-08-07] MEDS: XOPENEX HFA 45 MCG INHALER 1 PUFF INH ×2 (10:43→19:59)
[2023-08-07] MEDS: LANOXIN 250 MCG PO (12:02)
--- NOTE | 2023-08-07 14:31 | CM ---
CM following for DC planning needs.
Met w/ patient at bedside. He is anticipating Ablation 08/07.
DC plan is for home w/ [facility].
Will cont. to follow.
--- NOTE | 2023-08-07 18:32 | PTCARENOTE ---
Pt remains in atrial fib with LBBB at a rate @90-130. Plan for ablation on 08/07. Pt reported experiencing a 'terrible panic attack lasting more than 30 minutes', which he controlled himself. Pt then slept for an hour.
[2023-08-07] MEDS: SINGULAIR 10 MG PO (22:34)
[2023-08-07] MEDS: MELATONIN PO (22:34)
[2023-08-07] MEDS: FARXIGA 10 MG PO (22:34)
--- NOTE | 2023-08-07 23:58 | PTCARENOTE ---
Patient walking in the room earlier, denies lightheadedness, gait is steady. A-Fib BBB. Plan of care reviewed, NPO past midnight. Melatonin given at hs. Call su in reach
[2023-08-08] VITALS (13 sets, daily range): BP systolic 107–125; BP diastolic 60–87; BMI 23.1
[2023-08-08 03:00] LABS: Blood Urea Nitrogen 22 mg/dl (9-20); Calcium 8.5 mg/dl (8.4-10.2); Carbon Dioxide 24 mmol/L (22-30); Chloride 111 mmol/L (98-107); Estimated Creatinine Clearance 40 ml/min; Glucose 108 mg/dl (70-99); Potassium 4.2 mmol/L (3.5-5.1); Sodium 140 mmol/L (135-145); eGFR 54.51
[2023-08-08] MEDS: SYMBICORT 160/4.5 MCG INHALER 2 PUFF INH ×2 (08:05→20:58)
[2023-08-08] MEDS: CLARITIN 10 MG PO (08:35)
[2023-08-08] MEDS: ELIQUIS 5 MG PO ×2 (08:35→19:35)
[2023-08-08] MEDS: TOPROL XL 50 MG PO ×2 (08:35→19:34)
[2023-08-08] MEDS: PLAVIX 75 MG PO (08:35)
[2023-08-08] MEDS: CRESTOR 5 MG PO (08:35)
--- NOTE | 2023-08-08 09:47 | W.PN.HOSP.TC ---
Today's Communication/Plan
-
Await ablation
Assessment / Plan
Assessment / Plan
Gen-AAOx3, NAD
HEENT-NC, AT, anicteric, clear oral mm
Neck-supple
CV-irregular, tachycardic, no M, +S1/S2
Lungs-clear B/L
Abd-soft, NT, ND
Ext-no edema
Musculoskeletal-no cyanosis, clubbing
Skin-warm and dry
Neuro-grossly non-focal
Psych-calm, cooperative
Permanent atrial fibrillation/rapid atrial fibrillation -appreciate cardiology input. Now on digoxin, wean down Cardizem. Continue Eliquis. Rates remain fast today, around 120.
PITCH WORKER-P implanted in June, awaiting AVJ ablation. Cardiology has decided to proceed with ablation on August 07.
Acute on chronic heart failure with reduced EF exacerbation -presentation with orthopnea, BNP 9930, mild pulmonary edema, small pleural effusions. IV Lasix started in the emergency room, will continue. Patient denies changes in body weight, denies
lower extremity swelling. Last echocardiogram was July 24, showed LVEF 35 to 40%, global hypokinesis, normal RV size and function. Microbubbles seen in the LV cavity, unclear if artifact.
Heart failure symptoms improved, denies shortness of breath. Weight has plateaued at 66 kg.
Hypokalemia -resolved.
Troponin elevation -suspect acute nonischemic myocardial injury due to acute illness. Troponin normalized.
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
Orthostatic hypotension - noted during recent hospitalization. Compression stockings prescribed but patient states he does not use them. TEDs ordered.
ENRRIQUE on CKD 3b -creatinine 1.3 today. Will monitor.
Aortic stenosis/TAVR
COPD without exacerbation
Essential hypertension -stable.
History of prostate cancer -s/p prostatectomy.
Full code
Anticipated Discharge: Within 24 hours
Subjective/Interval History
-
Date of Service: August 08, 2023
Patient seen and examined. Feeling better. No complaints.
Objective Data
-
Labs:
Laboratory Results
08/08/23
02:29
Sodium 140
Potassium 4.2
Chloride 111 H
Carbon Dioxide 24
BUN 22 H
Creatinine 1.3
Glucose 108 H
Calcium 8.5
Vital Signs:
Vital Signs
Temp Pulse Resp BP Pulse Ox
97.6 F 117 16 111/87 96
08/08/23 07:24 08/08/23 09:30 08/08/23 08:05 08/08/23 08:35 08/08/23 07:24
I&O
08/07/23 08/08/23 08/09/23
06:59 06:59 06:59
Intake Total 240 / 240 360 / 360
Balance 240 / 240 360 / 360
Review of Systems
-
History Source: Patient
All other systems: Reviewed and negative
--- NOTE | 2023-08-08 10:14 | W.PN.CD ---
Today's Communication / Plan
-
-AVJ ablation today
-Continue metoprolol
-Discontinue digoxin
-Continue Eliquis/Plavix
-Likely discharge in the morning
Impression / Plan
-
Permanent atrial fibrillation ventricular response
-Difficult to control rate on diltiazem drip
-Digoxin/diltiazem was discontinued 07/18/2023 when he reported low heart rate & BP at home
-on digoxin 250 mcg QD
-Dilt drip is off now.
-s/p FIXED ASSETS ACCOUNTANT-P with LBB pacing lead and a lateral LV CS lead - both in good position.
-Oral anticoagulation: Apixaban
-S/p Medtronic FIXED ASSETS ACCOUNTANT-P implantation on 06/30/23. AVJ ablation attempted but pulled CS lead and was reimplanted.
-Plan for AVJ ablation today
HFrEF, acute on chronic (LVEF 35-40%)
-Diuresis with furosemide, he gets symptomatic orthostatic hypotension, he received furosemide 40 mg IV in the ER
-Trend daily weight, I/O, and BMP with diuresis
-Heart failure education
TAVR (2019): Medtronic CoreValve Evolut #29, stable on echocardiogram.
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
Abnormal troponin, likely nonischemic myocardial injury in the setting of tachyarrhythmia and acute on chronic heart failure
-Troponin 0.042, trend to peak
-Denies chest pain
Prior NSVT, continue beta skip
Physical Exam
Vital Signs/Labs
Vital Signs
Temp Pulse Resp BP Pulse Ox
97.6 F 117 16 111/87 96
08/08/23 07:24 08/08/23 09:30 08/08/23 08:05 08/08/23 08:35 08/08/23 07:24
08/07/23 08/08/23 08/09/23
06:59 06:59 06:59
Actual Weight 66 kg 66.8 kg
08/06/23 03:44
08/08/23 02:29
Magnesium 2.3 mg/dl (1.6-2.3) 08/06/23 03:44
08/05/23
09:03
Wbe-P-Edyiqsrxzbm Pept 9930
LAB Results
08/05/23 08/05/23 08/06/23
15:00 16:29 03:44
Troponin I Cancelled 0.034 0.034
Physical Exam
Constitutional: No acute distress and Comfortable
EENT: Anicteric and Moist mucous membranes
Cardiovascular: JVD pressure is normal, Rhythm/rate is irregular and Systolic murmur present
Respiratory: Respiratory effort normal, Wheeze Absent and Crackles Absent
GI: Soft, Non tender and Normal bowel sounds
Neuro/Psych: Alert, Oriented and AO x 3
Data Reviewed
-
Date of Service: August 08, 2023
Medical Decision Making: Reviewed Test Results, Independent Historian Assessment, Test Interpretation and Review of Case with other Provider
EKG: Tracing Personally Visualized and interpreted
Echo: Report Reviewed by me
X-Ray/CT/US/MRI/NUC/PET: Image Personally Visualized and interpreted
Labs: Labs Reviewed by me
Old Records: Reviewed
--- NOTE | 2023-08-08 11:18 | ITS.CL.ABL ---
Sales Marketing Coordinator - Ablation
Ablation
Procedure Report:
Atrio-Ventricular Junction Ablation
Mr. Pendleton is a very pleasant�82 yr old gentleman with medical history significant for permanent atrial fibrillation s/p cardiac resynchronization therapy (UTILITY DRIVER-P) with left bundle branch pacing and CS lead placement on 06/30/2023 is admitted with
A-fib with rapid ventricular response and is recommended for AV node ablation for control of her atrial fibrillation rapid ventricular response.
Date of the Procedure:
08/08/2023
Indications:
Permanent atrial fibrillation and rapid ventricular response
�
Pre-Operative Diagnosis:
Permanent atrial fibrillation and rapid ventricular response
�
Post-Operative Diagnosis:
Permanent atrial fibrillation and rapid ventricular response
�
Procedure Performed:
AVJ / AV ronald ablation
�
Performing Physician:
Georgina Durant MD
�
Anesthesia:
See anesthesia records
�
Detailed Description of the Procedure:
Written informed consent was obtained from the patient after a full explanation of the risks and benefits of the procedure including the risks of sedation and anesthesia. The patient was brought to the electrophysiology laboratory in stable
condition in fasting state. Continuous electrocardiographic and hemodynamic monitoring was initiated.
The initial rhythm was atrial fibrillation.
The procedure site was meticulously prepared with surgical scrub and allowed to dry with no pooling. Sterile draping was applied to cover the procedure site. The image intensifier was draped with sterile bag and positioned over the patient.
Device interrogation and modifications:
The device was interrogated. �The thresholds were tested.� RV pacing threshold is less than 0.75 V and LV threshold is 1.5 V stable from implant.� The PPM was switched to VVI 60 bpm.
The device remained like this throughout the entire procedure and was turned back to usual setting at the end of the case.
Sheath and Catheter Placement:
After infusion of local anesthetic, vascular access was obtained under ultrasound guidance and sheaths were placed over guide wire as detailed below.
�
Sheaths:
��������������� -Agilis 12.5 Fr sheath in right femoral vein
�
Catheters:
��������������� - Saphire 4 mm ablation catheter
�
Following the sheath placement, EP study was done to identify the His location.� Patient is on the chronic anticoagulation. Heparin 3000 units were given.
The EP study showed atrial fibrillation and His location was identified. RV lead was pacing adequately with AF with AV ronald conduction noted.
�
AV ronald ablation:
Cardiac anatomy as established. HIS cloud was established. The triangle of Gibson was marked with ablation catheter.
Using Sapphire catheter (4mm -non-irrigated radiofrequency ablation catheter), the catheter was placed at the His locations and using 60watts of energy at 50degree temperature, the AV node was ablated for 45 seconds. The atrial fibrillation with AV
conduction stopped and patient was paced in the UTILITY DRIVER within 5 second of energy application. Further a couple of consolidation lesions were applied around that area.
Patient was observed for 15-20 minutes with no sign of AV node recovery.
Post Ablation EP study:
The EP study was done via the device and atrial fibrillation noted at the atrium and RV pacing with no AV conduction.
The device was reprogrammed to its initial settings. Patient was noted to be RV paced without any irregular heartbeat.
Procedure End
Following the completion of the procedure, the catheter was removed. The sheaths were removed and hemostasis achieved manual compression and a fig of 8 suture was applied.
Recommendations:
��������������� Continue home medications
�
Estimated Blood loss:
<5 cc
�
Specimens Removed:
None.
�
Implants / Devices:
None
�
Urine output:
None
�
Packs / Drains/ Tubes:
None
�
Instrument / Sponge Count Correct:
Yes
�
Complications of the Procedure:
None
�
Condition of Patient at Time of Transfer:
Hemodynamically stable with no neurological or vascular compromise.
Summary:
Successful AV ronald ablation
--- NOTE | 2023-08-08 12:05 | PTCARENOTE ---
Received pt from dental laboratory supervisor. Right groin CDI. VSS. Educated on bed rest and limb restrictions. Pt verbalized understanding. Call su within reach.
[2023-08-08] MEDS: LANOXIN 250 MCG PO (14:50)
[2023-08-08] MEDS: TYLENOL 650 MG PO (14:50)
[2023-08-08] MEDS: KCL PO ×2 (14:53→19:32)
[2023-08-08] MEDS: LASIX IV (14:53)
[2023-08-08] MEDS: VITAMIN B-12 PO (14:54)
[2023-08-08] MEDS: THERAGRAN PO (14:54)
[2023-08-08] MEDS: VITAMIN D3 (cholecalciferol) PO (14:54)
[2023-08-08] MEDS: VITAMIN C PO (14:54)
--- NOTE | 2023-08-08 16:38 | CM ---
CM following for DC planning needs.
Pt. had Ablation today. Met w/ patient at bedside. He reports that he is feeling well.
He is hopeful for DC this weekend and anticipates no needs.
Plan is for home, no needs.
Will remain avail. as needed.
--- NOTE | 2023-08-08 16:40 | CM ---
CM following for DC planning needs.
Pt. had Ablation today. Met w/ patient this afternoon. He reports that he is feeling well.
Reviewed DC plan for home w/ [facility].
Referral sent to [facility], accepted for resumption of care.
Plan is for home w/ [facility].
[2023-08-08] MEDS: XOPENEX HFA 45 MCG INHALER 1 PUFF INH (20:58)
[2023-08-08] MEDS: FARXIGA 10 MG PO (22:00)
[2023-08-08] MEDS: SINGULAIR 10 MG PO (22:00)
[2023-08-08] MEDS: MELATONIN 5 MG PO (22:00)
--- NOTE | 2023-08-08 22:23 | PTCARENOTE ---
Patient ambulating independently in the room. Rt groin site CDI. No pain . V-paced rhythm on tele. stable vitals. POC reviewed with patient . Will continue to monitor
[2023-08-09 04:20] VITALS: BP 118/77
[2023-08-09 05:09] LABS: Hematocrit 36.2 % (39.0-52.0); Hemoglobin 11.9 g/dL (13.0-18.0); Mean Corp Hgb Conc. 32.9 g/dL (33.0-37.0); Mean Corpuscular Hgb 32.3 pg (27.0-31.0); Mean Corpuscular Volume 98.4 fL (80.0-94.0); Mean Platelet Volume 9.9 fL (7.4-10.4); Platelet Count 363 10^3/uL (130-400); Red Blood Cell Count 3.68 10^6/uL (4.70-6.10); Red Cell Dist. Width 14.6 % (11.5-14.5); White Blood Cell Count 9.2 10^3/uL (4.8-10.8)
[2023-08-09 05:11] VITALS: BMI 23.1
[2023-08-09 05:35] LABS: Blood Urea Nitrogen 20 mg/dl (9-20); Calcium 8.3 mg/dl (8.4-10.2); Carbon Dioxide 23 mmol/L (22-30); Chloride 110 mmol/L (98-107); Estimated Creatinine Clearance 52 ml/min; Glucose 104 mg/dl (70-99); Potassium 4.7 mmol/L (3.5-5.1); Sodium 139 mmol/L (135-145); eGFR > 60.00
[2023-08-09] MEDS: SYMBICORT 160/4.5 MCG INHALER 2 PUFF INH (07:30)
[2023-08-09 08:06] VITALS: BP 115/65
[2023-08-09] MEDS: VITAMIN B-12 250 MCG PO (08:50)
[2023-08-09] MEDS: PLAVIX 75 MG PO (08:51)
[2023-08-09] MEDS: TOPROL XL 50 MG PO (08:51)
[2023-08-09] MEDS: LASIX IV (08:52)
[2023-08-09] MEDS: THERAGRAN 1 TABLET PO (08:52)
[2023-08-09] MEDS: ELIQUIS 5 MG PO (08:52)
[2023-08-09] MEDS: VITAMIN D3 (cholecalciferol) 25 MCG PO (08:52)
[2023-08-09] MEDS: KCL PO (08:52)
[2023-08-09] MEDS: CLARITIN 10 MG PO (08:52)
--- NOTE | 2023-08-09 10:22 | W.PN.HOSP.TC ---
Today's Communication/Plan
-
Discharge
Assessment / Plan
Assessment / Plan
Gen-AAOx3, NAD
HEENT-NC, AT, anicteric, clear oral mm
Neck-supple
CV-irregular, tachycardic, no M, +S1/S2
Lungs-clear B/L
Abd-soft, NT, ND
Ext-no edema
Musculoskeletal-no cyanosis, clubbing
Skin-warm and dry
Neuro-grossly non-focal
Psych-calm, cooperative
Permanent atrial fibrillation/rapid atrial fibrillation -appreciate cardiology input. Digoxin discontinued. Continue Eliquis, Toprol-XL.
FORECLOSURE SPECIALIST-P implanted in June. Underwent successful AV junction ablation yesterday. Rates now controlled.
Acute on chronic heart failure with reduced EF exacerbation -presentation with orthopnea, BNP 9930, mild pulmonary edema, small pleural effusions. IV Lasix started in the emergency room, will continue. Patient denies changes in body weight, denies
lower extremity swelling. Last echocardiogram was July 24, showed LVEF 35 to 40%, global hypokinesis, normal RV size and function. Microbubbles seen in the LV cavity, unclear if artifact.
Heart failure symptoms improved, denies shortness of breath. Weight has plateaued at 66 kg.
Hypokalemia -resolved.
Troponin elevation -suspect acute nonischemic myocardial injury due to acute illness. Troponin normalized.
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
Orthostatic hypotension - noted during recent hospitalization. Compression stockings prescribed but patient states he does not use them. TEDs ordered.
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 Creatinine down to 1.0.
Aortic stenosis/TAVR
COPD without exacerbation
Essential hypertension -stable.
History of prostate cancer -s/p prostatectomy.
Full code
Dispo - medically stable for discharge today. Discussed with cardiology. Outpatient follow-up.
32 minutes spent in discharge process.
Anticipated Discharge: Today
Subjective/Interval History
-
Date of Service: August 09, 2023
Patient seen and examined. No complaints. Ready to go home. Feeling much better.
Objective Data
-
Labs:
Laboratory Results
08/09/23
04:26
WBC 9.2
Hgb 11.9 L
Hct 36.2 L
Plt Count 363
Sodium 139
Potassium 4.7
Chloride 110 H
Carbon Dioxide 23
BUN 20
Creatinine 1.0
Glucose 104 H
Calcium 8.3 L
Vital Signs:
Vital Signs
Temp Pulse Resp BP Pulse Ox
97.5 F 78 18 115/65 95
08/09/23 08:06 08/09/23 08:51 08/09/23 08:06 08/09/23 08:51 08/09/23 08:06
I&O
08/08/23 08/09/23 08/10/23
06:59 06:59 06:59
Intake Total 360 / 360 960 / 960
Balance 360 / 360 960 / 960
Review of Systems
-
History Source: Patient
All other systems: Reviewed and negative
--- NOTE | 2023-08-09 10:35 | W.PN.CD ---
Today's Communication / Plan
-
Cont metoprolol
Transition to Lasix 40 daily
OK for discharge
Impression / Plan
-
Permanent atrial fibrillation ventricular response
-now s/p AVJ ablation
- HRs controlled, cont metoprolol
-s/p PURCHASING ANALYST-P with LBB pacing lead and a lateral LV CS lead - both in good position.
-Oral anticoagulation: Apixaban
-S/p Med[employer]onic PURCHASING ANALYST-P implantation on 06/30/23. AVJ ablation attempted but pulled CS lead and was reimplanted.
HFrEF, acute on chronic (LVEF 35-40%)
-40 lasix daily
-Trend daily weight, I/O, and BMP with diuresis
-Heart failure education
TAVR (2019): Medtronic CoreValve Evolut #[id number], stable on echocardiogram.
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
Abnormal troponin, likely nonischemic myocardial injury in the setting of tachyarrhythmia and acute on chronic heart failure
-Troponin 0.042, trend to peak
-Denies chest pain
Prior NSVT, continue beta skip
Physical Exam
Vital Signs/Labs
Vital Signs
Temp Pulse Resp BP Pulse Ox
97.5 F 78 18 115/65 95
08/09/23 08:06 08/09/23 08:51 08/09/23 08:06 08/09/23 08:51 08/09/23 08:06
08/08/23 08/09/23 08/10/23
06:59 06:59 06:59
Actual Weight 147 lb 4.301 oz
08/09/23 04:26
08/09/23 04:26
Magnesium 2.3 mg/dl (1.6-2.3) 08/06/23 03:44
08/05/23
09:03
Dbu-R-Taloebaljnp Pept 9930
Physical Exam
Constitutional: No acute distress
EENT: Anicteric
Cardiovascular: Pedal edema is absent and Rhythm/rate is irregular
Respiratory: Respiratory effort normal and Lungs clear to auscul.
GI: Soft
Neuro/Psych: AO x 3
Data Reviewed
-
Date of Service: August 09, 2023
EKG: Tracing Personally Visualized and interpreted (paced)
Echo: Report Reviewed by me
Labs: Labs Reviewed by me
--- NOTE | 2023-08-09 10:38 | W.DS.TRANS ---
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
-
Discharge Instructions:
Sleep Apnea Risk Intermediate
Discharge Diagnosis/Procedures Rapid atrial fibrillation, acute heart failure
exacerbation, hypokalemia, AVJ ablation
Diet Low Cholesterol,Low Fat
Activity As tolerated
Driving Restrictions As prior to admission
Bathing Restrictions None
Specialty Instructions Weigh Daily
Instructions: *CBC Heart Failure Instructions
Stand-Alone Forms: DC Instructions- Cath/EP Lab
Changes to Home Medications: No
Discharge Medications:
DC Medications w/original date entered in [employer]
ascorbic acid (vitamin C) 250 mg tablet 250 mg PO MOWEFR@0800 Supplement 03/31/19
rosuvastatin 5 mg tablet 5 mg PO MOTUWETHFR@0800 High cholesterol 07/14/19
loratadine 10 mg tablet 10 mg PO DAILY Allergies 02/28/20
montelukast 10 mg tablet 10 mg PO HS Lung/breathing issues 02/28/20
multivitamin with folic acid 400 mcg tablet (Tab-A-Tl) 1 tab PO DAILY Supplement 02/28/20
cyanocobalamin (vitamin B-12) 250 mcg tablet 250 mcg PO DAILY Supplement 08/07/22
levalbuterol tartrate 45 mcg/actuation aerosol inhaler 1 puff inhalation R Q4HPRN PRN shortness of breath 08/07/22
apixaban 5 mg tablet (Eliquis) 5 mg PO BID Blood Clot Prevention/Tx 04/07/23
budesonide-formoterol HFA 160 mcg-4.5 mcg/actuation aerosol inhaler (Symbicort) 2 inh inhalation R BID Lung/Breathing Issues 04/07/23
clopidogrel 75 mg tablet 75 mg PO DAILY Blood Clot Prevention/Tx 04/07/23
Mometasone 1 mg irrigation BID Congestion 06/21/23
biotin 10,000 mcg capsule 10,000 mcg PO DAILY Supplement 06/21/23
calcium carbonate 250 mg PO MOWEFR@0800 Supplement 06/21/23
cholecalciferol (vitamin D3) 25 mcg (1,000 unit) tablet 25 mcg PO DAILY Supplement 06/21/23
ipratropium bromide 0.02 % solution for inhalation 2.5 ml inhalation R QIDPRN PRN shortness of breath 06/21/23
dapagliflozin propanediol 10 mg tablet 10 mg PO HS Heart Failure 07/02/23
metoprolol succinate 50 mg tablet,extended release 24 hr 50 mg PO BID Blood Pressure 07/02/23
ipratropium bromide 21 mcg (0.03 %) nasal spray 2 spray intranasal BID PRN congestion 07/24/23
nitroglycerin 0.4 mg sublingual tablet (Nitrostat) 0.4 mg sublingual [id number] PRN chest pain 07/24/23
furosemide 40 mg tablet 40 mg PO DAILY #30 tabs 08/09/23
potassium chloride 20 mEq tablet,extended release 20 meq PO DAILY #30 tabs 08/09/23
Home Medication Changes
Pending Results: No
[2023-08-09 11:41] VITALS: BP 114/70
== END 2023-08-09 13:52 | disposition home health service (06) | DRG 273 ==
LOC: IVU 11:24
PROVIDERS: Internal Medicine Cardiovascular Disease; Nurse Practitioner; ADMITTING PHYSICIAN Hospitalist; CONSULT PHYSICIAN Internal Medicine Cardiovascular Disease; EMERGENCY PHYSICIAN Emergency Medicine; FAMILY PHYSICIAN Family Medicine
PROC: 02583ZZ Destruction of Conduction Mechanism, Percutaneous Approach (ICD-10-PCS; 2023-08-08)
PROC: 4A0234Z Measurement of Cardiac Electrical Activity, Percutaneous Approach (ICD-10-PCS; 2023-08-08)
PROC: 02K83ZZ Map Conduction Mechanism, Percutaneous Approach (ICD-10-PCS; 2023-08-08)
PROC: 4A023FZ Measurement of Cardiac Rhythm, Percutaneous Approach (ICD-10-PCS; 2023-08-08)
PROC: 4B02XSZ Measurement of Cardiac Pacemaker, External Approach (ICD-10-PCS; 2023-08-08)
DX: I48.21 Permanent atrial fibrillation (principal); I50.23 Acute on chronic systolic (congestive) heart failure; I5A Non-ischemic myocardial injury (non-traumatic); I13.0 Hypertensive heart and chronic kidney disease with heart failure and stage 1 through stage 4 chronic kidney disease, or unspecified chronic kidney disease; N17.9 Acute kidney failure, unspecified; I25.10 Atherosclerotic heart disease of native coronary artery without angina pectoris; I95.1 Orthostatic hypotension; N18.32 Chronic kidney disease, stage 3b; J44.9 Chronic obstructive pulmonary disease, unspecified; E78.00 Pure hypercholesterolemia, unspecified; E87.6 Hypokalemia; I47.20 Ventricular tachycardia, unspecified; Z95.5 Presence of coronary angioplasty implant and graft; I25.2 Old myocardial infarction; Z85.46 Personal history of malignant neoplasm of prostate; Z95.3 Presence of xenogenic heart valve; Z95.0 Presence of cardiac pacemaker; Z87.891 Personal history of nicotine dependence
CPT/HCPCS: 71046; 80048; 80053; 83735; 83880; 84484; 85025; 85027; 93005; 94640; 96374; 96375; 99291; J1160

== ENCOUNTER → 2023-08-12 13:37 | Outpatient (REF) | payer OTHER, SELFPAY | LOC: HWRAD 13:37 | PROVIDERS: ATTENDING PHYSICIAN Internal Medicine Critical Care Medicine; FAMILY PHYSICIAN Family Medicine | DX: J90 Pleural effusion, not elsewhere classified (principal) | CPT/HCPCS: 71046 ==

== ENCOUNTER 2023-08-26 03:13 | Emergency (ER) | payer OTHER, SELFPAY ==
[2023-08-26 03:16] VITALS: BP 150/88
--- NOTE | 2023-08-26 03:48 | ED.GENMED ---
History of Present Illness
<Jean-Paul Farah DO, Resident - Last Filed: 08/26/23 04:59>
General
Chief Complaint: Nose Bleed
Source: patient
Time Seen by Provider: 08/26/23 03:37
History of Present Illness
History of Present Illness:
Patient is an 82-year-old male with past medical history of A-fib and recently placed pacemaker on Plavix and Eliquis who presents to the ED after having a right nostril nosebleed that started around 9 PM last night. He states he has never had a
nosebleed like this before and that he was spitting out blood that he believes was from ingesting what was coming out of his nose. He has no other symptoms. He reports no headaches, nausea, vomiting, Falls, chest pain, shortness of breath or pain.
Past History
<Jean-Paul Farah DO, Resident - Last Filed: 08/26/23 04:59>
Past History
ED Past Medical History: Arrthythmia (Atrial fib), Asthma, CAD, Cancer (Prostate CA), COPD, HTN, Hypercholesterolemia, Valvular disease and Other (chronic sinusitis, colon polyps, Vertigo, Ataxia, PNA,)
ED Past Surgical History: Cardiac (Stents), Urological (prostatectomy) and Other (colon polypectomy)
Social History
Tobacco: Former smoker (quit 45 years ago)
Alcohol: Daily (Vodka 1)
Drug: None
Personal:
Living: with family
Employment: Retired
Family History
Family History: Other (n/c)
Review of Systems
<Jean-Paul Farah DO, Resident - Last Filed: 08/26/23 04:59>
Review of Systems
Constitutional: Reports no symptoms
EENT: Reports other (right sided bloody nose)
Respiratory: Reports no symptoms
Cardiac: Reports no symptoms
ABD/GI: Reports no symptoms
Musculoskeletal: Reports no symptoms
Skin: Reports no symptoms
Phy Exam
<Jean-Paul Farah DO, Resident - Last Filed: 08/26/23 04:59>
General Physical Exam
General Presentation: well appearing and no apparent distress
General age: appears stated age
General Skin: warm and dry
General Habitus: normal
General Mental: alert
General Hydration: appears well hydrated, dry mucous membranes and poor skin turgor
Cardiovascular Exam
Cardiovascular Exam: regular rate/rhythm, no edema, no gallop, no JVD and no murmur
Pulmonary Exam
Pulmonary Exam: lungs clear, no respiratory distress, no rales, chest non tender, no crackles, no rhonchi, no stridor, no wheezing and no cough
Skin Exam
Skin Exam: other (minor bleeding from vessels in right nares)
Psychiatric Exam
Psychiatric Exam: normal mood/affect
Course
<Jean-Paul Farah DO, Resident - Last Filed: 08/26/23 04:59>
Orders/Labs/Results
Orders:
Orders
08/26/23 05:49
Cephalexin Monohydrate [Keflex] 250 mg PO NOW STA
Vital Signs
Initial and Last Documented VS:
Initial Vital Signs
Temp Pulse Resp BP Pulse Ox
98 F 90 22 150/88 98
08/26/23 03:16 08/26/23 03:16 08/26/23 03:16 08/26/23 03:16 08/26/23 03:16
Last Documented Vital Signs
Temp Pulse Resp BP Pulse Ox
98 F 75 16 132/78 96
08/26/23 03:16 08/26/23 05:30 08/26/23 05:30 08/26/23 05:04 08/26/23 05:30
<Luis Timmons DO - Last Filed: 08/26/23 05:51>
Orders/Labs/Results
Orders:
Orders
08/26/23 05:49
Cephalexin Monohydrate [Keflex] 250 mg PO NOW STA
Vital Signs
Initial and Last Documented VS:
Initial Vital Signs
Temp Pulse Resp BP Pulse Ox
98 F 90 22 150/88 98
08/26/23 03:16 08/26/23 03:16 08/26/23 03:16 08/26/23 03:16 08/26/23 03:16
Last Documented Vital Signs
Temp Pulse Resp BP Pulse Ox
98 F 75 16 132/78 96
08/26/23 03:16 08/26/23 05:30 08/26/23 05:30 08/26/23 05:04 08/26/23 05:30
<Jean-Paul Farah DO, Resident - Last Filed: 08/26/23 04:59>
MDM/Problems Addressed
Differential Diagnosis Includes:
Bloody nose
MDM/Problems Addressed:
Patient is an 82-year-old male presenting to the ED after nosebleed began at 9:30 PM. He has a history of A-fib, ablation and pacemaker placement. He is on Eliquis and Plavix currently.The bleeding vessels and right nares were cauterized in the ED.
Chronic conditions affecting care: CAD and Arrhythmia
Acute Exacerbation and/or Progression of Chronic Illness: CAD and Arrhythmia
<Jean-Paul Farah DO, Resident - Last Filed: 08/26/23 04:59>
*Pulse Oximetry
Patient hypoxic: no
*EKG
Interpreted by ED Provider?: NA
*Environmental Health And Safety Leader Interpretation
Rate: Environmental Health And Safety Leader- N/A
*Critical Care Note
Total Time (30-74mins, 75-104mins- exclusive of procedures): Not Applicable
<Luis Timmons DO - Last Filed: 08/26/23 05:51>
Update Note
Update Note:
08/26/2023 0524 AM: Patient started to ooze blood again. I put a Merisel in with epinephrine. Patient tolerated procedure well. Bleeding had stopped.
ED Attending Note
<Jean-Paul Farah DO, Resident - Last Filed: 08/26/23 04:59>
-
Portions of this chart may have been created with voice recognition software.� Occasional wrong word or��sound alike� substitutions may have occurred due to the inherent limitations of voice recognition software.
<Luis Timmons DO - Last Filed: 08/26/23 05:51>
ED Attending Note
Patient seen and examined by attending physician: Yes
I performed a history and physical exam of patient and discussed management with resident, I reviewed resident's note and agree with documented findings and plan of care.: Yes
ED Attending Note:
Pleasant 82-year-old male with right nostril nosebleed. Patient reports that is been bleeding for hours. He is on Eliquis and Plavix. Denies head injury or loss of consciousness. Patient states that the nosebleed started around 9 PM last
evening. He has had nosebleeds in the past but tonight was more severe and persistent. Patient denies head injury or loss of consciousness. Patient was seen in conjunction with the medical record administrator. I reviewed and agree with her history and
treatment plan. On my independent physical exam patient has dried blood in the right nare. There is 1 small spot of bright red blood that was slowly but actively extravasating. I did take some silver nitrate to cauterize this. It appears that
the bleeding has stopped. Patient to be discharged home and follow-up with Dr. Weber, ENT as needed. He was given a nasal clip.
Discharge Plan
Departure
Patient Disposition: Home (Routine Discharge)
Date of Disposition: 08/26/23
Time of Disposition: 04:53
Patient with high blood pressure during this ER visit?: Yes
Condition: Good
Discharge Problem:
Bleeding nose, Acute anterior epistaxis
Instructions: Nosebleeds (DC), BLOOD PRESSURE
Prescriptions:
New
cephalexin 250 mg capsule
250 mg PO BID 7 Days Qty: 14 0RF
No Action
ascorbic acid (vitamin C) 250 MG tablet
250 mg PO MOWEFR@0800
rosuvastatin 5 MG tablet
5 mg PO MOTUWETHFR@0800
montelukast 10 MG tablet
10 mg PO HS
loratadine 10 MG tablet
10 mg PO DAILY
multivitamin with folic acid [Tab-A-Tl] 1 TABLET tablet
1 tab PO DAILY
levalbuterol tartrate 45 mcg/actuation HFA aerosol inhaler
1 puff INHALATION R Q4HPRN PRN (Reason: shortness of breath)
cyanocobalamin (vitamin B-12) 250 mcg Tablet
250 mcg PO DAILY
budesonide-formoterol [Symbicort] 160-4.5 mcg/actuation Hfa Aerosol Inhaler
2 inh INHALATION R BID
clopidogrel 75 mg tablet
75 mg PO DAILY
Eliquis 5 mg tablet
5 mg PO BID
calcium carbonate 500 mg calcium (1,250 mg) Tablet
250 mg PO MOWEFR@0800
biotin 10,000 mcg Capsule
10,000 mcg PO DAILY
ipratropium bromide 0.02 % Solution
2.5 ml INHALATION R QIDPRN PRN (Reason: shortness of breath)
cholecalciferol (vitamin D3) 25 mcg (1,000 unit) Tablet
25 mcg PO DAILY
Mometasone 1 mg capsule
1 mg irrigation BID
Rx Instructions:
directions from label: ADD CONTENTS OF ONE CAPSULE TO 240 ML SALINE. IRRIGATE EACH NOSTRIL USING NEILMED WITH 120 ML OF MEDICATED SALINE TWICE DAILY.
metoprolol succinate 50 mg tablet extended release 24 hr
50 mg PO BID
dapagliflozin propanediol 10 mg tablet
10 mg PO HS
nitroglycerin [Nitrostat] 0.4 mg Tablet, Sublingual
0.4 mg SUBLINGUAL [id number] PRN (Reason: chest pain)
ipratropium bromide 21 mcg (0.03 %) [place],Non-Aerosol
2 spray INTRANASAL BID PRN (Reason: congestion)
furosemide 40 mg tablet
40 mg PO DAILY Qty: 30 0RF
potassium chloride 20 mEq tablet extended release
20 meq PO DAILY Qty: 30 0RF
Referrals:
Meng Granda DO [Family Provider] -
Moy Weber MD [Active] -
Activity Restrictions/Additional Instructions:
It was a pleasure meeting you and taking part in your care. We hope for your continued healing and wellness.
Please read discharge instructions in their entirety. However, they are for general education and may not describe your exact diagnosis at discharge. Information on your ER visit and medical conditions were discussed with you along with appropriate
follow up information...
If indicated, please take your medications as instructed and indicated on discharge paperwork.
Please schedule a follow up appointment as directed. Call to schedule an appointment
Please return to the emergency department with ANY change in, persisting, or worsening of symptoms. If any of your symptoms do not improve, or persist, or become more severe within 6-12 hours, please return to the emergency department for further
care.
Please return to the emergency department if you develop a headache, neck pain/stiffness, fever greater than 100.4F, chest pain, shortness of breath, persistent nausea, vomiting, slurred speech, difficulty walking, numbness/tingling, weakness, signs
of infection or any other symptoms that are worrisome to you.
If you have any questions or concerns please do not hesitate to call the Hospital at or E-mail me directly at [email or web address]
Interventions
Interventions:
*Risk Screen - Suicide Last Done: 08/26/23 03:16
*General Assessment Last Done: 08/26/23 03:50
*Neglect/Abuse Screening Last Done: 08/26/23 03:16
ED- Fall Risk Assessment Last Done: 08/26/23 03:50
*ED COVID-19 Vaccine History Last Done: 08/26/23 03:50
ED-EENT Assessment Last Done: 08/26/23 03:50
Discharge Date and Time
Print Language: ITALIAN
[2023-08-26 03:58] VITALS: BMI 23.3
[2023-08-26 04:18] VITALS: BP 122/79
[2023-08-26 04:58] VITALS: BP 132/67
[2023-08-26 05:04] VITALS: BP 132/78
[2023-08-26 06:00] VITALS: BP 145/83
[2023-08-26] MEDS: KEFLEX 250 MG PO (06:09)
== END 2023-08-26 06:10 | disposition home or self-care (01) ==
LOC: EMR 03:13
PROVIDERS: EMERGENCY PHYSICIAN Student in an Organized Health Care Education/Training Program; FAMILY PHYSICIAN Family Medicine
DX: R04.0 Epistaxis (principal); I48.91 Unspecified atrial fibrillation; I25.10 Atherosclerotic heart disease of native coronary artery without angina pectoris; I10 Essential (primary) hypertension; E78.00 Pure hypercholesterolemia, unspecified; J45.909 Unspecified asthma, uncomplicated; Z79.01 Long term (current) use of anticoagulants; Z79.02 Long term (current) use of antithrombotics/antiplatelets; Z95.5 Presence of coronary angioplasty implant and graft; Z85.46 Personal history of malignant neoplasm of prostate; Z95.0 Presence of cardiac pacemaker; Z87.891 Personal history of nicotine dependence; Z90.79 Acquired absence of other genital organ(s); Z91.013 Allergy to seafood; Z88.8 Allergy status to other drugs, medicaments and biological substances; Z91.018 Allergy to other foods; Z91.048 Other nonmedicinal substance allergy status
CPT/HCPCS: 99283; 30901

== ENCOUNTER → 2024-03-08 14:01 | Outpatient (REF) | payer OTHER, SELFPAY | LOC: HWRAD 14:01 | PROVIDERS: ATTENDING PHYSICIAN Internal Medicine Critical Care Medicine; FAMILY PHYSICIAN Family Medicine | DX: J44.9 Chronic obstructive pulmonary disease, unspecified (principal) | CPT/HCPCS: 71046 ==

== ENCOUNTER → 2024-07-13 12:55 | Outpatient (REF) | payer OTHER, SELFPAY | LOC: RCS 12:55 | PROVIDERS: ATTENDING PHYSICIAN Internal Medicine Cardiovascular Disease; FAMILY PHYSICIAN Family Medicine | DX: I50.23 Acute on chronic systolic (congestive) heart failure (principal); Z95.2 Presence of prosthetic heart valve | CPT/HCPCS: 93306 ==